=== PATIENT | male | born 1955 | race Caucasian/White ===

== ENCOUNTER 2023-11-14 16:08 | Emergency (ER) | payer MEDICARE, OTHER, SELFPAY ==
--- NOTE | ~2023-11-14 | XR_ITS ---
EXAMINATION: XR chest 2V 11/14/2023 17:14 INDICATION: Cough and shortness of breath PROCEDURE: 2 view chest COMPARISON: No prior studies for comparison. FINDINGS: The lungs are clear. There is a right total shoulder arthroplasty. The cardiomediastinal si lhouette is within normal limits. There are no pleural effusions. There is no pneumothorax suspecte d. IMPRESSION: 1: NO ACUTE CARDIOPULMONARY DISEASE. Reviewed, dictated and finalized at location A.
[2023-11-14 16:09] VITALS: BP 135/61; PULSE 65; RESP 20; TEMP 36.1; O2SAT 98
--- NOTE | 2023-11-14 16:58 | ED.SOB ---
HPI - SOB/Dyspnea General Chief Complaint: Shortness of Breath/Dyspnea <Nish Viera APRN - Last Filed: 11/14/23 17:04> Stated Complaint: congestion in lungs/cough/SOB <Nish Viera APRN - Last Filed: 11/14/23 17:04> Time Seen by Provider: 11/14/23 17:00 <Nish Viera APRN - Last Filed: 11/14/23 17:04> Focused HPI: Mr. Milton is a 60-year-old male patient presenting to the ER today with complaints of 3 week course of shortness of breath and chest congestion and cough. He reports that the cough is productive-bringing up green phlegm. Has a history of asthma and long COVID. Take Symbicort and albuterol for this. Denies any chest pain. Just finished a Z-Musa yesterday that his gave him. History of congestive heart failure General: Well-developed, morbidly obese, in no apparent distress Head: Normocephalic, atraumatic. Cardio: Regular rate and rhythm, s1 and s2 normal, no murmur appreciated. Resp: Mild expiratory rhonchi throughout lung carver, no rales, wheezing or rubs. Extremities: No deformity, trace pitting edema in bilateral lower extremities, no cyanosis, capillary refill less than 2 seconds, peripheral pulses palpable and strong. Integumentary: [place], warm, and dry, intact without lesion, no rashes. Patient screened in triage and initial orders placed. Additional care and disposition to be based upon diagnostic testing and treatment. <Nish Viera APRN - Last Filed: 11/14/23 17:04> Focused HPI: Mr. Milton is a 60-year-old male patient presenting to the ER today with complaints of 3 week course of shortness of breath and chest congestion and cough. He reports that the cough is productive-bringing up green phlegm. Has a history of asthma and long COVID. Take Symbicort and albuterol for this. Denies any chest pain. Just finished a Z-Musa yesterday that his gave him. History of congestive heart failure General: Well-developed, morbidly obese, in no apparent distress Head: Normocephalic, atraumatic. Cardio: Regular rate and rhythm, s1 and s2 normal, no murmur appreciated. Resp: Mild expiratory rhonchi throughout lung carver, no rales, wheezing or rubs. Extremities: No deformity, trace pitting edema in bilateral lower extremities, no cyanosis, capillary refill less than 2 seconds, peripheral pulses palpable and strong. Integumentary: [place], warm, and dry, intact without lesion, no rashes. Patient screened in triage and initial orders placed. Additional care and disposition to be based upon diagnostic testing and treatment. <Aster Mosley PA-C - Last Filed: 11/15/23 03:33> Source: patient <Nish ANGEL LUIS Viera - Last Filed: 11/14/23 17:04> Mode of arrival: ambulatory <Nish Viera APRN - Last Filed: 11/14/23 17:04> Limitations: no limitations <Nish Viera APRN - Last Filed: 11/14/23 17:04> History of Present Illness HPI Narrative: Agree with above MSE documentation. Denies fevers or known sick contacts. Denies lower extremity pain or swelling. States he has history of COVID long hauler syndrome. <Aster Mosley PA-C - Last Filed: 11/15/23 03:33> Related Data Allergies/Adverse Reactions: Allergies Allergy/AdvReac Type Severity Reaction Status Date / Time oxycodone Allergy Mild Unknown Verified 11/14/23 17:34 nafcillin Allergy Unknown Unknown Verified 11/14/23 17:34 <Nish Viera APRN - Last Filed: 11/14/23 17:04> Review of Systems Review of Systems: CONSTITUTIONAL: Denies fever, chills, or sweats. ENT: See HPI. CARDIOVASCULAR: Denies chest pain, palpitations, or edema. RESPIRATORY: See HPI. MUSCULOSKELETAL: Denies back pain, extremity pain, myalgia. <HMA Castellon Last Filed: 11/15/23 03:33> All systems reviewed & are unremarkable except as noted in HPI and below <HAM Castellon Last Filed: 11/15/23 03:33> [facility] Social History Socia
[2023-11-14 17:41] LABS: Basophils Absolute Auto 0.1 K/mm3 (0.0-0.1); Basophils Percent Auto 0.5 % (0.2-1.2); Eosinophils Absolute Auto 0.3 K/mm3 (0-0.3); Eosinophils Percent Auto 3.4 % (0-4.4); Hematocrit 37.4 % (42.0-52.0); Hemoglobin 11.4 g/dL (14.0-18.0); Immature Granulocyte Absolute 0.07 K/mm3 (0.00-0.031); Immature Granulocyte Percent A 0.8 % (0-0.5); Lymphocytes Percent Auto 26.9 % (18.3-44.2); Mean Corpuscular HGB Conc 30.5 g/dl (32-36); Mean Corpuscular Hemoglobin 25.4 pg (26-34); Mean Corpuscular Volume 83.3 fl (80-100); Mean Platelet Volume 10.1 fl (7.4-10.4); Monocytes Absolute Auto 0.9 K/mm3 (0.1-0.6); Monocytes Percent Auto 9.4 % (2.6-8.5); Neutrophils Absolute Auto 5.5 K/mm3 (1.3-6.7); Platelet Count Result 255 k/mm3 (150-375); Red Blood Count 4.49 M/mm3 (4.6-6.20); Red Cell Distribution Width 15.2 % (11.5-14.5); White Blood Count 9.3 K/mm3 (4.5-10.0)
[2023-11-14 18:00] VITALS: BP 117/63; PULSE 58; RESP 18; O2SAT 99
[2023-11-14 18:06] LABS: NT Pro B Type Natriuretic Pept 672 pg/mL (19.9-100)
--- NOTE | 2023-11-14 18:07 | ECG_ITS ---
SEE SCANNED COPY FOR CONFIRMED REPORT MTDD
[2023-11-14] MEDS: methylPREDNISolone SOD SUCC 125 MG VIAL IV PUSH (18:14)
[2023-11-14] MEDS: LEVALBUTEROL NEB 1.25 MG/3 ML 2.5 MG INHALATION (18:18)
[2023-11-14] MEDS: IPRATROPIUM BR 0.02% INH SOLN 0.5 MG/2.5 ML VIAL 1.5 MG INHALATION (18:18)
[2023-11-14 18:20] VITALS: PULSE 56; RESP 12
[2023-11-14 18:31] LABS: D Dimer 0.44 ug/mL (<0.48)
[2023-11-14 18:35] LABS: Influenza A QL RT-PCR Negative (Negative); Influenza B QL RT-PCR Negative (Negative); RSV RNA, RT-PCR Negative (Negative); SARS-CoV-2 RNA PCR Negative (Negative)
[2023-11-14 18:45] VITALS: BP 128/81; PULSE 56; RESP 12; O2SAT 100
[2023-11-14 18:48] LABS: Alanine Aminotransferase 21 U/L (6-50); Albumin Level 4.8 g/dL (3.5-5.1); Alkaline Phosphatase 115 U/L (38-126); Anion Gap 14 mmol/L (4-12); Aspartate Amino Transferase 21 U/L (17-59); Bilirubin,Total 0.6 mg/dL (0.2-1.3); Blood Urea Nitrogen 59 mg/dL (9-20); Calcium 9.8 mg/dL (8.4-10.2); Carbon Dioxide 19 mmol/L (22-30); Chloride 108 mmol/L (98-107); Estimated CRCL calculation 41 ml/min; Estimated Glomerular Filt Rate 27; Glucose 66 mg/dL (65-110); Potassium 4.4 mmol/L (3.4-5.0); Sodium 141 mmol/L (137-145)
[2023-11-14 19:58] VITALS: BP 103/42; PULSE 62; PULSE 65; RESP 20; O2SAT 98
[2023-11-14 20:12] LABS: Troponin I < 0.012 ng/mL (0.000-0.034)
[2023-11-14 21:10] VITALS: BP 107/50; PULSE 80; RESP 19; O2SAT 97
== END 2023-11-14 21:10 | disposition home or self-care (01) ==
PROVIDERS: Nurse Practitioner Family; Emergency Provider Physician Assistant
DX: J44.1 Chronic obstructive pulmonary disease with (acute) exacerbation (principal); Z20.822 Contact with and (suspected) exposure to COVID-19; I50.9 Heart failure, unspecified; U09.9 Post COVID-19 condition, unspecified; E66.01 Morbid (severe) obesity due to excess calories; Z68.42 Body mass index [BMI] 45.0-49.9, adult; I48.91 Unspecified atrial fibrillation
CPT/HCPCS: 36415; 71046; 80053; 83880; 84484; 85025; 85380; 87637; 93005; 94640; 96374; 99284; J2919

== ENCOUNTER 2024-07-24 14:51 | Inpatient (IN) | payer MEDICARE, OTHER, SELFPAY ==
--- NOTE | ~2024-07-24 | CT_ITS ---
EXAMINATION: CT abdomen pelvis wo con DATE: 07/27/2024 23:14 INDICATION: Low abdominal pain. TECHNIQUE: Computed tomography (CT) of the abdomen and pelvis was performed without intravenous contr ast. Automated exposure control and iterative reconstruction technique were employed. The dose-length product was 1825.30 mGy-cm. COMPARISON: None. FINDINGS: The visualized portions of lung bases demonstrate mild atelectasis. No pleural effusion. Th ere is left atrial enlargement of the heart. No pericardial effusion. The liver, gallbladder, spleen, pancreas, and left adrenal gland are normal. There is an 8 mm mass of fat in right adrenal gland, co nsistent with a myelolipoma. There are cysts in the kidneys measuring up to 2.7 cm on the right. The prostate is mildly enlarged. There are no dilated loops of bowel. There are changes of gastric sleeve procedure. 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 There is prominent fat in the inguinal canals. There are no pathologically enlarged lymph nodes. There is no free intraperitoneal fluid. The bladder is distended. There is a supraumbilical ventral hernia containing fat. There is severe lumbar spondy losis. There are changes of anterior and posterior fusion procedures at L3-L4. IMPRESSION: 1. Supraumbilical ventral hernia containing fat. 2. Prominent fat in the inguinal canals, which may be secondary to obesity or may be hernias. Reviewed, dictated and finalized at location A. RVISOR SUNGLASSES IMPRESSION: 1. Supraumbilical ventral hernia containing fat. 2. Prominent fat in the inguinal canals, which may be secondary to obesity or m ay be hernias.
--- NOTE | ~2024-07-24 | XR_ITS ---
EXAMINATION: XR knee LT 3V DATE: 07/24/2024 15:34 INDICATION: Left knee swelling. TECHNIQUE: 3 views of left knee were obtained. COMPARISON: None. FINDINGS: There is a medial compartment arthroplasty in near-anatomic alignment. No fracture. No nazia prosthetic lucency to suggest loosening or infection. There is mild osteoarthritis of lateral and pat ellofemoral compartments. There is a large knee joint effusion with loose body. IMPRESSION: 1. Medial compartment arthroplasty in near-anatomic alignment. 2. Mild left knee osteoarthritis. 3. Large knee joint effusion with loose body. Reviewed, dictated and finalized at location A. RVENTION MANAGER
--- NOTE | ~2024-07-24 | XR_ITS ---
EXAMINATION: XR chest 2V 07/24/2024 15:34 INDICATION: Cough PROCEDURE: 2 view chest COMPARISON: 11/14/2023 FINDINGS: The lungs are clear. The cardiomediastinal silhouette is within normal limits. There are no pleural effusions. There is no pneumothorax suspected. Partially visualized right shoulder arthr oplasty. IMPRESSION: 1: NO ACUTE CARDIOPULMONARY DISEASE. Reviewed, dictated and finalized at location B. LE TESTER
[2024-07-24 14:53] VITALS: BP 143/82; PULSE 80; RESP 16; TEMP 36.4; O2SAT 96
[2024-07-24] MEDS: MORPHINE SULFATE (*CRX) 4 MG/ML INJ IV PUSH (15:57)
[2024-07-24 16:14] LABS: Basophils Percent Auto 0.3 % (0.2-1.2); Eosinophils Absolute Auto 0.2 K/mm3 (0-0.3); Eosinophils Percent Auto 1.3 % (0-4.4); Hematocrit 38.6 % (42.0-52.0); Hemoglobin 12.2 g/dL (14.0-18.0); Immature Granulocyte Absolute 0.09 K/mm3 (0.00-0.031); Immature Granulocyte Percent A 0.8 % (0-0.5); Lymphocytes Absolute Auto 0.81 K/mm3 (0.9-3.2); Lymphocytes Percent Auto 7.1 % (18.3-44.2); Mean Corpuscular HGB Conc 31.6 g/dl (32-36); Mean Corpuscular Hemoglobin 25.3 pg (26-34); Mean Corpuscular Volume 79.9 fl (80-100); Mean Platelet Volume 9.6 fl (7.4-10.4); Monocytes Absolute Auto 0.9 K/mm3 (0.1-0.6); Monocytes Percent Auto 8.1 % (2.6-8.5); Neutrophils Absolute Auto 9.4 K/mm3 (1.3-6.7); Neutrophils Percent Auto 82.4 % (45.5-73.1); Platelet Count Result 414 k/mm3 (150-375); Red Blood Count 4.83 M/mm3 (4.6-6.20); Red Cell Distribution Width 15.4 % (11.5-14.5); White Blood Count 11.4 K/mm3 (4.5-10.0)
[2024-07-24 16:16] LABS: Alanine Aminotransferase 24 U/L (6-50); Albumin Level 3.8 g/dL (3.5-5.1); Alkaline Phosphatase 115 U/L (38-126); Anion Gap 9 mmol/L (4-12); Aspartate Amino Transferase 32 U/L (17-59); Bilirubin,Total 0.8 mg/dL (0.2-1.3); Blood Urea Nitrogen 26 mg/dL (9-20); Calcium 9.7 mg/dL (8.4-10.2); Carbon Dioxide 27 mmol/L (22-30); Chloride 102 mmol/L (98-107); Estimated Glomerular Filt Rate 35; Glucose 190 mg/dL (65-110); Potassium 3.6 mmol/L (3.4-5.0); Sodium 138 mmol/L (137-145); Uric Acid 9.6 mg/dL (3.5-8.5)
[2024-07-24 16:39] LABS: INR 4.8
[2024-07-24 16:40] LABS: Partial Thromboplastin Time 91.5 Seconds (22.3-36.8)
[2024-07-24 16:44] LABS: NT Pro B Type Natriuretic Pept 2070 pg/mL (19.9-100)
[2024-07-24 16:50] LABS: Erythrocyte Sedimentation Rate 64 mm/hr (0-20)
[2024-07-24] MEDS: COLCHICINE 0.6 MG TABLET 1.2 MG PO (17:13)
--- NOTE | 2024-07-24 17:32 | ED_ITS ---
HPI - Extremity Problem General Chief complaint: Extremity Problem,Nontraumatic Stated complaint: bilateral leg/feet swelling Time Seen by Provider: 07/24/24 15:02 History of Present Illness HPI Narrative: Patient is a 69-year-old male who presents ER with concerns for lower extremity swelling and gout flare. Patient has history of gout. Reports that over last month he has been having some achiness and extremity edema, this began after he stopped tolerating his Ozempic injections. Over the last 3 days he has developed increased swelling in the left knee. He is now unable to walk or transfer. Prior to a few days ago he could at least transfer. Patient is anticoagulated on Coumadin. He has chronic kidney disease. Reports he is typically treated with prednisone for his gout. Related Data Allergies Allergy/AdvReac Type Severity Reaction Status Date / Time oxycodone Allergy Mild Unknown Verified 11/14/23 17:34 nafcillin Allergy Unknown Unknown Verified 11/14/23 17:34 Review of Systems 2 Review of Systems: All systems reviewed & are unremarkable except as noted in HPI and below Constitutional: Constitutional: Reports no additional constitutional complaints ENT: Reports system reviewed and no additional complaints, except as documented Cardiovascular: Cardiovascular: Reports no additional cardiovascular complaints Gastrointestinal: Gastrointestinal: Reports no additional gastrointestinal complaints Genitourinary: Genitourinary: Reports no additional male genitourinary complaints Musculoskeletal: Musculoskeletal: Denies back pain, Reports arthralgias and Reports joint swelling PMFSH Past Medical History Medical History (Updated 07/24/24 @ 17:42 by Srikanth Lutz MD) DVT (deep venous thrombosis) Diabetes Chronic kidney disease Surgical History Surgical History (Updated 07/24/24 @ 17:40 by Srikanth Lutz MD) History of knee replacement, total bilateral Social History Social History Smoking status: Never smoker Exam 2 Narrative: GENERAL: chronically ill-appearing, obese, and in no acute distress. HEAD: Normocephalic, atraumatic. ENT: Mucous membranes moist. NECK: Supple. CHEST: Clear to auscultation. No respiratory distress. HEART: Regular rate and rhythm. Normal peripheral pulses. ABDOMEN: Soft, nontender, nondistended. EXTREMITIES: able to perform range of motion left knee the with increased pain. Large effusion to left knee. Mild erythema to the left great toe / 1st MTP but no tenderness or warmth. No warmth to left knee. Normal upper extremities. 2+ edema bilaterally. SKIN: Warm, dry, no rash. NEURO: Alert and oriented x3. PSYCH: Normal mood and affect. Course Course Emergency Course: Unable to ambulate. Significant wall fall risk given elevated INR. Inflammatory markers elevated and he has history of gout so colchicine ordered. Vital Signs Vital signs: Vital Signs Temperature 97.6 F 07/24/24 14:53 Pulse Rate 80 07/24/24 14:53 Respiratory Rate 16 07/24/24 14:53 Blood Pressure 143/82 H 07/24/24 14:53 Pulse Oximetry 96 07/24/24 14:53 Temperature 97.6 F 07/24/24 14:53 Pulse Rate 80 07/24/24 14:53 Respiratory Rate 16 07/24/24 14:53 Blood Pressure 143/82 H 07/24/24 14:53 Pulse Oximetry 96 07/24/24 14:53 MDM - Extremity (Nontraumatic) Lab Data 07/24/24 15:54 07/24/24 15:54 Labs: Lab Results 07/24/24 07/24/24 Range/Units 15:54 15:54 WBC 11.4 H (4.5-10.0) K/mm3 RBC 4.83 (4.6-6.20) M/mm3 Hgb 12.2 L (14.0-18.0) g/dL Hct 38.6 L (42.0-52.0) % MCV 79.9 L (80-100) fl MCH 25.3 L (26-34) pg MCHC 31.6 L (32-36) g/dl RDW 15.4 H (11.5-14.5) % Plt Count 414 H D (150-375) k/mm3 MPV 9.6 (7.4-10.4) fl Immature Gran % (Auto) 0.8 H (0-0.5) % Neut % (Auto) 82.4 H (45.5-73.1) % Lymph % (Auto) 7.1 L (18.3-44.2) % [place] % (Auto) 8.1 (2.6-8.5) % Eos % (Auto) 1.3 (0-4.4) % Baso % (Auto) 0.3 (0.2-1.2) % Lymph # (Auto) 0.81 L (0.9-3.2) K/mm3 [place] # (Auto) 0.9 H (0.1-0.6) K/mm3 Eos # (Auto) 0.2 (0-0.3) K/mm3 Baso # (Auto) 0.0 (0.0-0.1) K/mm3 Abs Immat Gran (auto) 0.09 H (0.00-0.031) K/mm3 Absolute Neuts (auto) 9.4 H (1.3-6.7) K/mm3 Absolute Nucleated RBC 0.000 (0.0-0.012) K/mm3 Nucleated RBC % 0.0 (0.0-0.2) % ESR 64 H (0-20) mm/hr PT 46.0 H (11.1-14.7) Seconds INR 4.8 APTT 91.5 H (22.3-36.8) Seconds Sodium 138 (137-145) mmol/L Potassium 3.6 (3.4-5.0) mmol/L Chloride 102 (98-107) mmol/L Carbon Dioxide 27 (22-30) mmol/L Anion Gap 9 (4-12) mmol/L BUN 26 H D (9-20) mg/dL Creatinine 1.90 H (0.7-1.3) mg/dL Estim Creat Clear Calc Not Reportable Estimated GFR 35 L (59 - ) Glucose 190 H (65-110) mg/dL Uric Acid 9.6 H (3.5-8.5) mg/dL Calcium 9.7 (8.4-10.2) mg/dL Total Bilirubin 0.8 (0.2-1.3) mg/dL AST 32 (17-59) U/L ALT 24 (6-50) U/L Alkaline Phosphatase 115 (38-126) U/L C-Reactive Protein 30.0 H (<1.0) mg/dL NT-Pro-B Natriuret Pep 2070 H Cancelled (19.9-100) pg/mL Total Protein 8.0 (6.3-8.2) g/dL Albumin 3.8 (3.5-5.1) g/dL Imaging Data Radiologist's impression: ITS Impressions Chest X-Ray 07/24/24 15:35 IMPRESSION: 1: NO ACUTE CARDIOPULMONARY DISEASE. Knee X-Ray 07/24/24 15:36 IMPRESSION: 1. Medial compartment arthroplasty in near-anatomic alignment. 2. Mild left knee osteoarthritis. 3. Large knee joint effusion with loose body. Discharge Plan Discharge Clinical Impression: Gout Patient Disposition: Still a Patient Condition: Stable Patient Language: Slovenian Prescriptions: No Action benzonatate 200 mg capsule 200 mg PO TID PRN (Reason: cough) Qty: 15 0RF prednisone 50 mg tablet 50 mg PO DAILY Qty: 5 0RF levofloxacin 750 mg tablet 750 mg PO DAILY 7 Days Qty: 7 0RF Follow-up/Referrals: UNKNOWN,DOCTOR [Primary Care Provider] -
[2024-07-24] MEDS: COLCHICINE 0.6 MG TABLET PO (18:33)
[2024-07-24 19:00] VITALS: BP 111/62; PULSE 78; RESP 16; O2SAT 96
[2024-07-24] MEDS: SODIUM CHLORIDE 0.9% IV 1,000 ML 125 ML IV CONT (20:07)
[2024-07-24 20:13] VITALS: BP 119/73; PULSE 82; RESP 17; O2SAT 97
[2024-07-24 20:40] LABS: Glucose Point of Care 145 mg/dl (65-105)
[2024-07-24 20:45] VITALS: BP 147/87; PULSE 86; RESP 17; TEMP 37.1; O2SAT 95; BMI 41.9
[2024-07-24] MEDS: HYDROcodone/acetaminophen (*CRX) 5-325 MG TABLET 1 TAB PO (21:05)
--- NOTE | 2024-07-24 21:08 | ADMGEN ---
This patient, Franco Milton, was admitted to 3 [facility] Surg Room 302-01. Patient/family oriented to hospital policies and general routines including ID bracelet, bed and alarms, visiting hours, pain management, procedures, bathroom and other care routines, personal items, smoking policy, room service/diet, and visiting hours. Information on how to activate the Rapid Response Team has been discussed. Patient/Family are encouraged to report perceived risks to care and to ask questions if they do not understand what they are told or what they should do.
[2024-07-24 21:15] VITALS: BP 147/87; PULSE 86; RESP 17; TEMP 37.1; O2SAT 95
--- NOTE | 2024-07-25 00:12 | PM.IMHP ---
H&P: HPI History of Present Illness Date/Time: 07/25/24 00:12 Chief Complaint: Foot and leg swelling of both sides 1 month Narrative: 69-[facility]-old male [facility] patient with past medical history CVA, atrial fibrillation, CHF, DVT right lower extremity, essential hypertension, COPD, obstructive sleep apnea, stage 4 chronic kidney disease, glaucoma, type 2 diabetes mellitus and depression, gout and bilateral knee replacements who presented to the ER with increased left knee swelling and increasing pain. The patient reports that he has a history of gout but he usually only attacks 1 joint. But over recent weeks he has been having waxing and waning pain in his left knee, left ankle, left hip and left shoulder. He reports that the pain eaten in his left knee is accompanied by significant swelling. He reported that the pain had become so bad that yesterday he was unable to stand up from his wheelchair. The pain was worse with movement or weight-bearing. He has not noticed any fevers or chills. He denies any recent infections or trauma to the knee. He had his right knee placed somewhere around when he was 40 any had his left knee replaced at [facility] many years ago. His uric acid, ESR, CRP and white count were evaluated in the ER. He received 1 dose of colchicine and had significant improvement in his pain by the time of my evaluation which was about 6 hours after arrival to the floor. He denied noticing any increased warmth to his knee but I mention did at the time my evaluation. He actually reports that the majority of pain in his knee. He does admit that his ankle and hip discomfort as well as shoulder pain may be due to how he is walking with increased pain in his knee. He denies any chest pain, shortness of breath, palpitations, nausea, vomiting or changes in bowel habits. He did have a distant history of an MRSA infection in his spine but is not on antibiotics any longer. He does have type 2 diabetes mellitus. He reported that when he started on Ozempic his blood sugars were well controlled. But they increased his Ozempic dose last month and he subsequently has not been tolerating it. He has not been eating as much and feels as if food is just not passing. He does not feel overtly constipated. He had a bowel movement yesterday. He last took his Ozempic about 3 weeks ago. He is feeling better after holding the Ozempic. He reports that his urine output has been stable. He he does have known chronic kidney disease stage 4 but denies any hematuria or dysuria. He follows with Nephrology at the [place]. he wears a CPAP. His CPAP is quite loose at the time of my evaluation. He will not let me adjust his mask at all. He is supposed to have a repeat sleep study next month. Patient is on Coumadin. He was supposed to have his INR earlier this week but did not do so due to his pain and decreased mobility. His INR in the ER was elevated above 4. He denied any increased bruising or bleeding. He denied recent antibiotics or recent changes in medications. It had been a month since his last INR. Review of Systems Review of Systems: 12 systems were reviewed with pertinent positives and negatives per HPI. Except as documented in the HPI, all other systems were reviewed and are negative. [facility] Past Medical History Medical History (Updated 07/25/24 @ 08:30 by Jennifer Danielson DO) Diabetic peripheral neuropathy Bipolar disorder PTSD (post-traumatic stress disorder) Depression Thyroid nodule Glaucoma GERD (gastroesophageal reflux disease) Obstructive sleep apnea COPD (chronic obstructive pulmonary disease) Essential hypertension CHF (congestive heart failure) Chronic anticoagulation Atrial fibrillation CVA (cerebral vascular accident) DVT (deep venous thrombosis) Right lower extremity Diabetes Prior to Ozempic his A1c was 14 after Ozempic his A1c is down to 6.2 Chronic kidney disease Stage IV Surgical History Surgical History (Updated 07/25/24 @ 00:23 by Jennifer Danielson DO) History of arthroplasty of right shoulder History of spinal fusion Complicated by MRSA infection History of gastric bypass (~2014) History of knee replacement, total bilateral Family History Family History (Updated 07/25/24 @ 00:28 by Jennifer Danielson DO) Father Parkinson's disease Hypertension Mother Hypertension Social History Social History (Updated 07/25/24 @ 08:21 by Jennifer Danielson DO) Social History: He lives with his of approximately 40 years. He served in the [employer] for 11 years. 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 He is a lifelong nonsmoker and has not drink to any significant amount since he was in his early 20s or 30s. He denies ever having been a problem drinker. He denies illicit substance use. He ambulates with a walker or utilizes a wheelchair for mobility. Code status: Full code Surrogate decision maker: Smoking status: Never smoker Alcohol intake: never Substance use: never Do You Feel Safe in your Home?: Yes Lack of Transportation: No Lack of Food: Never True Current Housing: I Have Housing Concerned About Future Housing: No Difficulty Paying Gas/Electric Bills: No Difficulty Paying for Meds: No Currently Unemployed: No Education: High School Diploma/GED Difficulty w/ Childcare or Family Care: No Spiritual care concerns: No Meds Home Medications and Allergies Home Medications ?Medication ?Instructions ?Recorded ?Confirmed ?Type Lactobacillus acidophilus 0.5 mg 100 mmu cells PO DAILY 07/24/24 07/24/24 History (100 million cell) tablet atorvastatin 80 mg tablet 80 mg PO HS 07/24/24 07/24/24 History cetirizine 10 mg tablet (24Hour 10 mg PO DAILY 07/24/24 07/24/24 History Allergy) cholecalciferol (vitamin D3) 50 4,000 unit PO DAILY 07/24/24 07/24/24 History mcg (2,000 unit) capsule (Vitamin D3) empagliflozin 25 mg tablet 12.5 mg PO DAILY diabetes 07/24/24 07/24/24 History furosemide 40 mg tablet (Lasix) 40 mg PO DAILY 07/24/24 07/24/24 History insulin aspart U-100 100 unit/mL 20 unit subcut BID 07/24/24 07/24/24 History subcutaneous solution insulin glargine 100 unit/mL 20 unit subcut BID 07/24/24 07/24/24 History subcutaneous solution (Lantus U-100 Insulin) losartan 50 mg tablet (Cozaar) 50 mg PO DAILY HTN 07/24/24 07/24/24 History mirtazapine 45 mg tablet 45 mg PO HS restless legs 07/24/24 07/24/24 History omeprazole 40 mg capsule,delayed 40 mg PO BID 07/24/24 07/24/24 History release paroxetine HCl 20 mg tablet 20 mg PO DAILY 07/24/24 07/24/24 History warfarin 2 mg tablet 2 mg PO QMWF 07/24/24 07/24/24 History warfarin 3 mg tablet 3 mg PO [id number] 12/19/24 12/19/24 History zolpidem 10 mg tablet 10 mg PO HS PRN insomnia 07/24/24 07/24/24 History Allergies Allergy/AdvReac Type Severity Reaction Status Date / Time nafcillin Allergy Unknown Unknown Verified 11/14/23 17:34 oxycodone AdvReac Mild Unknown Verified 07/24/24 20:42 Vital Signs Vital Signs - 24 hr 07/24/24 14:53 07/24/24 19:00 07/24/24 20:13 Temperature 97.6 F Pulse Rate 80 78 82 Respiratory Rate 16 16 17 Blood Pressure 143/82 H 111/62 119/73 Pulse Oximetry 96 96 97 Oxygen Delivery 07/24/24 20:45 07/24/24 21:15 07/24/24 21:28 Temperature 98.7 F 98.7 F Pulse Rate 86 86 Respiratory Rate 17 17 Blood Pressure 147/87 H 147/87 H Pulse Oximetry 95 95 Oxygen Delivery Room Air 07/24/24 22:02 Temperature Pulse Rate Respiratory Rate Blood Pressure Pulse Oximetry Oxygen Delivery Room Air Exam Narrative: Weight 140.2 kg BMI 41.9 Const: Other: Morbidly obese, chronically ill-appearing, no acute distress, lying in bed with head of bed at 30?, nasal CPAP in place HENMT: Other: Head is normocephalic atraumatic, mucous membranes are tacky, a few petechiae to the soft palate, markedly crowded posterior oropharynx Eyes: Other: Pupils are equal and reactive, no scleral icterus, extraocular movements intact Neck: Other: Large neck circumference, difficult to assess for JVD or lymphadenopathy to body habitus, nontender Resp: Other: Equal breath sounds bilaterally, no increased work of breathing Cardio: Other: Regular rate, regular rhythm, 2+ bilateral radial pedal pulses GI: Other: Obese, nontender, normoactive bowel sounds, soft Skin: Other: No large areas of bruising or bleeding noted to exposed areas of skin, no foot wounds Neuro: Other: Patient is alert orient x4, speech is clear, no facial asymmetry, no acute localizing neurologic deficits noted during the course of conversation Extrem: Other: The patient has bilateral knee effusions but left significantly greater than right, no associated overlying erythema but slight increased warmth of left compared to right Psych: Other: Flat affect, cooperative H&P: Results Labs Labs: Laboratory Tests 07/24/24 15:54 07/24/24 15:54 07/24/24 07/24/24 07/24/24 15:54 15:54 20:37 WBC 11.4 H RBC 4.83 Hgb 12.2 L Hct 38.6 L MCV 79.9 L MCH 25.3 L MCHC 31.6 L RDW 15.4 H Plt Count 414 H D MPV 9.6 Immature Gran % (Auto) 0.8 H Neut % (Auto) 82.4 H Lymph % (Auto) 7.1 L [place] % (Auto) 8.1 Eos % (Auto) 1.3 Baso % (Auto) 0.3 Lymph # (Auto) 0.81 L [place] # (Auto) 0.9 H Eos # (Auto) 0.2 Baso # (Auto) 0.0 Abs Immat Gran (auto) 0.09 H Absolute Neuts (auto) 9.4 H Absolute Nucleated RBC 0.000 Nucleated RBC % 0.0 ESR 64 H PT 46.0 H INR 4.8 APTT 91.5 H Sodium 138 Potassium 3.6 Chloride 102 Carbon Dioxide 27 Anion Gap 9 BUN 26 H D Creatinine 1.90 H Estim Creat Clear Calc Not Reportable Estimated GFR 35 L Glucose 190 H POC Capillary Glucose 145 H Uric Acid 9.6 H Calcium 9.7 Total Bilirubin 0.8 AST 32 ALT 24 Alkaline Phosphatase 115 C-Reactive Protein 30.0 H NT-Pro-B Natriuret Pep 2070 H Cancelled Total Protein 8.0 Albumin 3.8 Impressions Chest X-Ray 07/24/24 15:35 IMPRESSION: 1: NO ACUTE CARDIOPULMONARY DISEASE. Knee X-Ray 07/24/24 15:36 IMPRESSION: 1. Medial compartment arthroplasty in near-anatomic alignment. 2. Mild left knee osteoarthritis. 3. Large knee joint effusion with loose body. All imaging and EKGs personally reviewed and interpreted. And unless stated otherwise agree with radiologic and cardiology interpretation. Assessment and Plan Assessment and plan (1) Effusion of left knee: Code(s): M25.462 - Effusion, left knee Status: Acute (2) Left knee pain: Qualifiers: Chronicity: acute Qualified Code(s): M25.562 - Pain in left knee Code(s): M25.562 - Pain in left knee Status: Acute (3) Gout: Qualifiers: Chronicity: acute Gout etiology: due to renal impairment Gout site: knee Laterality: left Qualified Code(s): M10.362 - Gout due to renal impairment, left knee Code(s): M10.9 - Gout, unspecified Status: Acute (4) Supratherapeutic INR: Code(s): R79.1 - Abnormal coagulation profile Status: Acute (5) Chronic anticoagulation: Code(s): Z79.01 - 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 He also has pain of the ankle, left hip and left shoulder. However it sounds like the pain of the knee preceded the pain of the other joints and the other joints may be hurting in compensation to changes in gait pattern with left knee pain. Patient does report long history of gout. However given that the patient's INR is significantly elevated and that there is a radiopaque body likely bone fragment on imaging I am more suspicious of possible hemarthrosis. But given the significant improvement in the patient's joint pain since admission and very well could be that his pain is improving due to initiation of colchicine for gouty arthritis. Will repeat INR in a.m. and continue to hold the patient's Coumadin. If the patient's knee pain is worsening or not improving then we may need to consider possible orthopedic consult for arthrocentesis to send fluid for analysis. Currently patient is afebrile. Will repeat CBC in a.m. white count is going down this could be somewhat reassuring that infection is less likely since patient has not received any antibiotic therapy. Will continue p.r.n. [place]. Will resume the patient's home diabetic medications. Will add moderate dose sliding scale insulin with Accu-Cheks a.c. HS. The patient took his home continuous glucose monitor off because it had just prior to admission. Hypoglycemia protocol has been ordered as needed. Patient does have chronic kidney disease stage 4. Will avoid NSAIDs patient's creatinine appears to be at or near baseline. Will repeat electrolyte panel in a.m.. Will continue home CPAP. Quality If No VTE Prophylaxis Answer both mechanical and pharmacologic: Reason no mechanical VTE proph: medical contraindication Reason no pharmacologic proph: medical contraindication supratherapeutic INR >3 Hospitalist MIPS Advance Care Plan I have confirmed that the patient's Advanced Care Plan is present, code status is documented, or surrogate decision maker is listed in patient medical record.: Yes Medication Reconciliation I have utilized all available resources to obtain, update and review the patients current medications (includes all prescriptions, OTC, herbals, cannabis, and nutritional supplements).: Yes
[2024-07-25] MEDS: SODIUM CHLORIDE 0.9% IV 1,000 ML 125 ML IV CONT ×3 (01:07→20:33)
[2024-07-25 05:20] VITALS: BP 130/69; PULSE 66; RESP 16; TEMP 36.1; O2SAT 97
[2024-07-25 06:44] LABS: Basophils Percent Auto 0.4 % (0.2-1.2); Eosinophils Absolute Auto 0.2 K/mm3 (0-0.3); Eosinophils Percent Auto 1.5 % (0-4.4); Hematocrit 29.4 % (42.0-52.0); Hemoglobin 9.2 g/dL (14.0-18.0); Immature Granulocyte Absolute 0.06 K/mm3 (0.00-0.031); Immature Granulocyte Percent A 0.6 % (0-0.5); Lymphocytes Absolute Auto 1.12 K/mm3 (0.9-3.2); Lymphocytes Percent Auto 11.1 % (18.3-44.2); Mean Corpuscular HGB Conc 31.3 g/dl (32-36); Mean Corpuscular Hemoglobin 24.9 pg (26-34); Mean Corpuscular Volume 79.7 fl (80-100); Mean Platelet Volume 9.5 fl (7.4-10.4); Monocytes Percent Auto 9.8 % (2.6-8.5); Neutrophils Absolute Auto 7.7 K/mm3 (1.3-6.7); Neutrophils Percent Auto 76.6 % (45.5-73.1); Platelet Count Result 377 k/mm3 (150-375); Red Blood Count 3.69 M/mm3 (4.6-6.20); Red Cell Distribution Width 15.4 % (11.5-14.5); White Blood Count 10.1 K/mm3 (4.5-10.0)
[2024-07-25 06:48] LABS: Prothrombin Time 49.4 Seconds (11.1-14.7)
[2024-07-25 06:50] LABS: Anion Gap 6 mmol/L (4-12); Blood Urea Nitrogen 23 mg/dL (9-20); Calcium 9.3 mg/dL (8.4-10.2); Carbon Dioxide 26 mmol/L (22-30); Chloride 107 mmol/L (98-107); Estimated CRCL calculation 51 ml/min; Estimated Glomerular Filt Rate 38; Glucose 126 mg/dL (65-110); Phosphorus 3.5 mg/dL (2.5-4.5); Potassium 3.5 mmol/L (3.4-5.0); Sodium 139 mmol/L (137-145)
[2024-07-25 07:20] LABS: Procalcitonin 0.2 ng/mL
[2024-07-25 07:39] LABS: INR 5.3
[2024-07-25 07:56] LABS: Glucose Point of Care 115 mg/dl (65-105)
[2024-07-25 10:08] VITALS: O2SAT 94
[2024-07-25] MEDS: ONDANSETRON INJ 4 MG/2 ML VIAL IV PUSH ×2 (10:53→15:42)
[2024-07-25] MEDS: ACIDOPHILUS/BULGARICUS CHEWABLE TABLET 1 TABLET BY MOUTH (10:57)
[2024-07-25] MEDS: PARoxetine 20 MG TABLET PO (10:57)
[2024-07-25] MEDS: FUROSEMIDE 40 MG TABLET PO (10:58)
[2024-07-25] MEDS: PANTOPRAZOLE 40 MG TABLET PO ×2 (10:58→20:41)
[2024-07-25] MEDS: LOSARTAN POTASSIUM 50 MG TABLET PO (10:58)
[2024-07-25] MEDS: CHOLECALCIFEROL 1,000 UNITS TABLET 4000 UNITS PO (10:58)
[2024-07-25] MEDS: LORATADINE 10 MG TABLET PO (10:58)
[2024-07-25 11:29] LABS: Glucose Point of Care 122 mg/dl (65-105)
[2024-07-25] MEDS: EMPAGLIFLOZIN 12.5 MG TABLET PO (12:40)
[2024-07-25] MEDS: INSULIN ASPART (*BKC) 100 UNITS/ML SUB-Q ×2 (12:41→17:47)
--- NOTE | 2024-07-25 12:54 | P.PNIM_ITS ---
Progress Note: A&P Assessment and Plan (1) Effusion of left knee: Code(s): M25.462 - Effusion, left knee Status: Acute (2) Left knee pain: Qualifiers: Chronicity: acute Qualified Code(s): M25.562 - Pain in left knee Code(s): M25.562 - Pain in left knee Status: Acute (3) Gout: Qualifiers: Chronicity: acute Gout etiology: due to renal impairment Gout site: knee Laterality: left Qualified Code(s): M10.362 - Gout due to renal impairment, left knee Code(s): M10.9 - Gout, unspecified Status: Acute (4) Supratherapeutic INR: Code(s): R79.1 - Abnormal coagulation profile Status: Acute (5) Chronic anticoagulation: Code(s): Z79.01 - FPC (current) use of anticoagulants Status: Acute (6) Type 2 diabetes mellitus with hyperglycemia, with long-term current use of insulin: Code(s): E11.65 - Type 2 diabetes mellitus with hyperglycemia; 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 pain of the knee preceded the pain of the other joints and the other joints may be hurting in compensation to changes in gait pattern with left knee pain Differential includes hemarthrosis Uric acid elevated to 9.6. Some improvement with colchicine but not resolved --Continue colchicine 0.6 BID and monitor --Holding warfarin --Consult orthopedic surgery vs radiology for arthrocentesis if pain not improving --Monitoring off antibioitics Diabetes Home doses of insulin: Lantus 20 BID and Aspart 20 BID --Held am doses of insulin, reduced doses to Lantus 10 BID and Aspart 3 TID since blood sugar. 126 this morning --Blood sugars controlled, continue to monitor and increase as able Nausea Reports poor PO intake in the last month since ozempic dose doubled. He reports holding dose yesterday Zofran prn CKD IV Creatinine 1.8, creat clearance 51, eGFR 38 Avoid NSAIDs patient's creatinine appears to be at or near baseline. BMP in AM CARMEN Continue home CPAP. Time Spent With Patient Time: 59 minutes Subjective Date/time seen: 07/25/24 12:54 Interval history: Still having a lot of pain to left knee, some improvement since admission. Xray showed a large knee joint effusion with a loose body INR elevated, 5.3, holding warfarin Reports poor PO intake for about a month since increasing ozempic. Didn't take dose this week Review of Systems Review of Systems: 12 systems were reviewed with pertinent positives and negatives per HPI. Except as documented in the HPI, all other systems were reviewed and are negative. Exam Narrative: General - Awake and alert. Appears pale Eyes - PERRLA, EOM intact ENT - No thrush, No erythema Neck - No noticeable or palpable swelling Lymph Nodes - No lymphadenopathy Cardiovascular - RRR no m/r/g, no JVD Lungs: Clear to auscultation, No wheezing, use of accessory muscles, no crackles Skin - Skin warm and dry, no wounds or rashes Abdomen - Normal bowel sounds, abdomen soft and nontender Extremities - No edema, cyanosis or clubbing Musculoskeletal - 5/5 strength, left knee and ankle swollen and painful Neurological ? Alert and oriented x 3, CN 2-12 grossly intact. Psych: Normal mood and affect Objective Data Vital Signs Vital Signs: Vital Signs - 24 hr 07/24/24 14:53 07/24/24 19:00 07/24/24 20:13 Temperature 97.6 F Pulse Rate 80 78 82 Respiratory Rate 16 16 17 Blood Pressure 143/82 H 111/62 119/73 Pulse Oximetry 96 96 97 Oxygen Delivery 07/24/24 20:45 07/24/24 21:15 07/24/24 21:28 Temperature 98.7 F 98.7 F Pulse Rate 86 86 Respiratory Rate 17 17 Blood Pressure 147/87 H 147/87 H Pulse Oximetry 95 95 Oxygen Delivery Room Air 07/24/24 22:02 07/25/24 05:20 07/25/24 10:08 Temperature 96.9 F L Pulse Rate 66 Respiratory Rate 16 Blood Pressure 130/69 Pulse Oximetry 97 94 Oxygen Delivery Room Air CPAP 07/25/24 10:08 Temperature Pulse Rate Respiratory Rate Blood Pressure Pulse Oximetry 94 Oxygen Delivery Intake/Output Intake/Output: Intake & Output 07/22/24 07/23/24 07/24/24 07/25/24 23:59 23:59 23:59 23:59 Intake Total 0 Output Total 1999 1350 Balance -1999 1200 Meds/Results Medications: Active Medications Generic Name Dose Route Start Last Admin Trade Name Freq PRN Reason Stop Dose Admin Acetaminophen 650 mg 07/24/24 18:01 Acetaminophen 325 Mg Tablet PO Q4H PRN Mild Pain (1-3) or Fever Hydrocodone Bitart/Acetaminophen 1 tab 07/24/24 18:01 07/24/24 21:05 Hydrocodone/Acetaminophen (*Crx) 5-325 Mg Tablet PO 1 tab Q4H PRN Administration Pain Rated 4-6 Atorvastatin Calcium 80 mg 07/25/24 21:00 Atorvastatin 40 Mg Tablet PO HS MARY Dextrose 12.5 gm 07/25/24 00:22 Dextrose 50% 25 Gm/50 Ml Syringe IV PUSH PRN PRN Hypoglycemia Protocol Empagliflozin 12.5 mg 07/25/24 09:00 07/25/24 12:40 Empagliflozin 12.5 Mg Tablet PO 12.5 mg DAILY MARY Administration Furosemide 40 mg 07/25/24 09:00 07/25/24 10:58 Furosemide 40 Mg Tablet PO 40 mg DAILY MARY Administration Glucagon 1 mg 07/25/24 00:22 Glucagon For Inj 1 Mg Vial IM PRN PRN Hypoglycemia Protocol Glucose 15 gm 07/25/24 00:22 Glucose Oral Gel 15 Gm Of Glucse In 37.5 Gm Tube PO PRN PRN Hypoglycemia Protocol Sodium Chloride 1,000 mls @ 125 mls/hr 07/24/24 18:05 07/25/24 12:47 Normal Saline Iv IV CONT 125 mls/hr .Q8H MARY Administration Dextrose 1,000 mls @ 100 mls/hr 07/25/24 00:22 Dextrose 5% 1,000 Ml IVPB PRN PRN Hypoglycemia Protocol Insulin Aspart 3 - 6 units 07/25/24 08:00 07/25/24 12:04 Insulin Aspart (*Bkc) 100 Units/Ml SUB-Q Not Given TIDWM [facility] Protocol Insulin Aspart 1 - 3 units 07/25/24 21:00 Insulin Aspart (*Bkc) 100 Units/Ml SUB-Q HS [facility] Protocol Insulin Aspart 3 units 07/25/24 08:00 07/25/24 12:41 Insulin Aspart (*Bkc) 100 Units/Ml SUB-Q 3 units TIDWM MARY Administration Insulin Glargine 10 units 07/25/24 09:00 07/25/24 11:08 Insulin Glargine (*Bkc) 100 Units/Ml SUB-Q Not Given BID MARY Lactobacillus Acidophilus 1 tablet 07/25/24 09:00 07/25/24 10:57 Acidophilus/Bulgaricus Chewable Tablet BY MOUTH 1 tablet DAILY MARY Administration Loratadine 10 mg 07/25/24 09:00 07/25/24 10:58 Loratadine 10 Mg Tablet PO 10 mg QAM MARY Administration Losartan Potassium 50 mg 07/25/24 09:00 07/25/24 10:58 Losartan Potassium 50 Mg Tablet PO 50 mg DAILY MARY Administration Mirtazapine 45 mg 07/25/24 21:00 Mirtazapine 15 Mg Tablet PO HS MARY Morphine Sulfate 4 mg 07/24/24 18:01 Morphine Sulfate (*Crx) 4 Mg/Ml Inj IV PUSH Q2H PRN Pain Rated 7-10 Ondansetron HCl 4 mg 07/24/24 18:01 07/25/24 10:53 Ondansetron Inj 4 Mg/2 Ml Vial IV PUSH 4 mg Q4H PRN Administration Nausea Pantoprazole Sodium 40 mg 07/25/24 09:00 07/25/24 10:58 Pantoprazole 40 Mg Tablet PO 40 mg Q12HR MARY Administration Paroxetine HCl 20 mg 07/25/24 09:00 07/25/24 10:57 Paroxetine 20 Mg Tablet PO 20 mg DAILY MARY Administration Vitamin D 4,000 units 07/25/24 09:00 07/25/24 10:58 Cholecalciferol 1,000 Units Tablet PO 4,000 units DAILY MARY Administration Zolpidem Tartrate 10 mg 07/25/24 00:21 Zolpidem Tartrate (*Crx) 5 Mg Tablet PO HS PRN insomnia Radiology Results: ITS Impressions Chest X-Ray 07/24/24 15:35 IMPRESSION: 1: NO ACUTE CARDIOPULMONARY DISEASE. Knee X-Ray 07/24/24 15:36 IMPRESSION: 1. Medial compartment arthroplasty in near-anatomic alignment. 2. Mild left knee osteoarthritis. 3. Large knee joint effusion with loose body. Labs Labs: Laboratory Results - last 24 hr 07/24/24 07/24/24 07/24/24 15:54 15:54 20:37 WBC 11.4 H RBC 4.83 Hgb 12.2 L Hct 38.6 L MCV 79.9 L MCH 25.3 L MCHC 31.6 L RDW 15.4 H Plt Count 414 H D MPV 9.6 Immature Gran % (Auto) 0.8 H Neut % (Auto) 82.4 H Lymph % (Auto) 7.1 L [place] % (Auto) 8.1 Eos % (Auto) 1.3 Baso % (Auto) 0.3 Lymph # (Auto) 0.81 L [place] # (Auto) 0.9 H Eos # (Auto) 0.2 Baso # (Auto) 0.0 Abs Immat Gran (auto) 0.09 H Absolute Neuts (auto) 9.4 H Absolute Nucleated RBC 0.000 Nucleated RBC % 0.0 ESR 64 H PT 46.0 H INR 4.8 APTT 91.5 H Sodium 138 Potassium 3.6 Chloride 102 Carbon Dioxide 27 Anion Gap 9 BUN 26 H D Creatinine 1.90 H Estim Creat Clear Calc Not Reportable Estimated GFR 35 L Glucose 190 H POC Capillary Glucose 145 H Uric Acid 9.6 H Calcium 9.7 Phosphorus Total Bilirubin 0.8 AST 32 ALT 24 Alkaline Phosphatase 115 C-Reactive Protein 30.0 H NT-Pro-B Natriuret Pep 2070 H Cancelled Total Protein 8.0 Albumin 3.8 Procalcitonin 07/25/24 07/25/24 07/25/24 06:19 07:53 11:24 WBC 10.1 H RBC 3.69 L Hgb 9.2 L D Hct 29.4 L MCV 79.7 L MCH 24.9 L MCHC 31.3 L RDW 15.4 H Plt Count 377 H MPV 9.5 Immature Gran % (Auto) 0.6 H Neut % (Auto) 76.6 H Lymph % (Auto) 11.1 L [place] % (Auto) 9.8 H Eos % (Auto) 1.5 Baso % (Auto) 0.4 Lymph # (Auto) 1.12 [place] # (Auto) 1.0 H Eos # (Auto) 0.2 Baso # (Auto) 0.0 Abs Immat Gran (auto) 0.06 H Absolute Neuts (auto) 7.7 H Absolute Nucleated RBC 0.000 Nucleated RBC % 0.0 ESR PT 49.4 H INR 5.3 H* APTT Sodium 139 Potassium 3.5 Chloride 107 Carbon Dioxide 26 Anion Gap 6 BUN 23 H Creatinine 1.80 H Estim Creat Clear Calc 51 Estimated GFR 38 L Glucose 126 H POC Capillary Glucose 115 H 122 H Uric Acid Calcium 9.3 Phosphorus 3.5 Total Bilirubin AST ALT Alkaline Phosphatase C-Reactive Protein NT-Pro-B Natriuret Pep Total Protein Albumin Procalcitonin 0.2 Quality VTE Prophylaxis VTE prophylaxis: pharmacologic ordered (INR supratheraputic, holding anticoagulation) Hospitalist MIPS Advance Care Plan I have confirmed that the patient's Advanced Care Plan is present, code status is documented, or surrogate decision maker is listed in patient medical record.: Yes Medication Reconciliation I have utilized all available resources to obtain, update and review the patients current medications (includes all prescriptions, OTC, herbals, cannabis, and nutritional supplements).: Yes
[2024-07-25 14:00] VITALS: BP 144/72; PULSE 67; RESP 16; TEMP 36.2; O2SAT 100
[2024-07-25 16:27] LABS: Glucose Point of Care 118 mg/dl (65-105)
[2024-07-25] MEDS: INSULIN GLARGINE (*BKC) 100 UNITS/ML 10 UNITS SUB-Q (17:47)
[2024-07-25 20:39] LABS: Glucose Point of Care 122 mg/dl (65-105)
[2024-07-25] MEDS: MIRTAZAPINE 15 MG TABLET 45 MG PO (20:41)
[2024-07-25] MEDS: COLCHICINE 0.6 MG TABLET PO (20:41)
[2024-07-25] MEDS: ATORVASTATIN 40 MG TABLET 80 MG PO (20:42)
[2024-07-25] MEDS: ZOLPIDEM TARTRATE (*CRX) 5 MG TABLET 10 MG PO (20:44)
[2024-07-25 20:58] VITALS: PULSE 69; O2SAT 96
[2024-07-25 21:00] VITALS: BP 114/65; PULSE 73; RESP 20; TEMP 36.4; O2SAT 97
[2024-07-25] MEDS: HYDROcodone/acetaminophen (*CRX) 5-325 MG TABLET 1 TAB PO (22:18)
[2024-07-26 05:42] VITALS: BP 122/68; PULSE 69; RESP 20; TEMP 36.3; O2SAT 96
[2024-07-26 08:02] LABS: Glucose Point of Care 104 mg/dl (65-105)
[2024-07-26 08:56] LABS: Hematocrit 28.4 % (42.0-52.0); Hemoglobin 8.9 g/dL (14.0-18.0); Mean Corpuscular HGB Conc 31.3 g/dl (32-36); Mean Corpuscular Hemoglobin 25.1 pg (26-34); Mean Corpuscular Volume 80.2 fl (80-100); Mean Platelet Volume 9.1 fl (7.4-10.4); Platelet Count Result 324 k/mm3 (150-375); Red Blood Count 3.54 M/mm3 (4.6-6.20); Red Cell Distribution Width 15.5 % (11.5-14.5); White Blood Count 7.6 K/mm3 (4.5-10.0)
[2024-07-26 09:06] LABS: INR 5.7
[2024-07-26 09:14] LABS: Lipase 134 U/L (23-300)
[2024-07-26 09:17] LABS: Alanine Aminotransferase 22 U/L (6-50); Albumin Level 2.9 g/dL (3.5-5.1); Alkaline Phosphatase 91 U/L (38-126); Anion Gap 5 mmol/L (4-12); Aspartate Amino Transferase 33 U/L (17-59); Bilirubin,Total 0.5 mg/dL (0.2-1.3); Blood Urea Nitrogen 20 mg/dL (9-20); Carbon Dioxide 25 mmol/L (22-30); Chloride 110 mmol/L (98-107); Estimated CRCL calculation 57 ml/min; Estimated Glomerular Filt Rate 43; Glucose 103 mg/dL (65-110); Potassium 3.7 mmol/L (3.4-5.0); Sodium 140 mmol/L (137-145)
[2024-07-26 09:26] LABS: CRP 20.9 mg/dL (<1.0)
[2024-07-26] MEDS: HYDROcodone/acetaminophen (*CRX) 5-325 MG TABLET 1 TAB PO ×2 (09:27→17:13)
[2024-07-26] MEDS: ACIDOPHILUS/BULGARICUS CHEWABLE TABLET 1 TABLET BY MOUTH (09:29)
[2024-07-26] MEDS: LOSARTAN POTASSIUM 50 MG TABLET PO (09:29)
[2024-07-26] MEDS: PARoxetine 20 MG TABLET PO (09:29)
[2024-07-26] MEDS: COLCHICINE 0.6 MG TABLET PO ×2 (09:29→20:46)
[2024-07-26] MEDS: LORATADINE 10 MG TABLET PO (09:29)
[2024-07-26] MEDS: CHOLECALCIFEROL 1,000 UNITS TABLET 4000 UNITS PO (09:29)
[2024-07-26] MEDS: PANTOPRAZOLE 40 MG TABLET PO ×2 (09:29→20:46)
[2024-07-26] MEDS: EMPAGLIFLOZIN 12.5 MG TABLET PO (09:29)
[2024-07-26] MEDS: FUROSEMIDE 40 MG TABLET PO (09:29)
[2024-07-26 09:31] LABS: Erythrocyte Sedimentation Rate > 140 mm/hr (0-20)
--- NOTE | 2024-07-26 11:24 | PC.NURSE ---
Pt came to nurses station and stated the he needs to have listed somewhere in chart so that medication will be covered when filled at pharmacy. Will let provider know.
[2024-07-26 11:31] LABS: Glucose Point of Care 105 mg/dl (65-105)
[2024-07-26 14:00] VITALS: BP 131/97; PULSE 112; RESP 14; TEMP 36.6; O2SAT 94
[2024-07-26 14:22] LABS: Influenza A QL RT-PCR Negative (Negative); Influenza B QL RT-PCR Negative (Negative); RSV RNA, RT-PCR Negative (Negative); SARS-CoV-2 RNA PCR Negative (Negative)
--- NOTE | 2024-07-26 14:47 | PM.IMPN ---
Progress Note: A&P Assessment and Plan (1) Effusion of left knee: Code(s): M25.462 - Effusion, left knee Status: Acute (2) Left knee pain: Qualifiers: Chronicity: acute Qualified Code(s): M25.562 - Pain in left knee Code(s): M25.562 - Pain in left knee Status: Acute (3) Gout: Qualifiers: Chronicity: acute Gout etiology: due to renal impairment Gout site: knee Laterality: left Qualified Code(s): M10.362 - Gout due to renal impairment, left knee Code(s): M10.9 - Gout, unspecified Status: Acute (4) Supratherapeutic INR: Code(s): R79.1 - Abnormal coagulation profile Status: Acute (5) Chronic anticoagulation: Code(s): Z79.01 - retirement (current) use of anticoagulants Status: Acute (6) Type 2 diabetes mellitus with hyperglycemia, with long-term current use of insulin: Code(s): E11.65 - Type 2 diabetes mellitus with hyperglycemia; Z79.4 - terminal carman (current) use of insulin Status: Acute Plan Left knee pain Left knee effusion Acute on chronic with swelling and ankle pain. pain of the knee preceded the pain of the other joints and the other joints may be hurting in compensation to changes in gait pattern with left knee pain Differential includes hemarthrosis Uric acid elevated to 9.6. Some improvement with colchicine but not resolved --Continue colchicine 0.6 BID and monitor --Holding warfarin --Consult orthopedic surgery vs radiology for arthrocentesis if pain not improving --Monitoring off antibioitics Diabetes Home doses of insulin: Lantus 20 BID and Aspart 20 BID --Reduced doses to Lantus 10 BID>daily and Aspart 3 TID on hold since blood sugars low 100's. --Blood sugars controlled, continue to monitor and increase as able Nausea Reports poor PO intake in the last month since Ozempic dose doubled. He held the dose this week Zofran prn CKD IV Creatinine 1.8, creat clearance 51, eGFR 38 Avoid NSAIDs patient's creatinine appears to be at or near baseline. BMP in AM CARMEN Continue home CPAP Supratherapeutic INR INR 4.8<5.3<5.7. Elevation in the setting of poor PO intake in the last month. Holding warfarin Time Spent With Patient Time: 54 minutes Subjective Date/time seen: 07/26/24 14:47 Interval history: Pain to knee improving slowly, continuing Xray showed a large knee joint effusion with a loose body. Pain improving INR elevated to 5.7. Holding warfarin Blood sugars controlled but on very reduced doses of insulin. Lantus 10 last night and no mealtime insulin with breakfast. Review of Systems Review of Systems: 12 systems were reviewed with pertinent positives and negatives per HPI. Except as documented in the HPI, all other systems were reviewed and are negative. Exam Narrative: General - Awake and alert. Appears pale Eyes - PERRLA, EOM intact ENT - No thrush, No erythema Neck - No noticeable or palpable swelling Lymph Nodes - No lymphadenopathy Cardiovascular - RRR no m/r/g, no JVD Lungs: Clear to auscultation, No wheezing, use of accessory muscles, no crackles Skin - Skin warm and dry, no wounds or rashes Abdomen - Normal bowel sounds, abdomen soft and nontender Extremities - No edema, cyanosis or clubbing Musculoskeletal - 5/5 strength, left knee and ankle swollen and painful Neurological ? Alert and oriented x 3, CN 2-12 grossly intact. Psych: Normal mood and affect Objective Data Vital Signs Vital Signs: Vital Signs - 24 hr 07/25/24 20:00 07/25/24 20:58 07/25/24 21:00 Temperature 97.6 F Pulse Rate 69 73 Respiratory Rate 20 Blood Pressure 114/65 Pulse Oximetry 96 97 Oxygen Delivery Room Air 07/26/24 05:42 07/26/24 09:30 07/26/24 13:20 Temperature 97.4 F L Pulse Rate 69 Respiratory Rate 20 Blood Pressure 122/68 Pulse Oximetry 96 Oxygen Delivery Room Air Room Air Intake/Output Intake/Output: Intake & Output 07/23/24 07/24/24 07/25/24 07/26/24 23:59 23:59 23:59 23:59 Intake Total 4420.8 1305 Output Total 1999 4201 1825 Balance -1999 8960.8 -520 Meds/Results Medications: Active Medications Generic Name Dose Route Start Last Admin Trade Name Freq PRN Reason Stop Dose Admin Acetaminophen 650 mg 07/24/24 18:01 Acetaminophen 325 Mg Tablet PO Q4H PRN Mild Pain (1-3) or Fever Hydrocodone Bitart/Acetaminophen 1 tab 07/24/24 18:01 07/26/24 09:27 Hydrocodone/Acetaminophen (*Crx) 5-325 Mg Tablet PO 1 tab Q4H PRN Administration Pain Rated 4-6 Atorvastatin Calcium 80 mg 07/25/24 21:00 07/25/24 20:42 Atorvastatin 40 Mg Tablet PO 80 mg HS MARY Administration Benzonatate 200 mg 07/26/24 10:19 Benzonatate 100 Mg Capsule PO TID PRN Cough Colchicine 0.6 mg 07/25/24 21:00 07/26/24 09:29 Colchicine 0.6 Mg Tablet PO 0.6 mg Q12HR MARY Administration Dextrose 12.5 gm 07/25/24 00:22 Dextrose 50% 25 Gm/50 Ml Syringe IV PUSH PRN PRN Hypoglycemia Protocol Empagliflozin 12.5 mg 07/25/24 09:00 07/26/24 09:29 Empagliflozin 12.5 Mg Tablet PO 12.5 mg DAILY MARY Administration Fluticasone Propionate 2 spray 07/27/24 09:00 Fluticasone Propionate 0.05% Na Spr 16 Gm Btl (*Bkc) NASAL QAM MARY Furosemide 40 mg 07/25/24 09:00 07/26/24 09:29 Furosemide 40 Mg Tablet PO 40 mg DAILY MARY Administration Glucagon 1 mg 07/25/24 00:22 Glucagon For Inj 1 Mg Vial IM PRN PRN Hypoglycemia Protocol Glucose 15 gm 07/25/24 00:22 Glucose Oral Gel 15 Gm Of Glucse In 37.5 Gm Tube PO PRN PRN Hypoglycemia Protocol Sodium Chloride 1,000 mls @ 125 mls/hr 07/24/24 18:05 07/26/24 00:10 Normal Saline Iv IV CONT Not Given .Q8H MARY Dextrose 1,000 mls @ 100 mls/hr 07/25/24 00:22 Dextrose 5% 1,000 Ml IVPB PRN PRN Hypoglycemia Protocol Insulin Aspart 3 - 6 units 07/25/24 08:00 07/26/24 11:34 Insulin Aspart (*Bkc) 100 Units/Ml SUB-Q Not Given TIDWM MARY Protocol Insulin Aspart 1 - 3 units 07/25/24 21:00 07/25/24 20:31 Insulin Aspart (*Bkc) 100 Units/Ml SUB-Q Not Given HS MARY Protocol Insulin Aspart 3 units 07/25/24 08:00 07/26/24 09:14 Insulin Aspart (*Bkc) 100 Units/Ml SUB-Q Not Given TIDWM [facility] Insulin Glargine 10 units 07/25/24 09:00 07/26/24 09:14 Insulin Glargine (*Bkc) 100 Units/Ml SUB-Q Not Given BID [facility] Ipratropium [place] 2 spray 07/26/24 21:00 Ipratropium Nasal [place] 0.03% 15 Ml Bottle NASAL HS [facility] Lactobacillus Acidophilus 1 tablet 07/25/24 09:00 07/26/24 09:29 Acidophilus/Bulgaricus Chewable Tablet BY MOUTH 1 tablet DAILY MARY Administration Loratadine 10 mg 07/25/24 09:00 07/26/24 09:29 Loratadine 10 Mg Tablet PO 10 mg QAM MARY Administration Losartan Potassium 50 mg 07/25/24 09:00 07/26/24 09:29 Losartan Potassium 50 Mg Tablet PO 50 mg DAILY MARY Administration Mirtazapine 45 mg 07/25/24 21:00 07/25/24 20:41 Mirtazapine 15 Mg Tablet PO 45 mg HS MARY Administration Morphine Sulfate 4 mg 07/24/24 18:01 Morphine Sulfate (*Crx) 4 Mg/Ml Inj IV PUSH Q2H PRN Pain Rated 7-10 Ondansetron HCl 4 mg 07/24/24 18:01 07/25/24 15:42 Ondansetron Inj 4 Mg/2 Ml Vial IV PUSH 4 mg Q4H PRN Administration Nausea Pantoprazole Sodium 40 mg 07/25/24 09:00 07/26/24 09:29 Pantoprazole 40 Mg Tablet PO 40 mg Q12HR MARY Administration Paroxetine HCl 20 mg 07/25/24 09:00 07/26/24 09:29 Paroxetine 20 Mg Tablet PO 20 mg DAILY MARY Administration Vitamin D 4,000 units 07/25/24 09:00 07/26/24 09:29 Cholecalciferol 1,000 Units Tablet PO 4,000 units DAILY MARY Administration Zolpidem Tartrate 10 mg 07/25/24 00:21 07/25/24 20:44 Zolpidem Tartrate (*Crx) 5 Mg Tablet PO 10 mg HS PRN Administration insomnia Radiology Results: ITS Impressions Chest X-Ray 07/24/24 15:35 IMPRESSION: 1: NO ACUTE CARDIOPULMONARY DISEASE. Knee X-Ray 07/24/24 15:36 IMPRESSION: 1. Medial compartment arthroplasty in near-anatomic alignment. 2. Mild left knee osteoarthritis. 3. Large knee joint effusion with loose body. Labs Labs: Laboratory Results - last 24 hr 07/25/24 07/25/24 07/26/24 16:21 20:02 07:56 WBC RBC Hgb Hct MCV MCH MCHC RDW Plt Count MPV ESR PT INR Sodium Potassium Chloride Carbon Dioxide Anion Gap BUN Creatinine Estim Creat Clear Calc Estimated GFR Glucose POC Capillary Glucose 118 H 122 H 104 Calcium Total Bilirubin AST ALT Alkaline Phosphatase C-Reactive Protein Total Protein Albumin Lipase Influenza A (RT-PCR) Influenza B (RT-PCR) RSV (RT-PCR) SARS-CoV-2 RNA (RT-PCR) 07/26/24 07/26/24 07/26/24 08:36 11:26 13:25 WBC 7.6 RBC 3.54 L Hgb 8.9 L Hct 28.4 L MCV 80.2 MCH 25.1 L MCHC 31.3 L RDW 15.5 H Plt Count 324 MPV 9.1 ESR > 140 H PT 52.0 H INR 5.7 H* Sodium 140 Potassium 3.7 Chloride 110 H Carbon Dioxide 25 Anion Gap 5 BUN 20 Creatinine 1.60 H Estim Creat Clear Calc 57 Estimated GFR 43 L Glucose 103 POC Capillary Glucose 105 Calcium 9.0 Total Bilirubin 0.5 AST 33 ALT 22 Alkaline Phosphatase 91 C-Reactive Protein 20.9 H Total Protein 6.0 L Albumin 2.9 L Lipase 134 Influenza A (RT-PCR) Negative Influenza B (RT-PCR) Negative RSV (RT-PCR) Negative SARS-CoV-2 RNA (RT-PCR) Negative Quality VTE Prophylaxis VTE prophylaxis: pharmacologic ordered (INR supratheraputic, holding anticoagulation) Hospitalist MIPS Advance Care Plan I have confirmed that the patient's Advanced Care Plan is present, code status is documented, or surrogate decision maker is listed in patient medical record.: Yes Medication Reconciliation I have utilized all available resources to obtain, update and review the patients current medications (includes all prescriptions, OTC, herbals, cannabis, and nutritional supplements).: Yes
[2024-07-26 16:53] LABS: Glucose Point of Care 109 mg/dl (65-105)
[2024-07-26] MEDS: SODIUM CHLORIDE 0.9% IV 1,000 ML 125 ML IV CONT (18:21)
[2024-07-26 20:42] LABS: Glucose Point of Care 106 mg/dl (65-105)
[2024-07-26] MEDS: IPRATROPIUM NASAL SPRAY 0.03% 15 ML BOTTLE 2 SPRAY NASAL (20:46)
[2024-07-26] MEDS: ZOLPIDEM TARTRATE (*CRX) 5 MG TABLET 10 MG PO (20:46)
[2024-07-26] MEDS: MIRTAZAPINE 15 MG TABLET 45 MG PO (20:46)
[2024-07-26] MEDS: ATORVASTATIN 40 MG TABLET 80 MG PO (20:46)
[2024-07-26 21:14] VITALS: BP 141/93; PULSE 66; RESP 18; TEMP 36.6; O2SAT 100
[2024-07-27 06:00] VITALS: BP 109/50; PULSE 72; RESP 18; TEMP 36.6; O2SAT 99
[2024-07-27 06:34] LABS: Basophils Percent Auto 0.6 % (0.2-1.2); Eosinophils Absolute Auto 0.3 K/mm3 (0-0.3); Eosinophils Percent Auto 3.9 % (0-4.4); Hematocrit 29.5 % (42.0-52.0); Hemoglobin 8.9 g/dL (14.0-18.0); Immature Granulocyte Absolute 0.02 K/mm3 (0.00-0.031); Immature Granulocyte Percent A 0.3 % (0-0.5); Lymphocytes Absolute Auto 1.08 K/mm3 (0.9-3.2); Lymphocytes Percent Auto 16.2 % (18.3-44.2); Mean Corpuscular HGB Conc 30.2 g/dl (32-36); Mean Corpuscular Hemoglobin 24.7 pg (26-34); Mean Corpuscular Volume 81.7 fl (80-100); Mean Platelet Volume 9.2 fl (7.4-10.4); Monocytes Absolute Auto 0.6 K/mm3 (0.1-0.6); Monocytes Percent Auto 8.7 % (2.6-8.5); Neutrophils Absolute Auto 4.7 K/mm3 (1.3-6.7); Neutrophils Percent Auto 70.3 % (45.5-73.1); Platelet Count Result 336 k/mm3 (150-375); Red Blood Count 3.61 M/mm3 (4.6-6.20); Red Cell Distribution Width 15.6 % (11.5-14.5); White Blood Count 6.7 K/mm3 (4.5-10.0)
[2024-07-27 06:53] LABS: Alanine Aminotransferase 22 U/L (6-50); Alkaline Phosphatase 95 U/L (38-126); Anion Gap 3 mmol/L (4-12); Aspartate Amino Transferase 31 U/L (17-59); Bilirubin,Total 0.5 mg/dL (0.2-1.3); Blood Urea Nitrogen 17 mg/dL (9-20); Calcium 8.7 mg/dL (8.4-10.2); Carbon Dioxide 25 mmol/L (22-30); Chloride 110 mmol/L (98-107); Estimated CRCL calculation 61 ml/min; Estimated Glomerular Filt Rate 46; Glucose 98 mg/dL (65-110); INR 4.7; Potassium 3.5 mmol/L (3.4-5.0); Prothrombin Time 44.6 Seconds (11.1-14.7); Sodium 138 mmol/L (137-145)
[2024-07-27 08:14] LABS: Glucose Point of Care 99 mg/dl (65-105)
[2024-07-27] MEDS: ONDANSETRON INJ 4 MG/2 ML VIAL IV PUSH (09:17)
[2024-07-27] MEDS: FUROSEMIDE 40 MG TABLET PO (11:05)
[2024-07-27] MEDS: PARoxetine 20 MG TABLET PO (11:05)
[2024-07-27] MEDS: POTASSIUM CHLORIDE 20 MEQ ER TABLET PO ×2 (11:05)
[2024-07-27] MEDS: CHOLECALCIFEROL 1,000 UNITS TABLET 4000 UNITS PO (11:06)
[2024-07-27] MEDS: ACIDOPHILUS/BULGARICUS CHEWABLE TABLET 1 TABLET BY MOUTH (11:06)
[2024-07-27] MEDS: COLCHICINE 0.6 MG TABLET PO ×2 (11:06→20:16)
[2024-07-27] MEDS: LORATADINE 10 MG TABLET PO (11:06)
[2024-07-27] MEDS: EMPAGLIFLOZIN 12.5 MG TABLET PO (11:06)
[2024-07-27] MEDS: PANTOPRAZOLE 40 MG TABLET PO ×2 (11:06→20:16)
[2024-07-27] MEDS: FLUTICASONE PROPIONATE 0.05% NA SPR 16 GM BTL (*BKC) 2 SPRAY NASAL (11:06)
[2024-07-27] MEDS: LOSARTAN POTASSIUM 50 MG TABLET PO (11:07)
[2024-07-27] MEDS: HYDROcodone/acetaminophen (*CRX) 5-325 MG TABLET 1 TAB PO ×2 (11:08→19:41)
[2024-07-27 11:37] LABS: Glucose Point of Care 102 mg/dl (65-105)
--- NOTE | 2024-07-27 12:37 | P.PNIM_ITS ---
Progress Note: A&P Assessment and Plan (1) Effusion of left knee: Code(s): M25.462 - Effusion, left knee Status: Acute (2) Left knee pain: Qualifiers: Chronicity: acute Qualified Code(s): M25.562 - Pain in left knee Code(s): M25.562 - Pain in left knee Status: Acute Assessment and Plan: Left knee pain Left knee effusion Acute on chronic with swelling and ankle pain. pain of the knee preceded the pain of the other joints and the other joints may be hurting in compensation to changes in gait pattern with left knee pain. Suspect gout given improvement with colchicine. Differential includes hemarthrosis. Arthrocentesis was contraindicated due to supratherapeutic INR Uric acid elevated to 9.6. Some improvement with colchicine but not resolved --Continue colchicine 0.6 BID and monitor --Holding warfarin --Monitoring off antibioitics (3) Gout: Qualifiers: Chronicity: acute Gout etiology: due to renal impairment Gout site: knee Laterality: left Qualified Code(s): M10.362 - Gout due to renal impairment, left knee Code(s): M10.9 - Gout, unspecified Status: Acute (4) Supratherapeutic INR: Code(s): R79.1 - Abnormal coagulation profile Status: Acute Assessment and Plan: Supratherapeutic INR hx afib, CVA, and DVT INR 4.8<5.3<5.7. Elevation in the setting of poor PO intake in the last month. Holding warfarin, resume as able Could consider PO vitamin K since poor PO intake but no active bleeding so deferred since multiple risk factors (5) Chronic anticoagulation: Code(s): Z79.01 - intermediate (current) use of anticoagulants Status: Acute (6) Type 2 diabetes mellitus with hyperglycemia, with long-term current use of insulin: Code(s): E11.65 - Type 2 diabetes mellitus with hyperglycemia; Z79.4 - intermediate (current) use of insulin Status: Acute Assessment and Plan: Diabetes Home doses of insulin: Lantus 20 BID and Aspart 20 BID --Reduced doses to Lantus 10 BID>daily>7units and SSI since blood sugars low 100's. --Blood sugars controlled, continue to monitor and increase as able --Wouldn't continue aspart 20 BID at discharge and likely needs a reduced dose of Lantus as well (7) Abdominal pain: Code(s): R10.9 - Unspecified abdominal pain Status: Acute Assessment and Plan: Abdominal pain Nausea Reports poor PO intake in the last month since Ozempic dose doubled. He held the dose this week. Lower abdominal pain, crampy/aching. Viral swab was negative and no diarrhea or constipation --CT abd/pelvis (without contrast since CKD IV) given persistent symptoms and significant change in appetite --GI consult if persistent, outpatient follow up if improving and normal CT --Zofran prn (8) CKD (chronic kidney disease) stage 4, GFR 15-29 ml/min: Code(s): N18.4 - Chronic kidney disease, stage 4 (severe) Status: Acute Assessment and Plan: CKD IV Creatinine 1.8, creat clearance 51, eGFR 38 Avoid NSAIDs patient's creatinine appears to be at or near baseline. Follow creatinine (9) Obstructive sleep apnea: Code(s): G47.33 - Obstructive sleep apnea (adult) (pediatric) Status: Acute Assessment and Plan: CARMEN Continue home CPAP Time Spent With Patient Time: 68 minutes Subjective Date/time seen: 07/27/24 12:37 Interval history: Pain to knee resolving with colchicine, was able to ambulate with therapy today INR improving off warfarin but still suprtherapeutic. Poor PO intake likely improving Has had lower abdominal pain for about a week, achy/cramping. Blood sugars controlled but on very reduced doses of insulin. Lantus 10 units today Review of Systems Review of Systems: 12 systems were reviewed with pertinent positives and negatives per HPI. Except as documented in the HPI, all other systems were reviewed and are negative. Exam Narrative: General - Awake and alert. Appears pale Eyes - PERRLA, EOM intact ENT - No thrush, No erythema Neck - No noticeable or palpable swelling Lymph Nodes - No lymphadenopathy Cardiovascular - RRR no m/r/g, no JVD Lungs: Clear to auscultation, No wheezing, use of accessory muscles, no crackles Skin - Skin warm and dry, no wounds or rashes Abdomen - Normal bowel sounds, abdomen soft, lower abdominal tenderness Extremities - Mild LE edema, cyanosis or clubbing Musculoskeletal - 5/5 strength, left knee and ankle swollen and painful Neurological ? Alert and oriented x 3, CN 2-12 grossly intact. Psych: Normal mood and affect Objective Data Vital Signs Vital Signs: Vital Signs - 24 hr 07/26/24 13:20 07/26/24 14:00 07/26/24 20:00 Temperature 97.8 F Pulse Rate 112 H Respiratory Rate 14 Blood Pressure 131/97 H Pulse Oximetry 94 Oxygen Delivery Room Air Room Air 07/26/24 21:14 07/27/24 06:00 Temperature 97.9 F 97.9 F Pulse Rate 66 72 Respiratory Rate 18 18 Blood Pressure 141/93 H 109/50 L Pulse Oximetry 100 99 Oxygen Delivery Intake/Output Intake/Output: Intake & Output 07/24/24 07/25/24 07/26/24 07/27/24 23:59 23:59 23:59 23:59 Intake Total 4420.8 3491.3 1258.7 Output Total 1999 1950 1825 450 Balance -1999 2470.8 1666.3 808.7 Meds/Results Medications: Active Medications Generic Name Dose Route Start Last Admin Trade Name Freq PRN Reason Stop Dose Admin Acetaminophen 650 mg 07/24/24 18:01 Acetaminophen 325 Mg Tablet PO Q4H PRN Mild Pain (1-3) or Fever Hydrocodone Bitart/Acetaminophen 1 tab 07/24/24 18:01 07/27/24 11:08 Hydrocodone/Acetaminophen (*Crx) 5-325 Mg Tablet PO 1 tab Q4H PRN Administration Pain Rated 4-6 Atorvastatin Calcium 80 mg 07/25/24 21:00 07/26/24 20:46 Atorvastatin 40 Mg Tablet PO 80 mg HS MARY Administration Benzonatate 200 mg 07/26/24 10:19 Benzonatate 100 Mg Capsule PO TID PRN Cough Colchicine 0.6 mg 07/25/24 21:00 07/27/24 11:06 Colchicine 0.6 Mg Tablet PO 0.6 mg Q12HR MARY Administration Dextrose 12.5 gm 07/25/24 00:22 Dextrose 50% 25 Gm/50 Ml Syringe IV PUSH PRN PRN Hypoglycemia Protocol Empagliflozin 12.5 mg 07/25/24 09:00 07/27/24 11:06 Empagliflozin 12.5 Mg Tablet PO 12.5 mg DAILY MARY Administration Fluticasone Propionate 2 spray 07/27/24 09:00 07/27/24 11:06 Fluticasone Propionate 0.05% Na Spr 16 Gm Btl (*Bkc) NASAL 2 spray QAM MARY Administration Furosemide 40 mg 07/25/24 09:00 07/27/24 11:05 Furosemide 40 Mg Tablet PO 40 mg DAILY MARY Administration Glucagon 1 mg 07/25/24 00:22 Glucagon For Inj 1 Mg Vial IM PRN PRN Hypoglycemia Protocol Glucose 15 gm 07/25/24 00:22 Glucose Oral Gel 15 Gm Of Glucse In 37.5 Gm Tube PO PRN PRN Hypoglycemia Protocol Sodium Chloride 1,000 mls @ 125 mls/hr 07/24/24 18:05 07/27/24 09:17 Normal Saline Iv IV CONT Infused .Q8H MARY Infusion Dextrose 1,000 mls @ 100 mls/hr 07/25/24 00:22 Dextrose 5% 1,000 Ml IVPB PRN PRN Hypoglycemia Protocol Insulin Aspart 3 - 6 units 07/25/24 08:00 07/27/24 11:49 Insulin Aspart (*Bkc) 100 Units/Ml SUB-Q Not Given TIDWM MARY Protocol Insulin Aspart 1 - 3 units 07/25/24 21:00 07/26/24 20:45 Insulin Aspart (*Bkc) 100 Units/Ml SUB-Q Not Given HS MARY Protocol Insulin Aspart 3 units 07/25/24 08:00 07/26/24 09:14 Insulin Aspart (*Bkc) 100 Units/Ml SUB-Q Not Given TIDWM MARY Insulin Glargine 10 units 07/28/24 09:00 Insulin Glargine (*Bkc) 100 Units/Ml SUB-Q DAILY MARY Ipratropium [place] 2 spray 07/26/24 21:00 07/26/24 20:46 Ipratropium Nasal [place] 0.03% 15 Ml Bottle NASAL 2 spray HS MARY Administration Lactobacillus Acidophilus 1 tablet 07/25/24 09:00 07/27/24 11:06 Acidophilus/Bulgaricus Chewable Tablet BY MOUTH 1 tablet DAILY MARY Administration Loratadine 10 mg 07/25/24 09:00 07/27/24 11:06 Loratadine 10 Mg Tablet PO 10 mg QAM MARY Administration Losartan Potassium 50 mg 07/25/24 09:00 07/27/24 11:07 Losartan Potassium 50 Mg Tablet PO 50 mg DAILY MARY Administration Mirtazapine 45 mg 07/25/24 21:00 07/26/24 20:46 Mirtazapine 15 Mg Tablet PO 45 mg HS MARY Administration Morphine Sulfate 4 mg 07/24/24 18:01 Morphine Sulfate (*Crx) 4 Mg/Ml Inj IV PUSH Q2H PRN Pain Rated 7-10 Ondansetron HCl 4 mg 07/24/24 18:01 07/27/24 09:17 Ondansetron Inj 4 Mg/2 Ml Vial IV PUSH 4 mg Q4H PRN Administration Nausea Pantoprazole Sodium 40 mg 07/25/24 09:00 07/27/24 11:06 Pantoprazole 40 Mg Tablet PO 40 mg Q12HR MARY Administration Paroxetine HCl 20 mg 07/25/24 09:00 07/27/24 11:05 Paroxetine 20 Mg Tablet PO 20 mg DAILY MARY Administration Vitamin D 4,000 units 07/25/24 09:00 07/27/24 11:06 Cholecalciferol 1,000 Units Tablet PO 4,000 units DAILY MARY Administration Zolpidem Tartrate 10 mg 07/25/24 00:21 07/26/24 20:46 Zolpidem Tartrate (*Crx) 5 Mg Tablet PO 10 mg HS PRN Administration insomnia Radiology Results: ITS Impressions Chest X-Ray 07/24/24 15:35 IMPRESSION: 1: NO ACUTE CARDIOPULMONARY DISEASE. Knee X-Ray 07/24/24 15:36 IMPRESSION: 1. Medial compartment arthroplasty in near-anatomic alignment. 2. Mild left knee osteoarthritis. 3. Large knee joint effusion with loose body. Labs Labs: Laboratory Results - last 24 hr 07/26/24 07/26/24 07/26/24 13:25 16:48 20:29 WBC RBC Hgb Hct MCV MCH MCHC RDW Plt Count MPV Immature Gran % (Auto) Neut % (Auto) Lymph % (Auto) [place]cd[place] % (Auto) Eos % (Auto) Baso % (Auto) Lymph # (Auto) [place]cd[place] # (Auto) Eos # (Auto) Baso # (Auto) Abs Immat Gran (auto) Absolute Neuts (auto) Absolute Nucleated RBC Nucleated RBC % PT INR Sodium Potassium Chloride Carbon Dioxide Anion Gap BUN Creatinine Estim Creat Clear Calc Estimated GFR Glucose POC Capillary Glucose 109 H 106 H Calcium Total Bilirubin AST ALT Alkaline Phosphatase Total Protein Albumin Influenza A (RT-PCR) Negative Influenza B (RT-PCR) Negative RSV (RT-PCR) Negative SARS-CoV-2 RNA (RT-PCR) Negative 07/27/24 07/27/24 07/27/24 05:54 07:48 11:25 WBC 6.7 RBC 3.61 L Hgb 8.9 L Hct 29.5 L MCV 81.7 MCH 24.7 L MCHC 30.2 L RDW 15.6 H Plt Count 336 MPV 9.2 Immature Gran % (Auto) 0.3 Neut % (Auto) 70.3 Lymph % (Auto) 16.2 L [place]cd[place]ough % (Auto) 8.7 H Eos % (Auto) 3.9 Baso % (Auto) 0.6 Lymph # (Auto) 1.08 [place] # (Auto) 0.6 Eos # (Auto) 0.3 Baso # (Auto) 0.0 Abs Immat Gran (auto) 0.02 Absolute Neuts (auto) 4.7 Absolute Nucleated RBC 0.000 Nucleated RBC % 0.0 PT 44.6 H INR 4.7 Sodium 138 Potassium 3.5 Chloride 110 H Carbon Dioxide 25 Anion Gap 3 L BUN 17 Creatinine 1.50 H Estim Creat Clear Calc 61 Estimated GFR 46 L Glucose 98 POC Capillary Glucose 99 102 Calcium 8.7 Total Bilirubin 0.5 AST 31 ALT 22 Alkaline Phosphatase 95 Total Protein 6.0 L Albumin 3.0 L Influenza A (RT-PCR) Influenza B (RT-PCR) RSV (RT-PCR) SARS-CoV-2 RNA (RT-PCR) Quality VTE Prophylaxis VTE prophylaxis: pharmacologic ordered (INR supratheraputic, holding anticoagulation) Hospitalist MIPS Advance Care Plan I have confirmed that the patient's Advanced Care Plan is present, code status is documented, or surrogate decision maker is listed in patient medical record.: Yes Medication Reconciliation I have utilized all available resources to obtain, update and review the patients current medications (includes all prescriptions, OTC, herbals, cannabis, and nutritional supplements).: Yes
[2024-07-27 14:00] VITALS: BP 116/97; PULSE 70; RESP 18; TEMP 36.1; O2SAT 100
[2024-07-27 16:52] LABS: Glucose Point of Care 107 mg/dl (65-105)
[2024-07-27] MEDS: ATORVASTATIN 40 MG TABLET 80 MG PO (20:15)
[2024-07-27] MEDS: MIRTAZAPINE 15 MG TABLET 45 MG PO (20:15)
[2024-07-27] MEDS: ZOLPIDEM TARTRATE (*CRX) 5 MG TABLET 10 MG PO (20:16)
[2024-07-27] MEDS: BENZONATATE 100 MG CAPSULE 200 MG PO (20:16)
[2024-07-27] MEDS: IPRATROPIUM NASAL SPRAY 0.03% 15 ML BOTTLE 2 SPRAY NASAL (20:18)
[2024-07-27 22:00] VITALS: BP 151/80; PULSE 72; RESP 21; TEMP 37.1; O2SAT 100
[2024-07-28 01:57] LABS: Glucose Point of Care 101 mg/dl (65-105)
[2024-07-28 06:00] VITALS: BP 112/56; PULSE 60; RESP 20; TEMP 36.6; O2SAT 98
[2024-07-28 06:52] LABS: Basophils Percent Auto 0.7 % (0.2-1.2); Eosinophils Absolute Auto 0.3 K/mm3 (0-0.3); Eosinophils Percent Auto 4.4 % (0-4.4); Hematocrit 29.7 % (42.0-52.0); Immature Granulocyte Absolute 0.03 K/mm3 (0.00-0.031); Immature Granulocyte Percent A 0.5 % (0-0.5); Lymphocytes Absolute Auto 1.37 K/mm3 (0.9-3.2); Lymphocytes Percent Auto 23.3 % (18.3-44.2); Mean Corpuscular HGB Conc 30.3 g/dl (32-36); Mean Corpuscular Hemoglobin 24.7 pg (26-34); Mean Corpuscular Volume 81.6 fl (80-100); Mean Platelet Volume 9.2 fl (7.4-10.4); Monocytes Absolute Auto 0.5 K/mm3 (0.1-0.6); Monocytes Percent Auto 8.3 % (2.6-8.5); Neutrophils Absolute Auto 3.7 K/mm3 (1.3-6.7); Neutrophils Percent Auto 62.8 % (45.5-73.1); Platelet Count Result 351 k/mm3 (150-375); Red Blood Count 3.64 M/mm3 (4.6-6.20); Red Cell Distribution Width 15.7 % (11.5-14.5); White Blood Count 5.9 K/mm3 (4.5-10.0)
[2024-07-28 07:04] LABS: Anion Gap 4 mmol/L (4-12); Blood Urea Nitrogen 17 mg/dL (9-20); Calcium 8.8 mg/dL (8.4-10.2); Carbon Dioxide 25 mmol/L (22-30); Chloride 110 mmol/L (98-107); Estimated CRCL calculation 61 ml/min; Estimated Glomerular Filt Rate 46; Glucose 88 mg/dL (65-110); Sodium 139 mmol/L (137-145)
[2024-07-28 07:27] LABS: INR 4.3; Prothrombin Time 41.7 Seconds (11.1-14.7)
[2024-07-28] MEDS: FLUTICASONE PROPIONATE 0.05% NA SPR 16 GM BTL (*BKC) 2 SPRAY NASAL (08:09)
[2024-07-28] MEDS: BENZONATATE 100 MG CAPSULE 200 MG PO (08:10)
[2024-07-28] MEDS: LORATADINE 10 MG TABLET PO (08:10)
[2024-07-28] MEDS: FUROSEMIDE 40 MG TABLET PO (08:10)
[2024-07-28] MEDS: ACIDOPHILUS/BULGARICUS CHEWABLE TABLET 1 TABLET BY MOUTH (08:10)
[2024-07-28] MEDS: LOSARTAN POTASSIUM 50 MG TABLET PO (08:10)
[2024-07-28] MEDS: PARoxetine 20 MG TABLET PO (08:10)
[2024-07-28] MEDS: CHOLECALCIFEROL 1,000 UNITS TABLET 4000 UNITS PO (08:10)
[2024-07-28] MEDS: COLCHICINE 0.6 MG TABLET PO (08:10)
[2024-07-28] MEDS: EMPAGLIFLOZIN 12.5 MG TABLET PO (08:10)
[2024-07-28] MEDS: PANTOPRAZOLE 40 MG TABLET PO (08:10)
[2024-07-28] MEDS: HYDROcodone/acetaminophen (*CRX) 5-325 MG TABLET 1 TAB PO (08:11)
[2024-07-28 08:19] LABS: Glucose Point of Care 99 mg/dl (65-105)
--- NOTE | 2024-07-28 11:09 | P.PNIM_ITS ---
Subjective Date/time seen: 07/28/24 11:09 Review of Systems Review of Systems: All systems reviewed & are unremarkable except as noted in HPI and below Objective Data Vital Signs Vital Signs: Vital Signs - 24 hr 07/27/24 14:00 07/27/24 22:00 07/28/24 06:00 Temperature 97.0 F L 98.7 F 97.9 F Pulse Rate 70 72 60 Respiratory Rate 18 21 H 20 Blood Pressure 116/97 H 151/80 H 112/56 L Pulse Oximetry 100 100 98 Oxygen Delivery 07/28/24 08:00 Temperature Pulse Rate Respiratory Rate Blood Pressure Pulse Oximetry Oxygen Delivery Room Air Intake/Output Intake/Output: Intake & Output 07/25/24 07/26/24 07/27/24 07/28/24 23:59 23:59 23:59 23:59 Intake Total 4420.8 3491.3 1738.7 240 Output Total 1950 1825 950 850 Balance 2470.8 1666.3 788.7 -610 Meds/Results Medications: Active Medications Generic Name Dose Route Start Last Admin Trade Name Freq PRN Reason Stop Dose Admin Acetaminophen 650 mg 07/24/24 18:01 Acetaminophen 325 Mg Tablet PO Q4H PRN Mild Pain (1-3) or Fever Hydrocodone Bitart/Acetaminophen 1 tab 07/24/24 18:01 07/28/24 08:11 Hydrocodone/Acetaminophen (*Crx) 5-325 Mg Tablet PO 1 tab Q4H PRN Administration Pain Rated 4-6 Atorvastatin Calcium 80 mg 07/25/24 21:00 07/27/24 20:15 Atorvastatin 40 Mg Tablet PO 80 mg HS MARY Administration Benzonatate 200 mg 07/26/24 10:19 07/28/24 08:10 Benzonatate 100 Mg Capsule PO 200 mg TID PRN Administration Cough Colchicine 0.6 mg 07/25/24 21:00 07/28/24 08:10 Colchicine 0.6 Mg Tablet PO 0.6 mg Q12HR MARY Administration Dextrose 12.5 gm 07/25/24 00:22 Dextrose 50% 25 Gm/50 Ml Syringe IV PUSH PRN PRN Hypoglycemia Protocol Empagliflozin 12.5 mg 07/25/24 09:00 07/28/24 08:10 Empagliflozin 12.5 Mg Tablet PO 12.5 mg DAILY MARY Administration Fluticasone Propionate 2 spray 07/27/24 09:00 07/28/24 08:09 Fluticasone Propionate 0.05% Na Spr 16 Gm Btl (*Bkc) NASAL 2 spray QAM MARY Administration Furosemide 40 mg 07/25/24 09:00 07/28/24 08:10 Furosemide 40 Mg Tablet PO 40 mg DAILY MARY Administration Glucagon 1 mg 07/25/24 00:22 Glucagon For Inj 1 Mg Vial IM PRN PRN Hypoglycemia Protocol Glucose 15 gm 07/25/24 00:22 Glucose Oral Gel 15 Gm Of Glucse In 37.5 Gm Tube PO PRN PRN Hypoglycemia Protocol Dextrose 1,000 mls @ 100 mls/hr 07/25/24 00:22 Dextrose 5% 1,000 Ml IVPB PRN PRN Hypoglycemia Protocol Insulin Aspart 3 - 6 units 07/25/24 08:00 07/28/24 08:22 Insulin Aspart (*Bkc) 100 Units/Ml SUB-Q Not Given TIDWM [facility] Protocol Insulin Aspart 1 - 3 units 07/25/24 21:00 07/27/24 21:47 Insulin Aspart (*Bkc) 100 Units/Ml SUB-Q Not Given HS MARY Protocol Insulin Aspart 3 units 07/25/24 08:00 07/26/24 09:14 Insulin Aspart (*Bkc) 100 Units/Ml SUB-Q Not Given TIDWM MARY Insulin Glargine 7 units 07/28/24 09:00 07/28/24 08:47 Insulin Glargine (*Bkc) 100 Units/Ml SUB-Q Not Given DAILY MARY Ipratropium [place] 2 spray 07/26/24 21:00 07/27/24 20:18 Ipratropium Nasal [place] 0.03% 15 Ml Bottle NASAL 2 spray HS MARY Administration Lactobacillus Acidophilus 1 tablet 07/25/24 09:00 07/28/24 08:10 Acidophilus/[place] Chewable Tablet BY MOUTH 1 tablet DAILY MARY Administration Loratadine 10 mg 07/25/24 09:00 07/28/24 08:10 Loratadine 10 Mg Tablet PO 10 mg QAM MARY Administration Losartan Potassium 50 mg 07/25/24 09:00 07/28/24 08:10 Losartan Potassium 50 Mg Tablet PO 50 mg DAILY MARY Administration Mirtazapine 45 mg 07/25/24 21:00 07/27/24 20:15 Mirtazapine 15 Mg Tablet PO 45 mg HS MARY Administration Morphine Sulfate 4 mg 07/24/24 18:01 Morphine Sulfate (*Crx) 4 Mg/Ml Inj IV PUSH Q2H PRN Pain Rated 7-10 Ondansetron HCl 4 mg 07/24/24 18:01 07/27/24 09:17 Ondansetron Inj 4 Mg/2 Ml Vial IV PUSH 4 mg Q4H PRN Administration Nausea Pantoprazole Sodium 40 mg 07/25/24 09:00 07/28/24 08:10 Pantoprazole 40 Mg Tablet PO 40 mg Q12HR MARY Administration Paroxetine HCl 20 mg 07/25/24 09:00 07/28/24 08:10 Paroxetine 20 Mg Tablet PO 20 mg DAILY MARY Administration Vitamin D 4,000 units 07/25/24 09:00 07/28/24 08:10 Cholecalciferol 1,000 Units Tablet PO 4,000 units DAILY MARY Administration Zolpidem Tartrate 10 mg 07/25/24 00:21 07/27/24 20:16 Zolpidem Tartrate (*Crx) 5 Mg Tablet PO 10 mg HS PRN Administration insomnia Radiology Results: ITS Impressions Chest X-Ray 07/24/24 15:35 IMPRESSION: 1: NO ACUTE CARDIOPULMONARY DISEASE. Knee X-Ray 07/24/24 15:36 IMPRESSION: 1. Medial compartment arthroplasty in near-anatomic alignment. 2. Mild left knee osteoarthritis. 3. Large knee joint effusion with loose body. Abdomen/Pelvis CT 07/28/24 05:50 IMPRESSION: 1. Supraumbilical ventral hernia containing fat. 2. Prominent fat in the inguinal canals, which may be secondary to obesity or may be hernias. Labs Labs: Laboratory Results - last 24 hr 07/27/24 07/27/24 07/27/24 11:25 16:34 21:31 WBC RBC Hgb Hct MCV MCH MCHC RDW Plt Count MPV Immature Gran % (Auto) Neut % (Auto) Lymph % (Auto) [place] % (Auto) Eos % (Auto) Baso % (Auto) Lymph # (Auto) [place] # (Auto) Eos # (Auto) Baso # (Auto) Abs Immat Gran (auto) Absolute Neuts (auto) Absolute Nucleated RBC Nucleated RBC % PT INR Sodium Potassium Chloride Carbon Dioxide Anion Gap BUN Creatinine Estim Creat Clear Calc Estimated GFR Glucose POC Capillary Glucose 102 107 H 101 Calcium 12/23/24 12/23/24 06:17 08:14 WBC 5.9 RBC 3.64 L Hgb 9.0 L Hct 29.7 L MCV 81.6 MCH 24.7 L MCHC 30.3 L RDW 15.7 H Plt Count 351 MPV 9.2 Immature Gran % (Auto) 0.5 Neut % (Auto) 62.8 Lymph % (Auto) 23.3 [place] % (Auto) 8.3 Eos % (Auto) 4.4 Baso % (Auto) 0.7 Lymph # (Auto) 1.37 [place] # (Auto) 0.5 Eos # (Auto) 0.3 Baso # (Auto) 0.0 Abs Immat Gran (auto) 0.03 Absolute Neuts (auto) 3.7 Absolute Nucleated RBC 0.000 Nucleated RBC % 0.0 PT 41.7 H INR 4.3 Sodium 139 Potassium 4.0 Chloride 110 H Carbon Dioxide 25 Anion Gap 4 BUN 17 Creatinine 1.50 H Estim Creat Clear Calc 61 Estimated GFR 46 L Glucose 88 POC Capillary Glucose 99 Calcium 8.8
[2024-07-28 11:52] LABS: Glucose Point of Care 103 mg/dl (65-105)
[2024-07-28 13:50] VITALS: BP 146/84; PULSE 66; RESP 16; TEMP 36.6; O2SAT 99
--- NOTE | 2024-07-28 15:22 | P.DS_ITS ---
DS: Admitting Diagnosis Discharge Date 07/28/2024 Admitting Diagnosis Bilateral leg and feet swelling DS: Discharge Diagnosis Discharge Diagnosis (1) Effusion of left knee: Code(s): M25.462 - Effusion, left knee Status: Acute (2) Supratherapeutic INR: Code(s): R79.1 - Abnormal coagulation profile Status: Acute (3) Gout: Qualifiers: Chronicity: acute Gout etiology: due to renal impairment Gout site: knee Laterality: left Qualified Code(s): M10.362 - Gout due to renal impairment, left knee Code(s): M10.9 - Gout, unspecified Status: Acute (4) Chronic anticoagulation: Code(s): Z79.01 - senior care (current) use of anticoagulants Status: Acute (5) Type 2 diabetes mellitus with hyperglycemia, with long-term current use of insulin: Code(s): E11.65 - Type 2 diabetes mellitus with hyperglycemia; 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 He also has pain of the ankle, left hip and left shoulder. However it sounds like the pain of the knee preceded the pain of th e other joints and the other joints may be hurting in compensation to changes in gait pattern with left knee pain. Patient does report long history of gout. However given that the patient's INR is significantly elevated and that there is a radiopaque body likely bone fragment on imaging I am more suspicious of possible hemarthrosis. * Blood cultures no growth to date. * Chest X-ray no acute cardiopulmonary disease. * Left knee X-ray showed: IMPRESSION: 1. Medial compartment arthroplasty in near-anatomic alignment. 2. Mild left knee osteoarthritis. 3. Large knee joint effusion with loose body. * Uric acid elevated to 9.6. Some improvement with colchicine but not resolved * Continue colchicine 0.6 BID with improvement. * Holding warfarin, last INR 4.3. Patient to FUP in anticoagulation clinic at the [place] on 07/31/24. * Patient appetite poor since Ozempic doubled. Patient currently decreased to Lantus 7 units subq daily. * CT abdomen IMPRESSION: 1. Supraumbilical ventral hernia containing fat. 2. Prominent fat in the inguinal canals, which may be secondary to obesity or may be hernias. * Creatinine improved to 1.50 Status at Discharge Functional status at discharge: uses cane/walker Overall status at discharge: patient is progressing back to baseline Time Spent with Patient Time attestation: Total time spent providing and/or coordinating discharge services: Time spent: Greater than 30 minutes Exam Const: General: comfortable and no acute distress Neck: Neck: supple Resp: Effort & Inspection: normal respiratory effort Auscultation: clear to auscultation bilaterally Cardio: Rate: regular rate Rhythm: regular rhythm GI: GI Palp: Yes Soft to palpation Auscultation: normal bowel sounds Skin: General skin exam: no rashes or lesions noted Extrem: Other: Left ankle and knee slightly swollen Psych: Mental Status: mental status grossly normal Affect: normal affect DS: Data Data Completed and Pending Labs on day of discharge: Labs from last 24 hours 07/28/24 07/28/24 07/28/24 11:43 08:14 06:17 WBC 5.9 RBC 3.64 L Hgb 9.0 L Hct 29.7 L MCV 81.6 MCH 24.7 L MCHC 30.3 L RDW 15.7 H Plt Count 351 MPV 9.2 Immature Gran % (Auto) 0.5 Neut % (Auto) 62.8 Lymph % (Auto) 23.3 [place] % (Auto) 8.3 Eos % (Auto) 4.4 Baso % (Auto) 0.7 Lymph # (Auto) 1.37 [place] # (Auto) 0.5 Eos # (Auto) 0.3 Baso # (Auto) 0.0 Abs Immat Gran (auto) 0.03 Absolute Neuts (auto) 3.7 Absolute Nucleated RBC 0.000 Nucleated RBC % 0.0 PT 41.7 H INR 4.3 Sodium 139 Potassium 4.0 Chloride 110 H Carbon Dioxide 25 Anion Gap 4 BUN 17 Creatinine 1.50 H Estim Creat Clear Calc 61 Estimated GFR 46 L Glucose 88 POC Capillary Glucose 103 99 Calcium 8.8 07/27/24 07/27/24 21:31 16:34 WBC RBC Hgb Hct MCV MCH MCHC RDW Plt Count MPV Immature Gran % (Auto) Neut % (Auto) Lymph % (Auto) [place] % (Auto) Eos % (Auto) Baso % (Auto) Lymph # (Auto) [place] # (Auto) Eos # (Auto) Baso # (Auto) Abs Immat Gran (auto) Absolute Neuts (auto) Absolute Nucleated RBC Nucleated RBC % PT INR Sodium Potassium Chloride Carbon Dioxide Anion Gap BUN Creatinine Estim Creat Clear Calc Estimated GFR Glucose POC Capillary Glucose 101 107 H Calcium Preliminary micro results at discharge 07/25/24 06:25 Blood Culture - Preliminary Blood 07/25/24 06:19 Blood Culture - Preliminary Blood Discharge Plan Discharge Attending physician on discharge: Isaak Rodriguez Discharging Clinician: Amaya Franco Anticipated Discharge Date/Time: 07/28/24 15:00 Patient Disposition: Home, Self-Care Activity: may shower and as tolerated Diet: heart healthy and diabetic Discharge Instructions: * Follow up with anticoagulation clinic on 07/31/24 * Follow up with primary in one week. Patient Instructions: Antibiotic Form, Warfarin (By mouth), Gout (GEN) Patient Language: Israeli Stand Alone Forms: General Discharge Information Follow-up/Referrals: UNKNOWN,DOCTOR [Primary Care Provider] - 1 Week Discharge Medications: New colchicine [Colcrys] 0.6 mg Tablet 0.6 mg PO Q12HR Qty: 14 0RF acetaminophen 325 mg Tablet 650 mg PO Q4H PRN (Reason: Mild Pain (1-3) Or Fever) Qty: 30 0RF insulin glargine [Lantus U-100 Insulin] 100 unit/mL Solution 7 unit subcut DAILY Qty: 10 0RF Continued mirtazapine 45 mg tablet 45 mg PO HS losartan [Cozaar] 50 mg tablet 50 mg PO DAILY furosemide [Lasix] 40 mg tablet 40 mg PO DAILY empagliflozin 25 mg tablet 12.5 mg PO DAILY cetirizine [24Hour Allergy] 10 mg tablet 10 mg PO DAILY paroxetine HCl 20 mg tablet 20 mg PO DAILY zolpidem 10 mg tablet 10 mg PO HS PRN (Reason: insomnia) Lactobacillus acidophilus 0.5 mg (100 million cell) tablet 100 mmu cells PO DAILY atorvastatin 80 mg tablet 80 mg PO HS omeprazole 40 mg capsule,delayed release(DR/EC) 40 mg PO BID cholecalciferol (vitamin D3) [Vitamin D3] 50 mcg (2,000 unit) capsule 4,000 unit PO DAILY melatonin 3 mg capsule 3 mg PO HS PRN (Reason: sleep) quetiapine [Seroquel] 25 mg tablet 25 mg PO HS Patient Comments: Pt takes 1/2 tablet at bedtime. latanoprost 0.005 % drops 1 drp EACH EYE DAILY Patient Comments: in evening Held warfarin 2 mg tablet 2 mg PO QMWF Hold Instructions: Resume on 08/15/24. HOLD until INR comes back to goal of 2-2.5. warfarin 3 mg tablet 3 mg PO [id number] Hold Instructions: Resume on 08/15/24. HOLD until INR comes back to goal of 2-2.5. Discontinued insulin aspart U-100 100 unit/mL solution 20 unit subcut BID insulin glargine [Lantus U-100 Insulin] 100 unit/mL solution 20 unit subcut BID Other Ambulatory Orders: Prothrombin Time INR (Routine) Timeframe: 3 Days Location: Determined by Patient Ordered By: Amaya Franco Partial Thromboplastin Time (Routine) Timeframe: 3 Days Location: Determined by Patient Ordered By: Amaya Franco Date of admission: 07/26/24 16:07 Primary Care Provider: UNKNOWN,DOCTOR Admitting Provider: Master Avendaño Attending physician on admission: Savannah Goldberg Condition: Stable Hospitalist MIPS Heart Failure (Exclusion) Patient has history of Heart Transplant or Left Ventricular Assistive Device?: No IF YES, STOP HERE Heart Failure (Qualifier) Patient has current or prior documentation of LVEF less than or equal to 40%, or mod/servere depressed LVSF?: No IF NO, STOP HERE
== END 2024-07-28 15:40 | disposition home or self-care (01) | DRG 565 ==
LOC: ANHED 17:42 → ANH3MEDSUR 18:46 → ANH2MED 20:27 → ANH3MEDSUR 20:39
PROVIDERS: Internal Medicine; Nurse Practitioner Acute Care; Admitting Provider General Practice; Emergency Provider Emergency Medicine; Visit Provider Internal Medicine
DX: M25.462 Effusion, left knee (principal); I13.0 Hypertensive heart and chronic kidney disease with heart failure and stage 1 through stage 4 chronic kidney disease, or unspecified chronic kidney disease; I48.20 Chronic atrial fibrillation, unspecified; N18.4 Chronic kidney disease, stage 4 (severe); M10.362 Gout due to renal impairment, left knee; I50.9 Heart failure, unspecified; R79.1 Abnormal coagulation profile; J44.9 Chronic obstructive pulmonary disease, unspecified; E11.42 Type 2 diabetes mellitus with diabetic polyneuropathy; E11.22 Type 2 diabetes mellitus with diabetic chronic kidney disease; E04.1 Nontoxic single thyroid nodule; K21.9 Gastro-esophageal reflux disease without esophagitis; H40.9 Unspecified glaucoma; G47.33 Obstructive sleep apnea (adult) (pediatric); F31.9 Bipolar disorder, unspecified; F43.10 Post-traumatic stress disorder, unspecified; Z96.653 Presence of artificial knee joint, bilateral; Z20.822 Contact with and (suspected) exposure to COVID-19; Z86.718 Personal history of other venous thrombosis and embolism; Z79.01 Long term (current) use of anticoagulants; Z98.1 Arthrodesis status; Z86.73 Personal history of transient ischemic attack (TIA), and cerebral infarction without residual deficits; Z98.84 Bariatric surgery status
CPT/HCPCS: 36415; 71046; 73562; 74176; 80048; 80053; 82948; 83690; 83880; 84100; 84145; 84550; 85025; 85027; 85610; 85652; 85730; 86140; 87040; 87637; 96361; 96374; 96375; 96376; 97161; 97165; 97530; 99285; A9270; G0378; J1815; J2270; J2405; J7030

== ENCOUNTER 2025-02-25 12:19 | Emergency (ER) | payer OTHER, MEDICARE, SELFPAY ==
--- NOTE | ~2025-02-25 | US_ITS ---
EXAMINATION: US venous doppler LE RT DATE: 02/25/2025 16:47 INDICATION: Swelling and pain within the right lower extremity (secondary to a fall) TECHNIQUE: Grayscale ultrasound images without and with compression and Doppler ultrasound images of the right lower extremity veins were obtained. COMPARISON: None. FINDINGS: The visualized portions of right common femoral vein, profunda (deep) femoral vein, femoral vein, pop liteal vein, peroneal veins, posterior tibial veins, and greater saphenous vein outflow are patent. IMPRESSION: 1. No deep venous thrombosis within the right lower extremity, as detailed above. Reviewed, dictated and finalized at location A. IMPRESSION: 1. No deep venous thrombosis within the right lower extremity, as detailed abo ve.
--- NOTE | ~2025-02-25 | XR_ITS ---
XR knee RT min 4V 02/25/2025 13:32 Indication: Right knee injury Procedure: 4 views right knee Comparison: No prior studies for comparison. Findings: There is a right knee arthroplasty with longstem femoral component. There is no periprosthe tic lucency surrounding the tibial component, suspicious for loosening. There is deformity of the pat roosevelt, possibly posttraumatic. Large amount of abnormal fluid in the suprapatellar bursa. Impression: 1: Abnormal periprosthetic lucency surrounding the tibial component of the knee prosthesis, suspiciou s for loosening or less likely infection. 2: Large amount of abnormal fluid in the suprapatellar bursa which may represent effusion or hemorrha ge. Infection less favored although not excluded. Clinically correlate. Reviewed, dictated and finalized at location A. Impression: 1: Abnormal periprosthetic lucency surrounding the tibial component of the knee prosthesis, suspicious for loosening or less likely infection. 2: Large amount of abnormal fluid in the suprapatellar bursa which may represen t effusion or hemorrhage. Infection less favored although not excluded. Clinica lly correlate.
[2025-02-25 12:19] VITALS: BP 129/72; PULSE 68; RESP 16; TEMP 36.4; O2SAT 99
--- OUTSIDE RECORDS SUMMARY | 2025-02-25 12:22 | XMS_ITS | Encounter Summary ---
Author Organization [facility] Madeline melendez Address [address] [place] [address] Phone Care Team Providers Care Mediation Commissioner Name Role Phone Unavailable Primary Care Provider Unavailabl e Encounter Details Date Type Department Care Team (Late st Contact Info) Description 05/18/2021 Hospital/ED/SNF/HH [facility] [place] [address] Provider, MD Star [address] [place] [id number] Social History Tobacco Use Types Packs/Day Years Used Date Smoking Tobacco: Never Assessed Sex and Gender Information Value Date Recorded Sex Assigned at Not on file Legal Sex Male 7:35 PM MDT Gender Identity Not on file Sexual Orientation Not on file documented as of this encounter Plan of Treatment Not on file documented as of this encounter Visit Diagnoses Not on filedocumented in this encounter
--- OUTSIDE RECORDS SUMMARY | 2025-02-25 12:22 | XMS_ITS | Clinical Summary ---
Author Organization [facility] Madeline [facility] Address [address] [address] Phone Care Team Providers Care Supervisor [employer]tic Tinning Name Role Phone Unavailable Primary Care Provider Unavailabl e Social History Tobacco Use Types Packs/Day Years Used Date Smoking Tobacco: Never Assessed Sex and Gender Information Value Date Recorded Sex Assigned at Not on file Legal Sex Male 7:35 PM MDT Gender Identity Not on file Sexual Orientation Not on file Plan of Treatment Not on file
--- OUTSIDE RECORDS SUMMARY | 2025-02-25 12:22 | XMS_ITS | Patient Health Record ---
Author Organization [facility] [employer] Address [address] [facility] [address] [place] [address] Care Team Providers Care Auto Fleet Manager Name Role Phone Carlos aBrrientos Unavailable [phone] Reason For Referral No Information Plan Of Treatment No Information
--- OUTSIDE RECORDS SUMMARY | 2025-02-25 12:22 | XMS_ITS | Encounter Summary ---
Author Organization [facility] Madeline mel[facility] Address [address] [place] [address] Phone Care Team Providers Care Concrete Hopper Operator Name Role Phone Unavailable Primary Care Provider Unavailabl e Encounter Details Date Type Department Care Team (Late st Contact Info) Description 08/25/2021 Hospital/ED/SNF/HH Visit [facility] [place] [address] Provider, MD Star [address] [place] [id number] Social History Tobacco Use Types Packs/Day [...]
[2025-02-25 15:32] VITALS: BP 133/82; PULSE 70; RESP 16; TEMP 36.1; O2SAT 100
--- NOTE | 2025-02-25 15:40 | ED_ITS ---
HPI - Extremity Injury (Lower) General Chief Complaint: Extremity Injury, Lower <Kassidy Slater APRN - Last Filed: 02/25/25 15:41> Stated Complaint: R knee injury after fall <Kassidy Slater APRN - Last Filed: 02/25/25 15:41> Time Seen by Provider: 02/25/25 15:00 <Kassidy Slater APRN - Last Filed: 02/25/25 15:41> Focused HPI: Patient is a 69-year-old male who presents to the ER after sustaining a fall. He reports he slipped 2 days ago and his right knee bent back. Patient reports he heard a ?crunch.He reports he has a history of high blood pressure, chronic kidney disease, diabetes, right knee replacement, and COPD. He reports the swelling and pain have worsened over the past 2 days. He patient denies any new numbness/tingling, recent fevers, or decreased range of motion in his right ankle or hip. GENERAL: Well-appearing, obese, and in no acute distress. HEAD: Normocephalic, atraumatic. CHEST: Clear to auscultation. ?No respiratory distress. HEART: Regular rate and rhythm.? NEURO: ?Alert and oriented x3. Patient screened in triage and initial orders placed.? ?Additional care and disposition to be based upon?diagnostic testing and treatment. <Kassidy Slater APRN - Last Filed: 02/25/25 15:41> History of Present Illness HPI Narrative: as per mse <Rosi Goodson III, DO - Last Filed: 02/25/25 22:25> Related Data Home Medications: Home Medications ?Medication ?Instructions ?Recorded ?Confirmed ?Last Taken ?Type Lactobacillus acidophilus 0.5 mg 100 mmu cells PO DAILY 07/24/24 07/24/24 Unknown History (100 million cell) tablet atorvastatin 80 mg tablet 80 mg PO HS 07/24/24 07/24/24 Unknown History cetirizine 10 mg tablet (24Hour 10 mg PO DAILY 07/24/24 07/24/24 Unknown History Allergy) cholecalciferol (vitamin D3) 50 4,000 unit PO DAILY 07/24/24 07/24/24 Unknown History mcg (2,000 unit) capsule (Vitamin D3) empagliflozin 25 mg tablet 12.5 mg PO DAILY diabetes 07/24/24 07/24/24 07/24/24 History furosemide 40 mg tablet (Lasix) 40 mg PO DAILY 07/24/24 07/24/24 07/24/24 History losartan 50 mg tablet (Cozaar) 50 mg PO DAILY HTN 07/24/24 07/24/24 07/24/24 History mirtazapine 45 mg tablet 45 mg PO HS restless legs 07/24/24 07/24/24 07/23/24 History omeprazole 40 mg capsule,delayed 40 mg PO BID 07/24/24 07/24/24 Unknown History release paroxetine HCl 20 mg tablet 20 mg PO DAILY 07/24/24 07/24/24 Unknown History warfarin 2 mg tablet 2 mg PO QMWF 07/24/24 07/24/24 Unknown History warfarin 3 mg tablet 3 mg PO QTUTHSASU 07/24/24 07/24/24 Unknown History zolpidem 10 mg tablet 10 mg PO HS PRN insomnia 07/24/24 07/24/24 Unknown History latanoprost 0.005 % eye drops 1 drp EACH EYE DAILY 07/26/24 07/26/24 Unknown History melatonin 3 mg capsule 3 mg PO HS PRN sleep 07/26/24 07/26/24 Unknown History quetiapine 25 mg tablet (Seroquel) 25 mg PO HS 07/26/24 07/26/24 Unknown History <Kassidy Slater, TRANSPORT ANALYST - Last Filed: 02/25/25 15:41> Allergies/Adverse Reactions: Allergies Allergy/AdvReac Type Severity Reaction Status Date / Time nafcillin Allergy Unknown Unknown Verified 02/25/25 18:07 oxycodone AdvReac Mild Unknown Verified 02/25/25 18:07 <Kassidy Slater, TRANSPORT ANALYST - Last Filed: 02/25/25 15:41> Review of Systems 2 Review of Systems: All systems reviewed & are unremarkable except as noted in HPI and below <Rosi Goodson III, DO - Last Filed: 02/25/25 22:25> PMFSH Past Medical History Medical History: Medical History (Updated 02/25/25 @ 19:42 by Rosi Goodson III, DO) Diabetic peripheral neuropathy Bipolar disorder PTSD (post-traumatic stress disorder) Depression Thyroid nodule Glaucoma GERD (gastroesophageal reflux disease) Obstructive sleep apnea COPD (chronic obstructive pulmonary disease) Essential hypertension CHF (congestive heart failure) Chronic anticoagulation Atrial fibrillation CVA (cerebral vascular accident) DVT (deep venous thrombosis) Right lower extremity Diabetes Prior to Ozempic his A1c was 14 after Ozempic his A1c is down to 6.2 Chronic kidney disease Stage IV <Kassidy Slater, TRANSPORT ANALYST - Last Filed: 02/25/25 15:41> Surgical History Surgical History: Surgical History (Updated 07/25/24 @ 00:23 by Jennifer Danielson DO) History of arthroplasty of right shoulder History of spinal fusion Complicated by MRSA infection History of gastric bypass (~2014) History of knee replacement, total bilateral <Kassidy Slater APRN - Last Filed: 02/25/25 15:41> Family History Family History: Family History (Updated 07/25/24 @ 00:28 by Jennifer Danielson DO) Father Parkinson's disease Hypertension Mother Hypertension <Kassidy Slater, TRANSPORT ANALYST - Last Filed: 02/25/25 15:41> Social History Social History: Social History (Updated 07/25/24 @ 08:21 by Jennifer Danielson DO) Social History: He lives with his of approximately 40 years. He served in the [employer] for 11 years. 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 He is a lifelong nonsmoker and has not drink to any significant amount since he was in his early 20s or 30s. He denies ever having been a problem drinker. He denies illicit substance use. He ambulates with a walker or utilizes a wheelchair for mobility. Code status: Full code Surrogate decision maker: Smoking status: Never smoker Alcohol intake: never Substance use: never Do You Feel Safe in your Home?: Yes Lack of Transportation: No Lack of Food: Never True Current Housing: I Have Housing Concerned About Future Housing: No Difficulty Paying Gas/Electric Bills: No Difficulty Paying for Meds: No Currently Unemployed: No Education: High School Diploma/GED Difficulty w/ Childcare or Family Care: No Spiritual care concerns: No <Kassidy Slater, ANGEL LUIS - Last Filed: 02/25/25 15:41> Exam 2 Const: General: healthy appearing and no acute distress <Rosi Deonte Goodson III, DO - Last Filed: 02/25/25 22:25> Nutritional Appearance: well nourished <Rosi Deonte Goodson III, DO - Last Filed: 02/25/25 22:25> Orientation/consciousness: patient oriented x3 <Rosi Deonte Goodson III, DO - Last Filed: 02/25/25 22:25> Limitations: no limitations <Rosi Deonte Goodson III, DO - Last Filed: 02/25/25 22:25> Eyes: EOM: EOMs intact bilaterally <Rosi Deonte Goodson III, DO - Last Filed: 02/25/25 22:25> Neck: Neck: normal visual inspection <Rosi Deonte Goodson III, DO - Last Filed: 02/25/25 22:25> Resp: Effort & Inspection: normal respiratory effort <Rosi Deonte Goodson III, DO - Last Filed: 02/25/25 22:25> Auscultation: clear to auscultation bilaterally <Rosi Deonte Goodson III, DO - Last Filed: 02/25/25 22:25> Cardio: Rate: regular rate <Rosi Deonte Goodson III, DO - Last Filed: 02/25/25 22:25> Rhythm: regular rhythm <Rosi Deonte Goodson III, DO - Last Filed: 02/25/25 22:25> GI: GI Palp: Yes Soft to palpation and No Tenderness to palpation present (GI) <Rosi Deonte Goodson III, DO - Last Filed: 02/25/25 22:25> Auscultation: normal bowel sounds <Rosi Deonte Goodson III, DO - Last Filed: 02/25/25 22:25> Skin: General skin exam: normal color <Rosi Deonte Goodson III, DO - Last Filed: 02/25/25 22:25> Rashes: no rashes <Rosi Deonte Goodson III, DO - Last Filed: 02/25/25 22:25> Wounds: no wounds <Rosi Deonte Goodson III, DO - Last Filed: 02/25/25 22:25> Neuro: General: patient oriented x3, moves all extremities, no meningeal signs and no focal motor deficits <Rosi Deonte Goodson III, DO - Last Filed: 02/25/25 22:25> Cranial nerves: Yes Nystagmus not present <Rosi Deonte Goodson III, DO - Last Filed: 02/25/25 22:25> Speech: normal speech <Rosi Deonte Goodson III, DO - Last Filed: 02/25/25 22:25> Extrem: Other: right knee swollen and tender but not erythematous. <Rosi Deonte Goodson III, DO - Last Filed: 02/25/25 22:25> Psych: Mental Status: mental status grossly normal <Rosi Deonte Goodson III, DO - Last Filed: 02/25/25 22:25> Affect: normal affect <Rosi Deonte Goodson III, DO - Last Filed: 02/25/25 22:25> Attitude: cooperative <Rosi Deonte Goodson III, DO - Last Filed: 02/25/25 22:25> Course Vital Signs Vital signs: Vital Signs Temperature 97.6 F 02/25/25 12:19 Pulse Rate 68 02/25/25 12:19 Respiratory Rate 16 02/25/25 12:19 Blood Pressure 129/72 02/25/25 12:19 Pulse Oximetry 99 02/25/25 12:19 Oxygen Delivery Room Air 02/25/25 12:19 Temperature 96.9 F L 02/25/25 15:32 Pulse Rate 88 02/25/25 18:05 Respiratory Rate 16 02/25/25 18:05 Blood Pressure 140/88 02/25/25 18:05 Pulse Oximetry 98 02/25/25 18:05 Oxygen Delivery Room Air 02/25/25 12:19 <Kassidy Slater, TRANSPORT ANALYST - Last Filed: 02/25/25 15:41> Vital Signs Temperature 97.6 F 02/25/25 12:19 Pulse Rate 68 02/25/25 12:19 Respiratory Rate 16 02/25/25 12:19 Blood Pressure 129/72 02/25/25 12:19 Pulse Oximetry 99 02/25/25 12:19 Oxygen Delivery Room Air 02/25/25 12:19 Temperature 96.9 F L 02/25/25 15:32 Pulse Rate 88 02/25/25 18:05 Respiratory Rate 16 02/25/25 18:05 Blood Pressure 140/88 02/25/25 18:05 Pulse Oximetry 98 02/25/25 18:05 Oxygen Delivery Room Air 02/25/25 12:19 <Rosi Clemons Goodson III, DO - Last Filed: 02/25/25 22:25> MDM - Extremity Injury (Lower) MDM Narrative Medical decision making narrative: x rays shows some periprosthetic lucency, wbc nl, esr slight elevation, cmp unremarkable. seems more traumatic than infection. did state she thought he had fever last night will discuss with ortho at [facility] will push films for them to review. discussed with Dr Turner at [facility], said would not tap so as to not seed the joint with normal wbc. kne immobilizer and they will see in clinic [phone] <Rosi Goodson III, DO - Last Filed: 02/25/25 22:25> Lab Data Result diagrams: 02/25/25 18:05 02/25/25 18:05 <Kassidy Slater, TRANSPORT ANALYST - Last Filed: 02/25/25 15:41> Labs: Lab Results 02/25/25 Range/Units 18:05 WBC 9.3 (4.5-10.0) K/mm3 RBC 4.77 (4.6-6.20) M/mm3 Hgb 12.1 L D (14.0-18.0) g/dL Hct 39.8 L (42.0-52.0) % MCV 83.4 (80-100) fl MCH 25.4 L (26-34) pg MCHC 30.4 L (32-36) g/dl RDW 17.8 H (11.5-14.5) % Plt Count 189 (150-375) k/mm3 MPV 10.8 H (7.4-10.4) fl Immature Gran % (Auto) 0.6 H (0-0.5) % Neut % (Auto) 69.7 (45.5-73.1) % Lymph % (Auto) 17.3 L (18.3-44.2) % Terrell % (Auto) 10.4 H (2.6-8.5) % Eos % (Auto) 1.7 (0-4.4) % Baso % (Auto) 0.3 (0.2-1.2) % Lymph # (Auto) 1.60 (0.9-3.2) K/mm3 Terrell # (Auto) 1.0 H (0.1-0.6) K/mm3 Eos # (Auto) 0.2 (0-0.3) K/mm3 Baso # (Auto) 0.0 (0.0-0.1) K/mm3 Abs Immat Gran (auto) 0.06 H (0.00-0.031) K/mm3 Absolute Neuts (auto) 6.5 (1.3-6.7) K/mm3 Absolute Nucleated RBC 0.000 (0.0-0.012) K/mm3 Nucleated RBC % 0.0 (0.0-0.2) % ESR 36 H (0-20) mm/hr Sodium 138 (137-145) mmol/L Potassium 3.9 (3.4-5.0) mmol/L Chloride 102 (98-107) mmol/L Carbon Dioxide 25 (22-30) mmol/L Anion Gap 11 (4-12) mmol/L BUN 25 H (9-20) mg/dL Creatinine 1.97 H (0.7-1.3) mg/dL Estim Creat Clear Calc 46 ml/min Estimated GFR 34 L (59 - ) Glucose 149 H (65-110) mg/dL Calcium 9.8 (8.4-10.2) mg/dL Total Bilirubin 0.9 (0.2-1.3) mg/dL AST 23 (17-59) U/L ALT 18 (6-50) U/L Alkaline Phosphatase 106 (38-126) U/L Total Protein 8.6 H (6.3-8.2) g/dL Albumin 4.4 (3.5-5.1) g/dL <Kassidy Slater, TRANSPORT ANALYST - Last Filed: 02/25/25 15:41> Lab Results 02/25/25 Range/Units 18:05 WBC 9.3 (4.5-10.0) K/mm3 RBC 4.77 (4.6-6.20) M/mm3 Hgb 12.1 L D (14.0-18.0) g/dL Hct 39.8 L (42.0-52.0) % MCV 83.4 (80-100) fl MCH 25.4 L (26-34) pg MCHC 30.4 L (32-36) g/dl RDW 17.8 H (11.5-14.5) % Plt Count 189 (150-375) k/mm3 MPV 10.8 H (7.4-10.4) fl Immature Gran % (Auto) 0.6 H (0-0.5) % Neut % (Auto) 69.7 (45.5-73.1) % Lymph % (Auto) 17.3 L (18.3-44.2) % Terrell % (Auto) 10.4 H (2.6-8.5) % Eos % (Auto) 1.7 (0-4.4) % Baso % (Auto) 0.3 (0.2-1.2) % Lymph # (Auto) 1.60 (0.9-3.2) K/mm3 Terrell # (Auto) 1.0 H (0.1-0.6) K/mm3 Eos # (Auto) 0.2 (0-0.3) K/mm3 Baso # (Auto) 0.0 (0.0-0.1) K/mm3 Abs Immat Gran (auto) 0.06 H (0.00-0.031) K/mm3 Absolute Neuts (auto) 6.5 (1.3-6.7) K/mm3 Absolute Nucleated RBC 0.000 (0.0-0.012) K/mm3 Nucleated RBC % 0.0 (0.0-0.2) % ESR 36 H (0-20) mm/hr Sodium 138 (137-145) mmol/L Potassium 3.9 (3.4-5.0) mmol/L Chloride 102 (98-107) mmol/L Carbon Dioxide 25 (22-30) mmol/L Anion Gap 11 (4-12) mmol/L BUN 25 H (9-20) mg/dL Creatinine 1.97 H (0.7-1.3) mg/dL Estim Creat Clear Calc 46 ml/min Estimated GFR 34 L (59 - ) Glucose 149 H (65-110) mg/dL Calcium 9.8 (8.4-10.2) mg/dL Total Bilirubin 0.9 (0.2-1.3) mg/dL AST 23 (17-59) U/L ALT 18 (6-50) U/L Alkaline Phosphatase 106 (38-126) U/L Total Protein 8.6 H (6.3-8.2) g/dL Albumin 4.4 (3.5-5.1) g/dL <Rosi Goodson III, DO - Last Filed: 02/25/25 22:25> Discharge Plan Discharge Clinical Impression: Effusion of knee joint right <Kassidy Sltaer APRN - Last Filed: 02/25/25 15:41> Patient Disposition: Home <Kassidy Slater APRN - Last Filed: 02/25/25 15:41> Condition: Stable <Kassidy Slater APRN - Last Filed: 02/25/25 15:41> Instructions: Antibiotic Form, Swollen Knee Joint (ED) <Kassidy Slater APRN - Last Filed: 02/25/25 15:41> Additional Instructions: call [facility] ortho clinic at [place] [phone] for appointment. return if signs of infection <Kassidy Slater APRN - Last Filed: 02/25/25 15:41> Patient Language: Citizen Of [place] <Kassidy Slater APRN - Last Filed: 02/25/25 15:41> Prescriptions: No Action mirtazapine 45 mg tablet 45 mg PO HS losartan [Cozaar] 50 mg tablet 50 mg PO DAILY furosemide [Lasix] 40 mg tablet 40 mg PO DAILY empagliflozin 25 mg tablet 12.5 mg PO DAILY cetirizine [24Hour Allergy] 10 mg tablet 10 mg PO DAILY paroxetine HCl 20 mg tablet 20 mg PO DAILY zolpidem 10 mg tablet 10 mg PO HS PRN (Reason: insomnia) Lactobacillus acidophilus 0.5 mg (100 million cell) tablet 100 mmu cells PO DAILY atorvastatin 80 mg tablet 80 mg PO HS omeprazole 40 mg capsule,delayed release(DR/EC) 40 mg PO BID cholecalciferol (vitamin D3) [Vitamin D3] 50 mcg (2,000 unit) capsule 4,000 unit PO DAILY warfarin 2 mg tablet 2 mg PO QMWF warfarin 3 mg tablet 3 mg PO QTUTHSASU melatonin 3 mg capsule 3 mg PO HS PRN (Reason: sleep) quetiapine [Seroquel] 25 mg tablet 25 mg PO HS Patient Comments: Pt takes 1/2 tablet at bedtime. latanoprost 0.005 % drops 1 drp EACH EYE DAILY Patient Comments: in evening colchicine [Colcrys] 0.6 mg Tablet 0.6 mg PO Q12HR Qty: 14 0RF acetaminophen 325 mg Tablet 650 mg PO Q4H PRN (Reason: Mild Pain (1-3) Or Fever) Qty: 30 0RF insulin glargine [Lantus U-100 Insulin] 100 unit/mL Solution 7 unit subcut DAILY Qty: 10 0RF <Kassidy Slater, ANGEL LUIS - Last Filed: 02/25/25 15:41> Follow-up/Referrals: UNKNOWN,DOCTOR [Primary Care Provider] - <Kassidy Slater APRN - Last Filed: 02/25/25 15:41>
--- OUTSIDE RECORDS SUMMARY | 2025-02-25 17:57 | XMS_ITS | Encounter Summary ---
Author Organization [facility] Mad[facility] melendez Address [address] [place] [address] Phone Care Team Providers Care Manager Data Name Role Phone Unavailable Primary Care Provider Unavailabl e Encounter Details Date Type Department Care Team (Late st Contact Info) Description 05/18/2021 Hospital/ED/SNF/HH [facility] [place] [address] Provider, MD Star [address] [place] [id number] Social History Tobacco Use Types Packs/Day [...]
--- OUTSIDE RECORDS SUMMARY | 2025-02-25 17:57 | XMS_ITS | Encounter Summary ---
Author Organization [facility] Madeline melendez Address [address] [place] [address] Phone Care Team Providers Care Oracle Engineer Name Role Phone Unavailable Primary Care Provider Unavailabl e Encounter Details Date Type Department Care Team (Late st Contact Info) Description 08/25/2021 Hospital/ED/SNF[facility] [place] [address] Provider, MD Star [address] [place] [id number] Social History Tobacco Use Types Packs/Day [...]
--- OUTSIDE RECORDS SUMMARY | 2025-02-25 17:57 | XMS_ITS | Clinical Summary ---
Author Organization [facility] Madeline mel[facility] Address [address], [place] [address] Phone Care Team Providers Care Commercial Coordinator Name Role Phone Unavailable Primary Care Provider [...]
[2025-02-25 18:05] VITALS: BP 140/88; PULSE 88; RESP 16; O2SAT 98
[2025-02-25 18:18] LABS: Hematocrit 39.8 % (42.0-52.0); Hemoglobin 12.1 g/dL (14.0-18.0); Immature Granulocyte Percent A 0.6 % (0-0.5); Lymphocytes Absolute Auto 1.60 K/mm3 (0.9-3.2); Mean Corpuscular HGB Conc 30.4 g/dl (32-36); Mean Corpuscular Hemoglobin 25.4 pg (26-34); Mean Corpuscular Volume 83.4 fl (80-100); Nucleated Red Blood Cells Absolute Auto 0.000 K/mm3 (0.0-0.012); Nucleated Red Blood Cells Perc 0.0 % (0.0-0.2); Platelet Count Result 189 k/mm3 (150-375); Red Blood Count 4.77 M/mm3 (4.6-6.20); White Blood Count 9.3 K/mm3 (4.5-10.0)
[2025-02-25 18:35] LABS: Alanine Aminotransferase 18 U/L (6-50); Albumin Level 4.4 g/dL (3.5-5.1); Alkaline Phosphatase 106 U/L (38-126); Anion Gap 11 mmol/L (4-12); Aspartate Amino Transferase 23 U/L (17-59); Bilirubin,Total 0.9 mg/dL (0.2-1.3); Blood Urea Nitrogen 25 mg/dL (9-20); Calcium 9.8 mg/dL (8.4-10.2); Carbon Dioxide 25 mmol/L (22-30); Chloride 102 mmol/L (98-107); Estimated CRCL calculation 46 ml/min; Estimated Glomerular Filt Rate 34; Glucose 149 mg/dL (65-110); Potassium 3.9 mmol/L (3.4-5.0); Sodium 138 mmol/L (137-145); Total Protein 8.6 g/dL (6.3-8.2)
== END 2025-02-25 19:59 | disposition home or self-care (01) ==
PROVIDERS: Emergency Provider Emergency Medicine
DX: M25.461 Effusion, right knee (principal); I13.0 Hypertensive heart and chronic kidney disease with heart failure and stage 1 through stage 4 chronic kidney disease, or unspecified chronic kidney disease; E11.22 Type 2 diabetes mellitus with diabetic chronic kidney disease; N18.4 Chronic kidney disease, stage 4 (severe); I50.9 Heart failure, unspecified; E11.39 Type 2 diabetes mellitus with other diabetic ophthalmic complication; H42 Glaucoma in diseases classified elsewhere; I48.91 Unspecified atrial fibrillation; J44.9 Chronic obstructive pulmonary disease, unspecified; K21.9 Gastro-esophageal reflux disease without esophagitis; G47.33 Obstructive sleep apnea (adult) (pediatric); Z98.1 Arthrodesis status; Z96.611 Presence of right artificial shoulder joint; Z96.653 Presence of artificial knee joint, bilateral; Z86.14 Personal history of Methicillin resistant Staphylococcus aureus infection; Z86.718 Personal history of other venous thrombosis and embolism; Z79.899 Other long term (current) drug therapy; Z79.01 Long term (current) use of anticoagulants; Z79.4 Long term (current) use of insulin; W01.0XXA Fall on same level from slipping, tripping and stumbling without subsequent striking against object, initial encounter
CPT/HCPCS: 36415; 73564; 80053; 85025; 85652; 87040; 93971; 99284

== ENCOUNTER 2025-03-01 15:32 | Emergency (ER) | payer MEDICARE, OTHER, SELFPAY ==
--- NOTE | ~2025-03-01 | US_ITS ---
EXAMINATION: US venous doppler LE RT DATE: 03/01/2025 18:33 INDICATION: Pain and swelling. History of DVT. TECHNIQUE: Grayscale images without and with compression and Doppler images of the right lower extrem ity veins were obtained. COMPARISON: 02/25/2025 FINDINGS: The right common femoral vein, profunda (deep) femoral vein, femoral vein, popliteal vein, peroneal v ein, posterior tibial veins and greater saphenous vein are patent. IMPRESSION: Patent right lower extremity veins. No evidence of deep venous thrombosis. Reviewed, dictated and finalized at location K.
--- NOTE | ~2025-03-01 | CT_ITS ---
CT OF right knee EXAMINATION: CT knee RT wo con DATE: 03/01/2025 18:45 INDICATION: Trauma TECHNIQUE: Computed tomography (CT) of the right knee was performed without intravenous contrast. Aut omated exposure control and iterative reconstruction technique were employed. The dose-length product was 594.81 mGy-cm. COMPARISON: Right knee x-ray, 02/25/2025 FINDINGS: Status post right knee arthroplasty with longstem femoral component. No hardware fracture. No osseous fracture. Perihardware lucency around the proximal and lateral aspect of the tibial compon ent, extending posteriorly, measuring up to 7 mm. A more focal perihardware lucency is present anteri michaelle measuring 10 x 18 mm, and extending to the cortical surface. Small cylindrical metallic devices in the anterior tibia, possibly related to patellar tendon fixation. Severe degenerative change at th e patella. A patellar component is not identified. Moderate volume joint fluid, with synovial thicken ing and peripheral calcification. IMPRESSION: No hardware or osseous fracture detected. Perihardware lucency is at the tibial component, may represent hardware infection/loosening. Comparis on to outside studies would be helpful if available. Moderate right knee joint effusion with findings suggestive of synovitis. Reviewed, dictated and finalized at location K. IMPRESSION: No hardware or osseous fracture detected. Perihardware lucency is at the tibial component, may represent hardware infecti on/loosening. Comparison to outside studies would be helpful if available. Moderate right knee joint effusion with findings suggestive of synovitis.
[2025-03-01 15:35] VITALS: BP 127/75; PULSE 97; RESP 16; TEMP 36.9; O2SAT 100
--- OUTSIDE RECORDS SUMMARY | 2025-03-01 15:35 | XMS_ITS | Encounter Summary ---
Author Organization [facility] Address [address] [place] [address] Phone Care Team Providers Care Hand Candy Cutter Name Role Phone Unavailable Primary Care Provider Unavailabl e Encounter Details Date Type Department Care Team (Late st Contact Info) Description 05/18/2021 Hospital/ED/SNF/HH Visit [facility] [place] [address] Provider, MD Star [address] [place] [id number] Social History Tobacco Use Types Packs/Day [...]
--- OUTSIDE RECORDS SUMMARY | 2025-03-01 15:35 | XMS_ITS | Clinical Summary ---
Author Organization [facility] Madeline mel[facility] Address [address] [address] Phone Care Team Providers Care Ski Maker Wood Name Role Phone Unavailable Primary Care Provider [...]
--- OUTSIDE RECORDS SUMMARY | 2025-03-01 15:35 | XMS_ITS | Patient Health Record ---
Author Organization [facility] Address [address] [facility] [address] [place] [address] Care Team Providers Care Traveling Missionary Name Role Phone Carlos Barrientos Unavailable [phone] Reason For Referral No Information Plan Of Treatment No Information
--- OUTSIDE RECORDS SUMMARY | 2025-03-01 15:35 | XMS_ITS | Encounter Summary ---
Author Organization [facility] Mad[facility] mel[facility] Address [address] [place] [address] Phone Care Team Providers Care System Software Programmer Name Role Phone Unavailable Primary Care Provider Unavailabl e Encounter Details Date Type Department Care Team (Late st Contact Info) Description 08/25/2021 Hospital/ED/SNF/HH [facility] [place] [address] Provider, MD Star [address] [place] [id number] Social History Tobacco Use Types Packs/Day [...]
--- NOTE | 2025-03-01 17:45 | ED_ITS ---
HPI - Extremity Injury (Lower) General Chief Complaint: Extremity Injury, Lower Stated Complaint: RIGHT KNEE PROBLEMS Time Seen by Provider: 03/01/25 17:36 Source: patient and family Limitations: no limitations History of Present Illness HPI Narrative: Patient presents with R knee pain. He presented last week here after a fall due to it hurting. He tried to follow up at [facility] but wasn't able to proceed due to [facility] rules that required his PCP to review the documentation to determine if a referral was advised. Denies any fevers but has felt chilled. He is on warfarin as anticoagulation. Has not been taking anything for pain, including not acetaminophen. R knee initially replaced at [facility] 20+ years ago. There was a complication and another procedure done at [facility]. Patient's primary care physician is Dr Huertas, financial business analyst at the [facility] (not [facility] but a location that is not open today due to being Sunday). Related Data Home Medications ?Medication ?Instructions ?Recorded ?Confirmed ?Last Taken ?Type Lactobacillus acidophilus 0.5 mg 100 mmu cells PO DAILY 07/24/24 07/24/24 Unknown History (100 million cell) tablet atorvastatin 80 mg tablet 80 mg PO HS 07/24/24 07/24/24 Unknown History cetirizine 10 mg tablet (24Hour 10 mg PO DAILY 07/24/24 07/24/24 Unknown History Allergy) cholecalciferol (vitamin D3) 50 4,000 unit PO DAILY 07/24/24 07/24/24 Unknown History mcg (2,000 unit) capsule (Vitamin D3) empagliflozin 25 mg tablet 12.5 mg PO DAILY diabetes 07/24/24 07/24/24 07/24/24 History furosemide 40 mg tablet (Lasix) 40 mg PO DAILY 07/24/24 07/24/24 07/24/24 History losartan 50 mg tablet (Cozaar) 50 mg PO DAILY HTN 07/24/24 07/24/24 07/24/24 History mirtazapine 45 mg tablet 45 mg PO HS restless legs 07/24/24 07/24/24 07/23/24 History omeprazole 40 mg capsule,delayed 40 mg PO BID 07/24/24 07/24/24 Unknown History release paroxetine HCl 20 mg tablet 20 mg PO DAILY 07/24/24 07/24/24 Unknown History warfarin 2 mg tablet 2 mg PO QMWF 07/24/24 07/24/24 Unknown History warfarin 3 mg tablet 3 mg PO QTUTHSASU 07/24/24 07/24/24 Unknown History zolpidem 10 mg tablet 10 mg PO HS PRN insomnia 07/24/24 07/24/24 Unknown History latanoprost 0.005 % eye drops 1 drp EACH EYE DAILY 07/26/24 07/26/24 Unknown History melatonin 3 mg capsule 3 mg PO HS PRN sleep 07/26/24 07/26/24 Unknown History quetiapine 25 mg tablet (Seroquel) 25 mg PO HS 07/26/24 07/26/24 Unknown History Allergies Allergy/AdvReac Type Severity Reaction Status Date / Time nafcillin Allergy Unknown Unknown Verified 02/25/25 18:07 oxycodone AdvReac Mild Unknown Verified 02/25/25 18:07 [facility] Past Medical History Medical History Diabetic peripheral neuropathy Bipolar disorder PTSD (post-traumatic stress disorder) Depression Thyroid nodule Glaucoma GERD (gastroesophageal reflux disease) Obstructive sleep apnea COPD (chronic obstructive pulmonary disease) Essential hypertension CHF (congestive heart failure) Chronic anticoagulation Atrial fibrillation CVA (cerebral vascular accident) DVT (deep venous thrombosis) Right lower extremity Diabetes Prior to Ozempic his A1c was 14 after Ozempic his A1c is down to 6.2 Chronic kidney disease Stage IV Surgical History Surgical History History of arthroplasty of right shoulder History of spinal fusion Complicated by MRSA infection History of gastric bypass (~2014) History of knee replacement, total bilateral Family History Family History (Updated 07/25/24 @ 00:28 by Jennifer Danielson DO) Father Parkinson's disease Hypertension Mother Hypertension Social History Social History Social History: He lives with his of approximately 40 years. He served in the [employer] for 11 years. 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 He is a lifelong nonsmoker and has not drink to any significant amount since he was in his early 20s or 30s. He denies ever having been a problem drinker. He denies illicit substance use. He ambulates with a walker or utilizes a wheelchair for mobility. [facility] Code status: Full code Surrogate decision maker: Smoking status: Never smoker Alcohol intake: never Substance use: never Do You Feel Safe in your Home?: Yes Lack of Transportation: No Lack of Food: Never True Current Housing: I Have Housing Concerned About Future Housing: No Difficulty Paying Gas/Electric Bills: No Difficulty Paying for Meds: No Currently Unemployed: No Education: High School Diploma/GED Difficulty w/ Childcare or Family Care: No Spiritual care concerns: No Exam 2 Narrative: GENERAL: Well-appearing, well-nourished, and in no acute distress. HEAD: Normocephalic, atraumatic. EYES: Non injected, non icteric ENT: Nares clear, no rhinorrhea or epistaxis. Gross auditory acuity intact. NECK: Supple. No meningismus. CHEST: Speaking in full sentences. No respiratory distress. HEART: Regular rate w/o bradycardia or tachycardia. . ABDOMEN: Obese but Soft, nondistended. EXTREMITIES: R knee effusion. Well healed surgical scar. No overlying erythema or signs of infection. Knee is slightly warm to the touch but not markedly so. Patient able to flex and extend at right knee but with limited ROM. SKIN: Warm, dry. No ecchymosis, abrasions, lesions, NEURO: No focal deficits. Alert and oriented. Answering questions. Following commands. Normal speech without aphasia or dysarthria. Sensation intact to touch throughout R LE. PSYCH: Normal mood and affect. Course Vital Signs Vital signs: Vital Signs Temperature 98.4 F 03/01/25 15:35 Pulse Rate 97 03/01/25 15:35 Respiratory Rate 16 03/01/25 15:35 Blood Pressure 127/75 03/01/25 15:35 Pulse Oximetry 100 03/01/25 15:35 Oxygen Delivery Room Air 03/01/25 15:35 Temperature 98.4 F 03/01/25 15:35 Pulse Rate 97 03/01/25 15:35 Respiratory Rate 16 03/01/25 15:35 Blood Pressure 127/75 03/01/25 15:35 Pulse Oximetry 100 03/01/25 15:35 Oxygen Delivery Room Air 03/01/25 15:35 MDM - Extremity Injury (Lower) MDM Narrative Medical decision making narrative: Patient presents with R knee pain. Fell a week or so ago. See earlier in the week for this issue and had plain film performed. Plan was for knee immobilizer and follow up with [facility] but [facility] interven[facility] and requires review before can proceed with referral. In the emergency department they are afebrile with vital signs within normal limits. Patient still without leukocytosis. He has a normocytic anemia. CKD stable from previous. Elevated ESR and CRP. Talked with community outreach coordinator/director of [facility]. Confirm they Received things from [facility] on 02/27. Consult placed with [facility]o at [facility] by PCP. They note that it is in their records that tomorrow 03/02, someone from ortho will be calling to schedule appointment for this week. Advised a disc be made so patient can take this to appointment as this is new imaging and will be helpful. Patient and his informed of this. Given acetaminophen initially and then a [place] (confirms had issues with oxy but did not have that issue with [place]). Discussed that there is 325 acetaminophen in each tablet and to limit to max 4000mg APAP/day. Verifies understanding. Stable for discharge. Differential Diagnosis Differential diagnosis: Likely acute internal derangement of knee and other (hardware malfunction/issue, osteomyelitis, septic joint, hematoma/seroma) Medical Records Attestation: I reviewed the patient's medical records. Medical records narrative: Note from ED visit 02/25: x rays shows some periprosthetic lucency, wbc nl, esr slight elevation, cmp unremarkable. seems more traumatic than infection. did state she thought he had fever last night will discuss with ortho at [facility] will push films for them to review. discussed with Dr Turner at [facility], said would not tap so as to not seed the joint with normal wbc. knee immobilizer and they will see in clinic [phone] Lab Data Attestation: I reviewed the patient's lab results. 03/01/25 18:13 03/01/25 18:13 Labs: Lab Results 03/01/25 Range/Units 18:13 WBC 9.2 (4.5-10.0) K/mm3 RBC 4.46 L (4.6-6.20) M/mm3 Hgb 11.2 L (14.0-18.0) g/dL Hct 36.8 L (42.0-52.0) % MCV 82.5 (80-100) fl MCH 25.1 L (26-34) pg MCHC 30.4 L (32-36) g/dl RDW 17.2 H (11.5-14.5) % Plt Count 246 (150-375) k/mm3 MPV 9.5 (7.4-10.4) fl Immature Gran % (Auto) 0.2 (0-0.5) % Neut % (Auto) 69.4 (45.5-73.1) % Lymph % (Auto) 19.3 (18.3-44.2) % Starke % (Auto) 8.3 (2.6-8.5) % Eos % (Auto) 2.4 (0-4.4) % Baso % (Auto) 0.4 (0.2-1.2) % Lymph # (Auto) 1.78 (0.9-3.2) K/mm3 Starke # (Auto) 0.8 H (0.1-0.6) K/mm3 Eos # (Auto) 0.2 (0-0.3) K/mm3 Baso # (Auto) 0.0 (0.0-0.1) K/mm3 Abs Immat Gran (auto) 0.02 (0.00-0.031) K/mm3 Absolute Neuts (auto) 6.4 (1.3-6.7) K/mm3 Absolute Nucleated RBC 0.000 (0.0-0.012) K/mm3 Nucleated RBC % 0.0 (0.0-0.2) % ESR 126 H (0-20) mm/hr Sodium 138 (137-145) mmol/L Potassium 3.8 (3.4-5.0) mmol/L Chloride 104 (98-107) mmol/L Carbon Dioxide 24 (22-30) mmol/L Anion Gap 10 (4-12) mmol/L BUN 29 H (9-20) mg/dL Creatinine 2.13 H (0.7-1.3) mg/dL Estim Creat Clear Calc 42 ml/min Estimated GFR 31 L (59 - ) Glucose 150 H (65-110) mg/dL Calcium 9.5 (8.4-10.2) mg/dL Total Bilirubin 0.8 (0.2-1.3) mg/dL AST 23 (17-59) U/L ALT 21 (6-50) U/L Alkaline Phosphatase 91 (38-126) U/L C-Reactive Protein 7.5 H (<1.0) mg/dL Total Protein 7.7 (6.3-8.2) g/dL Albumin 3.9 (3.5-5.1) g/dL Imaging Data Radiologist's impression: Impressions Venous Doppler Study 03/01/25 18:55 IMPRESSION: Patent right lower extremity veins. No evidence of deep venous thrombosis. Knee CT 03/01/25 19:11 IMPRESSION: No hardware or osseous fracture detected. Perihardware lucency is at the tibial component, may represent hardware infection/loosening. Comparison to outside studies would be helpful if available. Moderate right knee joint effusion with findings suggestive of synovitis. Discharge Plan Discharge Clinical Impression: Knee pain, right, Normocytic anemia, Elevated erythrocyte sedimentation rate, CRP elevated, Effusion of knee joint right Patient Disposition: Home Condition: Stable Instructions: Antibiotic Form, Narcotic Safety (ED), Swollen Knee Joint (ED), Knee Pain (ED), Anemia (ED) Additional Instructions: As we discussed, you should be receiving a phone call tomorrow from Orthopedic surgery at [facility] (if you haven't by the afternoon, try calling) to schedule an upcoming appointment. When this appointment occurs, take the disc from the Xray obtained earlier in rito week as well as the disc from the CT obtained today that you are being given. Return to the ED with new/worsening symptoms. Acetaminophen/Tylenol (maximum 4000 mg per day) is safe to take. Narcotics can be used for breakthrough pain but remember that each of these contains 325 mg of acetaminophen so take that into account so that you do not accidentally overdose. Patient Language: Burmese Prescriptions: New acetaminophen 500 mg capsule 1,000 mg PO Q6H PRN (Reason: pain) Qty: 30 0RF hydrocodone-acetaminophen 7.5-325 mg tablet 1 tablet PO Q8H PRN (Reason: pain) 5 Days Qty: 14 0RF No Action mirtazapine 45 mg tablet 45 mg PO HS losartan [Cozaar] 50 mg tablet 50 mg PO DAILY furosemide [Lasix] 40 mg tablet 40 mg PO DAILY empagliflozin 25 mg tablet 12.5 mg PO DAILY cetirizine [24Hour Allergy] 10 mg tablet 10 mg PO DAILY paroxetine HCl 20 mg tablet 20 mg PO DAILY zolpidem 10 mg tablet 10 mg PO HS PRN (Reason: insomnia) Lactobacillus acidophilus 0.5 mg (100 million cell) tablet 100 mmu cells PO DAILY atorvastatin 80 mg tablet 80 mg PO HS omeprazole 40 mg capsule,delayed release(DR/EC) 40 mg PO BID cholecalciferol (vitamin D3) [Vitamin D3] 50 mcg (2,000 unit) capsule 4,000 unit PO DAILY warfarin 2 mg tablet 2 mg PO QMWF warfarin 3 mg tablet 3 mg PO QTUTHSASU melatonin 3 mg capsule 3 mg PO HS PRN (Reason: sleep) quetiapine [Seroquel] 25 mg tablet 25 mg PO HS Patient Comments: Pt takes 1/2 tablet at bedtime. latanoprost 0.005 % drops 1 drp EACH EYE DAILY Patient Comments: in evening colchicine [Colcrys] 0.6 mg Tablet 0.6 mg PO Q12HR Qty: 14 0RF acetaminophen 325 mg Tablet 650 mg PO Q4H PRN (Reason: Mild Pain (1-3) Or Fever) Qty: 30 0RF insulin glargine [Lantus U-100 Insulin] 100 unit/mL Solution 7 unit subcut DAILY Qty: 10 0RF Follow-up/Referrals: UNKNOWN,DOCTOR [Primary Care Provider] - Stand Alone Forms: Work/School Release IP Time of Disposition: 20:22
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
--- OUTSIDE RECORDS SUMMARY | 2025-03-01 17:57 | XMS_ITS | Encounter Summary ---
Author Name [facility] [place] [facility] [place] Address [address] [place] [address] Care Team Providers Care Mortgage Funder Name Role Phone ANDREA ALDRICH Primary Care Provider Unavailabl DARON Zacarias Primary Care Provider UnavailLUCIO Vieira Unavailable Unavailable LEO MATOS Primary Care Provider [...] Relationship to Policy Flores MEDICARE (WNR) MEDICARE () PART B Aug 06, 2007 PART B [id number] [id number] [id number] MIGUEL,DA VID PATIENT MEDICARE (WNR) MEDICARE (M) PART B Aug 06, 2007 PART B [id number] MIGUEL,DA VID PATIENT MEDICARE (WNR) MEDICARE () PART B Aug 06, 2007 PART B [id number] MIGUEL,DA VID PATIENT MEDICARE (WNR) MEDICARE (M) PART B Aug 06, 2007 PART B [id number] MIGUEL,DA VID PATIENT MEDICARE (WNR) MEDICARE (M) PART B Aug 06, 2007 PART B [id number] MIGUEL,DA VID PATIENT MEDICARE (WNR) MEDICARE (M) PART B Aug 06, 2007 PART B [id number] [phone] MIGUEL,DA VID PATIENT MEDICARE (WNR) MEDICARE (M) PART A Jul 06, 2001 PART A [id number] MIGUEL,DA VID PATIENT MEDICARE (WNR) MEDICARE (M) PART A Jul 06, 2001 PART A [id number] [phone] MIGUEL,DA VID PATIENT MEDICARE (WNR) MEDICARE (M) PART A Jul 06, 2001 PART A [id number] MIGUEL,DA VID PATIENT MEDICARE (WNR) MEDICARE (M) PART A Jul 06, 2001 PART A [id number] MIGUEL,DA VID PATIENT MEDICARE (WNR) MEDICARE (M) PART A Jul 06, 2001 PART A [id number] MIGUEL,DA VID PATIENT MEDICARE (WNR) MEDICARE (M) PART A Jul 06, 2001 PART A [id number] MIGUEL,JAI VID PATIENT Selected Encounter This section includes the information on record at [place] for the Encounter. Date/Time Encounter Type Encounter Description Reason Provider Source Mar 28, 2024 01:45 PM INTRM OPH EXAM EST PATIENT OPHTHALMOLOGY ICD-10-CM H35.371 Puckering of macula, right eye PATRICIA YEH Ngozi Encounter Template Text not used by [place] Assessments - Encounter Diagnoses This section includes the primary and secondary diagnoses documented for the Encounter. Date/Time Primary/Secondary Diagnosis Diagnosis Name Provider Source Mar 28, 2024 03:02 PM PRIMARY Puckering of macula, right eye PATRICIA YEH [facility] Plan of Treatment: Future Appointments (+ 6 months) and Future Tests (+/- 45 days) The Plan of Treatment section includes future care activities for the patient from all [facility] treatmentfacilities. This section includes future appointments and future orders which are active, pending or scheduled. Future Appointments This section includes appointments that were scheduled to occur 6 months from the date of the Encounter, up to a maximum of 20 appointments. The data comes from all [facility]. Appointment Date/Time Appointment Type Appointme nt Facility Name Mar 31, 2024 10:00 AM AMBULATORY - MEDICINE [facility] Apr 03, 2024 09:30 AM AMBULATORY - MEDICINE [facility] Apr 11, 2024 03:30 PM AMBULATORY - REHAB MEDICIN E [facility] Apr 17, 2024 09:45 AM AMBULATORY - MEDICINE [facility] Apr 24, 2024 11:00 AM AMBULATORY - MEDICINE [facility] Apr 28, 2024 01:45 PM AMBULATORY - SURGERY [facility] Apr 30, 2024 03:30 PM AMBULATORY - MEDICINE [facility] May 22, 2024 10:45 AM AMBULATORY - MEDICINE [facility] May 22, 2024 11:00 AM AMBULATORY - MEDICINE [facility] Jun 03, 2024 02:30 PM AMBULATORY - PSYCHIATRY [facility] Jun 04, 2024 02:30 PM AMBULATORY - NONE [facility] Jun 12, 2024 10:30 AM AMBULATORY - NONE [facility] Jun 27, 2024 10:30 AM AMBULATORY - SURGERY [facility] Jul 01, 2024 12:00 PM AMBULATORY - MEDICINE [facility] Jul 02, 2024 10:45 AM AMBULATORY - NONE [facility] Jul 14, 2024 11:30 AM AMBULATORY - MEDICINE [facility] Jul 14, 2024 02:00 PM AMBULATORY - NONE [facility] Jul 23, 2024 09:30 AM AMBULATORY - MEDICINE [facility] Aug 08, 2024 09:30 AM AMBULATORY - MEDICINE [facility] Aug 14, 2024 01:30 PM AMBULATORY - NONE [facility] Lab Results: +/- 30 days of the encounter This section includes the Chemistry and Hematology Lab Results on record with [place] for the patient. Radiology Reports and Pathology Reports are provided separately, in subsequent sections. Lab Results This section contains the Chemistry/Hematology Results that were resulted 30 days before or 30 daysafter the date of the Encounter. Date/Time Source Result Type Result - Unit Interpretation Reference Range Specimen Type Comment Apr 17, 2024 01:02 PM [facility] PLASMA Specimen Type: PLASMA No comment entered. Ordering Provider: MARCO VANG Report Released Date/Time: Apr 09, 2024 11:48 AM Reporting Lab: [facility] [address] [facility] [id number] Performing Lab: [facility] [address] [facility] [id number] PROTIME 33.0 s H 9.4-12.5 INR VALUE 3.0 {INR} Social History: Smoking Status (Most current) and Tobacco Use (All prior to encounter date) This section includes the most current, and the historical, smoking and tobacco- related health factors from the [place] facility where the Encounter took place. Current Smoking Status This section includes the most current smoking, or tobacco-related health factor, from the [place] facility where the Encounter took place. Date/Time Current Smoking Status Comment Nelly dominguez Oct 26, 2015 01:43 PM LIFETIME NON-USER OF TOBACCO [facility] Tobacco Use History This section includes a history of the smoking, or tobacco-related health factors, that were collected on or before the date of the Encounter. The data comes from the [place] facility where the Encounter took place. Date/Time Smoking Status/Tobacco Use Comment F acility Jul 03, 2014 01:55 PM LIFETIME NON-USER OF TOBACCO [facility] Oct 01, 2013 12:00 PM LIFETIME NON-USER OF TOBACCO [facility] Nov 17, 2004 03:14 PM LIFETIME NON-TOBACCO USER [facility] Aug 01, 2004 12:58 PM LIFETIME NON-TOBACCO USER [facility] Oct 14, 2003 08:20 AM LIFETIME NON-TOBACCO USER [facility] Advance Directives: All historical and current Section Date Range: From patient's date of to the date document was created. This section includes ALL of a patient's completed or amended [facility] Advance and Rescinded Directives. The entries below indicate that a directive exists for the patient, but an actual copy is not included with this document. The data comes from all [place] facilities. Date Advance Directives Provider Source May 16, 2023 ADVANCE DIRECTIVE DISCUSSION INGA LUNA [facility] December 14, 2021 ADVANCE DIRECTIVE DISCUSSION INGA LUNA [facility] May 05, 2021 GOALS & PREFERENCES TO INFORM LIFE-SUSTAINING TREATMENT PLAN RAIN TOBIAS [facility] Encounter Notes: All associated encounter notes This section contains the clinical notes associated to the Encounter. Date/Time Encounter Note(s) Provider Source Mar 28, 2024 02:50 PM OPHTHALMOLOGY NOTE : LOCAL TITLE: OPHTHALMOLOGY NOTE [facility] STANDARD TITLE: OPHTHALMOLOGY NOTE DATE OF NOTE: MAR 28, 2024@14:50 ENTRY DATE: MAR 28, 2024@14:50:08 AUTHOR: PATRICIA YEH COSIGNER: URGENCY: STATUS: COMPLETED [facility]INA CL[facility]IC Referred from optometry for mactel OD>OS Ocular ROS: - h/o Abducens nerve palsy OS - Glaucoma - mild - Nonproliferative diabetic retinopathy OU - Pseudophakia OU s/p YAG OD 09/2022 - Hypertensive retinopathy OU - Macular telangiectasia OU Visual Acuity Distance OD ph20/30-2 OS ph20/25+2 SLIT LAMP EXAMINATION Lids/Lashes/Lacrimal mgd OU Conjunctiva/Sclera white/quiet OU Cornea clear OU Ant Chamber Deep and quiet OU Angles 4/4 VH OU Iris flat and intact OU (-)NVI Lens PCIOL OU Tt 03/16 FUNDUS EXAMINATION Optic Nerve OD CDR 0.7 inf thinning, pink and distinct OS CDR 0.8 polar thinning, pink and distinct Macula OD few hemes, dry (-)CSME OS few hemes, dry (-)CSME Posterior Pole OD no retinopathy OS dot heme superior Periphery OD flat and attached, no h/t/b 360 OS flat and attached, no h/t/b 360 ~3/4DD flat choroidal nevus sup/temp Vitreous syneresis OU, 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
--- OUTSIDE RECORDS SUMMARY | 2025-03-01 17:58 | XMS_ITS | Encounter Summary ---
Author Name [facility] [place] Address [address] [place] [address] Care Team Providers Care Furnace Stock Inspector Name Role Phone ANDREA ALDRICH Primary Care Provider UnavailDARON Esteves Primary Care Provider UnavailLUCIO Vieira Unavailable Unavailable [...] PART B Aug 06, 2007 PART B [id number] [phone] MIGUEL,DA VID PATIENT MEDICARE (WNR) MEDICARE (M) PART B Aug 06, 2007 PART B [id number] [phone] MIGUEL,DA VID PATIENT MEDICARE (WNR) MEDICARE (M) PART B Aug 06, 2007 PART B [id number] MIGUEL,DA VID PATIENT MEDICARE (WNR) MEDICARE (M) PART B Aug 06, 2007 PART B [id number] MIGUEL,DA VID PATIENT MEDICARE (WNR) MEDICARE (M) PART B Aug 06, 2007 PART B [id number] MIGUEL,DA VID PATIENT MEDICARE (WNR) MEDICARE (M) PART B Aug 06, 2007 PART B [id number] MIGUEL,DA VID PATIENT MEDICARE (WNR) MEDICARE (M) PART A Jul 06, 2001 PART A [id number] [id number] MIGUEL,DA VID PATIENT MEDICARE (WNR) MEDICARE (M) PART A Jul 06, 2001 PART A [id number] MIGUEL,DA VID PATIENT MEDICARE (WNR) MEDICARE (M) PART A Jul 06, 2001 PART A [id number] [id number] [id number] MIGUEL,DA VID PATIENT MEDICARE (WNR) MEDICARE (M) PART A Jul 06, 2001 PART A [id number] MIGUEL,DA VID PATIENT MEDICARE (WNR) MEDICARE (M) PART A Jul 06, 2001 PART A [id number] MIGUEL,DA VID PATIENT MEDICARE (WNR) MEDICARE (M) PART A Jul 06, 2001 PART A [id number] MIGUEL,JAI VID PATIENT Selected Encounter This section includes the information on record at [place] for the Encounter. Date/Time Encounter Type Encounter Description Reason Provider Source Jul 28, 2024 06:03 AM Outpatient Encounter GENERAL INTERNAL MEDICINE LEO MATOS Encounter Template Text not used by [place] Plan of Treatment: Future Appointments (+ 6 months) and Future Tests (+/- 45 days) The Plan of Treatment section includes future care activities for the patient from all [place] treatmentfacilities. This section includes future appointments and future orders which are active, pending or scheduled. Future Appointments This section includes appointments that were scheduled to occur 6 months from the date of the Encounter, up to a maximum of 20 appointments. The data comes from all [place] treatment facilities. Appointment Date/Time Appointment Type Appointme nt Facility Name Aug 08, 2024 09:30 AM AMBULATORY - MEDICINE [facility] Aug 14, 2024 01:30 PM AMBULATORY - NONE [facility] Aug 26, 2024 04:00 PM AMBULATORY - PSYCHIATRY [facility] Aug 27, 2024 01:00 PM AMBULATORY - REHAB MEDICIN E [facility] Sep 01, 2024 01:00 PM AMBULATORY - NONE [facility] Sep 04, 2024 01:00 PM AMBULATORY - MEDICINE [facility] Sep 05, 2024 09:45 AM AMBULATORY - MEDICINE [facility] Sep 10, 2024 09:45 AM AMBULATORY - MEDICINE [facility] Sep 11, 2024 02:00 PM AMBULATORY - NONE [facility] Sep 18, 2024 10:00 AM AMBULATORY - MEDICINE [facility] Sep 23, 2024 10:15 AM AMBULATORY - MEDICINE [facility] Oct 02, 2024 10:45 AM AMBULATORY - MEDICINE [facility] Oct 02, 2024 01:30 PM AMBULATORY - PSYCHIATRY [facility] Oct 08, 2024 08:00 AM AMBULATORY - MEDICINE [facility] Oct 09, 2024 10:45 AM AMBULATORY - MEDICINE [facility] Oct 09, 2024 01:00 PM AMBULATORY - NONE [facility] Oct 13, 2024 01:00 PM AMBULATORY - NONE [facility] Oct 14, 2024 10:00 AM AMBULATORY - MEDICINE [facility] Oct 17, 2024 10:15 AM AMBULATORY - MEDICINE [facility] Nov 14, 2024 08:45 AM AMBULATORY - MEDICINE [facility] Lab Results: +/- 30 days of the encounter This section includes the Chemistry and Hematology Lab Results on record with [place] for the patient. Radiology Reports and Pathology Reports are provided separately, in subsequent sections. Lab Results This section contains the Chemistry/Hematology Results that were resulted 30 days before or 30 daysafter the date of the Encounter. Date/Time Source Result Type Result - Unit Interpretation Reference Range Specimen Type Comment Aug 08, 2024 11:27 AM [facility]-INR PLASMA Specimen Type: PLASMA No comment entered. Ordering Provider: MARCO VANG Report Released Date/Time: Aug 04, 2024 11:00 AM Reporting Lab: [facility] [address] [facility] [id number] Performing Lab: [facility] [address] [facility] [id number] PROTIME 23.2 s H 9.4-12.5 INR VALUE 2.1 {INR} Aug 04, 2024 08:54 AM [facility] PLASMA Specimen Type: PLASM A No comment entered. Ordering Provider: MARCO VANG Report Released Date/Time: Jul 31, 2024 02:59 PM Reporting Lab: [facility] [address] [facility] [id number] Performing Lab: [facility] [address] [facility] [id number] PROTIME 17.0 s H 9.4-12.5 INR VALUE 1.5 {INR} Jul 31, 2024 01:03 PM [facility] PLASMA Specimen Type: PLASM A No comment entered. Ordering Provider: MARCO VANG Report Released Date/Time: Jul 15, 2024 03:20 PM Reporting Lab: [facility] [address] [facility] [phone] Performing Lab: [facility] [address] [facility] [id number] PROTIME 21.8 s H 9.4-12.5 INR VALUE 2.0 {INR} Social History: Smoking Status (Most current) and Tobacco Use (All prior to encounter date) This section includes the most current, and the historical, smoking and tobacco- related health factors from the [place] facility where the Encounter took place. Current Smoking Status This section includes the most current smoking, or tobacco-related health factor, from the [place] facility where the Encounter took place. Date/Time Current Smoking Status Comment Nelly dominguez Oct 26, 2015 01:43 PM LIFETIME NON-USER OF TOBACCO [facility] Tobacco Use History This section includes a history of the smoking, or tobacco-related health factors, that were collected on or before the date of the Encounter. The data comes from the [place] facility where the Encounter took place. Date/Time Smoking Status/Tobacco Use Comment F aclakeisha Jul 03, 2014 01:55 PM LIFETIME NON-USER OF TOBACCO [facility] Oct 01, 2013 12:00 PM LIFETIME NON-USER OF TOBACCO [facility] Nov 17, 2004 03:14 PM LIFETIME NON-TOBACCO USER [facility] Aug 01, 2004 12:58 PM LIFETIME NON-TOBACCO USER [facility] Oct 14, 2003 08:20 AM LIFETIME NON-TOBACCO USER [facility] Advance Directives: All historical and current Section Date Range: From patient's date of to the date document was created. This section includes ALL of a patient's completed or amended [place] Advance and Rescinded Directives. The entries below indicate that a directive exists for the patient, but an actual copy is not included with this document. The data comes from all [place] facilities. Date Advance Directives Provider Source May 16, 2023 ADVANCE DIRECTIVE DISCUSSION INGA LUNA [facility] December 14, 2021 ADVANCE DIRECTIVE DISCUSSION INGA LUNA [facility] May 05, 2021 GOALS & PREFERENCES TO INFORM LIFE-SUSTAINING TREATMENT PLAN RAIN TOBIAS [facility] Encounter Notes: All associated encounter notes This section contains the clinical notes associated to the Encounter. Date/Time Encounter Note(s) Provider Source Jul 28, 2024 03:23 PM ADDENDUM: LOCAL TITLE: Addendum STANDARD TITLE: ADDENDUM DATE OF NOTE: JUL 28, 2024@15:23:06 ENTRY DATE: JUL 28, 2024@15:23:07 AUTHOR: LEO MATOS EXP COSIGNER: URGENCY: STATUS: COMPLETED received request from Kareem Rodriguez for pt/inr, ptt dx code z79.01 pt is established / [place] and already has an active order for INR /es/ LEO MATOS MASTER BARBER-BC NURSE PRACTITIONER, RAYNA-PACT Signed: 07/28/2024 15:26 Receipt Acknowledged By: 07/28/2024 15:33 /es/ MARCO VANG, PHARMD,BCACP,BCMTMS,CACP Clinical Security Representative --- Original Document --- 07/24/24 COMMUNITY CARE-ANA SELF PRESENTING CARE COORD PLAN 657 STL: Emergency Notification Intake Date Presenting to the Facility: Jul Method of Contact: Notified from Tessella worklist Notification ID: [id number] [facility] Referral #: [id number] Clinical Review [facility] Name: Hospital: [facility] Address: [address] City: [place] State: [place] Zip Code: [address] Community Facility Point of Contact: Name: Sara Bell Chief complaint: gout pain Primary Diagnosis: Disposition Admitted Route of Admission: ER Date of Admission: Jul Admitting Diagnosis: gout pain Community Care Provider: Confirm Level of Care: NO records available for this episode of care in [facility] or [facility]. Faxed request for records to [facility] /lynn/ SULLY CASTILLO [facility] INSPECTOR FILTERS Signed: 07/28/2024 06:10 Receipt Acknowledged By: 07/28/2024 07:51 /es/ LEO MATOS [facility] [place]- NURSE PRACTITIONER, RAYNA-PACT * AWAITING SIGNATURE * SESAR ROMERO 07/28/2024 08:19 /es/ IFEOMA SEGUNDO RN, REGISTERED NURSE * AWAITING SIGNATURE * [facility] Jul 24, 2024 06:03 AM NONVA NOTE: LOCAL TITLE: COMMUNITY CARE-ANA SELF PRESENTING CARE COORD PLAN STANDARD TITLE: NONVA NOTE DATE OF NOTE: JUL 24, 2024@06:03 ENTRY DATE: JUL 28, 2024@06:03:45 AUTHOR: SULLY CASTILLO EXP COSIGNER: URGENCY: STATUS: COMPLETED COMMUNITY CARE-ANA SELF PRESENTING CARE COORD PLAN [address] Has ADDENDA Emergency Notification Intake Date Presenting to the Facility: Jul Method of Contact: Notified from ECR worklist Notification ID: [id number] [facility] Referral #: [id number] Clinical Review [facility] Name: Hospital: [facility] Address: [address] City: [place] State: [place] Zip Code: [address] Community Facility Point of Contact: Name: Sara Bell Chief complaint: gout pain Primary Diagnosis: Disposition Admitted Route of Admission: ER Date of Admission: Jul Admitting Diagnosis: gout pain Community Care Provider: Confirm Level of Care: NO records available for this episode of care in [facility] or [facility]. Faxed request for records to [facility] // SULLY CASTILLO [facility] INSPECTOR FILTERS Signed: 07/28/2024 06:10 Receipt Acknowledged By: 07/28/2024 07:51 /lynn/ LEO MCKINNEY- NURSE PRACTITIONER, RAYNA-PACT * AWAITING SIGNATURE * SESAR ROMERO 07/28/2024 08:19 /es/ IFEOMA KWONN RN, REGISTERED NURSE * AWAITING SIGNATURE * BRI MOTTA 07/28/2024 ADDENDUM STATUS: COMPLETED received request from [facility] for pt/inr, ptt dx code z79.01 pt is established / [place] and already has an active order for INR /lynn/ LEO MCKINNEY-APOLINAR NURSE PRACTITIONER, RAYNA-PACT Signed: 07/28/2024 15:26 Receipt Acknowledged By: * AWAITING SIGNATURE * MARCO VANG PAULA C [facility]
--- OUTSIDE RECORDS SUMMARY | 2025-03-01 17:58 | XMS_ITS ---
Author Name [facility] [place] [facility] [place] Address [address] [place] [address] Care Team Providers Care Desktop Support Engineer Name Role Phone ANDREA ALDRICH Primary Care [...] PART B Aug 06, 2007 PART B [id number] MIGUEL,DA VID PATIENT MEDICARE (WNR) MEDICARE (M) PART B Aug 06, 2007 PART B [id number] MIGUEL,DA VID PATIENT MEDICARE (WNR) MEDICARE (M) PART B Aug 06, 2007 PART B [id number] MIGUEL,DA VID PATIENT MEDICARE (WNR) MEDICARE (M) PART B Aug 06, 2007 PART B [id number] MIGUEL,DA VID PATIENT MEDICARE (WNR) MEDICARE (M) PART B Aug 06, 2007 PART B [id number] MIGUEL,DA VID PATIENT MEDICARE (WNR) MEDICARE (M) PART B Aug 06, 2007 PART B [id number] MIGUEL,DA VID PATIENT MEDICARE (WNR) MEDICARE (M) PART A Jul 06, 2001 PART A [id number] MIGUEL,DA VID PATIENT MEDICARE (WNR) MEDICARE (M) PART A Jul 06, 2001 PART A [id number] MIGUEL,DA VID PATIENT MEDICARE (WNR) MEDICARE (M) PART A Jul 06, 2001 PART A [id number] MIGUEL,DA VID PATIENT MEDICARE (WNR) MEDICARE (M) PART A Jul 06, 2001 PART A [id number] MIGUEL,DA VID PATIENT MEDICARE (WNR) MEDICARE (M) PART A Jul 06, 2001 PART A [id number] MIGUEL,DA VID PATIENT MEDICARE (WNR) MEDICARE (M) PART A Jul 06, 2001 PART A [id number] MIGUEL,DA VID PATIENT Selected Encounter This section includes the information on record at [place] for the Encounter. Date/Time Encounter Type Encounter Description Reason Provider Source May 24, 2024 10:52 AM Outpatient Encounter ADMIN PAT ACTIVTIES (MASNONCT) LEO MATOS Encounter Template Text not used by [place] Plan of Treatment: Future Appointments (+ 6 months) and Future Tests (+/- 45 days) The Plan of Treatment section includes future care activities for the patient from all [place] treatmentfacilities. This section includes future appointments and future orders which are active, pending or scheduled. Future Appointments This section includes appointments that were scheduled to occur 6 months from the date of the Encounter, up to a maximum of 20 appointments. The data comes from all [place] treatment facilities. Appointment Date/Time Appointment Type Appointme nt Facility Name Jun 03, 2024 02:30 PM AMBULATORY - PSYCHIATRY [facility] Jun 04, 2024 02:30 PM AMBULATORY - NONE [facility] Jun 12, 2024 10:30 AM AMBULATORY - NONE [facility] Jun 27, 2024 10:30 AM AMBULATORY - SURGERY [facility] Jul 01, 2024 12:00 PM AMBULATORY - MEDICINE [facility] Jul 02, 2024 10:45 AM AMBULATORY - NONE [facility] Jul 14, 2024 11:30 AM AMBULATORY - MEDICINE [facility] Jul 14, 2024 02:00 PM AMBULATORY - NONE [facility] Jul 23, 2024 09:30 AM AMBULATORY - MEDICINE [facility] Aug 08, 2024 09:30 AM AMBULATORY - MEDICINE [facility] Aug 14, 2024 01:30 PM AMBULATORY - NONE [facility] Aug 26, 2024 04:00 PM AMBULATORY - PSYCHIATRY [facility] Aug 27, 2024 01:00 PM AMBULATORY - REHAB MEDICIN E [facility] Sep 01, 2024 01:00 PM AMBULATORY - NONE [facility] Sep 04, 2024 01:00 PM AMBULATORY - MEDICINE [facility] Sep 05, 2024 09:45 AM AMBULATORY - MEDICINE [facility] Sep 10, 2024 09:45 AM AMBULATORY - MEDICINE [facility] Sep 11, 2024 02:00 PM AMBULATORY - NONE [facility] Sep 18, 2024 10:00 AM AMBULATORY - MEDICINE [facility] Sep 23, 2024 10:15 AM AMBULATORY - MEDICINE [facility] Active, Pending, and Scheduled Orders This section includes a listing of several types of active, pending, and scheduled orders, including clinic medications orders, diagnostic test orders, procedure orders and consult orders; where the start date of the order is 45 days before the date of the Encounter or 45 days after the date of theEncounter. The data comes from all [place] treatment facilities. Test Date/Time Test Type Test Details Facility Name May 22, 2024 12:00 AM Laboratory - Chemistry Order 24H UR CHEM PANEL (STL) 24-HOUR URINE SP [facility] May 22, 2024 12:00 AM Laboratory - Chemistry Order PROTEIN ELECTROPHORESIS URINE 24-HOUR URINE SP [facility] Lab Results: +/- 30 days of the [...] Unit Interpretation Reference Range Specimen Type Comment May 22, 2024 01:24 PM [facility] MICRAL/CREAT PROFILE (STL) URINE Specimen Typ e: URINE No comment entered. Ordering Provider: LEO MATOS Report Released Date/Time: May 22, 2024 12:37 PM Reporting Lab: [facility] [address] Performing Lab: [facility] [address] URINE ALBUMIN (PB-STL) 75 mg/L No range refer to micral/creat ratio uACR (STL) 377 mg/g H 0-29 CREATININE URINE/OTHERS 19.9 mg/dL L 63.0- 166.0 May 22, 2024 01:24 PM [facility] OSMOLALITY URINE(STL-PB) URINE Specimen Type: URINE No comment entered. Ordering Provider: LEO MATOS Report Released Date/Time: May 22, 2024 12:47 PM Reporting Lab: [facility] [address] [facility] [address] Performing Lab: [address] [address] OSMOLALITY URINE(STL-PB) 331 50-1200 May 22, 2024 01:24 PM [facility] URINALYSIS (STL-PB) URINE Specimen Type: URIN E No comment entered. Ordering Provider: LEO MATOS Report Released Date/Time: May 22, 2024 12:47 PM Reporting Lab: [facility] [address] Performing Lab: [facility] [address] URINE COLOR Colorless Yellow U.BILIRUBIN Negative mg/dL Negative U.PH 7.0 5.0-8.0 APPEARANCE Clear Clear U.NITRITE Negative mg/dL Negative URN.GLUCOSE >1000 mg/dL H Negative URN.PROTEIN 10 mg/dL H URN.UROBILINOGEN Normal mg/dL Normal URN.BLOOD Negative mg/dL Negative-Trace URN.KETONES Negative mg/dL Negative-Trac e URN.LEUK.EST. Negative mg/dL Negative-Tr darwin URN.SPECIFIC GRAVITY 1.008 May 22, 2024 01:24 PM [facility] PROTEIN URINE URINE Specimen Type: URINE No comment entered. Ordering Provider: LEO MATOS Report Released Date/Time: May 22, 2024 12:47 PM Reporting Lab: [facility] [place] [address] Performing Lab: [facility] [place] [address] PROTEIN URINE 13.8 mg/dL See Interp May 22, 2024 01:24 PM [facility] URINE ELECTROLYTES (STL) URINE Specimen Type: URINE No comment entered. Ordering Provider: LEO MATOS Report Released Date/Time: May 22, 2024 12:47 PM Reporting Lab: [facility] [address] Performing Lab: [facility] [address] CREATININE URINE/OTHERS 20.3 mg/dL L 63.0- 166.0 CHLORIDE URINE/OTHERS 109 mmol/L See Int erp POTASSIUM URINE/OTHERS 15.9 mmol/L See I nterp SODIUM URINE/OTHERS 107 mmol/L See Inter p May 22, 2024 01:23 PM [facility] MAGNESIUM PLASMA Specimen Type: PLASM A No comment entered. Ordering Provider: LEO MATOS Report Released Date/Time: May 22, 2024 01:10 PM Reporting Lab: [facility] [address] Performing Lab: [facility] [address] MAGNESIUM 2.0 mg/dL 1.6-2.6 May 22, 2024 01:11 PM [facility] WARFARIN-INR PLASMA Specimen Type: PLASM A No comment entered. Ordering Provider: MARCO VANG Report Released Date/Time: Apr 17, 2024 02:00 PM Reporting Lab: [facility] [address] Performing Lab: [facility] [address] PROTIME 28.1 s H 9.4-12.5 INR VALUE 2.5 {INR} May 22, 2024 01:11 PM [facility] URIC ACID PLASMA Specimen Type: PLASM A No comment entered. Ordering Provider: LEO MATOS Report Released Date/Time: May 22, 2024 12:47 PM Reporting Lab: [facility] [address] Performing Lab: [facility] [address] URIC ACID 10.2 mg/dL H 3.5-7.2 May 22, 2024 01:10 PM [facility] PROTEIN ELECTROPHORESIS BLOOD SERUM Specimen Type: SERUM Comment: No M Ermias detected. Reference Range: None Detected normalcy status - Abnormal normalcy status - Abnormal NOTE: THIS RESULT IS FLAGGED ABNORMAL Suggestive of acute inflammation pattern with elevation of acute phase proteins. Test Performed by [employer] [place], [facility], [address] [place] [address] Dante Roy M.D., Ph.D., Director of Laboratories , [facility] [id number] Ordering Provider: LEO MATOS Report Released Date/Time: May 22, 2024 12:47 PM Reporting Lab: [facility] [address] [facility] [address] Performing Lab: [facility] [address] [facility] ALPHA-1 GLOBULIN(SO-PB-STL) 0.4 g/dL H 0.2 -0.3 ALPHA-2 GLOBULIN(SO-PB-STL) 1.0 g/dL H 0.5 -0.9 BETA 1 GLOBULIN(SO-PB-STL) 0.6 g/dL 0.4- 0.6 GAMMA GLOBULIN (SO-PB-STL) 1.3 g/dL 0.8- 1.7 TOTAL PROTEIN (SO-PB-STL) 8.1 g/dL 6.1-8 .1 ALBUMIN(ELECTROPHORESIS 4.3 g/dL 3.8-4.8 BETA 2 GLOBULIN (SO-PB) 0.6 g/dL H 0.2-0.5 INTERPRETATION (STL-PB) SEE NOTE ABNORMAL PROTEIN BAND 1 (SO-PB-STL) SEE NOTE May 22, 2024 01:10 PM [facility] PROST. SPECIFIC AG.(PB-STL) SERUM Specimen Ty pe: SERUM Comment: The listed sex of this patient may not be a typical indication for this test. Therefore, reference ranges or interpretive criteria listed may not be valid. Clinical correlation suggested. Ordering Provider: LEO MATOS Report Released Date/Time: May 22, 2024 12:37 PM Reporting Lab: [facility] [address] Performing Lab: [facility] [address] PROST. SPECIFIC AG.(PB-STL) 0.705 ng/mL 0.000-4.000 May 22, 2024 01:10 PM [facility] TSH (MA-PB) SERUM Specimen Type: SERUM Comment: The listed sex of this patient may not be a typical indication for this test. Therefore, reference ranges or interpretive criteria listed may not be valid. Clinical correlation suggested. Ordering Provider: LEO MATOS Report Released Date/Time: May 22, 2024 12:37 PM Reporting Lab: [facility] [address] Performing Lab: [facility] [place] [phone] TSH 0.604 u[IU]/mL 0.470-5.000 May 22, 2024 01:10 PM [facility] LIPID PANEL (STL) PLASMA Specimen Type: PLASM A Comment: No hemolysis noted. LDL calculation invalid when Triglyceride exceeds 250 mg/dl Ordering Provider: LEO MATOS Report Released Date/Time: May 22, 2024 12:37 PM Reporting Lab: [facility] [address] Performing Lab: [facility] [place] [address] CHOLESTEROL 221 mg/dL H 0-200 TRIGLYCERIDE 341 mg/dL H 0-150 DIRECT LDL 142 mg/dL H <100 CALCULATED LDL comment mg/dL See Interp HDL(New) 33 mg/dL L > 40 May 22, 2024 01:10 PM [facility] FOLATE (STL-MA) SERUM Specimen Type: SERUM Comment: The listed sex of this patient may not be a typical indication for this test. Therefore, reference ranges or interpretive criteria listed may not be valid. Clinical correlation suggested. Ordering Provider: LEO MATOS Report Released Date/Time: May 22, 2024 12:37 PM Reporting Lab: [facility] [address] Performing Lab: [facility] [address] FOLATE (STL-MA) 10.7 ng/mL 7-20 May 22, 2024 01:10 PM [facility] B12 SERUM Specimen Type: SERUM Comment: The listed sex of this patient may not be a typical indication for this test. Therefore, reference ranges or interpretive criteria listed may not be valid. Clinical correlation suggested. Ordering Provider: LEO MATOS Report Released Date/Time: May 22, 2024 12:37 PM Reporting Lab: [facility] [address] Performing Lab: [facility] [address] B12 314 pg/mL 213-816 May 22, 2024 01:10 PM [facility] VITAMIN D, 25-HYDROXY SERUM Specimen Type: SE RUM Comment: The listed sex of this patient may not be a typical indication for this test. Therefore, reference ranges or interpretive criteria listed may not be valid. Clinical correlation suggested. Ordering Provider: LEO MATOS Report Released Date/Time: May 22, 2024 12:37 PM Reporting Lab: [facility] [address] Performing Lab: [facility] [address] VITAMIN D, 25-HYDROXY 28.6 ng/mL L 30-96 May 22, 2024 01:10 PM [facility] IRON/TIBC PROFILE SERUM Specimen Type: SERUM No comment entered. Ordering Provider: LEO MATOS Report Released Date/Time: May 22, 2024 12:37 PM Reporting Lab: [facility] [address] [place] [address] Performing Lab: [facility] [address] [place] [address] TIBC 509 ug/dL H 250-450 TRANSFERRIN 407 mg/dL H 163-344 IRON SATURATION 11 L 20-50 IRON 57 ug/dL L 65-175 May 22, 2024 01:10 PM [facility] FERRITIN SERUM Specimen Type: SERUM No comment entered. Ordering Provider: LEO MATOS Report Released Date/Time: May 22, 2024 12:37 PM Reporting Lab: [facility] [address] [place] [address] Performing Lab: [facility] [address] [address] FERRITIN 17.55 ng/mL L 22-275 May 22, 2024 01:10 PM [facility] CYSTATIN C EGFR PANELS (STL-PB-MA) PLASMA Spec imen Type: PLASMA Comment: Choice of which of the reported eGFR values to use depends on the clinical situation. For example, for patients with severe muscle wasting or reduced muscle mass, eGFR calculated using the 2012 cystatin equation may be preferred. Ordering Provider: LEO MATOS Report Released Date/Time: May 22, 2024 12:37 PM Reporting Lab: [address] [address] Performing Lab: [address] [address] CYSTATIN C 2.45 mg/L H 0.57-1.80 CKD-EPI CYSTATIN C (2011) 22.9 >60 CKD-EPI CREAT-CYSC (2020) 26.5 >60 CREATININE (STL) 2.22 mg/dL H 0.7-1.3 May 22, 2024 01:10 PM [facility] PTH, INTACT (STL) SERUM Specimen Type: SERUM No comment entered. Ordering Provider: LEO MATOS Report Released Date/Time: May 22, 2024 12:39 PM Reporting Lab: [address] [address] Performing Lab: [address] [address] PTH, INTACT (STL) 314.60 pg/mL H 8.7-77.7 May 22, 2024 01:10 PM [facility] COMPREHENSIVE METABOLIC PANEL PLASMA Specimen Type: PLASMA Comment: No hemolysis noted. LDL calculation invalid when Triglyceride exceeds 250 mg/dl Ordering Provider: LEO MATOS Report Released Date/Time: May 22, 2024 12:37 PM Reporting Lab: [facility] [address] Performing Lab: [facility] [address] CREATININE 2.30 mg/dL H 0.70-1.30 UREA NITROGEN 28.0 mg/dL H 9.0-25.0 GLUCOSE 219 mg/dL H 72-99 SODIUM 140 meq/L 136-145 POTASSIUM 4.4 meq/L 3.5-5.0 CHLORIDE 101 meq/L 98-107 CARBON DIOXIDE 24 meq/L 22-31 CALCIUM 10.5 mg/dL H 8.4-10.4 PROTEIN 8.5 g/dL 6.0-8.6 ALBUMIN 4.4 g/dL 3.4-5.0 TOTAL BILIRUBIN 0.7 mg/dL 0.2-1.2 ALKALINE PHOSPHATASE 122 U/L 40-150 AST/SGOT 13 U/L 5-34 ALT/SGPT 12 U/L 8-40 EGFR (CKD-EPI 2020) 30.17 >60 May 22, 2024 01:10 PM [facility] CBC BLOOD Specimen Type: BLOOD No comment entered. Ordering Provider: LEO MATOS Report Released Date/Time: May 22, 2024 12:37 PM Reporting Lab: [facility] [place] [phone] Performing Lab: [facility] [place] [phone] WBC 8.4 10*3/uL 3.6-11.2 RBC 5.03 10*6/uL 4.10-5.70 HGB 12.6 g/dL L 13.1-16.8 HCT 40.9 38.2-48.4 MCV 81.3 fL 80.0-100.0 MCH 25.0 pg L 27.0-34.0 MCHC 30.8 g/dL L 33.0-36.0 PLT 241 10*3/uL 150-400 MPV 10.5 fL 7.5-11.2 RDW 15.4 H 11.8-15.1 LYMPHOCYTES, AUTO % 19 MONOCYTES, AUTO % 6 NEUTROPHILS, AUTO % 70 EOSINOPHILS, AUTO % 5 BASOPHILS, AUTO % 1 LYMPHOCYTES, ABSOLUTE 1.55 10*3/uL 0.77- 4.50 MONOCYTES, ABSOLUTE 0.52 10*3/uL 0.19-0. 80 NEUTROPHILS, ABSOLUTE 5.85 10*3/uL 2.10- 8.00 EOSINOPHILS, ABSOLUTE 0.38 10*3/uL 0.00- 0.60 BASOPHILS, ABSOLUTE 0.07 10*3/uL 0.00-0. 20 May 22, 2024 01:10 PM [facility] OSMOLALITY SERUM(STL-PB) PLASMA Specimen Type: PLASMA No comment entered. Ordering Provider: LEO MATOS Report Released Date/Time: May 22, 2024 12:47 PM Reporting Lab: [facility] [address] [facility] [address] Performing Lab: [address] [address] OSMOLALITY SERUM(L-PB) 310 H 285-295 May 22, 2024 01:10 PM [facility] RENAL PANEL PLASMA Specimen Type: PLASM A Comment: No hemolysis noted. LDL calculation invalid when Triglyceride exceeds 250 mg/dl Ordering Provider: LEO MATOS Report Released Date/Time: May 22, 2024 12:47 PM Reporting Lab: [facility] [address] Performing Lab: [facility] [address] CREATININE 2.30 mg/dL H 0.70-1.30 UREA NITROGEN 28.0 mg/dL H 9.0-25.0 GLUCOSE 219 mg/dL H 72-99 SODIUM 140 meq/L 136-145 POTASSIUM 4.4 meq/L 3.5-5.0 CHLORIDE 101 meq/L 98-107 CARBON DIOXIDE 24 meq/L 22-31 CALCIUM 10.5 mg/dL H 8.4-10.4 PHOSPHOROUS 3.0 mg/dL 2.3-4.7 ALBUMIN 4.4 g/dL 3.4-5.0 EGFR (CKD-EPI 2020) 30.17 >60 May 22, 2024 01:10 PM [facility] HGA1C BLOOD Specimen Type: BLOOD No comment entered. Ordering Provider: JULIA MASTERS Report Released Date/Time: Apr 30, 2024 04:23 PM Reporting Lab: [facility] [address] Performing Lab: [facility] [address] HGA1C 8.7 H 4.0-6.0 Social History: Smoking Status (Most current) and Tobacco Use (All prior to encounter date) This section includes the most current, and the historical, smoking and tobacco- related health factors from the [place] facility where the Encounter took place. Current Smoking Status This section includes the most current smoking, or tobacco-related health factor, from the [place] facility where the Encounter took place. Date/Time Current Smoking Status Comment Nelly ity Oct 26, 2015 01:43 PM LIFETIME NON-USER OF TOBACCO [facility] Tobacco Use History This section includes a history of the smoking, or tobacco-related health factors, that were collected on or before the date of the Encounter. The data comes from the [place] facility where the Encounter took place. Date/Time Smoking Status/Tobacco Use Comment F acility Jul 03, 2014 01:55 PM LIFETIME NON-USER OF TOBACCO [facility] Oct 01, 2013 12:00 PM LIFETIME NON-USER OF TOBACCO [facility] Nov 17, 2004 03:14 PM LIFETIME NON-TOBACCO USER [facility] Aug 01, 2004 12:58 PM LIFETIME NON-TOBACCO USER [facility] Oct 14, 2003 08:20 AM LIFETIME NON-TOBACCO USER [facility] Advance Directives: All historical and current Section Date Range: From patient's date of to the date document was created. This section includes ALL of a patient's completed or amended [place] Advance and Rescinded Directives. The entries below indicate that a directive exists for the patient, but an actual copy is not included with this document. The data comes from all [place] facilities. Date Advance Directives Provider Source May 16, 2023 ADVANCE DIRECTIVE DISCUSSION [facility] December 14, 2021 ADVANCE DIRECTIVE DISCUSSION [facility] May 05, 2021 GOALS & PREFERENCES TO INFORM LIFE-SUSTAINING TREATMENT PLAN RAIN TOBIAS [facility] Radiology Reports: +/- 30 days of the encounter Radiology Reports For cases when an order for radiology services may have been completed prior to the date of the Encounter, the report list includes the Radiology Reports that were completed up to 30 days before dateof the Encounter. For cases when an order for radiology services may have been completed after the date of the Encounter, the report list also includes the Radiology Reports that were completed up to30 days after date of the Encounter. The data comes from all [place] treatment facilities. Date/Time Radiology Report Provider Source Jun 04, 2024 02:21 PM US RENAL COMPLETE: DARON MILTON [id number] -[id number] M Exm Date: JUN 04, 2024@14:21 Req Phys: LEO MATOS Loc: [facility]PACT [facility] CONSULT TEAM4 (Re Img Loc: [facility]-ULTRASOUND Service: [address] [address] (Case [id number] COMPLETE) US RENAL COMPLETE (US Detailed) CPT:14697 Reason for Study: ckd Clinical History: ckd Report Status: Verified Date Reported: JUN 04, 2024 Date Verified: JUN 04, 2024 Logging Rafter Laborer E-Sig:/ES/[email or web address] DOWNING Report: DATE: 06/04/2024 2:36 PM EXAM: US RENAL COMPLETE ACCESSION NUMBERS: [id number] HISTORY: ckd COMPARISON: Ultrasound renal 03/03/2009 TECHNIQUE: Transabdominal sonography was performed. FINDINGS: The right kidney measures 12.8 x 6.1 x 5.9 cm. The right renal volume is 241 mL. The left kidney measures 14 x 6.6 x 6.5 cm. The left renal volume is 316 mL. The right kidney cortical thickness measures 11 mm. The left kidney cortical thickness measures 18 mm. The renal cortical thicknesses and echogenicities are normal. No hydronephrosis, renal calculi or contour deforming solid renal masses are present. Multiple bilateral kidney cysts, the largest one measuring up to 2.9 cm within the superior pole of the right kidney. Bladder: Decompressed and incompletely evaluated.. Impression: No evidence of renal calculi or hydronephrosis. Bilateral renal cysts. Dictated by Maurizio Dacosta MD (Seo Specialist) I, Everett Downing, have reviewed the images and report and concur with these findings. Primary Interpreting Staff: EVERETT DOWNING MD (Logging Rafter Laborer) Primary Interpreting Resident: MAURIZIO DACOSTA, Resident Physician /EVERETT PALACIOS [facility] Encounter Notes: All associated encounter notes This section contains the clinical notes associated to the Encounter. Date/Time Encounter Note(s) Provider Source May 24, 2024 10:52 AM PHYSICIAN LETTERS: LOCAL TITLE: NO CONTACT LETTER STL STANDARD TITLE: PHYSICIAN LETTERS DATE OF NOTE: MAY 24, 2024@10:52 ENTRY DATE: MAY 24, 2024@10:52:17 AUTHOR: NAEEM JUAN EXP COSIGNER: URGENCY: STATUS: COMPLETED [facility] [address] [place] [address] MAY 24, 2024 DARON MILTON [address] [facility] [address] [place], [place] [address] Dear Daron Milton, Thank you for choosing the [facility] as your primary choice for health care. As a partner in your health care, we are attempting to contact you because we have been unsuccessful in reaching you by phone to schedule your clinic appointment. Please call us at [phone], extension [phone] to speak to us regarding making an appointment in the ENDO clinic. Your good health is important to us. Please contact us within 2 weeks from the date of this letter. If we do not hear from you, we will notify your referring provider and a new referral will be required to schedule an appointment. IMPORTANT: Due to COVID-19 we have greatly expanded our telehealth options, please contact the clinic to inquire about scheduling. Sincerely, NAEEM JUAN [employer] MANAGER [employer] [facility]
--- OUTSIDE RECORDS SUMMARY | 2025-03-01 17:58 | XMS_ITS | Encounter Summary ---
Author Name [facility] [place] [facility] [place] Address [address] [place] [address] Care Team Providers Care Clin Application Specialist Name Role Phone ANDREA ALDRICH Primary Care Provider Unavailabl e DARON MURGUIA Primary Care Provider Unavailab LUCIO Roberts Unavailable [...] PART B Aug 06, 2007 PART B [id number] MIGUEL,DA VID PATIENT MEDICARE (WNR) MEDICARE (M) PART B Aug 06, 2007 PART B [id number] MIGUEL,DA VID PATIENT MEDICARE (WNR) MEDICARE (M) PART B Aug 06, 2007 PART B [id number] MIGUEL,DA VID PATIENT MEDICARE (WNR) MEDICARE (M) PART B Aug 06, 2007 PART B [id number] MIGUEL,DA VID PATIENT MEDICARE (WNR) MEDICARE (M) PART B Aug 06, 2007 PART B [id number] MIGUEL,DA VID PATIENT MEDICARE (WNR) MEDICARE (M) PART B Aug 06, 2007 PART B [id number] MIGUEL,DA VID PATIENT MEDICARE (WNR) MEDICARE (M) PART A Jul 06, 2001 PART A [id number] MIGUEL,DA VID PATIENT MEDICARE (WNR) MEDICARE (M) PART A Jul 06, 2001 PART A [id number] MIGUEL,DA VID PATIENT MEDICARE (WNR) MEDICARE (M) PART A Jul 06, 2001 PART A [id number] MIGUEL,DA VID PATIENT MEDICARE (WNR) MEDICARE (M) PART A Jul 06, 2001 PART A [id number] MIGUEL,DA VID PATIENT MEDICARE (WNR) MEDICARE (M) PART A Jul 06, 2001 PART A [id number] MIGUEL,DA VID PATIENT MEDICARE (WNR) MEDICARE (M) PART A Jul 06, 2001 PART A [id number] MIGUEL,DA VID PATIENT Selected Encounter This section includes the information on record at [place] for the Encounter. Date/Time Encounter Type Encounter Description Reason Provider Source May 22, 2024 11:00 AM OFF/OP CONSLTJ NEW/EST HI 55 GERIATRIC EVALUATIONS ICD-10-CM E11.40 Type 2 diabetes mellitus with diabetic neuropathy, LEO Walsh Encounter Template Text not used by [place] Assessments - Encounter Diagnoses This section includes the primary and secondary diagnoses documented for the Encounter. Date/Time Primary/Secondary Diagnosis Diagnosis Name Provider Source May 22, 2024 01:27 PM PRIMARY Type 2 diabetes mellitus with diabetic neuropathy, ariellep LEO MATOS Pam [facility] May 22, 2024 01:27 PM SECONDARY Anemia, unspecified LEO MATOS Pam [facility] May 22, 2024 01:27 PM SECONDARY Bipolar disorder, unspecified LEO MATOS [facility] May 22, 2024 01:27 PM SECONDARY Chronic obstructive pulmonary disease, unspecified JAIRO MATOSGonzales Melvin [facility] May 22, 2024 01:27 PM SECONDARY Contact with and exposure to other hazardous substances LEO MATOS [facility] May 22, 2024 01:27 PM SECONDARY Edema, unspecified LEO MATOS [facility] May 22, 2024 01:27 PM SECONDARY Encounter for immunization MARGARETTE ANGUIANO [facility] May 22, 2024 01:27 PM SECONDARY Essential (primary) hypertension LEO MATOS [facility] May 22, 2024 01:27 PM SECONDARY Gastro-esophageal reflux disease without esophagitis SHAWNALEO [facility] May 22, 2024 01:27 PM SECONDARY 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, w stg 1-4/unsp chr ayannatraci JAIRO MATOSY [facility] May 22, 2024 01:27 PM SECONDARY Hyperlipidemia, unspecified LEO MATOS [facility] May 22, 2024 01:27 PM SECONDARY buttermaker (current) use of insulin [facility] May 22, 2024 01:27 PM SECONDARY senior living (current) use of oral hypoglycemic drugs LEO MATOS [facility] May 22, 2024 01:27 PM SECONDARY Obesity, unspecified LEO MATOS [facility] May 22, 2024 01:27 PM SECONDARY Obstructive sleep apnea (adult) (pediatric) LEO MATOS [facility] May 22, 2024 01:27 PM SECONDARY Other allergic rhinitis LEO MATOS [facility] May 22, 2024 01:27 PM SECONDARY 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 May 22, 2024 01:27 PM SECONDARY Unspecified atrial fibrillation LEO MATOS [facility] May 22, 2024 01:27 PM SECONDARY Unspecified hearing loss, bilateral LEO MATOS [facility] May 22, 2024 01:27 PM SECONDARY Vitamin D deficiency, unspecified LEO MATOS [facility] Plan of Treatment: Future Appointments (+ 6 months) and Future Tests (+/- 45 days) The Plan of Treatment section includes future care activities for the patient from all [facility]. This section includes future appointments and future orders which are active, pending or scheduled. Future Appointments This section includes appointments that were scheduled to occur 6 months from the date of the Encounter, up to a maximum of 20 appointments. The data comes from all [facility]. Appointment Date/Time Appointment Type Appointme nt Facility Name Jun 03, 2024 02:30 PM AMBULATORY - PSYCHIATRY [facility] Jun 04, 2024 02:30 PM AMBULATORY - NONE [facility] Jun 12, 2024 10:30 AM AMBULATORY - NONE [facility] Jun 27, 2024 10:30 AM AMBULATORY - SURGERY [facility] Jul 01, 2024 12:00 PM AMBULATORY - MEDICINE [facility] Jul 02, 2024 10:45 AM AMBULATORY - NONE [facility] Jul 14, 2024 11:30 AM AMBULATORY - MEDICINE [facility] Jul 14, 2024 02:00 PM AMBULATORY - NONE [facility] Jul 23, 2024 09:30 AM AMBULATORY - MEDICINE [facility] Aug 08, 2024 09:30 AM AMBULATORY - MEDICINE [facility] Aug 14, 2024 01:30 PM AMBULATORY - NONE [facility] Aug 26, 2024 04:00 PM AMBULATORY - PSYCHIATRY [facility] Aug 27, 2024 01:00 PM AMBULATORY - REHAB MEDICIN E [facility] Sep 01, 2024 01:00 PM AMBULATORY - NONE [facility] Sep 04, 2024 01:00 PM AMBULATORY - MEDICINE [facility] Sep 05, 2024 09:45 AM AMBULATORY - MEDICINE [facility] Sep 10, 2024 09:45 AM AMBULATORY - MEDICINE [facility] Sep 11, 2024 02:00 PM AMBULATORY - NONE [facility] Sep 18, 2024 10:00 AM AMBULATORY - MEDICINE [facility] Sep 23, 2024 10:15 AM AMBULATORY - MEDICINE [facility] Active, Pending, and Scheduled Orders This section includes a listing of several types of active, pending, and scheduled orders, including clinic medications orders, diagnostic test orders, procedure orders and consult orders; where the start date of the order is 45 days before the date of the Encounter or 45 days after the date of theEncounter. The data comes from all [place] treatment facilities. Test Date/Time Test Type Test Details Facility Name May 22, 2024 12:00 AM Laboratory - Chemistry Order PROTEIN ELECTROPHORESIS URINE 24-HOUR URINE SP [facility] May 22, 2024 12:00 AM Laboratory - Chemistry Order 24H UR CHEM PANEL (STL) 24-HOUR URINE SP [facility] Lab Results: +/- 30 days of the [...] Type Comment May 22, 2024 01:24 PM [facility] MICRAL/CREAT PROFILE (STL) URINE Specimen Typ e: URINE No comment entered. Ordering Provider: LEO MATOS Report Released Date/Time: May 22, 2024 12:37 PM Reporting Lab: [facility] [address] [facility] [phone] Performing Lab: [facility] [address] [facility] [phone] URINE ALBUMIN (PB-STL) 75 mg/L No range refer to micral/creat ratio uACR (STL) 377 mg/g H 0-29 CREATININE URINE/OTHERS 19.9 mg/dL L 63.0- 166.0 May 22, 2024 01:24 PM [facility] OSMOLALITY URINE(STL-PB) URINE Specimen Type: URINE No comment entered. Ordering Provider: LEO MATOS Report Released Date/Time: May 22, 2024 12:47 PM Reporting Lab: [address] [address] Performing Lab: [place] [phone] OSMOLALITY URINE(L-PB) 331 50-1200 May 22, 2024 01:24 PM [facility] URINALYSIS (L-PB) URINE Specimen Type: URIN E No comment entered. Ordering Provider: LEO MATOS Report Released Date/Time: May 22, 2024 12:47 PM Reporting Lab: [facility] [address] [place] [address] Performing Lab: [facility] [address] [place] [address] URINE COLOR Colorless Yellow U.BILIRUBIN Negative mg/dL Negative U.PH 7.0 5.0-8.0 APPEARANCE Clear Clear U.NITRITE Negative mg/dL Negative URN.GLUCOSE >1000 mg/dL H Negative URN.PROTEIN 10 mg/dL H URN.UROBILINOGEN Normal mg/dL Normal URN.BLOOD Negative mg/dL Negative-Trace URN.KETONES Negative mg/dL Negative-Trac e URN.LEUK.EST. Negative mg/dL Negative-Tr darwin URN.SPECIFIC GRAVITY 1.008 May 22, 2024 01:24 PM [facility] PROTEIN URINE URINE Specimen Type: URINE No comment entered. Ordering Provider: LEO MATOS Report Released Date/Time: May 22, 2024 12:47 PM Reporting Lab: [facility] [address] [facility] [address] Performing Lab: [facility] [address] [facility] [address] PROTEIN URINE 13.8 mg/dL See Interp May 22, 2024 01:24 PM [facility] URINE ELECTROLYTES (STL) URINE Specimen Type: URINE No comment entered. Ordering Provider: LEO MATOS Report Released Date/Time: May 22, 2024 12:47 PM Reporting Lab: [facility] [address] [facility] [phone] Performing Lab: [facility] [address] [facility] [address] CREATININE URINE/OTHERS 20.3 mg/dL L 63.0- 166.0 CHLORIDE URINE/OTHERS 109 mmol/L See Int erp POTASSIUM URINE/OTHERS 15.9 mmol/L See I nterp SODIUM URINE/OTHERS 107 mmol/L See Inter p May 22, 2024 01:23 PM [facility] MAGNESIUM PLASMA Specimen Type: PLASM A No comment entered. Ordering Provider: LEO MATOS Report Released Date/Time: May 22, 2024 01:10 PM Reporting Lab: [facility] [address] [facility] [address] Performing Lab: [facility] [address] [facility] [address] MAGNESIUM 2.0 mg/dL 1.6-2.6 May 22, 2024 01:11 PM [facility] WARFARIN-INR PLASMA Specimen Type: PLASM A No comment entered. Ordering Provider: MARCO VANG Report Released Date/Time: Apr 17, 2024 02:00 PM Reporting Lab: [facility] [address] [facility] [address] Performing Lab: [facility] [address] [facility] [phone] PROTIME 28.1 s H 9.4-12.5 INR VALUE 2.5 {INR} May 22, 2024 01:11 PM [facility] URIC ACID PLASMA Specimen Type: PLASM A No comment entered. Ordering Provider: LEO MATOS Report Released Date/Time: May 22, 2024 12:47 PM Reporting Lab: [facility] [address] [facility] [address] Performing Lab: [facility] [address] [facility] [phone] URIC ACID 10.2 mg/dL H 3.5-7.2 May 22, 2024 01:10 PM [facility] PROTEIN ELECTROPHORESIS BLOOD SERUM Specimen Type: SERUM Comment: No M Ermias detected. Reference Range: None Detected normalcy status - Abnormal normalcy status - Abnormal NOTE: THIS RESULT IS FLAGGED ABNORMAL Suggestive of acute inflammation pattern with elevation of acute phase proteins. Test Performed by [facility], [facility], [address] [place] [address] Dante Roy M.D., Ph.D., Director of Laboratories , [facility] [id number] Ordering Provider: LEO MATOS Report Released Date/Time: May 22, 2024 12:47 PM Reporting Lab: [facility] [address] [place] [phone] Performing Lab: [facility] [address] [facility] ALPHA-1 GLOBULIN(SO-PB-STL) 0.4 g/dL H 0.2 [...] SEE NOTE May 22, 2024 01:10 PM [facility] PROST. SPECIFIC AG.(PB-STL) SERUM Specimen Ty pe: SERUM Comment: The listed sex of this patient may not be a typical indication for this test. Therefore, reference ranges or interpretive criteria listed may not be valid. Clinical correlation suggested. Ordering Provider: LEO MATOS Report Released Date/Time: May 22, 2024 12:37 PM Reporting Lab: [facility] [address] [place] [address] Performing Lab: [facility] [address] [place] [address] PROST. SPECIFIC AG.(PB-STL) 0.705 ng/mL 0.000-4.000 May 22, 2024 01:10 PM [facility] TSH (MA-PB) SERUM Specimen Type: SERUM Comment: The listed sex of this patient may not be a typical indication for this test. Therefore, reference ranges or interpretive criteria listed may not be valid. Clinical correlation suggested. Ordering Provider: LEO MATOS Report Released Date/Time: May 22, 2024 12:37 PM Reporting Lab: [facility] [address] [place] [address] Performing Lab: [facility] [address] [place] [address] TSH 0.604 u[IU]/mL 0.470-5.000 May 22, 2024 01:10 PM [facility] LIPID PANEL (STL) PLASMA Specimen Type: PLASM A Comment: No hemolysis noted. LDL calculation invalid when Triglyceride exceeds 250 mg/dl Ordering Provider: LEO MATOS Report Released Date/Time: May 22, 2024 12:37 PM Reporting Lab: [facility] [address] [place] [address] Performing Lab: [facility] [address] [place] [address] CHOLESTEROL 221 mg/dL H 0-200 TRIGLYCERIDE 341 mg/dL H 0-150 DIRECT LDL 142 mg/dL H <100 CALCULATED LDL comment mg/dL See Interp HDL(New) 33 mg/dL L > 40 May 22, 2024 01:10 PM [facility] VITAMIN D, 25-HYDROXY SERUM Specimen Type: SE RUM Comment: The listed sex of this patient may not be a typical indication for this test. Therefore, reference ranges or interpretive criteria listed may not be valid. Clinical correlation suggested. Ordering Provider: LEO MATOS Report Released Date/Time: May 22, 2024 12:37 PM Reporting Lab: [facility] [address] [place] [address] Performing Lab: [facility] [address] [place] [address] VITAMIN D, 25-HYDROXY 28.6 ng/mL L 30-96 May 22, 2024 01:10 PM [facility] FOLATE (STL-MA) SERUM Specimen Type: SERUM Comment: The listed sex of this patient may not be a typical indication for this test. Therefore, reference ranges or interpretive criteria listed may not be valid. Clinical correlation suggested. Ordering Provider: LEO MATOS Report Released Date/Time: May 22, 2024 12:37 PM Reporting Lab: [facility] [address] [place] [address] Performing Lab: [facility] [address] [facility] [phone] FOLATE (L-TX) 10.7 ng/mL 7-20 May 22, 2024 01:10 PM [facility] B12 SERUM Specimen Type: SERUM Comment: The listed sex of this patient may not be a typical indication for this test. Therefore, reference ranges or interpretive criteria listed may not be valid. Clinical correlation suggested. Ordering Provider: LEO MATOS Report Released Date/Time: May 22, 2024 12:37 PM Reporting Lab: [facility] [address] [facility] [address] Performing Lab: [facility] [address] [place] [address] B12 314 pg/mL 213-816 May 22, 2024 01:10 PM [facility] FERRITIN SERUM Specimen Type: SERUM No comment entered. Ordering Provider: LEO MATOS Report Released Date/Time: May 22, 2024 12:37 PM Reporting Lab: [address] [address] Performing Lab: [address] [address] FERRITIN 17.55 ng/mL L 22-275 May 22, 2024 01:10 PM [facility] IRON/TIBC PROFILE SERUM Specimen Type: SERUM No comment entered. Ordering Provider: LEO MATOS Report Released Date/Time: May 22, 2024 12:37 PM Reporting Lab: [address] [address] Performing Lab: [address] [address] TIBC 509 ug/dL H 250-450 TRANSFERRIN 407 mg/dL H 163-344 IRON SATURATION 11 L 20-50 IRON 57 ug/dL L 65-175 May 22, 2024 01:10 PM [facility] CYSTATIN C EGFR PANELS (ST-PB-TX) PLASMA Spec imen Type: PLASMA Comment: Choice of which of the reported eGFR values to use depends on the clinical situation. For example, for patients with severe muscle wasting or reduced muscle mass, eGFR calculated using the 2011 cystatin equation may be preferred. Ordering Provider: LEO MATOS Report Released Date/Time: May 22, 2024 12:37 PM Reporting Lab: [address] [address] Performing Lab: [address] [address] CYSTATIN C 2.45 mg/L H 0.57-1.80 CKD-EPI CYSTATIN C (2011) 22.9 >60 CKD-EPI CREAT-CYSC (2020) 26.5 >60 CREATININE ([facility]) 2.22 mg/dL H 0.7-1.3 May 22, 2024 01:10 PM [facility] PTH, INTACT (STL) SERUM Specimen Type: SERUM No comment entered. Ordering Provider: LEO MATOS Report Released Date/Time: May 22, 2024 12:39 PM Reporting Lab: [facility] [address] [facility] [address] Performing Lab: [facility] [address] [facility] [address] PTH, INTACT (STL) 314.60 pg/mL H 8.7-77.7 May 22, 2024 01:10 PM [facility] COMPREHENSIVE METABOLIC PANEL PLASMA Specimen Type: PLASMA Comment: No hemolysis noted. LDL calculation invalid when Triglyceride exceeds 250 mg/dl Ordering Provider: LEO MATOS Report Released Date/Time: May 22, 2024 12:37 PM Reporting Lab: [facility] [address] [facility] [address] Performing Lab: [facility] [address] [facility] [address] CREATININE 2.30 mg/dL H 0.70-1.30 UREA NITROGEN [...] 30.17 >60 May 22, 2024 01:10 PM [facility] CBC BLOOD Specimen Type: BLOOD No comment entered. Ordering Provider: LEO MATOS Report Released Date/Time: May 22, 2024 12:37 PM Reporting Lab: [facility] [address] [facility] [address] Performing Lab: [facility] [address] [facility] [address] WBC 8.4 10*3/uL 3.6-11.2 RBC 5.03 10*6/uL [...] 0.00-0. 20 May 22, 2024 01:10 PM [facility] OSMOLALITY SERUM(STL-PB) PLASMA Specimen Type: PLASMA No comment entered. Ordering Provider: LEO MATOS Report Released Date/Time: May 22, 2024 12:47 PM Reporting Lab: [facility] [address] [facility] [address] Performing Lab: [facility] [address] [facility] [address] OSMOLALITY SERUM(STL-PB) 310 H 285-295 May 22, 2024 01:10 PM [facility] RENAL PANEL PLASMA Specimen Type: PLASM A Comment: No hemolysis noted. LDL calculation invalid when Triglyceride exceeds 250 mg/dl Ordering Provider: LEO MATOS Report Released Date/Time: May 22, 2024 12:47 PM Reporting Lab: [facility] [address] [facility] [address] Performing Lab: [facility] [address] [facility] [address] CREATININE 2.30 mg/dL H 0.70-1.30 UREA NITROGEN 28.0 mg/dL H 9.0-25.0 GLUCOSE 219 mg/dL H 72-99 SODIUM 140 meq/L 136-145 POTASSIUM 4.4 meq/L 3.5-5.0 CHLORIDE 101 meq/L 98-107 CARBON DIOXIDE 24 meq/L 22-31 CALCIUM 10.5 mg/dL H 8.4-10.4 PHOSPHOROUS 3.0 mg/dL 2.3-4.7 ALBUMIN 4.4 g/dL 3.4-5.0 EGFR (CKD-EPI 2020) 30.17 >60 May 22, 2024 01:10 PM [facility] HGA1C BLOOD Specimen Type: BLOOD No comment entered. Ordering Provider: JULIA MASTERS Report Released Date/Time: Apr 30, 2024 04:23 PM Reporting Lab: [facility] [address] [facility] [address] Performing Lab: [facility] [address] [facility] [address] HGA1C 8.7 H 4.0-6.0 Vital Signs: All taken on the encounter date This section contains inpatient and outpatient Vital Signs collected on the date of the Encounter. Date/Time Temperature Pulse Blood Pressure Respiratory Rate SP02 Pain Height Weight Body Mass Index Source May 22, 2024 11:27 AM 98 73 118/82 20 96 0 73 328.4 43 [facility] Immunizations: All administered on the encounter date This section contains immunizations associated to the Encounter. Immunization Series Date Issued Administered By Site Reaction Lot Number CVX Code Drug Enterprise Application Architect Comment(s) Source INFLUENZA, HIGH-DOSE, TRIVALENT, PF May 22, 2024 MARGARETTE ANGUIANO LEFT DELTO ID [id number] [address] Sanchez AT [facility] Social History: Smoking Status (Most current) and Tobacco Use (All prior to encounter date) This section includes the most current, and the historical, smoking and tobacco- related health factors from the [place] facility where the Encounter took place. Current Smoking Status This section includes the most current smoking, or tobacco-related health factor, from the [place] facility where the Encounter took place. Date/Time Current Smoking Status Comment Nelly ity Nov 19, 2023 01:00 PM [place]-TOBACCO QUIT < 1 YEAR [facility] Tobacco Use History This section includes a history of the smoking, or tobacco-related health factors, that were collected on or before the date of the Encounter. The data comes from the [place] facility where the Encounter took place. Date/Time Smoking Status/Tobacco Use Comment F acility Nov 19, 2023 01:00 PM [place]-TOBACCO QUIT < 1 YEAR [facility] Aug 03, 2016 02:42 PM LIFETIME NON-USER OF TOBACCO [facility] December 18, 2012 12:47 PM LIFETIME NON-USER OF TOBACCO [facility] Jul 29, 2009 03:09 AM LIFETIME NON-USER OF TOBACCO [facility] December 14, 2006 08:02 AM LIFETIME NON-USER OF TOBACCO [facility] Nov 01, 2005 09:20 AM LIFETIME NON-TOBACCO USER [facility] Advance Directives: All historical and current Section Date Range: From patient's date of to the date document was created. This section includes ALL of a patient's completed or amended [place] Advance and Rescinded Directives. The entries below indicate that a directive exists for the patient, but an actual copy is not included with this document. The data comes from all [place] facilities. Date Advance Directives Provider Source May 16, 2023 ADVANCE DIRECTIVE DISCUSSION INGA LUNA TIANNA [facility] December 14, 2021 ADVANCE DIRECTIVE DISCUSSION INGA LUNA TIANNA [facility] May 05, 2021 GOALS & PREFERENCES TO INFORM LIFE-SUSTAINING TREATMENT PLAN RAIN [facility]BIAS [facility] Radiology Reports: +/- 30 days of [...] the Encounter. The data comes from all [place] treatment facilities. Date/Time Radiology Report Provider Source Jun 04, 2024 02:21 PM US RENAL COMPLETE: DARON MILTON [id number] [id number] M Exm Date: JUN 04, 2024@14:21 Req Phys: SHAWNALEO Melvin Melissa Loc: [facility]-PACT ITALIA CONSULT TEAM4 (Re Img Loc: [facility]-ULTRASOUND Service: Unknown [facility] [facility], [address] [place] [address] (Case [id number] COMPLETE) US RENAL COMPLETE (US Detailed) CPT:37992 Reason for Study: ckd Clinical History: ckd Report Status: Verified Date Reported: JUN 04, 2024 Date Verified: JUN 04, 2024 Vegetable Cutter E-Sig:/ES/EVERETT DOWNING Report: DATE: 06/04/2024 2:36 PM EXAM: US RENAL COMPLETE ACCESSION NUMBERS: [id number] HISTORY: ckd COMPARISON: Ultrasound renal 03/03/2009 TECHNIQUE: [...] renal cysts. Dictated by Maurizio Dacosta MD (Tube Closing Machine Operator) Everett Lora, have reviewed the images and report and concur with these findings. Primary Interpreting Staff: EVERETT DOWNING MD (Vegetable Cutter) Primary Interpreting Resident: MAURIZIO DACOSTA, Resident Physician /EVERETT PALACIOS [facility] Encounter Notes: All associated encounter notes This section contains the clinical notes associated to the Encounter. Date/Time Encounter Note(s) Provider Source Jun 05, 2024 08:18 AM LETTERS: LOCAL TITLE: TEST RESULT GERIATRIC LETTER STL STANDARD TITLE: LETTERS DATE OF NOTE: JUN 05, 2024@08:18 ENTRY DATE: JUN 05, 2024@08:18:27 AUTHOR: LEO MATOS COSIGNER: URGENCY: STATUS: COMPLETED [facility] [address] [place] [address] JUN 05, 2024 DARON MILTON [address] [facility] [address] [place], [place] [address] Dear Mr. Daron Milton, I would like to update you on your recent test results from your last geriatric clinic visit. Kidney ultrasound: Impression: No evidence of renal calculi or hydronephrosis. Bilateral renal cysts. You kidney ultrasound is normal. Please follow up w/ renal clinic on 07/01/24. PLAN Please continue your treatment as we discussed during your visit. If you have any questions please call your housing case manager. I look forward to seeing you at your next clinic appointment. Thank you for choosing the [facility] for your healthcare. FUTURE APPOINTMENTS: 06/12/2024 10:30 MARY-PHONE [place] PACT PHARM 06/27/2024 10:30 MARY-PODIATRY [place] 07/01/2024 12:00 ZA-RENAL KING SUKHWINDER 08/21/2024 14:00 MARY-PACT [place] TM 4 PCP 08/26/2024 16:00 MARY-BH [place] IND ZOE PSI 09/24/2024 11:00 MARY-OPTOMETRY 3 Sincerely, LEO MATOS [facility]- NURSE PRACTITIONER, [place]-[facility]CT DARON MILTON BARRY E [facility] May 23, 2024 01:32 PM LETTERS: LOCAL TITLE: TEST RESULT GERIATRIC LETTER STL STANDARD TITLE: LETTERS DATE OF NOTE: MAY 23, 2024@13:32 ENTRY DATE: MAY 23, 2024@13:32:44 AUTHOR: LEO MATOS EXP COSIGNER: URGENCY: STATUS: COMPLETED TEST RESULT GERIATRIC LETTER STL Has ADDENDA [facility] [address] [place] [address] MAY 23, 2024 DARON MILTON [address] [facility] [address] [place], [place] [address] Dear Daron Milton, I would like to update you on your recent test results from your last geriatric clinic visit. LIPID PROFILE - High cholesterol and triglycerides (lipids) are risk factors for heart disease. Your cholesterol should fall between 140 and 200, and your triglycerides levels should be less than or equal to 150. HDL is the good cholesterol and should ideally be greater than 40. LDL is the bad cholesterol and optimal levels should be less than 100 (near optimal is between 100 and 129). TRIGLYCERIDE 341 H mg/dL 05/22/2024 13:10 CHOLESTEROL 221 H mg/dL 05/22/2024 13:10 HDL(New) 33 L mg/dL 05/22/2024 13:10 DIRECT LDL 142 H mg/dL 05/22/2024 13:10 These results are abnormal. I understand you had been out of your cholesterol medication for while. Try to follow a low cholestero, low sweet/sugar diet. We'll recheck these levels in 3 months. Cystatin C is a protein made by cells in your body. It is constantly created, filtered from the blood by the kidneys, and broken down. The Cystatin C test is a type of blood test to see how well your kidneys are working1. When kidneys are working well, they keep the level of Cystatin C in your blood just right. If the level of cystatin C in your blood is too high, it may mean that your kidneys are not working well. CYSTATIN C 05/22/2024@1310 2.45 H These results are abnormal. I'm sending you to our kidney specialist. Uric Acid - A uric acid blood test measures how much uric acid is in your blood. It can help diagnose gout, kidney stones, and other conditions related to high or low uric acid levels. URIC ACID 05/22/2024@1311 10.2 H These results are abnormal. I'm sending you to our kidney specialist. uACR/Creatinine - The urine albumin-creatinine ratio (uACR) shows whether you have albumin in your urine. Albumin is a type of protein that's normally found in the blood. uACR (STL) 377 H mg/g 05/22/2024 13:24 URINE ALBUMIN (PB-STL) 75 mg/L 05/22/2024 13:24 CREATININE URINE/OTHERS 20.3 L mg/dL 05/22/2024 13:24 These results are abnormal. CBC - A complete blood count (CBC) gives important information about the kinds and numbers of cells in the blood, especially red blood cells, white blood cells, and platelets. HGB 12.6 L g/dL 05/22/2024 13:10 HEMATOCRIT 40.9 % (05/22/24 13:10) PLT 241 10*3/uL 05/22/2024 13:10 WHITE BLOOD COUNT 8.4 10*3/uL (05/22/24 13:10) These results are abnormal. Please start iron 325mg daily. We'll recheck these levels in 2 months. IRON STUDIES - Test to show iron deficiency. IRON 57 L ug/dL 05/22/2024 13:10 TIBC 509 H ug/dL 05/22/2024 13:10 IRON SATURATION 11 L %SAT 05/22/2024 13:10 FERRITIN 17.55 L ng/mL 05/22/2024 13:10 These results are abnormal. Please start iron 325mg daily. We'll recheck these levels in 2 months. FOLATE - Folate (vitamin B-9) is important in red blood cell formation and for healthy cell growth and function. 05/22/2024 13:10 SERUM FOLATE ([facility]) 10.7 ng/mL These readings are within normal limits. B12 - Helps maintain healthy nerve cells, red blood cells, and is also needed to make DNA. B12 314 pg/mL 05/22/2024 13:10 These readings are within normal limits. Magnesium - Magnesium is a mineral found in the earth's crust, and in your body. It's needed for healthy bones, heart, muscles, and nerves. It helps your body control energy, blood sugar, blood pressure, and many other processes. 05/22/2024 13:23 PLASMA MAGNESIUM 2.0 mg/dL 1.6 - 2.6 These readings are within normal limits. CHEM 7 - This is important information about the current status of your kidneys, liver, and electrolyte and acid/base balance as well as of your blood sugar and blood proteins. SODIUM 140 mEq/L 05/22/2024 13:10 POTASSIUM 4.4 mEq/L 05/22/2024 13:10 CHLORIDE 101 mEq/L 05/22/2024 13:10 UREA NITROGEN 28.0 H mg/dL 05/22/2024 13:10 CREATININE 2.30 H mg/dL 05/22/2024 13:10 CALCIUM 10.5 H mg/dL 05/22/2024 13:10 CARBON DIOXIDE 24 mEq/L 05/22/2024 13:10 GLUCOSE 219 H mg/dL 05/22/2024 13:10 EGFR (CKD-EPI 2020) 30.17 05/22/2024 13:10 These results are abnormal. Maintain good control of you blood pressure and blood sugar. Avoid nsaids (ibuprofen, aleve, motrin). Avoid herbal supplements. I'm sending you to our kidney specialist. LIVER FUNCTION PANEL - These are tests for liver function: PROTEIN 8.5 g/dL 05/22/2024 13:10 ALBUMIN 4.4 g/dL 05/22/2024 13:10 TOTAL BILIRUBIN 0.7 mg/dL 05/22/2024 13:10 ALKALINE PHOSPHATASE 122 U/L 05/22/2024 13:10 AST/SGOT 13 U/L 05/22/2024 13:10 ALT/SGPT 12 U/L 05/22/2024 13:10 These readings are within normal limits. PSA - Prostate-specific antigen is a protein produced by cells of the prostate gland. The PSA test measures the level of PSA in the blood. PROST. SPECIFIC AG.(PB-STL) 0.705 ng/mL 05/22/2024 13:10 TSH - Thyroid-stimulating hormone (also known as TSH or thyrotropin) is a peptide hormone synthesized and secreted by thyrotrope cells in the anterior pituitary gland, which regulates the endocrine function of the thyroid gland. TSH 0.604 uIU/mL 05/22/2024 13:10 These readings are within normal limits. These readings are within normal limits, however your PTH (parathryoid hormone) is significantly elevated. In addition to obtaining a thryoid ultrasound, I'm referring you to our regulatory auditor. VITAMIN D - Helps promote the proper utilization of calcium and phosphorus, thereby producing proper bone maintenance. VITAMIN D, 25-HYDROXY 28.6 L ng/mL 05/22/2024 13:10 These results are abnormal. I'm increasing your vitamin d supplement to 2000 units daily. URINALYSIS - A urinalysis (or UA) is an array of tests performed on urine and one of the most common methods of medical diagnosis. Collection DT Specimen Test Name Result Units Range 05/22/2024 13:24 URINE URN.GLUCOSE >1000 H mg/dL Negative 05/22/2024 13:24 URINE URN.PROTEIN 10 H mg/dL Negative - 20 05/22/2024 13:24 URINE URN.UROBILINOGEN Normal mg/dL Normal 05/22/2024 13:24 URINE URN.BLOOD Negative mg/dL Negative-Trace 05/22/2024 13:24 URINE URN.KETONES Negative mg/dL Negative-Trace 05/22/2024 13:24 URINE URN.LEUK.EST. Negative mg/dL Negative-Trace 05/22/2024 13:24 URINE URN.SPECIFIC GRAV 1.008 1.005-1.029 05/22/2024 13:24 URINE URINE COLOR Colorless Yellow 05/22/2024 13:24 URINE APPEARANCE Clear Clear 05/22/2024 13:24 URINE U.PH 7.0 5.0 - 8.0 05/22/2024 13:24 URINE U.BILIRUBIN Negative mg/dL Negative 05/22/2024 13:24 URINE U.NITRITE Negative mg/dL Negative These results are normal. The glucose in your urine is due to empagliflozin. PLAN Please continue your treatment as we discussed during your visit & on the phone. If you have any questions please call your housing case manager. I look forward to seeing you at your next clinic appointment. Thank you for choosing the [facility] for your healthcare. FUTURE APPOINTMENTS: 06/03/2024 14:30 MARY-BH [place] IND [place]OE PSI 06/12/2024 10:30 MARY-PHONE [place] PACT PHARM 06/27/2024 10:30 MARY-PODIATRY [place]ARR[place] 08/22/2024 13:00 MARY-PACT [place] TM 2 PCP 09/24/2024 11:00 MARY-OPTOMETRY 3 05/23/2024 ADDENDUM STATUS: COMPLETED Cholesterol Diet: WHAT ELSE CAN I DO? --Remember to check all labels. Many foods contain hidden fats! --Bake, broil, or roast meat rather than frying them. Skip gravies and rich sauces. (Don't buy self-basting turkeys!) --Limit intake of rich pastries and desserts that are high in butter, eggs, cream, or shortening. --Choose a frozen fruit sorbet or low- or non-fat frozen yogurt rather than ice cream or ice milk. (Some sherbets may contain whole milk, so check labels carefully!) --Use a nonstick cooking spray or nonstick pans. --Chill and skim fat off of meat stock or drippings when making soup or sauces. --Check labels for the words hydrogenated or hardened fats or oils, and avoid these products. ARE THERE OTHER TERMS YOU MAY HAVE QUESTIONS ABOUT? --HDL's (high-density lipoproteins) and LDL's (low-density lipoproteins) transport cholesterol in your blood. --LDLs carry cholesterol into your cells and HDLs carry it away and dispose of it in the liver, having a protective effect on your circulatory system. --High saturated fat, high cholesterol diets may increase the harmful LDL's. --Not smoking, participating in aerobic activity, and losing weight if you are overweight may increase the beneficial HDL's. --Triglycerides (TG) are fatty compounds that are a combination of three (tri) fatty acids and glycerin. --Body fat is made up of mostly stored triglycerides. --Triglycerides also circulate in the blood stream like cholesterol, and may have a link with heart disease. --To lower triglycerides, maintain ideal body weight, limit intake of sugars and alcohol, and eat a low-fat diet. /es/ LEO MATOS [facility] NURSE PRACTITIONER, [place] Signed: 05/23/2024 14:05 Sincerely, LEO MATOS [facility] NURSE PRACTITIONER, [place]CT DARON MILTON [facility] May 22, 2024 11:32 AM GERIATRIC MEDICINE CONSULT: LOCAL TITLE: GERIATRIC CONSULT ST STANDARD TITLE: GERIATRIC MEDICINE CONSULT DATE OF NOTE: MAY 22, 2024@11:32 ENTRY DATE: MAY 22, 2024@11:32:24 AUTHOR: LEO MATOS EXP COSIGNER: URGENCY: STATUS: COMPLETED Type of Evaluation: Geriatric Consultation : Jun CC: consultation, establishing w/ geriatrics HPI:MIGUELNICOLE is a 68 yo well-groomed, congnitively intact male w/ functional dependencies presenting to the [facility] for consultation & ongoing assistance with [place] benefits/[place]acy. He is accompanied today by his (primary associate professor computer science), Reagan. Also following w/ [place] psychiatry, pharmD and eye clinic. 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, mood disorder, followed by -[facility] 14.Obesity s/p gastric sleeve '16 GERIATRIC REVIEW OF SYSTEMS: Change in weight: lossing w/ diet Appetite: good Dysphagia: yes, chronic Dentition: sees dental Sleep: sleeps with cpap which is 15 years old Vision: rx glasses Hearing: needs tested Wounds/Ulcers: denies Peripheral neuropathy: bilat feet Constipation: rare Incontinence: rare bowels Nocturia: denies Falls: denies Assistive devices: cane, walker, WC, scooter Recent Hospitalizations: denies ROS: Gluc running avg 150s, rare hypoglycemia, last 2 weeks ago to 56 treated w/ glucose tablets, BP running near 120/80, he reports chronic intermittent dizziness, present for years, no aggrevating or alleviating factors, c/o intermittent palpitations due to afib, denies cp but has chornic exertional dyspnea, denies sig pain Cognitive Impairment Warning Signs: denies PAST SURGICAL HISTORY gastric sleeve '16 bilat knee replacement lumber fusion '07 FAMILY HISTORY: 3 children - 1 w/ breast cancer SOCIO-ECONOMIC HISTORY: 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 Toileting: (2 Points) Receives assistance in going to toilet room or in cleansing self or in arranging clothes after elimination or in use of night bedpan or commode. Transferring: (3 Points) Moves in and out of bed and in and out of chair without assistance (may be using object for support, such as cane or walker) Continence: (2 Points) Has occasional accidents or urination or bowels Feeding: (3 Points) Feeds self without assistance Total Score: 14 Points 18 = High (patient independent) 6 = Low (patient very dependent) IADL Screen - [place] Instrumental Activities of Daily Living Scale Ability to use telephone: (1 point) Operates Telephone on own initiative; looks up and dials numbers. Shopping: (0 points) Needs to be accompanied on any shopping trip. Food preparation: (0 points) Heats and serves prepared meals, or prepares meals but does not maintain adequate diet. Housekeeping: (0 points) Does not participate in any housekeeping tasks. Laundry: (0 points) All laundry must be done by others. Mode of transportation: (0 points) Travel limited to taxi or automobile with assistance of another. Responsibility for own medications: (0 points) Takes responsibility if medication is prepared in advance in separate dosages. Ability to handle finances: (1 point) Manages day-to-day purchases, but needs help with banking, major purchases, etc. Total score: 2 points 8 = High function, independent 0 = Low function, dependent ALLERGIES: NIACIN Vital Signs: Pulse: 73 (05/22/2024 11:27) Blood Pressure: 118/82 (05/22/2024 11:27) Respiratory Rate:20 (05/22/2024 11:27) Temperature: 98 F [36.7 C] (05/22/2024 11:27) Pain: 0 (05/22/2024 11:27) PHYSICAL EXAMINATION: General: wd/wn male, nad, present HEENT: nc/at, anicteric sclera, perrla, eomi, conjunctiva clear without exudates, bilat ear canals clear, TMs pearly beavers, no erythema, bulging or discharge, landmarks wnl, +light reflex, nares-turbinate's pink without erythema, swelling, pharynx without erythema, swelling or exudates NECK: Supple, no bruits or lymphadenopathy CHEST: CTAB without wheezes, rales, chest symmetrical, breath sounds in all lobes, normal respirations HEART: irreg irreg, distant ABDOMEN: obese, non-tender, BS+ 4 quads EXTREMITIES: no oswaldo, pedal pulses weakly palpable, hair absent, sensation absent toes to knees NEURO: non-focal Assessment and Plan for each problem: 1.Type 2 DM w/ neuropathy -check hga1c, urine micral -cont insulins, emapgliflozin, ozempic, arb, gabapentin -cont routine eye exams -consult podiatry -[facility] PharmD clinic 2.HTN/CKD/edema -BP well controlled -cont losartan, coreg, furosemide -check labs -order renal US -consult renal clinic 3.Afib -cont coreg, warfarin -fu warfarin clinic 4.Hyperlipidemia -cont atorvasatin -low chol diet -check flp/cmp 5.GERD -cont omerazole -check cbc, magnesium, vit b12 6.Sleep apnea -order sleep study for new cpap, last tested > 15 years ago 7.gait d/o -fall precautions -using cane, walker -number provided for clinic for scooter eval 8.Vitamin D deficiency -cont supplement -check levels 9.Allergic rhinitis -cont zyrtec, flonase 10.Thyroid nodules -check tsh, pth -US thyroid 11.Anemia -check cbc, iron, ferritin, vit b12, folate 12.COPD -cont inhalers, nebulizers 13.Biploar disorder/mood disorder -following w/ [facility] 14.Obesity s/p gastric sleeve '16 -cont ozempic -enc diet/exercise/weight loss 15.Hearing loss -number provided for audiology 16.HM -Covid-19 vaccination: declined booster -colonoscopy: 12/26, benign polyps, fu due 2029 -PSA today -Flu shot: 2023 -Prevnar-20: 2021 -Tdap: 2018 -Shingrix series: 2022 -discussed routine exercise and healthy diet Medications have been reconciled and plan of care has been reviewed with pt/family/caregiver including expected therapeutic benefits and potential side effects of treatments; current, written medication profile has been sent home with patient. Pt/caregiver/family verbalizes understanding, concurs with the current plan of care, and agrees to contact this provider or [facility] housing case manager with any problems prior to next visit. RTC:6mo or sooner prn Time spent: 1 hour 50min Active Outpatient Medications (including Supplies): Active Outpatient Medications Status 1) ACCU-CHEK GUIDE (GLUCOSE) TEST STRIP USE 1 STRIP FOR ACTIVE BLOOD TEST ONCE A DAY *INTENSIVE INSULIN THERAPY- UP TO 4 TIMES DAILY Feb 2) ACCU-CHEK GUIDE ME (GLUCOSE) METER USE GLUCOSE METER ACTIVE FOR DIRECTED -CONTACT COMPANY FOR REPLACEMENT OR PROBLEM 3) ALBUTEROL 90MCG (CFC-F) 200D ORAL INHL INHALE 2 PUFFS ACTIVE ORAL INHALATION FOUR TIMES A DAY NEEDED FOR COPD SHAKE WELL. RINSE MOUTHPIECE FREQUENTLY TO PREVENT CLOGGING. 4) ALBUTEROL SO4 0.083% INHL 3ML INHALE 1 VIAL ACTIVE (2.5MG/3ML) BY NEBULIZATION EVERY 6 HOURS DIRECTED NEEDED FOR COPD 5) ALCOHOL PREP PAD USE/APPLY PAD TO AFFECTED AREA(S) ACTIVE FOUR TIMES A DAY DIRECTED 6) BUSPIRONE HCL 15MG TAB TAKE ONE TABLET BY MOUTH THREE ACTIVE TIMES A DAY DO NOT TAKE WITH GRAPEFRUIT JUICE. 7) EMPAGLIFLOZIN 25MG TAB TAKE ONE-HALF TABLET BY MOUTH ACTIVE ONCE A DAY 8) FLUTICASONE PROP 50MCG 120D NASAL INHL INSTILL 1 ACTIVE SPRAY IN NOSTRIL(S) ONCE A DAY NEEDED FOR RHINITIS (MUST BE USED DIRECTED FOR MINIMUM OF 21 DAYS TO PROVIDE ADEQUATE BENEFITS) 9) GLUCOSE 4GM CHEW TAB CHEW AND SWALLOW FOUR TABLETS BY ACTIVE MOUTH NEEDED REPEAT DOSE IF HYPOGLYCEMIA CONTINUES 15 MINUTES AFTER THE FIRST DOSE. 10) GLUCOSE SENSOR TengradeSTYLE ETHAN 3 PLUS USE SENSOR ACTIVE EVERY 15 DAYS FOR BLOOD SUGAR MONITORING CHANGE SENSOR/SITE EVERY 15 DAYS. TO REPLACE SENSOR FOR ANY REASON OR FOR TECHNICAL HELP PLEASE CALL [employer] HELP DESK: -SPECIFIC PHONE NUMBER: ([phone]). 11) INSULIN,ASPART,HUMAN 100 UNIT/ML INJ INJECT 40 UNITS ACTIVE UNDER THE SKIN TWO TIMES A DAY BEFORE MEALS ADMINISTER 10 MINUTES BEFORE FOOD DIRECTED. DISCARD ANY VIAL 28 DAYS AFTER OPENING. 12) LANCET,SOFTCLIX USE LANCET FOR BLOOD TEST FOUR TIMES ACTIVE A DAY DIRECTED FOR BLOOD SUGAR MONITORING 13) LATANOPROST 0.005% OPH SOLN INSTILL 1 DROP IN BOTH ACTIVE EYES EVERY EVENING FOR ELEVATED INTRAOCULAR PRESSURE KEEP REFRIGERATED UNTIL READY TO USE, THEN STORE AT ROOM TEMPERATURE FOR MAXIMUM OF 42 DAYS. 14) LOSARTAN 100MG TAB TAKE ONE-HALF TABLET BY MOUTH ONCE ACTIVE A DAY FOR HIGH BLOOD PRESSURE 15) MELATONIN 3MG CAP/TAB TAKE ONE CAP/TAB BY MOUTH AT ACTIVE BEDTIME FOR SLEEP 16) MIRTAZAPINE 45MG TAB TAKE ONE TABLET BY MOUTH AT ACTIVE BEDTIME 17) PAROXETINE HCL 20MG TAB TAKE ONE TABLET BY MOUTH ONCE ACTIVE A DAY DO NOT ABRUPTLY DISCONTINUE MEDICATION. 18) QUETIAPINE FUMARATE 25MG TAB TAKE ONE-HALF TABLET BY ACTIVE MOUTH AT BEDTIME 19) SEMAGLUTIDE 1MG/0.75ML INJ PEN 3ML INJECT 1MG UNDER ACTIVE THE SKIN EVERY WEEK 20) WARFARIN NA ([place]) 2MG TAB TAKE ONE TABLET BY ACTIVE MOUTH SUNDAY, SUNDAY AND SUNDAY AND TAKE ONE AND ONE-HALF TABLETS ALL OTHER DAYS FOR ANTICOAGULATION 21) ZOLPIDEM TARTRATE 10MG TAB TAKE ONE TABLET BY MOUTH ACTIVE AT BEDTIME NEEDED FOR INSOMNIA (TAKE IMMEDIATELY BEFORE BEDTIME DUE TO RAPID ONSET OF ACTION) furosemide coreg vit d zyrtec atorvastatin Cystatin C with eGFR Screen - N,P,PH: The patient has a condition that may benefit from obtaining a Cystatin C test for accurate assessment of renal function. Cystatin C w/eGFR ordered for renal assessment. Diabetes: Kidney Health Evaluation - N,P,PH: Last eGFR: Most recent eGFR within past 12 months No data available for: uACR (PB-MA) URINE ALBUMIN (MA) URINE ALBUMIN (PB-STL) MICROALBUMIN-RU (PB-sendout) Collection DT Specimen Test Name Result Units Ref Range 11/19/2023 14:37 PLASMA EGFR (CKD-EPI 202 24.67 Ref: >=60 Comment: No hemolysis noted. Last uACR: Most recent uACR/MicroAlbumin within past 12 months No data available for: uACR (PB-MA) URINE ALBUMIN (MA) URINE ALBUMIN (PB-STL) MICROALBUMIN-RU (PB-sendout) Collection DT Specimen Test Name Result Units Ref Range 11/19/2023 14:37 PLASMA EGFR (CKD-EPI 202 24.67 Ref: >=60 Comment: No hemolysis noted. uACR (Urine Albumin-Creatinine Ratio) Quantitative urine creatinine and quantitative urine albumin lab tests were ordered. Toxic Exposure Screening Follow-Up - NS,P: Exposure Concern(s): 05/22/2024 Other Environmental Concerns - Toxic Exposure Concern paint Follow-up Question(s): 05/22/2024 No Questions - Toxic Exposure Concern /caregiver has no health or medical concerns related to their concern of environmental exposure. The following connections were provided to the /caregiver: No connections needed at this time Colonoscopy GAP Reminder - L,N,P,PH: Recommendations are needed in the clinical reminder system following the patient's most recent colorectal cancer screening/surveillance test (Colonoscopy, Sigmoidoscopy or CT Colonography) Prior/outside colonoscopy results: Date: Dec, 2022 ? Exact date is unknown Colonoscopy reminder set 6 years from MAY 22, 2024. Comments (optional): due December 2029 Assess Statin Use - Lipids (CVD/DM) - N,P,PH: See orders. FDI Education - Warfarin: The patient was counseled in food groups containing Vitamin K. Level of Understanding: Good The patient was ready to learn when education was offered. One to one counseling/education with patient was provided. Patient verbally acknowledged understanding of the education topic. HIV Screening (Routine): Patient has been offered HIV testing and has declined. I have explained that HIV testing is recommended for all adults, even if all risk factors are absent. [facility] DIGITAL DIVIDE CAPABILITY REMINDER: Patient is interested in [facility] appointments. [facility] requirements have been communicated to the [place]. The confirms understanding of those requirements and indicates the following [facility] needs: [place] has completed previous [facility] appointments and confirms they are STILL [facility] CAPABLE. Future [facility] appointments can be scheduled. 'S RIGHT TO DECLINE STATEMENT understands they have the right to decline the use of Telehealth Technology at any time without adverse affects on their continued access to healthcare. Td / Tdap Immunization - L,N,P,PH,U: Prior Td vaccination The patient has previously received the Tetanus, Diphtheria, Pertussis vaccine (Tdap). Documented: TDAP Historical Date Administered: Jun 28, 2018 Outside Location: [facility] Information Source: SOURCE UNSPECIFIED PAVE Foot Check - L,N,P,PH,PO,PT,U: A complete foot check was completed at this encounter. VISUAL INSPECTION: Includes inspection for skin breaks, deformity, erythema, trauma, pallor on elevation, dependent rubor, nail deformities, extensive callus and pitting edema. Visual exam results: Abnormal Observations: Thickened toenails, tinea PEDAL PULSES: Includes palpation of dorsalis and posterior tibial pulses and signs/symptoms of vascular compromise like pain, pallor, parasthesia or paralysis. Present (even if diminished) SENSORY CHECK: Includes 10 gram Monofilament (Lupton-Roger) test of sensation. Intact (Greater than or equal to 80% of sites checked) Abnormal (Less than 80% of sites checked): Abnormal (decreased or absent sensation to monofilament): Comment: toes to knees HIGH-RISK: HIGH RISK INFORMATION PROVIDED: 1. Advised patient that extra depth footwear with soft molded inserts and braces may be required. 2. Advised patient not to walk barefoot. 3. Explained the importance of daily foot checks. 4. Stressed the importance of daily foot hygiene, including bathing, complete drying and thorough inspection for changes. The patient verbalized understanding and was offered a detailed handout on diabetic foot care. Patient referred to Podiatry. WHAT MATTERS What Matters was addressed at this visit. Comment: family, good health MEDICATION Medications were addressed at this visit. Comment: reviewed, reconciled MENTATION Depression was not addressed at this visit. Indicate reason Depression was not addressed: Addressed at a recent visit Date: January 02, 2024 MENTATION Dementia was not addressed at this visit. Indicate reason Dementia was not addressed: No dementia warning signs observed or reported. MOBILITY -------- Mobility was addressed at this visit. Comment: TUG 18 seconds w/ avinash /lynn/ LEO MATOS [facility]- NURSE PRACTITIONER, [place]-PACT Signed: 05/22/2024 13:32 LEO MATOS [facility] May 22, 2024 11:28 AM NURSING NOTE: LOCAL TITLE: V15 PACT FACE TO FACE NOTE STL STANDARD TITLE: NURSING NOTE DATE OF NOTE: MAY 22, 2024@11:28 ENTRY DATE: MAY 22, 2024@11:28:41 AUTHOR: MARGARETTE ANGUIANO EXP COSIGNER: URGENCY: STATUS: COMPLETED Provider Visit: Patient Identifiers : Full Name Date of Reason for visit: Other: Consult Mode of Arrival: Wheelchair Allergy Review: NIACIN Allergy list reviewed and remains current. Recent Vital Signs: Temperature: 98 F [36.7 C] (05/22/2024 11:27) Pulse: 73 (05/22/2024 11:27) Respiration: 20 (05/22/2024 11:27) B/P: 118/82 (05/22/2024 11:27) Pain: 0 (05/22/2024 11:27) Wt: 328.4 lb [148.96 kg] (05/22/2024 11:27) Ht: 73 in [185.4 cm] (05/22/2024 11:27) BMI: 43.4 POX: 96% (05/22/2024 11:27) Would you like to discuss any personal problem, family problem, alcohol use, drug use, or a mental or emotional illness? No Contact provided Primary Care phone number and encouraged to call if any questions or concerns. Review that after hours nurse line [phone] and emergency room are available 26/02 for patient use. Contact verbalized good understanding. 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 No questions at this time /caregiver was informed of local points of contact. Contact information for local resources: [facility] Registry Exam Program: [phone] Eligibility: [phone] [id number] Toxic Exposure Screening Follow-Up reminder is needed. Name of person notified: Leo Matos NP COVID-19 Immunization - L,N,P,PH,U: Refused Pfizer Monovalent COVID-19 vaccine Immunization: COVID-19 (PFIZER), MRNA, LNP-S, PF, MARIELOS-SUCROSE, 30 MCG/0.3 ML (AGES 12+ YEARS) Refusal Reason: PATIENT DECISION Patient refuses all immunization(s) in the COVID-19 group Date Documented: 05/22/24 11:31 Influenza Immunization - L,N,P,PH,U: Influenza, High-Dose, Trivalent, Preservative Free (Fluzone-Syringe) Administered: INFLUENZA, HIGH-DOSE, TRIVALENT, PF Date Administered: May 22, 2024 11:00 Enterprise Application Architect: KINGA PASTEUR Lot: [id number] Exp Date: Feb 02, 2025 [facility]: [id number] Admin Route/Site: INTRAMUSCULAR/LEFT DELTOID Dosage: 0.5mL Vaccine Information Statement(s): INFLUENZA(FLU) VACC(INACTIVATED OR RECOMBINANT)VIS Mar 11, 2021 (GREEK) Order By: Policy Administered By: Margarette Anguiano The Influenza Vaccine Information Statement (VIS) was reviewed with the patient/caregiver which lists the benefits and risks of the vaccine and the risks of not receiving the Influenza vaccine. The patient/caregiver denied any prior severe reaction to this vaccine or its components or a severe allergic reaction, such as anaphylaxis, to any vaccine or any injectable therapy. The patient/caregiver gave verbal consent to receive the vaccine. /lynn/ MARGARETTE ANGUIANO LPN LICENSED PRACTICAL NURSE Signed: 05/22/2024 11:36 MARGARETTE ANGUIANO [facility]
--- OUTSIDE RECORDS SUMMARY | 2025-03-01 17:58 | XMS_ITS | Encounter Summary ---
Author Name [facility] [facility] [place] [facility] [place] Address [address] [place] [address] Care Team Providers Care Fastener Technologist Name Role Phone ANDREA ALDRICH Primary Care Provider Unavailabl e DARON MURGUIA Primary Care Provider UnavailLUCIO Vieira Unavailable Unavailable [...] PART B Aug 06, 2007 PART B [id number] [id number] MIGUEL,DA VID PATIENT MEDICARE (WNR) MEDICARE () PART B Aug 06, 2007 PART B [id number] MIGUEL,DA VID PATIENT MEDICARE (WNR) MEDICARE () PART B Aug 06, 2007 PART B [id number] MIGUEL,DA VID PATIENT MEDICARE (WNR) MEDICARE () PART B Aug 06, 2007 PART B [id number] MIGUEL,DA VID PATIENT MEDICARE (WNR) MEDICARE () PART B Aug 06, 2007 PART B [id number] MIGUEL,DA VID PATIENT MEDICARE (WNR) MEDICARE (M) PART B Aug 06, 2007 PART B [id number] MIGUEL,DA VID PATIENT MEDICARE (WNR) MEDICARE (M) PART A Jul 06, 2001 PART A [id number] MIGUEL,DA VID PATIENT MEDICARE (WNR) MEDICARE (M) PART A Jul 06, 2001 PART A [id number] MIGUEL,DA VID PATIENT MEDICARE (WNR) MEDICARE (M) PART A Jul 06, 2001 PART A [id number] MIGUEL,DA VID PATIENT MEDICARE (WNR) MEDICARE (M) PART A Jul 06, 2001 PART A [id number] [phone] MIGUEL,DA VID PATIENT MEDICARE (WNR) MEDICARE (M) PART A Jul 06, 2001 PART A [id number] MIGUEL,DA VID PATIENT MEDICARE (WNR) MEDICARE (M) PART A Jul 06, 2001 PART A [id number] MIGUEL,DA VID PATIENT Selected Encounter This section includes the information on record at [place] for the Encounter. Date/Time Encounter Type Encounter Description Reason Pro vider Source IHE Encounter Template Text not used by [place] Advance Directives: All historical and current Section Date Range: From patient's date of to the date document was created. This section includes ALL of a patient's completed or amended [place] Advance and Rescinded Directives. The entries below indicate that a directive exists for the patient, but an actual copy is not included with this document. The data comes from all [place] facilities. Date Advance Directives Provider Source May 16, 2023 ADVANCE DIRECTIVE DISCUSSION [facility] December 14, 2021 ADVANCE DIRECTIVE DISCUSSION [facility] May 05, 2021 GOALS & PREFERENCES TO INFORM LIFE-SUSTAINING TREATMENT PLAN [facility]
--- OUTSIDE RECORDS SUMMARY | 2025-03-01 17:59 | XMS_ITS ---
Author Name [facility] [place] [facility] [place] [facility] [place] Address [address] [place] [address] Care Team Providers Care Traffic Control Technician Name Role Phone ANDREA ALDRICH Primary Care Provider Unavailabl DARON Zacarias Primary Care Provider Unavailab LUCIO Roberts Unavailable Unavailable LEO MATSO Primary Care Provider Unavailabl e Insurance Providers: [...] PART B Aug 06, 2007 PART B [id number] MIGUEL,DA VID PATIENT MEDICARE (WNR) MEDICARE (M) PART B Aug 06, 2007 PART B [id number] [phone] MIGUEL,DA VID PATIENT MEDICARE (WNR) MEDICARE (M) PART B Aug 06, 2007 PART B [id number] [phone] MIGUEL,DA VID PATIENT MEDICARE (WNR) MEDICARE (M) PART B Aug 06, 2007 PART B [id number] MIGUEL,DA VID PATIENT MEDICARE (WNR) MEDICARE (M) PART B Aug 06, 2007 PART B [id number] MIGUEL,DA VID PATIENT MEDICARE (WNR) MEDICARE (M) PART B Aug 06, 2007 PART B [id number] MIGUEL,DA VID PATIENT MEDICARE (WNR) MEDICARE (M) PART A Jul 06, 2001 PART A [id number] MIGUEL,DA VID PATIENT MEDICARE (WNR) MEDICARE (M) PART A Jul 06, 2001 PART A [id number] MIGUEL,DA VID PATIENT MEDICARE (WNR) MEDICARE (M) PART A Jul 06, 2001 PART A [id number] [id number] [id number] MIGUEL,DA VID PATIENT MEDICARE (WNR) MEDICARE (M) PART A Jul 06, 2001 PART A [id number] MIGUEL,DA VID PATIENT MEDICARE (WNR) MEDICARE (M) PART A Jul 06, 2001 PART A [id number] MIGUEL,DA VID PATIENT MEDICARE (WNR) MEDICARE (M) PART A Jul 06, 2001 PART A [id number] MIGUEL,DA VID PATIENT Selected Encounter This section includes the information on record at [place] for the Encounter. Date/Time Encounter Type Encounter Description Reason Provider Source Oct 02, 2024 01:30 PM OFFICE O/P EST MOD 30 MIN PSYCHOGERIATRIC - INDIVIDUAL ICD-10-CM F31.9 Bipolar disorder, unspecified SAMI ENRIQUEZ JR [facility] Encounter Template Text not used by [place] Assessments - Encounter Diagnoses This section includes the primary and secondary diagnoses documented for the Encounter. Date/Time Primary/Secondary Diagnosis Diagnosis Name Provider Source Oct 02, 2024 02:02 PM PRIMARY Bipolar disorder, unspecified SAMI ENRIQUEZ JR [facility] Plan of Treatment: Future Appointments (+ 6 months) and Future Tests (+/- 45 days) The Plan of Treatment section includes future care activities for the patient from all [place] treatmentfacilities. This section includes future appointments and future orders which are active, pending or scheduled. Future Appointments This section includes appointments that were scheduled to occur 6 months from the date of the Encounter, up to a maximum of 20 appointments. The data comes from all [facility]. Appointment Date/Time Appointment Type Appointme nt Facility Name Oct 08, 2024 08:00 AM AMBULATORY - MEDICINE [facility] Oct 09, 2024 10:45 AM AMBULATORY - MEDICINE [facility] Oct 09, 2024 01:00 PM AMBULATORY - NONE [facility] Oct 13, 2024 01:00 PM AMBULATORY - NONE [facility] Oct 14, 2024 10:00 AM AMBULATORY - MEDICINE [facility] Oct 17, 2024 10:15 AM AMBULATORY - MEDICINE [facility] Nov 14, 2024 08:45 AM AMBULATORY - MEDICINE [facility] Nov 18, 2024 10:30 AM AMBULATORY - MEDICINE [facility] Nov 24, 2024 11:00 AM AMBULATORY - MEDICINE [facility] December 09, 2024 09:30 AM AMBULATORY - MEDICINE [facility] December 24, 2024 08:20 AM AMBULATORY - MEDICINE [facility] January 02, 2025 11:00 AM AMBULATORY - REHAB MEDICIN [facility] Jan 05, 2025 03:30 PM AMBULATORY - MEDICINE [facility] Jan 15, 2025 02:30 PM AMBULATORY - REHAB MEDICIN E [facility] Jan 20, 2025 10:20 AM AMBULATORY - MEDICINE [facility] Feb 05, 2025 02:20 PM AMBULATORY - MEDICINE [facility] Feb 26, 2025 10:20 AM AMBULATORY - MEDICINE [facility] Mar 02, 2025 10:30 AM AMBULATORY - SURGERY [facility] Mar 09, 2025 11:20 AM AMBULATORY - NONE [facility] Active, Pending, and Scheduled [...] Chemi stry Order WARFARIN-INR BLOOD PLASMA SP [facility] Lab Results: +/- 30 days of the encounter This section includes the Chemistry and Hematology Lab Results on record with [place] for the patient. Radiology Reports and Pathology Reports are provided separately, in subsequent sections. Lab Results This section contains the Chemistry/Hematology Results that were resulted 30 days before or 30 daysafter the date of the Encounter. Date/Time Source Result Type Result - Unit Interpretation Reference Range Specimen Type Comment Oct 17, 2024 12:56 PM [facility] POC INR (STL-RX MONITORING ONLY) BLOOD Specim en Type: BLOOD Comment: Test Performed by: [id number] Meter #: [id number] Ordering Provider: ANABEL HOPE Report Released Date/Time: Oct 17, 2024 12:59 PM Reporting Lab: [facility] [address] [facility] [id number] Performing Lab: [facility] [address] [facility] [id number] POC INR (STL-RX MONITORING ONLY) 2.6 {INR} H 0.9-1.1 Social History: Smoking Status (Most current) and [...] took place. Date/Time Current Smoking Status Comment Facil ity Nov 19, 2023 01:00 PM VA-TOBACCO FORMER USER [facility] Tobacco Use History This section includes a history of the smoking, or tobacco-related health factors, that were collected on or before the date of the Encounter. The data comes from the [place] facility where the Encounter took place. Date/Time Smoking Status/Tobacco Use Comment F acility Nov 19, 2023 01:00 PM VA-TOBACCO QUIT < 1 YEAR [facility] Aug 03, 2016 02:42 PM LIFETIME NON-USER OF TOBACCO [facility] December 18, 2012 12:47 PM LIFETIME NON-USER OF TOBACCO [facility] Jul 29, 2009 03:09 AM LIFETIME NON-USER OF TOBACCO [facility] December 14, 2006 08:02 AM LIFETIME NON-USER OF TOBACCO [facility] Nov 01, 2005 09:20 AM LIFETIME NON-TOBACCO USER [facility] Advance Directives: All historical and [...] 16, 2023 ADVANCE DIRECTIVE DISCUSSION [facility] December 14, 2021 ADVANCE DIRECTIVE DISCUSSION [facility] May 05, 2021 GOALS & PREFERENCES TO INFORM LIFE-SUSTAINING TREATMENT PLAN [facility] Encounter Notes: All associated encounter notes This section contains the clinical notes associated to the Encounter. Date/Time Encounter Note(s) Provider Source Oct 02, 2024 01:32 PM PSYCHIATRY NOTE: LOCAL TITLE: PSYCHIATRY [facility] STANDARD TITLE: PSYCHIATRY NOTE DATE OF NOTE: OCT 02, 2024@13:32 ENTRY DATE: OCT 02, 2024@13:32:19 AUTHOR: SAMI ENRIQUEZ JR EXP COSIGNER: URGENCY: STATUS: COMPLETED AIMS (Mental Health only): AIMS (Mental Health Instrument) The patient was evaluated for symptoms of tardive dyskinesia using the AIMS. Total score for items 1-7: 1 1. Facial and Oral Movements Muscles of facial expression, e.g., movements of forehead, eyebrows, periorbital area, cheeks. Include frowning, blinking, grimacing of upper face. None 2. Facial and Oral Movements Lips and perioral area, e.g., puckering, pouting, smacking. Minimal, may be extreme normal 3. Facial and Oral Movements Jaw, e.g., biting, clenching, chewing, mouth opening, lateral movement. None 4. Facial and Oral Movements Tongue. Rate only increase in movement both in and out of mouth, not inability to sustain movement. None 5. Extremity Movements Upper (arms, wrists, hands, fingers). Include movements that are choreic (rapid, objectively purposeless, Irregular, spontaneous) or athetoid (slow, irregular, complex, serpentine). Do not include tremor (repetitive, regular, rhythmic movements). None 6. Extremity Movements Lower (legs, knees, ankles, toes), e.g., lateral knee movement, foot tapping, heel dropping, foot squirming, Inversion and eversion of foot. None 7. Trunk Movements Neck, shoulders, hips, e.g., rocking, twisting, squirming, pelvic gyrations. Include diaphragmatic movements. None 8. Global Judgments Severity of abnormal movements. minimal 9. Global Judgments Incapacitation due to abnormal movements. none, normal 10. Global Judgments Patient's awareness of abnormal movements. Rate only patient's report no awareness 11. Dental Status Current problems with teeth and/or dentures. no 12. Dental Status Does patient usually wear dentures? no [facility] - MEDICATION MANAGEMENT Name..................DARON LORD Age...................69 Sex...................MALE SSN...................[id number] Today's Date..........OCT 02, 2024 Service Connection....Service Connected: Yes (70%) ALLERGIES: NIACIN, SEMAGLUTIDE OUTPATIENT MEDICATIONS: Active Outpatient Medications (excluding Supplies): Issue Date Status Last Fill Active Outpatient Medications Refills Expiration 1) ACCU-CHEK GUIDE (GLUCOSE) TEST STRIP Qty: ACTIVE Issue: 09/26/24 200 for 50 days Sig: USE 1 STRIP FOR BLOOD Refills: 5 Last : 09/26/24 TEST FOUR TIMES A DAY Expr : 09/27/25 Indication: FOR BLOOD SUGAR MONITORING 2) ALBUTEROL 90MCG (CFC-F) 200D ORAL INHL Qty: ACTIVE Issue: 05/22/24 4 for 90 days Sig: INHALE 2 PUFFS ORAL Refills: 2 Last : 08/10/24 INHALATION FOUR TIMES A DAY NEEDED SHAKE Expr : 05/23/25 WELL. RINSE MOUTHPIECE FREQUENTLY TO PREVENT CLOGGING. Indication: FOR COPD 3) ALBUTEROL SO4 0.083% INHL 3ML Qty: 60 for 15 ACTIVE Issue: 05/22/24 days Sig: INHALE 1 VIAL (2.5MG/3ML) BY Refills: 11 Last : 05/22/24 NEBULIZATION EVERY 6 HOURS DIRECTED Expr : 05/23/25 NEEDED Indication: FOR COPD 4) ATORVASTATIN CALCIUM 80MG TAB Qty: 90 for 90 ACTIVE Issue: 05/22/24 days Sig: TAKE ONE TABLET BY MOUTH EVERY Refills: 3 Last : 05/22/24 EVENING Expr : 05/23/25 Indication: FOR HIGH CHOLESTEROL 5) BUSPIRONE HCL 15MG TAB Qty: 270 for 90 days ACTIVE Issue: 08/10/24 Sig: TAKE ONE TABLET BY MOUTH THREE TIMES A Refills: 1 Last : 08/10/24 DAY . DO NOT TAKE WITH GRAPEFRUIT JUICE. Expr : 08/11/25 Indication: FOR ANXIETY 6) CARVEDILOL 25MG TAB Qty: 180 for 90 days ACTIVE Issue: 05/22/24 Sig: TAKE ONE TABLET BY MOUTH TWICE A DAY Refills: 2 Last : 09/02/24 TAKE WITH FOOD. Expr : 05/23/25 Indication: FOR HIGH BLOOD PRESSURE 7) CETIRIZINE HCL 10MG TAB Qty: 90 for 90 days ACTIVE Issue: 05/22/24 Sig: TAKE ONE TABLET BY MOUTH ONCE A DAY Refills: 3 Last : 05/22/24 Indication: FOR ALLERGIC RHINITIS Expr : 05/23/25 8) CHOLECALCIF 50MCG (D3-2,000UNIT) TAB Qty: ACTIVE Issue: 05/23/24 100 for 90 days Sig: TAKE ONE TABLET BY Refills: 2 Last : 09/02/24 MOUTH ONCE A DAY Expr : 05/24/25 Indication: FOR VITAMIN D SUPPLEMENTATION 9) EMPAGLIFLOZIN 25MG TAB Qty: 45 for 90 days ACTIVE Issue: 05/22/24 Sig: TAKE ONE-HALF TABLET BY MOUTH ONCE A Refills: 2 Last : 09/02/24 DAY Expr : 05/23/25 Indication: FOR DIABETES 10) FLUTICASONE PROP 50MCG 120D NASAL INHL Qty: ACTIVE Issue: 05/22/24 3 for 90 days Sig: INSTILL 1 SPRAY IN Refills: 3 Last : 05/22/24 NOSTRIL(S) ONCE A DAY NEEDED (MUST BE Expr : 05/23/25 USED DIRECTED FOR MINIMUM OF 21 DAYS TO PROVIDE ADEQUATE BENEFITS) Indication: FOR RHINITIS 11) FUROSEMIDE 40MG TAB Qty: 90 for 90 days Sig: ACTIVE (S) Issue: 05/22/24 TAKE ONE TABLET BY MOUTH EVERY MORNING Refills: 1 Last : 11/18/24 Indication: FOR FLUID RETENTION (EDEMA) Expr : 05/23/25 12) GABAPENTIN 300MG CAP Qty: 180 for 90 days ACTIVE Issue: 05/22/24 Sig: TAKE ONE CAPSULE BY MOUTH TWICE A DAY Refills: 2 Last : 09/02/24 Indication: FOR NERVE PAIN Expr : 05/23/25 13) GLUCOSE 4GM CHEW TAB Qty: 30 for 90 days ACTIVE Issue: 05/22/24 Sig: CHEW AND SWALLOW FOUR TABLETS BY MOUTH Refills: 3 Last : 06/23/24 NEEDED REPEAT DOSE IF HYPOGLYCEMIA Expr : 05/23/25 CONTINUES 15 MINUTES AFTER THE FIRST DOSE. Indication: FOR LOW BLOOD SUGAR 14) HYDROPHILIC (EQV EUCERIN) TOP CREAM Qty: 454 ACTIVE Issue: 07/16/24 for 30 days Sig: APPLY SPARINGLY TO AFFECTED Refills: 5 Last : 07/16/24 AREA(S) ONCE A DAY (EXTERNAL USE ONLY) Expr : 07/17/25 Indication: FOR SKIN CARE 15) INSULIN,ASPART,HUMAN 100 UNIT/ML INJ Qty: 6 ACTIVE Issue: 06/13/24 for 90 days Sig: INJECT 30 UNITS UNDER THE Refills: 0 Last : 09/02/24 SKIN TWO TIMES A DAY BEFORE MEALS Expr : 06/14/25 ADMINISTER 10 MINUTES BEFORE FOOD DIRECTED. DISCARD ANY VIAL 28 DAYS AFTER OPENING. Indication: FOR DIABETES 16) INSULIN,GLARGINE,HUMAN 100 UNIT/ML INJ Qty: ACTIVE Issue: 08/08/24 1 for 25 days Sig: INJECT 40 UNITS UNDER THE Refills: 2 Last : 09/02/24 SKIN ONCE A DAY ADMINISTER AT SAME TIME EACH Expr : 08/09/25 DAY DIRECTED. DISCARD ANY VIAL 28 DAYS AFTER OPENING. Indication: FOR DIABETES 17) LACTOBACILLUS ACIDOPHILUS TAB Qty: 200 for ACTIVE Issue: 09/03/24 90 days Sig: TAKE 2 TABLETS BY MOUTH ONCE A Refills: 3 Last : 09/03/24 DAY Expr : 09/04/25 Indication: FOR NUTRITION/DIETARY SUPPLEMENTATION 18) LATANOPROST 0.005% OPH SOLN Qty: 7.5 for 90 ACTIVE Issue: 12/25/23 days Sig: INSTILL 1 DROP IN BOTH EYES EVERY Refills: 0 Last : 10/03/24 EVENING KEEP REFRIGERATED UNTIL READY TO Expr : 12/25/24 USE, THEN STORE AT ROOM TEMPERATURE FOR MAXIMUM OF 42 DAYS. Indication: FOR ELEVATED INTRAOCULAR PRESSURE 19) LOSARTAN 100MG TAB Qty: 45 for 90 days Sig: ACTIVE Issue: 05/22/24 TAKE ONE-HALF TABLET BY MOUTH ONCE A DAY Refills: 2 Last : 10/11/24 Indication: FOR HIGH BLOOD PRESSURE Expr : 05/23/25 20) MELATONIN 3MG CAP/TAB Qty: 60 for 60 days ACTIVE Issue: 09/03/24 Sig: TAKE ONE CAP/TAB BY MOUTH AT BEDTIME Refills: 0 Last : 09/25/24 Indication: FOR SLEEP Expr : 11/02/24 21) MIRTAZAPINE 45MG TAB Qty: 90 for 90 days ACTIVE Issue: 08/10/24 Sig: TAKE ONE TABLET BY MOUTH AT BEDTIME Refills: 1 Last : 08/10/24 Indication: FOR DEPRESSION Expr : 08/11/25 22) OLODATEROL/TIOTROP 2.5MCG/ACTUAT 60D INH ACTIVE Issue: 05/22/24 Qty: 3 for 90 days Sig: INHALE 1 PUFF ORAL Refills: 2 Last : 08/10/24 INHALATION ONCE A DAY ADMINISTER AT SAME Expr : 05/23/25 TIME EACH DAY Indication: FOR COPD 23) OMEPRAZOLE 40MG EC CAP Qty: 180 for 90 days ACTIVE Issue: 05/22/24 Sig: TAKE ONE CAPSULE BY MOUTH TWO TIMES A Refills: 3 Last : 05/22/24 DAY BEFORE MEALS TAKE 30 MINUTES PRIOR TO Expr : 05/23/25 FOOD. Indication: FOR GASTROESOPHAGEAL REFLUX DISEASE 24) PAROXETINE HCL 20MG TAB Qty: 90 for 90 days ACTIVE Issue: 08/10/24 Sig: TAKE ONE TABLET BY MOUTH ONCE A DAY . Refills: 1 Last : 08/10/24 DO NOT ABRUPTLY DISCONTINUE MEDICATION. Expr : 08/11/25 Indication: FOR DEPRESSION 25) QUETIAPINE FUMARATE 100MG TAB Qty: 15 for 30 ACTIVE Issue: 08/26/24 days Sig: TAKE ONE-HALF TABLET BY MOUTH AT Refills: 2 Last : 09/16/24 BEDTIME Expr : 08/27/25 Indication: FOR BIPOLAR DISORDER 26) TIRZEPATIDE 5MG/0.5ML INJ,SOLN PACK,4 Qty: 1 ACTIVE Issue: 09/11/24 for 28 days Sig: INJECT 5MG(0.5ML) UNDER THE Refills: 4 Last : 09/11/24 SKIN EVERY WEEK (ADMINISTER DOSE AT ANY TIME Expr : 09/12/25 OF DAY, WITH OR WITHOUT MEALS) Indication: FOR DIABETES 27) WARFARIN NA ([place]) 2MG TAB Qty: 40 ACTIVE Issue: 08/04/24 for 30 days Sig: TAKE ONE TABLET BY MOUTH Refills: 2 Last : 09/11/24Sunday, SUNDAY AND SUNDAY AND TAKE ONE Expr : 08/05/25 AND ONE-HALF TABLETS ALL OTHER DAYS Indication: FOR ANTICOAGULATION 28) ZOLPIDEM TARTRATE 10MG TAB Qty: 30 for 30 ACTIVE Issue: 06/04/24 days Sig: TAKE ONE TABLET BY MOUTH AT Refills: 1 Last : 09/02/24 BEDTIME NEEDED (TAKE IMMEDIATELY BEFORE Expr : 12/05/24 BEDTIME DUE TO RAPID ONSET OF ACTION) Indication: FOR INSOMNIA PROBLEM LIST: 1) Type 2 diabetes mellitus 2) Sleep apnea (SNOMED CT 63368268) 3) Gastroesophageal reflux disease (SNOMED CT 952613890) 4) Allergic rhinitis (SNOMED CT 15368606) 5) Obesity (SNOMED CT 810809732) 6) Benign essential hypertension (SNOMED CT 2967917) 7) Bipolar disorder (SNOMED CT 61393394) 8) Hyperlipidemia (SNOMED CT 44738664) 9) Chronic low back pain 10) Primary Open Angle Glaucoma (ICD-9-CM 365.11) 11) Anemia (SNOMED CT 195332601) 12) Vitamin D deficiency (SNOMED CT 72960267) 13) Encounter for Therapeutic Drug Monitoring (ICD-9-CM V58.83) 14) Walking disability 15) Chronic low back pain (SNOMED CT 555645195) 16) Multinodular goiter (SNOMED CT 912100456) 17) Cardiomegaly (SNOMED CT 2355193) 18) Morbid obesity (SNOMED CT 836226971) 19) Mood Disorder Due To...[Indicate The General Medical Condition] 20) Exposure to potentially hazardous substance 21) Peripheral neuropathy due to type 2 diabetes mellitus 22) Hypertensive heart AND chronic kidney disease stage 3 23) Atrial fibrillation 24) Abnormal gait 25) Chronic obstructive pulmonary disease 26) Hearing loss 27) Long-term current use of insulin 28) Long-term current use of oral hypoglycemic agent VITAL SIGNS: Pulse.................73 (05/22/2024 11:27) Temperature...........98 F [36.7 C] (05/22/2024 11:27) Blood Pressure........118/82 (05/22/2024 11:27) Pain..................0 (05/22/2024 11:27) Weight................328.4 lb [148.96 kg] (05/22/2024 11:27) Patient Weight History - Last Four 1. 328.4 lbs. / 149.0 kg. on MAY 22, 2024@11:27:42 2. 302.0 lbs. / 137.0 kg. on AUG 03, 2016@14:40:16 3. 301.0 lbs. / 136.5 kg. on JUL 27, 2016@12:13:09 4. 293.5 lbs. / 133.1 kg. on MAR 08, 2016@15:22:38 LAB VALUES: CBC WBC 8.4 10*3/uL 05/22/2024 13:10 RBC 5.03 10*6/uL 05/22/2024 13:10 HGB 12.6 L g/dL 05/22/2024 13:10 HCT 40.9 % 05/22/2024 13:10 MCV 81.3 fL 05/22/2024 13:10 MCH 25.0 L pg 05/22/2024 13:10 MCHC 30.8 L g/dL 05/22/2024 13:10 RDW 15.4 H % 05/22/2024 13:10 PLT 241 10*3/uL 05/22/2024 13:10 MPV 10.5 fL 05/22/2024 13:10 NEUTROPHILS, AUTO % 70 % 05/22/2024 13:10 LYMPHOCYTES, AUTO % 19 % 05/22/2024 13:10 MONOCYTES, AUTO % 6 % 05/22/2024 13:10 EOSINOPHILS, AUTO % 5 % 05/22/2024 13:10 BASOPHILS, AUTO % 1 % 05/22/2024 13:10 NEUTROPHILS, ABSOLUTE 5.85 10*3/uL 05/22/2024 13:10 LYMPHOCYTES, ABSOLUTE 1.55 10*3/uL 05/22/2024 13:10 MONOCYTES, ABSOLUTE 0.52 10*3/uL 05/22/2024 13:10 EOSINOPHILS, ABSOLUTE 0.38 10*3/uL 05/22/2024 13:10 BASOPHILS, ABSOLUTE 0.07 10*3/uL 05/22/2024 13:10 CHEM 7 SODIUM 140 mEq/L 05/22/2024 13:10 POTASSIUM 4.4 mEq/L 05/22/2024 13:10 CHLORIDE 101 mEq/L 05/22/2024 13:10 UREA NITROGEN 28.0 H mg/dL 05/22/2024 13:10 CREATININE 2.30 H mg/dL 05/22/2024 13:10 CALCIUM 10.5 H mg/dL 05/22/2024 13:10 CARBON DIOXIDE 24 mEq/L 05/22/2024 13:10 GLUCOSE 219 H mg/dL 05/22/2024 13:10 EGFR (CKD-EPI 2020) 30.17 05/22/2024 13:10 HEPATIC PANEL No data available TRIGLYCERIDES...341 mg/dL H (05/22/24 13:10) CHOLESTEROL.....CHOLESTEROL 221 H mg/dL 05/22/2024 13:10 TSH.............TSH 0.604 uIU/mL 05/22/2024 13:10 LITHIUM.........____ VALPROIC ACID...____ DIAGNOSIS BEING TREATED THIS VISIT: Bipolar Disorder HPI: VVC visit. The patient says he is doing well. He endorses good mood, sleep and appetite. He CLEARLY denies SI. Also denies HI, AH, VH, suspicions. ?a few lip twitches again noted today; this has been discussed with the patient previously (see CPRS note of 06/03/24, not apparent, though, at the 08/26/24 visit). MSE: Cooperative, good eye contact, AIMS today is one. Mood good, affect calm and stable. Speech is elicitable and directable. No pressure. Thoughts organized without flight of ideas, loose associations, circumstantiality, blocking. He CLEARLY denies SI. NO HI, AH, VH, suspicions. A & O X 3. Insight and judgment are good. ASSESSMENT AND TREATMENT PLAN (INCLUDING RISK ASSESSMENT): Bipolar Disorder PLAN: Continue meds. Follow up in office next month; will in person readminister AIMS test. He agrees to call me before if problems. Support given. A full risk assessment was done; patient does not appear to be at acute risk of harm to self/others at this time. /lynn/ SAMI HERNANDEZ [facility] PHYSICIAN (STAFF) Signed: 10/02/2024 14:02 SAMI ENRIQUEZ JR [facility]
--- OUTSIDE RECORDS SUMMARY | 2025-03-01 17:59 | XMS_ITS | Continuity of Care Document ---
Author Name [facility] Organization [facility] Care Team Providers Care Pai Gow Dealer Name Role Phone [facility] Unavailable Unavailable Problems Combined list of problems from Department of Defense and [facility] Affairs facilities. It does not include entries that were removed or entered in error. Problem Status Onset Date Problem Type Date of Resolution Comments Source Abducens nerve palsy Active Condition [facility] Abnormal gait Active Condition [facility] AF- Atrial Fibrillation (SCT 89816101) Active Condition [facility] Allergic rhinitis (SNOMED CT 99958802) Active Condition [facility] Anemia (SNOMED CT 198206108) Active Condition [facility] Atrial fibrillation Active Condition [facility] Benign essential hypertension (SNOMED CT 1918675) Active Condition [facility] Bipolar disorder Active Condition [facility] Bipolar disorder (SNOMED CT 11726192) Active Condition [facility] Chronic kidney disease stage 4 Active Condition [facility] Chronic low back pain Active Condition [facility] Chronic obstructive lung disease Active Condition [facility] Chronic obstructive pulmonary disease Active Condition [facility] CKD stage 3 Active Condition [facility] COPD - Chronic Obstructive Pulmonary Disease (SCT 24957386) Active Condition [facility] Diabetes Mellitus Type 2 (SCT 49398369) Active Condition [facility] DM - Diabetes mellitus Active Condition [facility] Essential tremor Active Condition [facility] Exposure to potentially hazardous substance Active Condition [facility] Gastroesophageal reflux disease Active Condition [facility] Gastroesophageal reflux disease (SNOMED CT 625646944) Active Condition [facility] Gout Active Condition [facility] Hearing loss Active Condition [facility] History of bypass of stomach Active Condition Jun 27, 2017 Entered By: ANDREA ALDRICH Comment: gastric bypass 2016 private surgery for weight loss in [facility] History of colonic polyp Active Condition [facility] HTN - Hypertension (SCT 45817832) Active Condition May 27, 2020 Entered By: LISA LUQUE Comment: retinopathy [facility] Hyperlipidemia Active Condition [facility] Hyperlipidemia (SNOMED CT 44686582) Active Condition [facility] Hypertension Active Condition [facility] Hypertensive heart AND chronic kidney disease stage 3 Active Condition [facility] [place] - Iron deficiency anaemia Active Condition [facility] Insomnia Active Condition [facility] Long-term current use of insulin Active Condition [facility] Long-term current use of oral hypoglycemic agent Active Condition [facility] Low Back Pain (SCT 166853684) Active Condition May 27, 2020 Entered By: LISA LUQUE Comment: hx fusion [facility] Miscellaneous certificate completed Active Condition Sep 26, 2019 Entered By: ANDREA ALDRICH Comment: 09/26/2019 pt [place] handic[place] permit [place] former [place] certificate: pulm/COPD condition [facility] Mixed Hyperlipidemia (SCT 705421919) Active Condition [facility] Morbid obesity Active Condition Jul 072015 Entered By: TANNER RIOS Comment: Gastric sleve sx done for wt loss - on 09/27/15 [facility] Morbid obesity (SCT 848817125) Active Condition May 27, 2020 Entered By: LISA LUQUE Comment: hx gastric bypass [facility] Multinodular goiter (SNOMED CT 009160914) Active Condition [facility] Obesity Active Condition [facility] Obesity (SNOMED CT 482878978) Active Condition [facility] Obstructive sleep apnea Active Condition Jun 27, 2017 Entered By: ANDREA ALDRICH Comment: BIPAP [facility] Pain of left hip joint Active Condition [facility] Peripheral neuropathy due to type 2 diabetes mellitus Active Condition [facility] Polyp Colon (SCT 40437820) Active Condition May 27, 2020 Entered By: LISA LUQUE Comment: 2018 [facility] Polyp of colon Active Condition Nov 042017 Entered By: ANDREA ALDRICH Comment: tubular adenoma and hyperplastic polyp per BX/path [facility] 11/2017; repeat 3 y 2020 [facility] Primary Open Angle Glaucoma (ICD-9-CM 365.11) Active Condition [facility] Proteinuria Active Condition [facility] Sleep Apnea (SCT 29710458) Active Condition [facility] Sleep apnea (SNOMED CT 48959350) Active Condition [facility] Thyroid nodule Active Condition Jun 072016 Entered By: ANDREA ALDRICH Comment: bx benign follicular nodule, see [facility]; repeat u/s 1 yr; ENDO consult not needed at this time [facility] Type 2 diabetes mellitus Active Condition [facility] Vitamin D deficiency (SNOMED CT 65382280) Active Condition [facility] APNEA Inactive Condition 05/06/2012 [facility] Arthritis * (ICD-9-CM 716.90) Inactive Condition 05/22/2024 [facility] Cardiomegaly (SNOMED CT 8476241) Inactive Condition 01/02/2025 [facility] Chronic low back pain (SNOMED CT 021653568) Inactive Condition 01/02/2025 [facility] Colonic polyp Inactive Condition 05/22/2024 [facility] Knee Joint replacement Status (Prosthetic or Artificial Device) (ICD-9-CM V43.6 Inactive Condition 05/22/2024 [facility] Mood Disorder Due To...[Indicate The General Medical Condition] Inactive Condition 01/02/2025 [facility] Diagnosis: ICD-10-CM D64.9 Anemia, unspecified Active Diagnosis [facility] Diagnosis: ICD-10-CM N18.4 Chronic kidney disease, stage 4 (severe) Active Diagnosis [facility] Diagnosis: ICD-10-CM Z51.81 Encounter for therapeutic drug level monitoring Active Diagnosis [facility] Diagnosis: ICD-10-CM F31.9 Bipolar disorder, unspecified Active Diagnosis [facility] Diagnosis: ICD-10-CM M25.562 Pain in left knee Active Diagnosis [facility] Diagnosis: ICD-10-CM E11.9 Type 2 diabetes mellitus without complications Active Diagnosis [facility] Diagnosis: ICD-10-CM J44.9 Chronic obstructive pulmonary disease, unspecified Active Diagnosis [facility] Diagnosis: ICD-10-CM E11.40 Type 2 diabetes mellitus with diabetic neuropathy, unsp Active Diagnosis [facility] Diagnosis: ICD-10-CM H35.371 Puckering of macula, right eye Active Diagnosis [facility] Diagnosis: ICD-10-CM I48.20 Chronic atrial fibrillation, unspecified Active Diagnosis [facility] Diagnosis: ICD-10-CM H40.1131 Primary open-angle glaucoma, bilateral, mild stage Active Diagnosis [facility] Diagnosis: ICD-10-CM R26.9 Unspecified abnormalities of gait and mobility Active Diagnosis [facility] Diagnosis: ICD-10-CM M25.511 Pain in right shoulder Active Diagnosis [facility] Diagnosis: ICD-10-CM Z13.5 Encounter for screening for eye and ear disorders Active Diagnosis [facility] Diagnosis: ICD-10-CM Z71.9 Counseling, unspecified Active Diagnosis [facility] Medications Combined list of outpatient medications from Department of Defense and [facility] Affairs facilities.Medications provided include 1) outpatient medications from the last 15 months, and 2) patient-reported medications. Medication Details Route Status Patient Instructions Prescription Expires Prescription Number Last Dispense Date Ordering Provider Order Date Order Qty Source ACETAMINOPH EN 325MG TAB TAKE TWO TABLETS BY MOUTH FOUR TIMES A DAY NEEDED FOR PAIN CAUTION: DO NOT EXCEED 4000MG PER DAY ACETAMIN OPHEN (APAP) FROM ALL MEDS. ORAL 02/01/2025 [id number] Marlene MATOS 2024 100 [facility] N ALBUTEROL SO4 0.083% INHL,3ML INHALE 1 VIAL (2.5MG/3 ML) BY NEBULIZA TION EVERY 6 HOURS DIRECTED NEEDED FOR COPD NEBULI ZATION ACTIVE 05/23/2025 [id number] 4 Marlene MATOS E 2023 60 [facility] N ALBUTEROL SO4 0.083% INHL,3ML INHALE 1 VIAL (2.5MG/3 ML) BY NEBULIZA TION EVERY 6 HOURS DIRECTED NEEDED FOR COPD NEBULI ZATION DISCONT INUED (EDIT) 11/19/2024 [id number] 4 WASHINGTON WANG 2023 60 [facility] DIVIS[facility] N ALBUTEROL SO4 90MCG/ACTUA T (CFC-F) INHL,ORAL,8 .5GM INHALE 2 PUFFS ORAL INHALATI ON FOUR TIMES A DAY NEEDED FOR COPD SHAKE WELL. RINSE MOUTHPIE CE FREQUENT LY TO PREVENT CLOGGING . RESPIR ATORY (INHAL ATION) ACTIVE 05/23/2025 [id number] 5 Marlene MATOS E 2023 4 [facility] DIVIS[facility] N ALBUTEROL SO4 90MCG/ACTUA T (CFC-F) INHL,ORAL,8 .5GM INHALE 2 PUFFS ORAL INHALATI ON FOUR TIMES A DAY NEEDED FOR COPD SHAKE WELL. RINSE MOUTHPIE CE FREQUENT LY TO PREVENT CLOGGING . RESPIR ATORY (INHAL ATION) DISCONT INUED (EDIT) 01/30/2025 [id number] 4 WASHINGTON WANG 2023 3 [facility] DIV[facility] N ATORVASTATI N CA 80MG TAB TAKE ONE TABLET BY MOUTH EVERY EVENING ORAL ACTIVE 05/23/2025 [id number] 5 Marlene MATOS E 2023 90 [facility] DIVISIO N ATORVASTATI N CA 80MG TAB TAKE ONE TABLET BY MOUTH AT BEDTIME FOR CHOLESTE ROL ORAL 07/25/2024 [id number] 4 TIKA BYRD P 2023 90 [facility] BUSPIRONE HCL 15MG TAB TAKE ONE TABLET BY MOUTH THREE TIMES A DAY FOR ANXIETY. DO NOT TAKE WITH GRAPEFRU IT JUICE. ORAL ACTIVE 08/11/2025 [id number] 5 TRISHA ENRIQUEZ JR 2024 270 [facility] DIV[facility] N BUSPIRONE HCL 15MG TAB TAKE ONE TABLET BY MOUTH THREE TIMES A DAY DO NOT TAKE WITH GRAPEFRU IT JUICE. ORAL DISCONT INUED BY PROVIDE R 05/23/2024 [id number] PIPPA BECKWITH 2023 180 [facility] DIVISIO N BUSPIRONE HCL 15MG TAB TAKE ONE TABLET BY MOUTH THREE TIMES A DAY FOR ANXIETY DO NOT TAKE WITH GRAPEFRU IT JUICE. ORAL DISCONT INUED (EDIT) 04/01/2024 [id number] 4 TRISHA ENRIQUEZ 2023 270 [facility] DIVISIO N BUSPIRONE HCL 15MG TAB TAKE ONE TABLET BY MOUTH THREE TIMES A DAY FOR ANXIETY ORAL 12/13/2024 [id number] 4 Yossi MONTES R 2023 270 [facility] (673GB) CARVEDILOL 12.5MG TAB TAKE ONE-HALF TABLET BY MOUTH TWICE A DAY FOR AFIB/BLO OD PRESSURE TAKE WITH FOOD. ORAL SUSPEND ED 01/03/2026 [id number] 5 Marlene MATOS 2024 90 [facility] DIVISIO N CARVEDILOL 25MG TAB TAKE ONE TABLET BY MOUTH TWICE A DAY TAKE WITH FOOD. ORAL DISCONT INUED (EDIT) 05/23/2025 [id number] 5 Marlene MATOS 2023 180 [facility] DIVISIO N CETIRIZINE HCL 10MG TAB TAKE ONE TABLET BY MOUTH ONCE A DAY ORAL ACTIVE 05/23/2025 [id number] 5 Marlene MATOS 2023 90 [facility] DIVISIO N CETIRIZINE HCL 10MG TAB TAKE ONE TABLET BY MOUTH EVERY DAY FOR ALLERGIE S ORAL 07/13/2024 [id number] 4 BEKA-JN ANGELO N 2023 90 [facility] CHOLECALCIF RIO 25MCG (1,000UNIT) TAB TAKE ONE TABLET BY MOUTH ONCE A DAY ORAL DISCONT INUED (EDIT) 05/23/2025 [id number] 4 Marlene MATOS E 2023 100 [facility] DIVISIO N CHOLECALCIF RIO 50MCG (2,000UNIT) TAB TAKE ONE TABLET BY MOUTH ONCE A DAY FOR VITAMIN D SUPPLEME NTATION ORAL ACTIVE 05/24/2025 [id number] 5 Marlene MATOS 2023 100 [facility] DIV[facility] N DICLOFENAC NA 1% GEL,TOP APPLY 2 GM TO AFFECTED AREA(S) FOUR TIMES A DAY NEEDED FOR PAIN NO MORE THAN 16 GM/DAY TO ANY LOWER EXTREMIT Y JOINT. NO MORE THAN 8 GM/DAY TO ANY UPPER EXTREMIT Y JOINT. MAX 32GM/DAY OVER ALL JOINTS.( MEASURE DOSE WITH RULER INSIDE BOX) TOPICA L ACTIVE 01/03/2026 [id number] 5 Marlene MATOS 2024 100 [facility] DIVISIO N EMPAGLIFLOZ IN 25MG TAB TAKE ONE-HALF TABLET BY MOUTH ONCE A DAY ORAL ACTIVE 05/23/2025 [id number] 5 Marlene MATOS 2023 45 [facility] DIVISIO N EMPAGLIFLOZ IN 25MG TAB TAKE ONE-HALF TABLET BY MOUTH ONCE A DAY ORAL DISCONT INUED (EDIT) 02/28/2025 [id number] 4 Nadeen MASTERS 2023 15 [facility] DIVISIO N EMPAGLIFLOZ IN 25MG TAB TAKE ONE-HALF TABLET BY MOUTH EVERY MORNING FOR DIABETES ORAL 07/25/2024 [id number] TIKA BYRD P 2023 45 [facility] FERROUS SO4 325MG TAB TAKE ONE TABLET BY MOUTH ONCE A DAY FOR IRON DEFICIEN CY ANEMIA ORAL DISCONT INUED 08/21/2024 [id number] 4 Marlene MATOS 2023 100 [facility] DIVISIO N FERROUS SO4 325MG TAB TAKE ONE TABLET BY MOUTH ONCE A DAY FOR IRON DEFICIEN CY ANEMIA ORAL 02/05/2025 [id number] 5 Marlene MATOS 2024 100 [facility] DIVISIO N FLUTICASONE PROPIONATE 50MCG/SPRAY SOLN,NASAL, 16GM INSTILL 1 SPRAY IN NOSTRIL( S) ONCE A DAY NEEDED FOR RHINITIS (MUST BE USED DIRECTED FOR MINIMUM OF 21 DAYS TO PROVIDE ADEQUATE BENEFITS ) NASAL ACTIVE 05/23/2025 [id number] 5 Marlene MATOS 2023 3 [facility] DIVISIO N FLUTICASONE PROPIONATE 50MCG/SPRAY SOLN,NASAL, 16GM INSTILL 1 SPRAY IN NOSTRIL( S) ONCE A DAY NEEDED FOR RHINITIS (MUST BE USED DIRECTED FOR MINIMUM OF 21 DAYS TO PROVIDE ADEQUATE BENEFITS ) NASAL DISCONT INUED (EDIT) 11/19/2024 [id number] 4 WASHINGTON WANG 2023 1 [facility] DIVISIO N FUROSEMIDE 40MG TAB TAKE ONE TABLET BY MOUTH EVERY MORNING ORAL ACTIVE 05/23/2025 [id number] 5 Marlene MATOS 2023 90 [facility] DIVISIO N FUROSEMIDE 40MG TAB TAKE ONE TABLET BY MOUTH EVERY DAY (WATER PILL) ORAL 07/25/2024 [id number] TIKA BYRD P 2023 90 [facility] GABAPENTIN 300MG CAP TAKE ONE CAPSULE BY MOUTH TWICE A DAY FOR NERVE PAIN ORAL ACTIVE 05/23/2025 [id number] 5 Marlene MATOS 2023 180 [facility] DIVISIO N GABAPENTIN 300MG CAP TAKE ONE CAPSULE BY MOUTH TWICE A DAY FOR NERVE PAIN ORAL DISCONT INUED 05/02/2024 [id number] 4 WASHINGTON WANG 2023 60 [facility] DIVISIO N GABAPENTIN 300MG CAP TAKE ONE CAPSULE BY MOUTH TWICE A DAY FOR NERVE PAIN ORAL DISCONT INUED 03/13/2024 [id number] 4 WASHINGTON WANG 2023 60 [facility] DIVISIO N GABAPENTIN 300MG CAP TAKE ONE CAPSULE BY MOUTH TWICE DAILY FOR PAIN ORAL 07/25/2024 [id number] 4 TIKA BYRD P 2022 180 [facility] GLUCOSE 4GM TAB,CHEW CHEW AND SWALLOW FOUR TABLETS BY MOUTH NEEDED REPEAT DOSE IF HYPOGLYC EMIA CONTINUE S 15 MINUTES AFTER THE FIRST DOSE. ORAL ACTIVE 05/23/2025 [id number] 5 Marlene MATOS 2023 30 [facility] DIVISIO N GLUCOSE 4GM TAB,CHEW CHEW AND SWALLOW FOUR TABLETS BY MOUTH NEEDED REPEAT DOSE IF HYPOGLYC EMIA CONTINUE S 15 MINUTES AFTER THE FIRST DOSE. ORAL DISCONT INUED 07/02/2024 [id number] 4 Nadeen MASTERS 2023 30 [facility] DIVIS[facility] N HYDROPHILIC (EQV EUCERIN) CREAM,TOP APPLY SPARINGL Y TO AFFECTED AREA(S) ONCE A DAY (EXTERNA L USE ONLY) TOPICA Deirdre ACTIVE 07/17/2025 [id number] 5 Marlene MATOS 2023 454 [facility] DIVISIO N INSULIN,ASP ART,HUMAN 100 UNT/ML INJ INJECT 30 UNITS UNDER THE SKIN TWO TIMES A DAY BEFORE MEALS FOR DIABETES ADMINIST ER 10 MINUTES BEFORE FOOD DIRECTED . DISCARD ANY VIAL 28 DAYS AFTER OPENING. SUBCUT ANEOUS ACTIVE 01/28/2026 [id number] 5 Marlene MATOS 2024 6 [facility] DIVISIO N INSULIN,ASP ART,HUMAN 100 UNT/ML INJ INJECT 30 UNITS UNDER THE SKIN TWO TIMES A DAY BEFORE MEALS FOR DIABETES ADMINIST ER 10 MINUTES BEFORE FOOD DIRECTED . DISCARD ANY VIAL 28 DAYS AFTER OPENING. SUBCUT ANEOUS DISCONT INUED 06/14/2025 [id number] ANDRE LEONARD 2023 6 [facility] DIVISIO N INSULIN,ASP ART,HUMAN 100 UNT/ML INJ INJECT 40 UNITS UNDER THE SKIN TWO TIMES A DAY BEFORE MEALS ADMINIST ER 10 MINUTES BEFORE FOOD DIRECTED . DISCARD ANY VIAL 28 DAYS AFTER OPENING. SUBCUT ANEOUS DISCONT INUED 04/18/2024 [id number] 4 Nadeen MASTERS E 2023 4 [facility] DIVISIO N INSULIN,ASP ART,HUMAN 100 UNT/ML INJ INJECT 40 UNITS UNDER THE SKIN TWO TIMES A DAY BEFORE MEALS ADMINIST ER 10 MINUTES BEFORE FOOD DIRECTED . DISCARD ANY VIAL 28 DAYS AFTER OPENING. SUBCUT ANEOUS 05/23/2024 [id number] 4 Nadeen MASTERS E 2023 4 [facility] DIVISIO N INSULIN,GLA RGINE,HUMAN 100 UNT/ML INJ INJECT 40 UNITS UNDER THE SKIN ONCE A DAY ADMINIST ER AT SAME TIME EACH DAY DIRECTED . DISCARD ANY VIAL 28 DAYS AFTER OPENING. SUBCUT ANEOUS ACTIVE 04/12/2025 [id number] 5 Marlene MATOS E 2024 3 [facility] DIVISIO N INSULIN,GLA RGINE,HUMAN 100 UNT/ML INJ INJECT 40 UNITS UNDER THE SKIN ONCE A DAY ADMINIST ER AT SAME TIME EACH DAY DIRECTED . DISCARD ANY VIAL 28 DAYS AFTER OPENING. SUBCUT ANEOUS DISCONT INUED 01/21/2025 [id number] 5 Marlene MATOS E 2024 3 [facility] DIVISIO N INSULIN,GLA RGINE,HUMAN 100 UNT/ML INJ INJECT 40 UNITS UNDER THE SKIN ONCE A DAY ADMINIST ER AT SAME TIME EACH DAY DIRECTED . DISCARD ANY VIAL 28 DAYS AFTER OPENING. SUBCUT ANEOUS DISCONT INUED 08/09/2025 [id number] 5 Marlene MATOS ARRGonzales E 2024 1 [facility] DIVISIO N INSULIN,GLA RGINE-YFGN 100UNIT/ML INJ INJECT 40 UNITS UNDER THE SKIN TWICE DAILY FOR DIABETES DISCARD 28 DAYS AFTER OPENING. SUBCUT ANEOUS ACTIVE 09/16/2025 [id number] 5 TIKA BYRD P 2024 7 [facility] INSULIN,GLA RGINE-YFGN 100UNIT/ML INJ INJECT 40 UNITS UNDER THE SKIN ONCE A DAY ADMINIST ER AT SAME TIME EACH DAY DIRECTED . DISCARD ANY VIAL 28 DAYS AFTER OPENING. SUBCUT ANEOUS DISCONT INUED 05/03/2024 [id number] 4 Nadeen MASTERS ATIE E 2023 1 [facility] DIV[facility] N INSULIN,GLA RGINE-YFGN 100UNIT/ML INJ INJECT 40 UNITS UNDER THE SKIN ONCE A DAY ADMINIST ER AT SAME TIME EACH DAY DIRECTED . DISCARD ANY VIAL 28 DAYS AFTER OPENING. SUBCUT ANEOUS DISCONT INUED 03/29/2024 [id number] 4 Nadeen MASTERS E 2023 1 [facility] DIV[facility] N LACTOBACILL US ACIDOPHILUS TAB TAKE 2 TABLETS BY MOUTH ONCE A DAY ORAL ACTIVE 09/04/2025 [id number] 5 Marlene MATOS ARRGonzales E 2024 200 [facility] DIVISIO N LACTOBACILL US ACIDOPHILUS TAB TAKE 2 TABLETS BY MOUTH DAILY FOR DIGESTIV E HEALTH ORAL 07/25/2024 [id number] TIKA BYRD P 2023 200 [facility] LATANOPROST 0.005% SOLN,OPH INSTILL 1 DROP IN BOTH EYES EVERY EVENING FOR ELEVATED INTRAOCU LAR PRESSURE KEEP REFRIGER ATED UNTIL READY TO USE, THEN STORE AT ROOM TEMPERAT URE FOR MAXIMUM OF 42 DAYS. OPHTHA LMIC ACTIVE 12/17/2025 [id number] 5 ERNESTO SILVA 2024 10 [facility] DIVISIO N LATANOPROST 0.005% SOLN,OPH INSTILL 1 DROP INTO BOTH EYES AT BEDTIME FOR GLAUCOMA OPHTHA LMIC ACTIVE 05/24/2024 [id number] DEBORA SUTHERLAND R 2022 7.5 [facility] LATANOPROST 0.005% SOLN,OPH INSTILL 1 DROP IN BOTH EYES EVERY EVENING FOR ELEVATED INTRAOCU LAR PRESSURE KEEP REFRIGER ATED UNTIL READY TO USE, THEN STORE AT ROOM TEMPERAT URE FOR MAXIMUM OF 42 DAYS. OPHTHA LMIC DISCONT INUED 12/25/2024 [id number] 5 ERNESTO SILVA 2023 7.5 [facility] DIVISIO N LOSARTAN 25MG TAB TAKE ONE-HALF TABLET BY MOUTH ONCE A DAY FOR HIGH BLOOD PRESSURE ORAL ACTIVE 01/03/2026 [id number] 5 Marlene MATOS 2024 45 [facility] DIVISIO N LOSARTAN 50MG TAB TAKE ONE TABLET BY MOUTH TWICE DAILY FOR BLOOD PRESSURE ORAL ACTIVE 02/14/2025 [id number] 4 TIKA BYRD 2023 180 [facility] LOSARTAN POTASSIUM 100MG TAB TAKE ONE-HALF TABLET BY MOUTH ONCE A DAY FOR HIGH BLOOD PRESSURE ORAL DISCONT INUED (EDIT) 05/23/2025 [id number] 5 Marlene MATOS 2023 45 [facility] DIVISIO N [place] POTASSIUM 100MG TAB TAKE ONE-HALF TABLET BY MOUTH ONCE A DAY FOR HIGH BLOOD PRESSURE ORAL DISCONT INUED 07/01/2024 [id number] 4 WASHINGTON WANG 2023 45 [facility] DIVISIO N [place] POTASSIUM 100MG TAB TAKE ONE-HALF TABLET BY MOUTH ONCE A DAY FOR HIGH BLOOD PRESSURE ORAL DISCONT INUED 05/13/2024 [id number] 4 WASHINGTON WANG 2023 45 [facility] DIVISIO N MELATONIN 3MG CAP/TAB TAKE ONE CAP/TAB BY MOUTH AT BEDTIME FOR SLEEP ORAL SUSPEND ED 11/10/2025 [id number] 5 TRISHA ENRIQUEZ JR 2024 120 [facility] DIVISIO N MELATONIN 3MG CAP/TAB TAKE ONE CAP/TAB BY MOUTH AT BEDTIME FOR SLEEP ORAL DISCONT INUED 11/10/2025 [id number] 5 TRISHA ENRIQUEZ JR 2024 60 [facility] DIVISIO N MELATONIN 3MG CAP/TAB TAKE ONE CAP/TAB BY MOUTH AT BEDTIME FOR SLEEP ORAL DISCONT INUED 11/02/2024 [id number] 5 TRISHA ENRIQUEZ 2024 60 [facility] DIVISIO N MELATONIN 3MG CAP/TAB TAKE ONE CAP/TAB BY MOUTH AT BEDTIME FOR SLEEP ORAL DISCONT INUED 11/02/2024 [id number] 5 TRISHA ENRIQUEZ 2024 60 [facility] DIVISIO N MELATONIN 3MG CAP/TAB TAKE ONE CAP/TAB BY MOUTH AT BEDTIME FOR SLEEP ORAL DISCONT INUED 09/14/2024 [id number] 4 TRISHA ENRIQUEZ 2023 60 [facility] DIVISIO N MELATONIN 3MG CAP/TAB TAKE ONE CAP/TAB BY MOUTH AT BEDTIME FOR SLEEP ORAL DISCONT INUED 06/02/2024 [id number] 4 TRISHA ENRIQUEZ JR 2023 60 [facility] DIVISIO N MELATONIN 3MG CAP/TAB TAKE ONE CAP/TAB BY MOUTH AT BEDTIME FOR SLEEP ORAL DISCONT INUED 05/23/2024 [id number] PIPPA BECKWITH 2023 60 [facility] DIVISIO N MELATONIN 3MG CAP/TAB TAKE ONE CAP/TAB BY MOUTH AT BEDTIME FOR SLEEP ORAL DISCONT INUED 03/30/2024 [id number] 4 WANGABHIJEET LOYDHarlan Gilmore 2023 60 [facility] DIVISIO N MELATONIN 3MG CAP/TAB TAKE ONE CAP/TAB BY MOUTH AT BEDTIME FOR SLEEP ORAL 12/13/2024 [id number] 4 Yossi MONTES 2023 60 [facility] (673GB) MIRTAZAPINE 45MG TAB TAKE ONE TABLET BY MOUTH AT BEDTIME FOR DEPRESSI ON ORAL ACTIVE 12/04/2025 [id number] 5 TRISHA ENRIQUEZ JR 2024 90 [facility] DIVISIO N MIRTAZAPINE 45MG TAB TAKE ONE TABLET BY MOUTH AT BEDTIME FOR DEPRESSI ON ORAL DISCONT INUED 08/11/2025 [id number] 5 TRISHA ENRIQUEZ JR 2024 90 [facility] DIVISIO N MIRTAZAPINE 45MG TAB TAKE ONE TABLET BY MOUTH AT BEDTIME ORAL DISCONT INUED 05/23/2024 [id number] PIPPA BECKWITH M 2023 60 [facility] DIVISIO N MIRTAZAPINE 45MG TAB TAKE ONE TABLET BY MOUTH AT BEDTIME ORAL DISCONT INUED (EDIT) 01/02/2025 [id number] 4 TRISHA ENRIQUEZ JR 2023 90 [facility] DIVISIO N MIRTAZAPINE 45MG TAB TAKE ONE TABLET BY MOUTH AT BEDTIME FOR MOOD ORAL 12/13/2024 [id number] 4 Yossi MONTES 2023 90 [facility] ([id number]) MIRTAZAPINE 45MG TAB TAKE ONE TABLET BY MOUTH AT BEDTIME ORAL 06/02/2024 [id number] 4 TRISHA ENRIQUEZ Ann Marie JR 2023 60 [facility] DIVISIO N NO NON-VA DRUGS, HERBALS OR OTC'S MISCELLANEO US USE ACTIVE ABDULLAHINadeen 2021 [facility] OLODATEROL 2.5MCG/TIOT ROPIUM 2.5MCG/ACTU AT INHL,ORAL,6 0D,4GM INHALE 1 PUFF ORAL INHALATI ON ONCE A DAY FOR COPD ADMINIST ER AT SAME TIME EACH DAY RESPIR ATORY (INHAL ATION) ACTIVE 05/23/2025 [id number] 5 Marlene MATOS 2023 3 [facility] OLODATEROL 2.5MCG/TIOT ROPIUM 2.5MCG/ACTU AT [facility],ORAL,6 0D,4GM INHALE 1 PUFF ORAL INHALATI ON ONCE A DAY FOR COPD ADMINIST ER AT SAME TIME EACH DAY RESPIR ATORY (INHAL ATION) 05/02/2024 [id number] 4 [place] WANG 2023 1 [facility] OMEPRAZOLE 40MG CAP,EC TAKE ONE CAPSULE BY MOUTH TWO TIMES A DAY BEFORE MEALS TAKE 30 MINUTES PRIOR TO FOOD. ORAL SUSPEND ED 05/23/2025 [id number] 5 Marlene MATOS 2023 180 [facility] OMEPRAZOLE 40MG CAP,EC TAKE ONE CAPSULE BY MOUTH EVERY MORNING BEFORE A MEAL TAKE 30 MINUTES PRIOR TO FOOD. ORAL DISCONT INUED 03/13/2024 [id number] 4 [place] WANG 2023 30 [facility] OMEPRAZOLE 40MG CAP,EC TAKE ONE CAPSULE BY MOUTH TWICE DAILY FOR STOMACH. TAKE 30 MINUTES PRIOR TO THE SAME MEAL EACH DAY.DO SE INCREASE ORAL DISCONT INUED 07/25/2024 [id number] 4 TIKA BYRD P 2023 180 [facility] OMEPRAZOLE 40MG CAP,EC TAKE ONE CAPSULE BY MOUTH TWICE DAILY FOR STOMACH. TAKE 30 MINUTES PRIOR TO THE SAME MEAL EACH DAY.DO SE INCREASE ORAL 02/14/2025 [id number] 4 TIKA BYRD 2023 180 [facility] OMEPRAZOLE 40MG CAP,EC TAKE ONE CAPSULE BY MOUTH EVERY MORNING BEFORE A MEAL TAKE 30 MINUTES PRIOR TO FOOD. ORAL 05/02/2024 [id number] 4 [place] WANG 2023 30 [facility] PAROXETINE HCL 20MG TAB TAKE ONE TABLET BY MOUTH ONCE A DAY FOR DEPRESSI ON. DO NOT ABRUPTLY DISCONTI NUE MEDICATI ON. ORAL ACTIVE 08/11/2025 [id number] 5 TRISHA ENRIQUEZ JR 2024 90 [facility] PAROXETINE HCL 20MG TAB TAKE ONE TABLET BY MOUTH ONCE A DAY DO NOT ABRUPTLY DISCONTI NUE MEDICATI ON. ORAL DISCONT INUED 05/23/2024 [id number] PIPPA BECKWITH 2023 60 [facility] PAROXETINE HCL 20MG TAB TAKE ONE TABLET BY MOUTH ONCE A DAY DO NOT ABRUPTLY DISCONTI NUE MEDICATI ON. ORAL DISCONT INUED (EDIT) 04/01/2024 [id number] 4 TRISHA ENRIQUEZ JR 2023 90 [facility] PAROXETINE HCL 20MG TAB TAKE ONE TABLET BY MOUTH ONCE A DAY DO NOT ABRUPTLY DISCONTI NUE MEDICATI ON. ORAL 06/02/2024 [id number] 4 TRISHA ENRIQUEZ JR 2023 60 [facility] PAROXETINE HCL 40MG TAB TAKE ONE-HALF TABLET BY MOUTH EVERY DAY FOR DEPRESSI ON ORAL 12/13/2024 [id number] 4 Yossi MONTES 2023 45 [facility] ([id number]) PREDNISONE 20MG TAB TAKE TWO TABLETS BY MOUTH EVERY MORNING FOR GOUT FLARE TAKE WITH FOOD OR MILK. ORAL ACTIVE 03/12/2025 [id number] 5 Marlene MATOS 2024 10 [facility] QUETIAPINE FUMARATE 100MG TAB TAKE ONE-HALF TABLET BY MOUTH AT BEDTIME ORAL ACTIVE 11/10/2025 [id number] 5 TRISHA ENRIQUEZ JR 2024 15 [facility] QUETIAPINE FUMARATE 100MG TAB TAKE ONE-HALF TABLET BY MOUTH AT BEDTIME ORAL DISCONT INUED 08/27/2025 [id number] 5 TRISHA ENRIQUEZ JR 2024 15 [facility] QUETIAPINE FUMARATE 25MG TAB TAKE ONE-HALF TABLET BY MOUTH AT BEDTIME ORAL DISCONT INUED (EDIT) 01/02/2025 [id number] 4 TRISHA ENRIQUEZ JR 2023 15 [facility] QUETIAPINE FUMARATE 25MG TAB TAKE ONE-HALF TABLET BY MOUTH AT BEDTIME FOR MOOD ORAL 12/13/2024 [id number] 4 Yossi MONTES 2023 45 [facility] ([id number]) QUETIAPINE FUMARATE 50MG TAB TAKE ONE-HALF TABLET BY MOUTH AT BEDTIME FOR BIPOLAR DISORDER ORAL DISCONT INUED (EDIT) 08/11/2025 [id number] 5 TRISHA ENRIQUEZ JR 2024 15 [facility] QUETIAPINE FUMARATE 50MG TAB TAKE ONE-HALF TABLET BY MOUTH AT BEDTIME ORAL DISCONT INUED (EDIT) 07/24/2025 [id number] 5 YOVANA HELTON BHA N 2023 15 [facility] SEMAGLUTIDE 1MG/0.75ML INJ,SOLN,PE N,3ML INJECT 1MG UNDER THE SKIN EVERY WEEK SUBCUT ANEOUS DISCONT INUED BY PROVIDE R 05/01/2025 [id number] 4 Nadeen MASTERS E 2023 1 [facility] SEMAGLUTIDE 1MG/0.75ML INJ,SOLN,PE N,3ML INJECT 1MG UNDER THE SKIN EVERY WEEK SUBCUT ANEOUS DISCONT INUED 02/28/2025 [id number] 4 Nadeen MASTERS E 2023 1 [facility] SEMAGLUTIDE 1MG/0.75ML INJ,SOLN,PE N,3ML INJECT 1MG UNDER THE SKIN EVERY WEEK FOR DIABETES SUBCUT ANEOUS DISCONT INUED 03/15/2024 [id number] 4 [place] WANG 2023 1 [facility] SEMAGLUTIDE 1MG/0.75ML INJ,SOLN,PE N,3ML INJECT 1MG UNDER THE SKIN EVERY WEEK FOR DIABETES SUBCUT ANEOUS 11/06/2024 [id number] 4 ADDIE RON R 2023 1 [facility] SEMAGLUTIDE 2MG/0.75ML INJ,SOLN,PE N,3ML INJECT 2MG UNDER THE SKIN EVERY WEEK FOR DIABETES SUBCUT ANEOUS DISCONT INUED BY PROVIDE R 09/04/2024 [id number] 4 ANDRE LEONARD 2023 3 [facility] SEMAGLUTIDE 2MG/0.75ML INJ,SOLN,PE N,3ML INJECT 2MG UNDER THE SKIN EVERY WEEK FOR DIABETES SUBCUT ANEOUS DISCONT INUED 06/13/2025 [id number] 4 ANDRE LEONARD 2023 1 [facility] TIRZEPATIDE 2.5MG/0.5ML INJ,SOLN PACK,4 INJECT 2.5MG(0. 5ML) UNDER THE SKIN EVERY WEEK FOR DIABETES (ADMINIS TER DOSE AT ANY TIME OF DAY, WITH OR WITHOUT MEALS) SUBCUT ANEOUS DISCONT INUED (EDIT) 08/22/2025 [id number] 5 ANDRE LEONARD 2024 1 [facility] TIRZEPATIDE 5MG/0.5ML INJ,SOLN PACK,4 INJECT 5MG(0.5M L) UNDER THE SKIN EVERY WEEK (ADMINIS TER DOSE AT ANY TIME OF DAY, WITH OR WITHOUT MEALS) SUBCUT ANEOUS ACTIVE 01/28/2026 [id number] 5 Marlene MATOS 2024 1 [facility] TIRZEPATIDE 5MG/0.5ML INJ,SOLN PACK,4 INJECT 5MG(0.5M L) UNDER THE SKIN EVERY WEEK (ADMINIS TER DOSE AT ANY TIME OF DAY, WITH OR WITHOUT MEALS) SUBCUT ANEOUS DISCONT INUED 09/12/2025 [id number] 5 ANDRE LEONARD 2024 1 [facility] WARFARIN NA ([place]) 2MG TAB TAKE 1.5 TABLETS BY MOUTH EVERY EVENING ORAL ACTIVE Yossi MONTES [address] [facility] Daniel [facility] W[place]ARIN NA ([place]) 2MG TAB TAKE ONE AND ONE-HALF TABLETS BY MOUTH SUNDAY AND SUNDAY AND TAKE ONE TABLET ALL OTHER DAYS FOR ANTICOAG ULATION ORAL ACTIVE 01/21/2026 [id number] 5 JULES HENRIQUEZ 2024 35 [facility] [place] NA ([place]) 2MG TAB TAKE ONE AND ONE-HALF TABLETS BY MOUTH SUNDAY, SUNDAY AND SUNDAY AND TAKE ONE TABLET ALL OTHER DAYS FOR ANTICOAG ULATION ORAL DISCONT INUED (EDIT) 12/11/2025 [id number] 5 SA RK VANG 2024 40 [facility] [place] NA ([place]) 2MG TAB TAKE ONE TABLET BY MOUTH SUNDAY, AND SUNDAY AND TAKE ONE AND ONE-HALF TABLETS ALL OTHER DAYS FOR ANTICOAG ULATION ORAL DISCONT INUED (EDIT) 11/26/2025 [id number] 5 [facility] 2024 40 [facility] [place] NA ([place]) 2MG TAB TAKE ONE TABLET BY MOUTH SUNDAY, AND SUNDAY AND TAKE ONE AND ONE-HALF TABLETS ALL OTHER DAYS FOR ANTICOAG ULATION ORAL DISCONT INUED 08/05/2025 [id number] 5 [facility] 2024 40 [facility] [place] NA ([place]) 2MG TAB TAKE ONE TABLET BY MOUTH SUNDAY, AND SUNDAY AND TAKE ONE AND ONE-HALF TABLETS ALL OTHER DAYS FOR ANTICOAG ULATION ORAL DISCONT INUED 04/18/2025 [id number] 4 [facility] 2023 40 [facility] [place] NA ([place]) 2MG TAB TAKE ONE TABLET BY MOUTH SUNDAY, AND SUNDAY AND TAKE ONE AND ONE-HALF TABLETS ALL OTHER DAYS FOR ANTICOAG ULATION ORAL DISCONT INUED 05/02/2024 [id number] 4 [facility] 2023 40 [facility] [place] NA ([place]) 2MG TAB TAKE ONE TABLET BY MOUTH SUNDAY, AND SUNDAY AND TAKE ONE AND ONE-HALF TABLETS ALL OTHER DAYS FOR ANTICOAG ULATION ORAL DISCONT INUED 11/22/2024 [id number] 4 [facility] 2023 40 [facility] ZOLPIDEM TARTRATE 10MG TAB TAKE ONE TABLET BY MOUTH AT BEDTIME NEEDED FOR INSOMNIA (TAKE IMMEDIAT SHADI BEFORE BEDTIME DUE TO RAPID ONSET OF ACTION) ORAL ACTIVE 08/21/2025 [id number] 5 TRISHA ENRIQUEZ JR 2024 30 [facility] ZOLPIDEM TARTRATE 10MG TAB TAKE ONE TABLET BY MOUTH AT BEDTIME NEEDED FOR INSOMNIA (TAKE IMMEDIAT SHADI BEFORE BEDTIME DUE TO RAPID ONSET OF ACTION) ORAL DISCONT INUED 05/12/2025 [id number] 5 TRISHA ENRIQUEZ JR 2024 30 [facility] ZOLPIDEM TARTRATE 10MG TAB TAKE ONE TABLET BY MOUTH AT BEDTIME NEEDED FOR INSOMNIA (TAKE IMMEDIAT SHADI BEFORE BEDTIME DUE TO RAPID ONSET OF ACTION) ORAL DISCONT INUED 12/05/2024 [id number] 5 TRISHA ENRIQUEZ JR 2023 30 [facility] ZOLPIDEM TARTRATE 10MG TAB TAKE ONE TABLET BY MOUTH AT BEDTIME NEEDED FOR INSOMNIA (TAKE IMMEDIAT SHADI BEFORE BEDTIME DUE TO RAPID ONSET OF ACTION) ORAL DISCONT INUED 07/08/2024 [id number] 4 TRISHA ENRIQUEZ 2023 30 [facility] ZOLPIDEM TARTRATE 10MG TAB TAKE ONE TABLET BY MOUTH AT BEDTIME NEEDED FOR INSOMNIA (TAKE IMMEDIAT SHADI BEFORE BEDTIME DUE TO RAPID ONSET OF ACTION) ORAL 12/19/2023 [id number] 4 [place] WANG 2023 30 [facility] ZOLPIDEM TARTRATE 10MG TAB TAKE ONE TABLET BY MOUTH AT BEDTIME NEEDED FOR SLEEP ORAL 06/14/2024 [id number] 4 Yossi MONTES 2023 30 [facility] ([id number]) Allergies, Adverse Reactions, Alerts Combined list of allergies from Department of Defense and Veterans Affairs facilities. It does not include entries that were removed or entered in error. Substance Category Reaction Severity Reaction type Status Date Reported Comments Source DORZOLAMIDE Propensity to adverse reactions to drug (finding) Blurring of visual image MILD active 3 [facility] NIACIN Propensity to adverse reactions to drug (finding) active 6 [facility] SEMAGLUTIDE Propensity to adverse reactions to drug (finding) Nausea and vomiting, Diarrhea active 5 [facility] Immunizations Combined list of available immunizations from the Department of Defense and Veterans Affairs facilities. Immunization Series Date Given Administered By Site Reaction Lot Number CVX Code Drug Quality Director Status Comments Source INFLUENZA, HIGH-DOSE, TRIVALENT, PF 2023 MONIQUE REYEZ LEFT DELTO ID [id number] 135 complet ed [facility] ZOSTER RECOMBINANT 2 2022 CANDACE COPELAND G LEFT DELTO ID [id number] 187 complet ed [facility] INFLUENZA, UNSPECIFIED FORMULATION 2021 88 complet ed HISTORICA L INFORMATI ON - SOURCE UNSPECIFI [facility] PNEUMOCOCCAL CONJUGATE PCV20, POLYSACCHARID E [id number] CONJUGATE, ADJUVANT, PF 2021 216 complet ed [facility] ZOSTER RECOMBINANT 1 2021 187 complet ed [facility] INFLUENZA, UNSPECIFIED FORMULATION 2020 88 complet ed [facility] COVID-19 (PFIZER), MRNA, LNP-S, PF, 30 MCG/0.3 ML DOSE 2 2020 208 complet ed PFR; [id number]; 1 [facility] COVID-19 (PFIZER), MRNA, LNP-S, PF, 30 MCG/0.3 ML DOSE 1 2020 208 complet ed PFR; [id number]; 1 [facility] INFLUENZA, UNSPECIFIED FORMULATION 2019 88 complet ed [facility] INFLUENZA, UNSPECIFIED FORMULATION 2018 88 complet ed Per patient [facility] PNEUMOCOCCAL POLYSACCHARID E PPV23 2017 33 complet ed [facility] TDAP 2017 115 complet ed [facility] INFLUENZA, UNSPECIFIED FORMULATION 2017 88 complet ed Per Patient [facility] INFLUENZA, SEASONAL, INJECTABLE, PRESERVATIVE FREE 2016 140 complet ed Seqirus [facility] INFLUENZA, SEASONAL, INJECTABLE, PRESERVATIVE FREE 2015 140 complet ed Right Deltoid [facility] INFLUENZA, UNSPECIFIED FORMULATION 2015 88 complet ed [facility] ZOSTER LIVE 2015 121 complet ed [facility] INFLUENZA, UNSPECIFIED FORMULATION 2014 88 complet ed [facility] INFLUENZA, SPLIT VIRUS, QUADRIVALENT, PF 1 2014 150 complet ed HISTORICA L INFORMATI ON - FROM OTHER REGISTRY, [facility] INFLUENZA, SEASONAL, INJECTABLE, PRESERVATIVE FREE 2013 140 complet ed [facility] PNEUMOCOCCAL POLYSACCHARID E PPV23 2013 33 complet ed [facility] TDAP 2013 115 complet ed Left Deltoid [facility] INFLUENZA, UNSPECIFIED FORMULATION 2012 88 complet ed [facility] INFLUENZA, UNSPECIFIED FORMULATION 2011 88 complet ed [facility] INFLUENZA, UNSPECIFIED FORMULATION 2010 88 complet ed [facility] INFLUENZA, UNSPECIFIED FORMULATION 2009 88 complet ed [facility] INFLUENZA, UNSPECIFIED FORMULATION 2008 88 complet ed [facility] INFLUENZA, UNSPECIFIED FORMULATION 2007 88 complet ed [facility] INFLUENZA, UNSPECIFIED FORMULATION 2006 88 complet ed [facility] INFLUENZA, UNSPECIFIED FORMULATION 2005 88 complet ed [facility] INFLUENZA, UNSPECIFIED FORMULATION 2004 88 complet ed [facility] INFLUENZA (HISTORICAL) 2003 88 complet ed [facility] TD(ADULT) UNSPECIFIED FORMULATION 2003 MONIQUE BALES 139 complet ed [facility] INFLUENZA (HISTORICAL) 2002 88 complet ed recieved at outside provider [facility] OUTSIDE PNEUMOVAX (HISTORICAL) 2002 109 complet ed [facility] Results Combined list of recent chemistry, hematology and other laboratory results from Department of Defense and Veterans Affairs, ranging from 15 months to all on record, depending upon the facility. Order Name Results Value Reference Range Date Interpretation Specimen Comments Source WARFARIN- INR PROTHROMBIN TIME (PT) 26.7 s 9.4 - 12.5 01/20 H Specimen Type: PLASMA No comment entered. Ordering Provider: RYAN HENRIQUEZ Report Released Date/Time: Jan 16, 2025 03:59 PM Reporting Lab: [facility] [place] [address] Performing Lab: [facility] WARFARIN- INR INR IN PLATELET POOR PLASMA BY COAGULATION ASSAY 2.4 {INR} 01/20 Specimen Type: PLASMA No comment entered. Ordering Provider: RYAN HENRIQUEZ Report Released Date/Time: Jan 16, 2025 03:59 PM Reporting Lab: [facility] [place] [address] Performing Lab: [facility] [id number] [place] [address] DIVISION CBC LEUKOCYTES [#/VOLUME] IN BLOOD BY AUTOMATED COUNT 8.5 10*3/u L 3.6 - 11.2 01/02 Specimen Type: BLOOD No comment entered. Ordering Provider: JONAH MATOS Report Released Date/Time: January 02, 2025 11:44 AM Reporting Lab: [facility] [id number] Performing Lab: [facility] [id number] [place] [address] DIVISION CBC ERYTHROCYTE S [#/VOLUME] IN BLOOD BY AUTOMATED COUNT 4.80 10*6/u L 4.10 - 5.70 01/02 Specimen Type: BLOOD No comment entered. Ordering Provider: JONAH MATOS Report Released Date/Time: January 02, 2025 11:44 AM Reporting Lab: [facility] [place] [address] Performing Lab: [facility] CBC HEMOGLOBIN [MASS/VOLUM E] IN BLOOD 12.2 g/dL 13.1 - 16.8 01/02 L Specimen Type: BLOOD No comment entered. Ordering Provider: JONAH MATOS Report Released Date/Time: January 02, 2025 11:44 AM Reporting Lab: [facility] [place] [address] Performing Lab: [facility] CBC HEMATOCRIT [VOLUME FRACTION] OF BLOOD 38.5 38.2 - 48.4 01/02 Specimen Type: BLOOD No comment entered. Ordering Provider: JONAH MATOS Report Released Date/Time: January 02, 2025 11:44 AM Reporting Lab: [facility] [place] [address] Performing Lab: [facility] DIVISION CBC MCV [ENTITIC VOLUME] BY AUTOMATED COUNT 80.2 fL 80.0 - 100.0 01/02 Specimen Type: BLOOD No comment entered. Ordering Provider: JONAH MATOS Report Released Date/Time: January 02, 2025 11:44 AM Reporting Lab: [facility] [place] [address] Performing Lab: [facility] CBC MCH [ENTITIC MASS] BY AUTOMATED COUNT 25.4 pg 27.0 - 34.0 01/02 L Specimen Type: BLOOD No comment entered. Ordering Provider: JONAH MATOS Report Released Date/Time: January 02, 2025 11:44 AM Reporting Lab: [facility] [place] [address] Performing Lab: [facility] DIVISION CBC MCHC [MASS/VOLUM E] BY AUTOMATED COUNT 31.7 g/dL 33.0 - 36.0 01/02 L Specimen Type: BLOOD No comment entered. Ordering Provider: JONAH MATOS Report Released Date/Time: January 02, 2025 11:44 AM Reporting Lab: [facility] [place] [address] Performing Lab: [facility] CBC PLATELETS [#/VOLUME] IN BLOOD BY AUTOMATED COUNT 218 10*3/u L 150 - 400 01/02 Specimen Type: BLOOD No comment entered. Ordering Provider: JONAH MATOS Report Released Date/Time: January 02, 2025 11:44 AM Reporting Lab: [facility] [place] [address] Performing Lab: [facility] DIVISION CBC PLATELET MEAN VOLUME [ENTITIC VOLUME] IN BLOOD BY AUTOMATED COUNT 10.3 fL 7.5 - 11.2 01/02 Specimen Type: BLOOD No comment entered. Ordering Provider: JONAH MATOS Report Released Date/Time: January 02, 2025 11:44 AM Reporting Lab: [facility] [place] [address] Performing Lab: [facility] DIVISION CBC ERYTHROCYTE DISTRIBUTIO N WIDTH [RATIO] BY AUTOMATED COUNT 16.3 11.8 - 15.1 01/02 H Specimen Type: BLOOD No comment entered. Ordering Provider: JONAH MATOS Report Released Date/Time: January 02, 2025 11:44 AM Reporting Lab: [facility] [place] [address] Performing Lab: [facility] DIVISION CBC LYMPHOCYTES /100 LEUKOCYTES IN BLOOD BY AUTOMATED COUNT 20 01/02 Specimen Type: BLOOD No comment entered. Ordering Provider: JONAH MATOS Report Released Date/Time: January 02, 2025 11:44 AM Reporting Lab: [facility] [place] [address] Performing Lab: [facility] DIVISION CBC MONOCYTES/1 00 LEUKOCYTES IN BLOOD BY AUTOMATED COUNT 9 01/02 Specimen Type: BLOOD No comment entered. Ordering Provider: JONAH MATOS Report Released Date/Time: January 02, 2025 11:44 AM Reporting Lab: [facility] [place] [address] Performing Lab: [facility] DIVISION CBC NEUTROPHILS /100 LEUKOCYTES IN BLOOD BY AUTOMATED COUNT 69 01/02 Specimen Type: BLOOD No comment entered. Ordering Provider: JONAH MATOS Report Released Date/Time: January 02, 2025 11:44 AM Reporting Lab: [facility] [place] [address] Performing Lab: [facility] DIVISION CBC EOSINOPHILS /100 LEUKOCYTES IN BLOOD BY AUTOMATED COUNT 2 01/02 Specimen Type: BLOOD No comment entered. Ordering Provider: JONAH MATOS Report Released Date/Time: January 02, 2025 11:44 AM Reporting Lab: [facility] [place] [address] Performing Lab: [facility] DIVISION CBC BASOPHILS/1 00 LEUKOCYTES IN BLOOD BY AUTOMATED COUNT 1 01/02 Specimen Type: BLOOD No comment entered. Ordering Provider: JONAH MATOS Report Released Date/Time: January 02, 2025 11:44 AM Reporting Lab: [facility] [place] [address] Performing Lab: [facility] DIVISION CBC LYMPHOCYTES [#/VOLUME] IN BLOOD BY AUTOMATED COUNT 1.67 10*3/u L 0.77 - 4.50 01/02 Specimen Type: BLOOD No comment entered. Ordering Provider: JONAH MATOS Report Released Date/Time: January 02, 2025 11:44 AM Reporting Lab: [facility] [place] [address] Performing Lab: [facility] DIVISION CBC MONOCYTES [#/VOLUME] IN BLOOD BY AUTOMATED COUNT 0.75 10*3/u L 0.19 - 0.80 01/02 Specimen Type: BLOOD No comment entered. Ordering Provider: JONAH MATOS Report Released Date/Time: January 02, 2025 11:44 AM Reporting Lab: [facility] [place] [address] Performing Lab: [facility] DIVISION CBC NEUTROPHILS [#/VOLUME] IN BLOOD BY AUTOMATED COUNT 5.88 10*3/u L 2.10 - 8.00 01/02 Specimen Type: BLOOD No comment entered. Ordering Provider: JONAH MATOS Report Released Date/Time: January 02, 2025 11:44 AM Reporting Lab: [facility] [place] [address] Performing Lab: [facility] DIVISION CBC EOSINOPHILS [#/VOLUME] IN BLOOD BY AUTOMATED COUNT 0.14 10*3/u L 0.00 - 0.60 01/02 Specimen Type: BLOOD No comment entered. Ordering Provider: JONAH MATOS Report Released Date/Time: January 02, 2025 11:44 AM Reporting Lab: [facility] [place] [address] Performing Lab: [facility] DIVISION CBC BASOPHILS [#/VOLUME] IN BLOOD BY AUTOMATED COUNT 0.04 10*3/u L 0.00 - 0.20 01/02 Specimen Type: BLOOD No comment entered. Ordering Provider: JONAH MATOS Report Released Date/Time: January 02, 2025 11:44 AM Reporting Lab: [facility] [place] [address] Performing Lab: [facility] DIVISION COMPREHEN SIVE METABOLIC PANEL CREATININE [MASS/VOLUM E] IN SERUM OR PLASMA 2.34 mg/dL 0.70 - 1.30 01/02 H Specimen Type: PLASMA Comment: No hemolysis noted. Ordering Provider: JONAH MATOS Report Released Date/Time: January 02, 2025 11:44 AM Reporting Lab: [facility] [place] [address] Performing Lab: [facility] DIVISION COMPREHEN SIVE METABOLIC PANEL UREA NITROGEN [MASS/VOLUM E] IN SERUM OR PLASMA 39.6 mg/dL 9.0 - 25.0 01/02 H Specimen Type: PLASMA Comment: No hemolysis noted. Ordering Provider: JONAH MATOS Report Released Date/Time: January 02, 2025 11:44 AM Reporting Lab: [facility] [place] [address] Performing Lab: [facility] DIVISION COMPREHEN SIVE METABOLIC PANEL GLUCOSE [MASS/VOLUM E] IN SERUM OR PLASMA 178 mg/dL 72 - 99 01/02 H Specimen Type: PLASMA Comment: No hemolysis noted. Ordering Provider: JONAH MATOS Report Released Date/Time: January 02, 2025 11:44 AM Reporting Lab: [facility] [place] [address] Performing Lab: [facility] DIVISION COMPREHEN SIVE METABOLIC PANEL SODIUM [MOLES/VOLU ME] IN SERUM OR PLASMA 137 meq/L 136 - 145 01/02 Specimen Type: PLASMA Comment: No hemolysis noted. Ordering Provider: JNOAH MATOS Report Released Date/Time: January 02, 2025 11:44 AM Reporting Lab: [facility] [place] [address] Performing Lab: [facility] DIVISION COMPREHEN SIVE METABOLIC PANEL POTASSIUM [MOLES/VOLU ME] IN SERUM OR PLASMA 4.3 meq/L 3.5 - 5.0 01/02 Specimen Type: PLASMA Comment: No hemolysis noted. Ordering Provider: JONAH MATOS Report Released Date/Time: January 02, 2025 11:44 AM Reporting Lab: [facility] [place] [address] Performing Lab: [facility] DIVISION COMPREHEN SIVE METABOLIC PANEL CHLORIDE [MOLES/VOLU ME] IN SERUM OR PLASMA 104 meq/L 98 - 107 01/02 Specimen Type: PLASMA Comment: No hemolysis noted. Ordering Provider: JONAH MATOS Report Released Date/Time: January 02, 2025 11:44 AM Reporting Lab: [facility] [place] [address] Performing Lab: [facility] DIVISION COMPREHEN SIVE METABOLIC PANEL CARBON DIOXIDE, TOTAL [MOLES/VOLU ME] IN SERUM OR PLASMA 23 meq/L 22 - 31 01/02 Specimen Type: PLASMA Comment: No hemolysis noted. Ordering Provider: JONAH MATOS Report Released Date/Time: January 02, 2025 11:44 AM Reporting Lab: [facility] [place] [address] Performing Lab: [facility] DIVISION COMPREHEN SIVE METABOLIC PANEL CALCIUM [MASS/VOLUM E] IN SERUM OR PLASMA 9.0 mg/dL 8.4 - 10.4 01/02 Specimen Type: PLASMA Comment: No hemolysis noted. Ordering Provider: JONAH MATOS Report Released Date/Time: January 02, 2025 11:44 AM Reporting Lab: [facility] [place] [address] Performing Lab: [facility] DIVISION COMPREHEN SIVE METABOLIC PANEL PROTEIN [MASS/VOLUM E] IN SERUM OR PLASMA 8.1 g/dL 6.0 - 8.6 01/02 Specimen Type: PLASMA Comment: No hemolysis noted. Ordering Provider: JONAH MATOS Report Released Date/Time: January 02, 2025 11:44 AM Reporting Lab: [facility] [place] [address] Performing Lab: [facility] DIVISION COMPREHEN SIVE METABOLIC PANEL ALBUMIN [MASS/VOLUM E] IN SERUM OR PLASMA 4.1 g/dL 3.4 - 5.0 01/02 Specimen Type: PLASMA Comment: No hemolysis noted. Ordering Provider: JONAH MATOS Report Released Date/Time: January 02, 2025 11:44 AM Reporting Lab: [facility] [place] [address] Performing Lab: [facility] DIVISION COMPREHEN SIVE METABOLIC PANEL BILIRUBIN.T OTAL [MASS/VOLUM E] IN SERUM OR PLASMA 0.4 mg/dL 0.2 - 1.2 01/02 Specimen Type: PLASMA Comment: No hemolysis noted. Ordering Provider: JONAH MATOS Report Released Date/Time: January 02, 2025 11:44 AM Reporting Lab: [facility] [place] [address] Performing Lab: [facility] DIVISION COMPREHEN SIVE METABOLIC PANEL ALKALINE PHOSPHATASE [ENZYMATIC ACTIVITY/VO LUME] IN SERUM OR PLASMA 115 U/L 40 - 150 01/02 Specimen Type: PLASMA Comment: No hemolysis noted. Ordering Provider: JONAH MATOS Report Released Date/Time: January 02, 2025 11:44 AM Reporting Lab: [facility] [place] [address] Performing Lab: [facility] DIVISION COMPREHEN SIVE METABOLIC PANEL ASPARTATE AMINOTRANSF ERASE [ENZYMATIC ACTIVITY/VO LUME] IN SERUM OR PLASMA 15 U/L 5 - 34 01/02 Specimen Type: PLASMA Comment: No hemolysis noted. Ordering Provider: JONAH MATOS Report Released Date/Time: January 02, 2025 11:44 AM Reporting Lab: [facility] [place] [address] Performing Lab: [facility] DIVISION COMPREHEN SIVE METABOLIC PANEL ALANINE AMINOTRANSF ERASE [ENZYMATIC ACTIVITY/VO LUME] IN SERUM OR PLASMA 14 U/L 8 - 40 01/02 Specimen Type: PLASMA Comment: No hemolysis noted. Ordering Provider: JONAH MATOS Report Released Date/Time: January 02, 2025 11:44 AM Reporting Lab: [facility] [place] [address] Performing Lab: [facility] COMPREHEN SIVE METABOLIC PANEL GLOMERULAR FILTRATION RATE/1.73 SQ M.PREDICTED [VOLUME RATE/AREA] IN SERUM, PLASMA OR BLOOD BY CREATININE- BASED FORMULA (CKD-EPI 2020) 29.37 60 01/02 Specimen Type: PLASMA Comment: No hemolysis noted. Ordering Provider: JONAH MATOS Report Released Date/Time: January 02, 2025 11:44 AM Reporting Lab: [facility] [place] [address] Performing Lab: [facility] DIVISION CRP C REACTIVE PROTEIN [MASS/VOLUM E] IN SERUM OR PLASMA BY HIGH SENSITIVITY METHOD 0.9 mg/dL 0.0 - 0.5 01/02 H Specimen Type: PLASMA Comment: No hemolysis noted. Ordering Provider: JONAH MATOS Report Released Date/Time: January 02, 2025 11:53 AM Reporting Lab: [facility] [place] [address] Performing Lab: [facility] [address] [facility] ESR ISED(STL) ERYTHROCYTE SEDIMENTATI ON RATE 6 mm/h 0 - 19 01/02 Specimen Type: BLOOD No comment entered. Ordering Provider: JONAH MATOS Report Released Date/Time: January 02, 2025 11:53 AM Reporting Lab: [facility] [address] Performing Lab: [facility] [id number] [place] [address] FERRITIN FERRITIN [MASS/VOLUM E] IN SERUM OR PLASMA 23.82 ng/mL 22 - 275 01/02 Specimen Type: SERUM No comment entered. Ordering Provider: JONAH MATOS Report Released Date/Time: January 02, 2025 11:44 AM Reporting Lab: [facility] [address] [place] [address] Performing Lab: [address] [address] [facility] HGA1C HEMOGLOBIN A1C/HEMOGLO BIN.TOTAL IN BLOOD 7.7 4.0 - 6.0 01/02 H Specimen Type: BLOOD No comment entered. Ordering Provider: JONAH MATOS Report Released Date/Time: January 02, 2025 11:44 AM Reporting Lab: [facility] [address] Performing Lab: [facility] [id number] [place] [address] IRON/TIBC PROFILE TRANSFERRIN [MASS/VOLUM E] IN SERUM OR PLASMA 378 mg/dL 163 - 344 01/02 H Specimen Type: SERUM Comment: FE Sat Unable to be calculated Ordering Provider: JONAH MATOS Report Released Date/Time: January 02, 2025 11:44 AM Reporting Lab: [facility] [address] [place] [address] Performing Lab: [place] [address] [facility] [address] [facility] IRON/TIBC PROFILE IRON SATURATION [MASS FRACTION] IN SERUM OR PLASMA 7 20 - 50 01/02 L Specimen Type: SERUM Comment: FE Sat Unable to be calculated Ordering Provider: JONAH MATOS Report Released Date/Time: January 02, 2025 11:44 AM Reporting Lab: [address] [address] Performing Lab: [address] [address] [facility] IRON/TIBC PROFILE IRON [MASS/VOLUM E] IN SERUM OR PLASMA 35 ug/dL 65 - 175 01/02 L Specimen Type: SERUM Comment: FE Sat Unable to be calculated Ordering Provider: JONAH MATOS Report Released Date/Time: January 02, 2025 11:44 AM Reporting Lab: [address] [address] Performing Lab: [address] [address] [facility] IRON/TIBC PROFILE IRON BINDING CAPACITY [MASS/VOLUM E] IN SERUM OR PLASMA 473 ug/dL 250 - 450 01/02 H Specimen Type: SERUM Comment: FE Sat Unable to be calculated Ordering Provider: JONAH MATOS Report Released Date/Time: January 02, 2025 11:44 AM Reporting Lab: [address] [address] Performing Lab: [address] [address] [facility] LIPID PANEL (STL) CHOLESTEROL [MASS/VOLUM E] IN SERUM OR PLASMA 164 mg/dL 0 - 200 01/02 Specimen Type: PLASMA Comment: No hemolysis noted. Ordering Provider: JONAH MATOS Report Released Date/Time: January 02, 2025 11:44 AM Reporting Lab: [facility] [place] [address] Performing Lab: [facility] DIVISION LIPID PANEL (STL) TRIGLYCERID E [MASS/VOLUM E] IN SERUM OR PLASMA 210 mg/dL 0 - 150 01/02 H Specimen Type: PLASMA Comment: No hemolysis noted. Ordering Provider: JONAH MATOS Report Released Date/Time: January 02, 2025 11:44 AM Reporting Lab: [facility] [place] [address] Performing Lab: [facility] LIPID PANEL (STL) CHOLESTEROL IN LDL [MASS/VOLUM E] IN SERUM OR PLASMA BY CALCULATION 88 mg/dL 01/02 Specimen Type: PLASMA Comment: No hemolysis noted. Ordering Provider: JONAH MATOS Report Released Date/Time: January 02, 2025 11:44 AM Reporting Lab: [facility] [place] [address] Performing Lab: [facility] LIPID PANEL (STL) CHOLESTEROL IN HDL [MASS/VOLUM E] IN SERUM OR PLASMA 34 mg/dL 40 01/02 L Specimen Type: PLASMA Comment: No hemolysis noted. Ordering Provider: JONAH MATOS Report Released Date/Time: January 02, 2025 11:44 AM Reporting Lab: [facility] [place] [address] Performing Lab: [facility] DIVISION URIC ACID URATE [MASS/VOLUM E] IN SERUM OR PLASMA 10.8 mg/dL 3.5 - 7.2 01/02 H Specimen Type: PLASMA Comment: No hemolysis noted. Ordering Provider: JONAH MATOS Report Released Date/Time: January 02, 2025 11:44 AM Reporting Lab: [facility] [address] Performing Lab: [facility] [address] [facility] Vital Signs Combined list of inpatient and outpatient Vital Signs from Department of Defense and Veterans Affairs, ranging from 12 months to all on record, depending upon the facility. Vital Sign Value Date Comments Source SYSTOLIC BLOOD PRESSURE 115 02/05/2025 14:38:17 [facility] DIASTOLIC BLOOD PRESSURE 74 02/05/2025 14:38:17 [facility] PULSE OXIMETRY 100 % 02/05/2025 14:38:17 [facility] DIVISION TEMPERATURE 97.7 02/05/2025 14:38:17 [facility] PULSE 59 02/05/2025 14:38:17 [facility] DIVISION RESPIRATION 18 02/05/2025 14:38:17 [facility] SYSTOLIC BLOOD PRESSURE 111 01/02/2025 11:22:12 [facility] DIASTOLIC BLOOD PRESSURE 70 01/02/2025 11:22:12 [facility] PULSE OXIMETRY 98 01/02/2025 11:22:12 [facility] WEIGHT 300.7 01/02/2025 11:22:12 [facility] BMI 41 kg/m2 01/02/2025 11:22:12 [facility] DIVISION PAIN 6 01/02/2025 11:22:12 [facility] DIVISION HEIGHT 72 01/02/2025 11:22:12 [facility] TEMPERATURE 97.9 01/02/2025 11:22:12 [facility] PULSE 96 01/02/2025 11:22:12 [facility] DIVISION RESPIRATION 18 01/02/2025 11:22:12 [facility] SYSTOLIC BLOOD PRESSURE 118 05/22/2024 11:27:42 [facility] DIASTOLIC BLOOD PRESSURE 82 05/22/2024 11:27:42 [facility] PULSE OXIMETRY 96 05/22/2024 11:27:[address] [facility] WEIGHT 328.4 05/22/2024 11:27:42 [facility] BMI 43 kg/m2 05/22/2024 11:27:42 [facility] DIVISION PAIN 0 05/22/2024 11:27:42 [facility] DIVISION HEIGHT 73 05/22/2024 11:27:42 [facility] TEMPERATURE 98 05/22/2024 11:27:42 [facility] PULSE 73 05/22/2024 11:27:42 [facility] DIVISION RESPIRATION 20 05/22/2024 11:27:42 [facility] Encounters Combined list of: 1) Encounters from Department of [facility] Affairs facilities going backup to the last 18 months, not all VA inpatient encounters are included; 2) Encounters from the [facility] of [facility] facilities going backup to 280 months. Location Location Details Encounter Type Encounter Number Reason For Visit Attending Provider ADM Date DC Date Status Disposition Source [facility] Outpatient Encounter [id number] 09/07 [facility] Outpatient Encounter [id number] 09/11 [facility] PT EDUCATION NOC INDIVID [id number] Diagnos is: ICD-10- CM Z71.9 Soap Tender ing, unspeci SWEETIE Rider 09/14 [facility] Outpatient Encounter [id number] 09/18 [facility] ([id number]) Outpatient Encounter [id number] RENZO MONTES 09/20 [facility] ([id number]) [facility] ([id number]) Outpatient Encounter [id number] RENZO MONTES R 09/20 [facility] ([id number]) [facility] Outpatient Encounter [id number] 09/21 [facility] Outpatient Encounter [id number] 09/27 [facility] DIVISION CASE MANAGEMENT [id number] RENNY MAXWELL 10/04 [facility] TARGETED CASE MANAGEMENT [id number] DARIEL HUDSON 10/07 [facility] Outpatient Encounter [id number] 10/10 [facility] Outpatient Encounter [id number] 10/16 [facility] Outpatient Encounter [id number] 10/22 [facility] QNHP OL DIG ASSMT&MGMT 21+ [id number] Diagnos is: ICD-10- CM Z51.81 Encount er for therape utic drug level monitor Almaguer 10/22 [facility] DIV[facility] TARGETED CASE MANAGEMENT [id number] RENNY MAXWELL 10/22 [facility] TARGETED CASE MANAGEMENT [id number] DARIEL HUDSON 10/22 [facility] Outpatient Encounter [id number] 10/24 [facility] TARGETED CASE MANAGEMENT [id number] RENNY MAXWELL 10/25 [facility] END OF LIFE COUNSELING [id number] Diagnos is: ICD-10- CM Z71.9 Soap Tender ing, unspeci CLIFF Hall 10/25 [facility] TARGETED CASE MANAGEMENT [id number] DARIEL HUDSON 10/25 [facility] Outpatient Encounter [id number] 11/05 [facility] Outpatient Encounter [id number] 11/11 [facility] OFFICE O/P NEW HI 60 MIN [id number] Diagnos is: ICD-10- CM I48.20 Chronic atrial fibrill ation, unspeci [place] Quinn 11/18 [facility] IMG RTA DETCJ/MNTR DS STAFF [id number] Diagnos is: ICD-10- CM Z13.5 Encount er for screeni ng for eye and ear disorde SLIM Liriano 11/18 [facility] MTMS BY PHARM DISINTEGRATOR OPERATOR 15 MIN [id number] Diagnos is: ICD-10- CM Z51.81 Encount er for therape utic drug level monitor PABLO Haddad 11/18 [facility] Outpatient Encounter [id number] 11/18 [facility] Out[facility] Encounter [id number] 11/19 [facility] Outpatient Encounter [id number] 11/19 [facility] IMG RTA DETC/MNTR DS PHY/QHP [id number]. [id number] Diagnos is: ICD-10- CM Z13.5 Encount er for screeni ng for eye and ear disorde rs ROSETTA SILVA 11/19 [facility] TARGETED CASE MANAGEMENT [id number] DARIEL HUDSON 11/20 [facility] MTMS BY PHARM EST 15 MIN [id number] Diagnos is: ICD-10- CM Z51.81 Encount er for therape utic drug level monitor PABLO Haddad 11/21 [facility] Outpatient Encounter [id number] 11/21 [facility] Outpatient Encounter [id number] 11/25 [facility] Outpatient Encounter [id number] 11/28 [facility] MTMS BY PHARM EST 15 MIN [id number] Diagnos is: ICD-10- CM Z51.81 Encount er for therape utic drug level monitor PABLO Haddad 12/05 [facility] DIVISION THERAPEUTI C EXERCISES [id number] Diagnos is: ICD-10- CM M25.511 Pain in right shoulde r IVACANDYAYUSH L 12/05 [facility] Outpatient Encounter [id number] 12/06 [facility] Outpatient Encounter [id number] 12/06 [facility] Outpatient Encounter [id number] 12/09 [facility] Outpatient Encounter [id number] 1 12/11 [facility] Outpatient Encounter [id number] NILESH GAVIN A A 12/11 [facility] ([id number]) Outpatient Encounter [id number] 12/12 [facility] ([id number]) [facility] Outpatient Encounter [id number] 12/12 [facility] CASE MANAGEMENT [id number] Diagnos is: ICD-10- CM F31.9 Bipolar disorde r, unspeci fied SHANNA ALSTON 12/13 [facility] Outpatient Encounter [id number] 12/17 [facility] SELF-MGMT EDUC & TRAIN 1 [place] [id number] Diagnos is: ICD-10- CM R26.9 Unspeci fied abnorma lities of gait and mobilit y JOSE D STRATTON D 12/23 [facility] OFFICE O/P NEW MOD 45 MIN [id number] Diagnos is: ICD-10- CM H40.113 1 Primary open-an gle glaucom a, bilater al, mild stage ROSETTA SILVA J 12/24 [facility] CMPTR OPHTH IMG OPTIC NERVE [id number] Diagnos is: ICD-10- CM H40.113 1 Primary open-an gle glaucom a, bilater al, mild stage EDILIADANIELROBERTNgozi ANDRES T 12/24 [facility] MTMS BY PHARM EST 15 MIN [id number] Diagnos is: ICD-10- CM Z51.81 Encount er for therape utic drug level monitor PABLO Haddad 12/25 [facility] Outpatient Encounter [id number] 12/25 [facility] OFFICE O/P EST MOD 30 MIN [id number] Diagnos is: ICD-10- CM F31.9 Bipolar disorde r, unspeci fied STARLA ENRIQUEZ JR 01/01 [facility] Outpatient Encounter [id number] AYUSH GAVIN 01/13 [facility] Outpatient Encounter [id number] RUBEN MEJIA 01/20 [facility] Outpatient Encounter [id number] SHREYA PLUNKETT 01/21 [facility] MTMS BY PHARM EST 15 MIN [id number] Diagnos is: ICD-10- CM Z51.81 Encount er for therape utic drug level monitor PABLO Haddad 01/27 [facility] Outpatient Encounter [id number] [place] WANG 01/29 [facility] Outpatient Encounter [id number] RUBEN MEJIA 01/29 [facility] Outpatient Encounter [id number] 02/03 [facility] Outpatient Encounter [id number] 02/05 [facility] Outpatient Encounter [id number] 02/05 [facility] Outpatient Encounter [id number] 02/11 [facility] Outpatient Encounter [id number] 02/12 [facility] Outpatient Encounter [id number] DANIELE SEVILLA 02/12 [facility] Outpatient Encounter [id number] 02/17 [facility] Outpatient Encounter [id number] 02/22 [facility] Outpatient Encounter [id number] 02/24 [facility] MTMS BY PHARM DISINTEGRATOR OPERATOR 15 MIN [id number] Diagnos is: ICD-10- CM E11.9 Type 2 diabete s mellitu s without complic ations JESUSITA MASTERS TIE E 02/27 [facility] Outpatient Encounter [id number] 03/04 [facility] PT EDUCATION NOC INDIVID [id number] Diagnos is: ICD-10- CM F31.9 Bipolar disorde r, unspeci fied KATYERICMURRAY KAIDENY S 03/04 [facility] Outpatient Encounter [id number] JESUSITA WRIGHT R 03/12 [facility] Outpatient Encounter [id number] 03/13 [facility] MTMS BY PHARM EST 15 MIN [id number] Diagnos is: ICD-10- CM E11.9 Type 2 diabete s mellitu s without complic ations JESUSITA MASTERS TIE E 03/21 [facility] Outpatient Encounter [id number] 03/24 [facility] HC PRO PHONE CALL 21-30 MIN [id number] [id number] Diagnos is: ICD-10- CM I48.20 Chronic atrial fibrill ation, unspeci fied DANIELE VIVEROS 03/27 [facility] Outpatient Encounter [id number] 03/28 [facility] INTRM OPH EXAM EST PATIENT [id number] [id number] Diagnos is: ICD-10- CM H35.371 Puckeri ng of macula, right eye JACOBY YEH 03/28 [facility] Outpatient Encounter [id number] 04/02 [facility] Outpatient Encounter [id number] NAA GREWAL E 04/02 [facility] Outpatient Encounter [id number] 04/05 [facility] MTMS BY PHARM EST 15 MIN [id number] [id number] Diagnos is: ICD-10- CM Z51.81 Encount er for therape utic drug level monitor PABLO Haddad 04/17 [facility] Outpatient Encounter [id number] 04/24 [facility]counter [id number] 04/28 [facility] MTMS BY PHARM EST 15 MIN [id number] Diagnos is: ICD-10- CM E11.9 Type 2 diabete s mellitu s without complic ations JESUSITA MASTERS E 04/30 [facility] Outpatient Encounter [id number] KATIE DEL VALLE 05/01 [facility] HC PRO PHONE CALL 11-20 MIN [id number] Diagnos is: ICD-10- CM F31.9 Bipolar disorde r, unspeci fied SHANNA ALSTON L 05/08 [facility] Outpatient Encounter [id number] JESSICA GALEANA 05/16 [facility] Outpatient Encounter [id number] 05/22 [facility] MTMS BY PHARM EST 15 MIN [id number] Diagnos is: ICD-10- CM Z51.81 Encount er for therape utic drug level monitor PABLO Haddad 05/22 [facility] OFF/OP CONSLTJ NEW/EST HI 55 [id number] Diagnos is: ICD-10- CM E11.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, unsp ANTONIO MATOS RRY E 05/22 [facility] Outpatient Encounter [id number] ANTONIO MATOS RRY E 05/24 [facility] OFFICE O/P EST MOD 30 MIN [id number] Diagnos is: ICD-10- CM F31.9 Bipolar disorde r, unspeci fied ZOE,WILL EMILY M JR 06/03 [facility] Outpatient Encounter [id number] MARY NAZARIO 06/04 [facility] MTMS BY PHARM EST 15 MIN [id number] [id number] Diagnos is: ICD-10- CM E11.9 Type 2 diabete s mellitu s without complic ations JESSICA GALEANA 06/12 [facility] HC PRO PHONE CALL 21-30 MIN [id number] [id number] Diagnos is: ICD-10- CM F31.9 Bipolar disorde r, unspeci fied ALBERT,CAR A A 06/13 [facility] Outpatient Encounter [id number] 06/27 [facility] Outpatient Encounter [id number] [id number] 07/01 [facility] Outpatient Encounter [id number] [id number] JESSICA GALEANA 07/02 [facility] Outpatient Encounter [id number] 07/02 [facility] Outpatient Encounter [id number] [id number] 07/14 [facility] Outpatient Encounter [id number] [id number] 07/15 [facility] Outpatient Encounter [id number] [id number] 07/15 [facility] Outpatient Encounter [id number] [id number] MARLYN GARZON A 07/18 [facility] Outpatient Encounter [id number] 07/23 [facility] Outpatient Encounter [id number] [id number] ANTONIO MATOS RRGonzales E 07/28 [facility] MTMS BY PHARM EST 15 MIN [id number] [id number] Diagnos is: ICD-10- CM Z51.81 Encount er for therape utic drug level monitor PABLO Haddad 07/31 [facility] Outpatient Encounter [id number] [id number] 08/01 [facility] MT[facility] BY PHARM EST 15 MIN [id number] [id number] Diagnos is: ICD-10- CM Z51.81 Encount er for therape utic drug level monitor PABLO Haddad 08/04 [facility] MT[facility] BY PHARM EST 15 MIN [id number] [id number] 003 Diagnos is: ICD-10- CM Z51.81 Encount er for therape utic drug level monitor monique CARMICHAELHarlan NNHarlan P 08/08 [facility] Outpatient Encounter [id number] [id number] CINDISHWETA 08/12 [facility] Outpatient Encounter [id number] [id number] 08/13 [facility] PH1 ASSMT&MGMT NQHP 11-20 [id number] [id number] Diagnos is: ICD-10- CM F31.9 Bipolar disorde r, unspeci fied ALSTON,STA CY L 08/13 [facility] MT[facility] BY PHARM ADDL 15 MIN [id number] [id number] Diagnos is: ICD-10- CM E11.9 Type 2 diabete s mellitu s without complic ations JESSICA GALEANA 08/14 [facility] PT EDUCATION NOC INDIVID [id number] [id number] Diagnos is: ICD-10- CM J44.9 Chronic obstruc tive pulmona ry disease , unspeci fied RAUL DAILY 08/21 [facility] [facility] DIG ASSMT&MGMT 5-10 [id number] [id number] Diagnos is: ICD-10- CM E11.9 Type 2 diabete s mellitu s without complic ations SHOSHANA BRENNER 08/21 [facility] Outpatient Encounter [id number] SHREYA PLUNKETT S 08/22 [facility] EST MOD 30 MIN [id number] Diagnos is: ICD-10- CM F31.9 Bipolar disorde r, unspeci fied STARLA ENRIQUEZ EMILY M JR 08/26 [facility] En[facility] [id number] ANTONIO MATOS RRY E 08/27 [facility] Outpatient Encounter [id number] 6 09/02 [facility]HV ASSMT/REAS SESSMENT [id number] Diagnos is: ICD-10- CM F31.9 Bipolar disorde r, unspeci fied ALSTON,STA CY L 09/04 [facility] MTMS BY PHARM EST 15 MIN [id number] Diagnos is: ICD-10- CM E11.9 Type 2 diabete s mellitu s without complic ations JESSICA GALEANA 09/11 [facility] Outpatient Encounter [id number] [id number] 09/[facility] En[facility] [id number] 09/25 [facility] Outpatient Encounter [id number] [id number] 09/25 [facility]P EST MOD 30 MIN [id number] Diagnos is: ICD-10- CM F31.9 Bipolar disorde r, unspeci STARLA Villanueva EMILY Ann Marie FIGUEREDO 10/02 [facility] Outpatient Encounter [id number] 10/08 [facility] Outpatient Encounter [id number] [id number] JESSICA GALEANA 10/09 [facility] Outpatient Encounter [id number] [id number] 10/13 [facility] Outpatient Encounter [id number] RICARDO REYEZ 10/14 [facility] MTMS BY PHARM EST 15 MIN [id number] [id number] Diagnos is: ICD-10- CM Z51.81 Encount er for therape utic drug level monitor Harlan Perry 10/17 [facility] Outpatient Encounter [id number] 10/30 [facility] Outpatient Encounter [id number] [id number] 11/07 [facility] Outpatient Encounter [id number] JESSICA GALEANA 11/07 [facility] MTMS BY PHARM EST 15 MIN [id number] Diagnos is: ICD-10- CM Z51.81 Encount er for therape utic drug level monitor PABLO Haddad 11/24 [facility] MTMS BY PHARM EST 15 MIN [id number] [id number] Diagnos is: ICD-10- CM Z51.81 Encount er for therape utic drug level monitor PABLO Haddad 12/09 [facility] Outpatient Encounter [id number] [id number] 12/10 [facility] MTMS BY PHARM EST 15 MIN [id number] [id number] Diagnos is: ICD-10- CM Z51.81 Encount er for therape utic drug level monitor monique RYAN HENRIQUEZ 12/24 [facility] Outpatient Encounter [id number] RICARDO REYEZ 12/26 [facility] OFFICE O/P EST HI 40 MIN [id number] [id number] Diagnos is: ICD-10- CM M25.562 Pain in left knee ANTONIO MATOS RRY E 01/02 [facility] ASSMT/REAS SESSMENT [id number] [id number] Diagnos is: ICD-10- CM F31.9 Bipolar disorde r, unspeci fied SHANNA ALSTON 01/05 [facility] Outpatient Encounter [id number] [id number] 01/19 [facility] MTMS BY PHARM EST 15 MIN [id number] [id number] Diagnos is: ICD-10- CM Z51.81 Encount er for therape utic drug level monitor RYAN Duke 01/20 [facility] Outpatient Encounter [id number] [id number] 01/26 [facility] Outpatient Encounter [id number] [id number] Sharonda NAM 01/28 [facility] OFFICE O/P NEW MOD 45 MIN [id number] [id number] Diagnos is: ICD-10- CM N18.4 Chronic kidney disease , stage 4 (severe ) GARRY JARVIS 02/05 [facility] Outpatient Encounter [id number] [id number] 02/10 [facility] Outpatient Encounter [id number] [id number] 02/17 [facility] PH1 ASSMT&MGMT NQHP 21-30 [id number] [id number] Diagnos is: ICD-10- CM D64.9 Anemia, unspeci fied DANIELE VIVEROS 02/26 [facility] PH1 ASSMT&MGMT NQHP 11-20 [id number] [id number] Diagnos is: ICD-10- CM D64.9 Anemia, unspeci farrukhed DANIELE VIVEROS 02/26 [facility] Outpatient Encounter [id number] [id number] 02/27 [facility] Social History Combined list of available smoking, tobacco, and other social history from [facility] of Defense and [facility] facilities. Social History Type Response Date Comment Sour e Tobacco smoking status NHIS VA-TOBACCO NEVER USED CIGARETTES 01/02/2025 [facility] History of tobacco use VA-TOBACCO NEVER USED OTHER TYPE 01/02/2025 [facility] History of tobacco use IN-TOBACCO FORMER USER 11/19/2023 [facility] History of tobacco use VA-TOBACCO NEVER USED 10/06/2022 [facility] History of tobacco use IN-TOBACCO NEVER USED 10/26/2021 [facility] History of tobacco use VA-TOBACCO USE DECLINED TO ANSWER 10/07/2021 [facility] History of tobacco use IN-TOBACCO NEVER USED 05/27/2020 [facility] History of tobacco use INPT LIFETIME NON-TOBACCO USER 04/29/2020 [facility] History of tobacco use IN-TOBACCO NEVER USED 09/30/2019 [facility] History of tobacco use IN-TOBACCO NEVER USED 06/28/2018 [facility] History of tobacco use LIFETIME NON-USER OF TOBACCO 12/20/2016 [facility] History of tobacco use LIFETIME NON-USER OF TOBACCO 08/03/2016 [facility] History of tobacco use LIFETIME NON-USER OF TOBACCO 10/26/2015 [facility] History of tobacco use LIFETIME NON-USER OF TOBACCO 07/03/2014 [facility] History of tobacco use LIFETIME NON-USER OF TOBACCO 10/01/2013 [facility] History of tobacco use LIFETIME NON-USER OF TOBACCO 12/18/2012 [facility] History of tobacco use LIFETIME NON-USER OF TOBACCO 07/29/2009 [facility] History of tobacco use LIFETIME NON-USER OF TOBACCO 12/14/2006 [facility] History of tobacco use LIFETIME NON-TOBACCO USER 11/01/2005 [facility] History of tobacco use LIFETIME NON-TOBACCO USER 11/17/2004 [facility] History of tobacco use LIFETIME NON-TOBACCO USER 08/01/2004 [facility] History of tobacco use LIFETIME NON-TOBACCO USER 10/14/2003 [facility] Plan of Care List of future care activities from [facility] facilities. Additional future care activities may be listed in the Assessment and Plan section. Date/Time Care Activity Care Activity Detail Facili ty 03/02/2025 AMBULATORY - SURGERY AMBULATORY - SURGERY [facility] Advance Directives List of completed, amended, or rescinded Advance Directives on record at [facility] facilities. An actual copy of the Directive is not included. Date Advance Directive Provider Source 05/16/2023 ADVANCE DIRECTIVE DISCUSSION INGA LUNA TIANNA [facility] 12/14/2021 ADVANCE DIRECTIVE DISCUSSION INGA LUNA TIANNA [facility] 05/05/2021 GOALS and PREFERENCE S TO INFORM LIFE-SUSTAINING TREATMENT PLAN RAIN TOBIAS [facility]
--- OUTSIDE RECORDS SUMMARY | 2025-03-01 17:59 | XMS_ITS | Encounter Summary ---
Author Name [facility] [place] [facility] [place] Address [address] [place] [address] Care Team Providers Care Sales Engagement Executive Name Role Phone ANDREA ALDRICH Primary Care [...] PART B Aug 06, 2007 PART B [id number] [phone] MIGUEL,DA VID PATIENT MEDICARE (WNR) MEDICARE (M) PART B Aug 06, 2007 PART B [id number] MIGUEL,DA VID PATIENT MEDICARE (WNR) MEDICARE (M) PART B Aug 06, 2007 PART B [id number] [id number] MIGUEL,DA VID PATIENT MEDICARE (WNR) MEDICARE (M) PART B Aug 06, 2007 PART B [id number] MIGUEL,DA VID PATIENT MEDICARE (WNR) MEDICARE (M) PART B Aug 06, 2007 PART B [id number] MIGUEL,DA VID PATIENT MEDICARE (WNR) MEDICARE (M) PART B Aug 06, 2007 PART B [id number] MIGUEL,DA VID PATIENT MEDICARE (WNR) MEDICARE (M) PART A Jul 06, 2001 PART A [id number] MIGUEL,DA VID PATIENT MEDICARE (WNR) MEDICARE (M) PART A Jul 06, 2001 PART A [id number] MIGUEL,DA VID PATIENT MEDICARE (WNR) MEDICARE (M) PART A Jul 06, 2001 PART A [id number] [phone] [id number] MIGUEL,DA VID PATIENT MEDICARE (WNR) MEDICARE (M) PART A Jul 06, 2001 PART A [id number] MIGUEL,DA VID PATIENT MEDICARE (WNR) MEDICARE (M) PART A Jul 06, 2001 PART A [id number] MIGUEL,DA VID PATIENT MEDICARE (WNR) MEDICARE (M) PART A Jul 06, 2001 PART A [id number] MIGUEL,DA VID PATIENT Selected Encounter This section includes the information on record at [place] for the Encounter. Date/Time Encounter Type Encounter Description Reason Provider Source January 02, 2025 11:00 AM OFFICE O/P EST HI 40 MIN GERIPACT ICD-10-CM M25.562 Pain in left knee SHAWNALEO Melvin Ngozi Encounter Template Text not used by [place] Assessments - Encounter Diagnoses This section includes the primary and secondary diagnoses documented for the Encounter. Date/Time Primary/Secondary Diagnosis Diagnosis Name Provider Source January 02, 2025 12:24 PM PRIMARY Pain in left knee LEO MATOS [facility] January 02, 2025 12:24 PM SECONDARY Anemia, unspecified LEO MATOS [facility] January 02, 2025 12:24 PM SECONDARY Chronic kidney disease, stage 3 unspecified BRECKLE,LEO [facility] January 02, 2025 12:24 PM SECONDARY Chronic obstructive pulmonary disease, [facility] January 02, 2025 12:24 PM SECONDARY Essential (primary) hypertension [facility] January 02, 2025 12:24 PM SECONDARY Gastro-esophageal reflux disease without esophagitis [facility] January 02, 2025 12:24 PM SECONDARY Gout, unspecified [facility] January 02, 2025 12:24 PM SECONDARY Hyp hrt & chr kdny dis w/o hrt fail, w stg 1-4/unsp chr kdny [facility] January 02, 2025 12:24 PM SECONDARY Hyperlipidemia, unspecified [facility] January 02, 2025 12:24 PM SECONDARY MCFP (current) use of insulin [facility] January 02, 2025 12:24 PM SECONDARY life guard (current) use of oral hypoglycemic drugs [facility] January 02, 2025 12:24 PM SECONDARY Obesity, unspecified [facility] January 02, 2025 12:24 PM SECONDARY Obstructive sleep apnea (adult) (pediatric) [facility] January 02, 2025 12:24 PM SECONDARY 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 [facility] January 02, 2025 12:24 PM SECONDARY Type 2 diabetes mellitus with diabetic neuropathy, unsp [facility] January 02, 2025 12:24 PM SECONDARY Type 2 diabetes mellitus without complications LEO MATOS [facility] January 02, 2025 12:24 PM SECONDARY Unspecified abnormalities of gait and mobility [facility] January 02, 2025 12:24 PM SECONDARY Unspecified atrial fibrillation LEO MATOS [facility] January 02, 2025 12:24 PM SECONDARY Unspecified hearing loss, bilateral LEO MATOS [facility] January 02, 2025 12:24 PM SECONDARY Vitamin D deficiency, unspecified LEO MATOS [facility] Plan of Treatment: Future Appointments (+ 6 months) and Future Tests (+/- 45 days) The Plan of Treatment section includes future care activities for the patient from [facility] [place] [facility] This section includes future appointments and future orders which are active, pending or scheduled. Future Appointments This section includes appointments that were scheduled to occur 6 months from the date of the Encounter, up to a maximum of 20 appointments. The [facility] comes [facility] Appointment Date/Time Appointment Type Appointme nt Facility Name Jan 05, 2025 03:30 PM AMBULATORY - MEDICINE [facility] Jan 15, 2025 02:30 PM AMBULATORY - REHAB MEDICIN E [facility] Jan 20, 2025 10:20 AM AMBULATORY - MEDICINE [facility] Feb 05, 2025 02:20 PM AMBULATORY - MEDICINE [facility] Feb 26, 2025 10:20 AM AMBULATORY - MEDICINE [facility] Mar 02, 2025 10:30 AM AMBULATORY - SURGERY [facility] Mar 09, 2025 11:20 AM AMBULATORY - NONE [facility] May 07, 2025 12:20 PM AMBULATORY - MEDICINE [facility] Active, Pending, and Scheduled Orders This section includes a listing of several types of active, pending, and scheduled orders, including clinic medications orders, diagnostic test orders, procedure orders and consult orders; where the start date of the order is 45 days before the date of the Encounter or 45 days after the date of theEncounter. The data comes from [facility]. Test Date/Time Test Type Test Details Facility Name January 02, 2025 12:26 PM Consult Order ENDO THYRO ID DISEASE OUTPATIENT ZA Cons Design Assistant's Choice [facility] Jan 06, 2025 10:35 AM Consult Order [facility] PT Cons Design Assistant's Choice [facility] Lab Results: +/- 30 days of the encounter This section includes the Chemistry and Hematology Lab Results on record with [place] for the patient. Radiology Reports and Pathology Reports are provided separately, in subsequent sections. Lab Results This section contains the Chemistry/Hematology Results that were resulted 30 days before or 30 daysafter the date of the Encounter. Date/Time Source Result Type Result - Unit Interpretation Reference Range Specimen Type Comment Jan 20, 2025 01:50 PM [facility] WARFARIN-INR PLASMA Specimen Type: PLASMA No comment entered. Ordering Provider: RYAN HENRIQUEZ Report Released Date/Time: Jan 16, 2025 03:59 PM Reporting Lab: [facility] [address] [facility] [address] Performing Lab: [facility] [address] PROTIME 26.7 s H 9.4-12.5 INR VALUE 2.4 {INR} January 02, 2025 12:36 PM [facility] URIC ACID PLASMA Specimen Type: PLASM A Comment: No hemolysis noted. Ordering Provider: LEO MATOS Report Released Date/Time: January 02, 2025 11:44 AM Reporting Lab: [facility] [address] Performing Lab: [facility] [address] [facility] [address] URIC ACID 10.8 mg/dL H 3.5-7.2 January 02, 2025 12:36 PM [facility] FERRITIN SERUM Specimen Type: SERUM No comment entered. Ordering Provider: LEO MATOS Report Released Date/Time: January 02, 2025 11:44 AM Reporting Lab: [place] [id number] [facility] [address] Performing Lab: [address] [address] FERRITIN 23.82 ng/mL 22-275 January 02, 2025 12:[address] [facility] IRON/TIBC PROFILE SERUM Specimen Type: SERUM Comment: FE Sat Unable to be calculated Ordering Provider: LEO MATOS Report Released Date/Time: January 02, 2025 11:44 AM Reporting Lab: [facility] [address] [facility] [address] Performing Lab: [facility] [address] [facility] [address] TRANSFERRIN 378 mg/dL H 163-344 IRON SATURATION 7 L 20-50 IRON 35 ug/dL L 65-175 TIBC 473 ug/dL H 250-450 January 02, 2025 12:36 PM [facility] HGA1C BLOOD Specimen Type: BLOOD No comment entered. Ordering Provider: LEO MATOS Report Released Date/Time: January 02, 2025 11:44 AM Reporting Lab: [facility] [address] [place] [address] Performing Lab: [facility] [address] [place] [phone] HGA1C 7.7 H 4.0-6.0 January 02, 2025 12:36 PM [facility] LIPID PANEL (STL) PLASMA Specimen Type: PLASM A Comment: No hemolysis noted. Ordering Provider: LEO MATOS Report Released Date/Time: January 02, 2025 11:44 AM Reporting Lab: [facility] [facility] [address] Performing Lab: [facility] [address] [place] [phone] CHOLESTEROL 164 mg/dL 0-200 TRIGLYCERIDE 210 mg/dL H 0-150 CALCULATED LDL 88 mg/dL See Interp HDL(New) 34 mg/dL L > 40 January 02, 2025 12:36 PM [facility] CRP PLASMA Specimen Type: PLASM A Comment: No hemolysis noted. Ordering Provider: LEO MATOS Report Released Date/Time: January 02, 2025 11:53 AM Reporting Lab: [facility] [address] [place] [address] Performing Lab: [facility] [address] [facility] [address] CRP 0.9 mg/dL H 0.0-0.5 January 02, 2025 12:36 PM [facility] ESR ISED(STL) BLOOD Specimen Type: BLOOD No comment entered. Ordering Provider: LEO MATOS Report Released Date/Time: January 02, 2025 11:53 AM Reporting Lab: [facility] [address] [place] [phone] Performing Lab: [facility] [address] [facility] [address] ESR ISED(STL) 6 mm/h 0-19 January 02, 2025 12:36 PM [facility] COMPREHENSIVE METABOLIC PANEL PLASMA Specimen Type: PLASMA Comment: No hemolysis noted. Ordering Provider: LEO MATOS Report Released Date/Time: January 02, 2025 11:44 AM Reporting Lab: [facility] [facility] [address] Performing Lab: [facility] [address] [facility] [address] CREATININE 2.34 mg/dL H 0.70-1.30 UREA NITROGEN 39.6 mg/dL H 9.0-25.0 GLUCOSE 178 mg/dL H 72-99 SODIUM 137 meq/L 136-145 POTASSIUM 4.3 meq/L 3.5-5.0 CHLORIDE 104 meq/L 98-107 CARBON DIOXIDE 23 meq/L 22-31 CALCIUM 9.0 mg/dL 8.4-10.4 PROTEIN 8.1 g/dL 6.0-8.6 ALBUMIN 4.1 g/dL 3.4-5.0 TOTAL BILIRUBIN 0.4 mg/dL 0.2-1.2 ALKALINE PHOSPHATASE 115 U/L 40-150 AST/SGOT 15 U/L 5-34 ALT/SGPT 14 U/L 8-40 EGFR (CKD-EPI 2020) 29.37 >60 January 02, 2025 12:36 PM [facility] CBC BLOOD Specimen Type: BLOOD No comment entered. Ordering Provider: LEO MATOS Report Released Date/Time: January 02, 2025 11:44 AM Reporting Lab: [facility] [facility] [address] Performing Lab: [facility] [address] [facility] [address] WBC 8.5 10*3/uL 3.6-11.2 RBC 4.80 10*6/uL 4.10-5.70 HGB 12.2 g/dL L 13.1-16.8 HCT 38.5 38.2-48.4 MCV 80.2 fL 80.0-100.0 MCH 25.4 pg L 27.0-34.0 MCHC 31.7 g/dL L 33.0-36.0 PLT 218 10*3/uL 150-400 MPV 10.3 fL 7.5-11.2 RDW 16.3 H 11.8-15.1 LYMPHOCYTES, AUTO % 20 MONOCYTES, AUTO % 9 NEUTROPHILS, AUTO % 69 EOSINOPHILS, AUTO % 2 BASOPHILS, AUTO % 1 LYMPHOCYTES, ABSOLUTE 1.67 10*3/uL 0.77- 4.50 MONOCYTES, ABSOLUTE 0.75 10*3/uL 0.19-0. 80 NEUTROPHILS, ABSOLUTE 5.88 10*3/uL 2.10- 8.00 EOSINOPHILS, ABSOLUTE 0.14 10*3/uL 0.00- 0.60 BASOPHILS, ABSOLUTE 0.04 10*3/uL 0.00-0. 20 December 25, 2024 01:09 PM [facility] WARFARIN-INR PLASMA Specimen Type: PLASM A No comment entered. Ordering Provider: MARCO VAGN Report Released Date/Time: December 10, 2024 03:13 PM Reporting Lab: [facility] [address] Performing Lab: [facility] [facility] [address] PROTIME 23.9 s H 9.4-12.5 INR VALUE 2.1 {INR} December 10, 2024 01:20 PM [facility] HGB,HCT,PLT BLOOD Specimen Type: BLOOD No comment entered. Ordering Provider: MARCO VANG Report Released Date/Time: Nov 25, 2024 02:56 PM Reporting Lab: [facility] [address] Performing Lab: [facility] [address] HGB 11.7 g/dL L 13.1-16.8 HCT 38.4 38.2-48.4 PLT 212 10*3/uL 150-400 December 10, 2024 01:20 PM [facility] WARFARIN-INR PLASMA Specimen Type: PLASM A No comment entered. Ordering Provider: MARCO VANG Report Released Date/Time: Nov 25, 2024 02:56 PM Reporting Lab: [facility] [address] Performing Lab: [facility] [address] PROTIME 35.8 s H 9.4-12.5 INR VALUE 3.2 {INR} Vital Signs: All taken on the encounter date This section contains inpatient and outpatient Vital Signs collected on the date of the Encounter. Date/Time Temperature Pulse Blood Pressure Respiratory Rate SP02 Pain Height Weight Body Mass Index Source January 02, 2025 11:22 AM 107/65 [facility] January 02, 2025 11:22 AM 97.9 96 111/70 18 98 6 72 300.7 41 [facility] N Social History: Smoking Status (Most current) and Tobacco Use (All prior to encounter date) This section includes the most current, and the historical, smoking and tobacco- related health factors from the [place] facility where the Encounter took place. Current Smoking Status This section includes the most current smoking, or tobacco-related health factor, from the [place] facility where the Encounter took place. Date/Time Current Smoking Status Comment Nelly ity January 02, 2025 11:00 AM VA-TOBACCO NEVER U SED CIGARETTES [facility] Tobacco Use History This section includes a history of the smoking, or tobacco-related health factors, that were collected on or before the date of the Encounter. The data comes from the [place] facility where the Encounter took place. Date/Time Smoking Status/Tobacco Use Comment F acility January 02, 2025 11:00 AM VA-TOBACCO NEVER U SED OTHER TYPE [facility] Nov 19, 2023 01:00 PM VA-TOBACCO FORMER USER [facility] Nov 19, 2023 01:00 PM VA-TOBACCO QUIT < 1 YEAR [facility] Aug 03, 2016 02:42 PM LIFETIME NON-USER OF TOBACCO [facility] December 18, 2012 12:47 PM LIFETIME NON-USER OF TOBACCO [facility] Jul 29, 2009 03:09 AM LIFETIME NON-USER OF TOBACCO [facility] December 14, 2006 08:02 AM LIFETIME NON-USER OF TOBACCO [facility] Nov 01, 2005 09:20 AM LIFETIME NON-TOBACCO USER [facility] Advance Directives: All historical and current Section Date Range: From patient's date of to the date document was created. This section includes ALL of a patient's completed or amended [place] Advance and Rescinded Directives. The entries below indicate that a directive exists for the patient, but an actual copy is not included with this document. The data comes from all [place] facilities. Date Advance Directives Provider Source May 16, 2023 ADVANCE DIRECTIVE DISCUSSION INGA LUNA [facility] December 14, 2021 ADVANCE DIRECTIVE DISCUSSION INGA LUNA [facility] May 05, 2021 GOALS & PREFERENCES TO INFORM LIFE-SUSTAINING TREATMENT PLAN RAIN TOBIAS [facility] Radiology Reports: +/- 30 days of [...] the Encounter. The data comes from all [place] treatment facilities. Date/Time Radiology Report Provider Source January 02, 2025 12:43 PM KNEE,LEFT, 3 VIEWS : DARON MILTON [id number] -[id number] M Exm Date: JANUARY 02, 2025@12:43 Req Phys: LEO MATOS Loc: MARY-PACT ITALIA TM 4 PCP (Req'g L Img Loc: [facility] RADIOLOGY Service: Unknown [facility], [address] [place] [address] (Case [id number] COMPLETE) KNEE,LEFT, 3 VIEWS (RAD Detailed) CPT:32243 Proc Modifiers : LEFT, LATERAL, Stand AP, [place] Reason for Study: pain Clinical History: pain, crepitus, h/o partial replacment Report Status: Verified Date Reported: JANUARY 03, 2025 Date Verified: JANUARY 03, 2025 Zipper Joiner E-Sig:/ES/YOKASTA JACOB Report: EXAMINATION: KNEE,LEFT, 3 VIEWS DATE: 01/02/2025 12:43 PM HISTORY: pain. COMPARISON: None. VIEWS:3 FINDINGS:Left knee hemiarthroplasty medial compartment. Prosthetic components in the expected position. 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 No fracture or focal destructive process. Small knee effusion. Impression: 1. Left knee hemiarthroplasty medial component. No delayed complication. 2. 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 3. Small knee effusion. Primary Interpreting Staff: YOKASTA JACOB, RADIOLOGIST (Zipper Joiner) /[facility] Encounter Notes: All associated encounter notes This section contains the clinical notes associated to the Encounter. Date/Time Encounter Note(s) Provider Source Jan 06, 2025 10:01 AM LETTERS: LOCAL TITLE: TEST RESULT GERIATRIC LETTER ST STANDARD TITLE: LETTERS DATE OF NOTE: JAN 06, 2025@10:01 ENTRY DATE: JAN 06, 2025@10:01:08 AUTHOR: LEO MATOS EXP COSIGNER: URGENCY: STATUS: COMPLETED [facility] [address] [place] [address] JAN 06, 2025 DARON MILTON [address] [place], [place] [address] Dear Mr. Daron Milton, I would like [...] optimal is between 100 and 129). TRIGLYCERIDE 210 H mg/dL 01/02/2025 12:36 CHOLESTEROL 164 mg/dL 01/02/2025 12:36 HDL(New) 34 L mg/dL 01/02/2025 12:36 CALCULATED LDL 88 mg/dL 01/02/2025 12:36 These readings are within normal limits. Uric Acid - A uric acid blood test measures how much uric acid is in your blood. It can help diagnose gout, kidney stones, and other conditions related to high or low uric acid levels. URIC ACID 01/02/2025@1236 10.8 H These results are abnormal, but I believe related to your decreased kidney fuction. I don't think you're having an acute gout flare up. I will ask or kidney specialist for their input. HEMOGLOBIN A1C - Gives us information about your diabetes (sugar or glucose) control over the past 3 months. Your target is to keep your A1C below 7.5 %. HGA1C 7.7 H % 01/02/2025 12:36 These results are abnormal. Please contact clinical pharmacist to help improve your blood sugar control @ [phone], extension [phone]. CBC - A complete blood count (CBC) gives important information about the kinds and numbers of cells in the blood, especially red blood cells, white blood cells, and platelets. HGB 12.2 L g/dL 01/02/2025 12:36 HEMATOCRIT 38.5 % (01/02/25 12:36) PLT 218 10*3/uL 01/02/2025 12:36 WHITE BLOOD COUNT 8.5 10*3/uL (01/02/25 12:36) These results are improving, please continue taking iron daily. IRON STUDIES - Test to show iron deficiency. IRON 35 L ug/dL 01/02/2025 12:36 TIBC 473 H ug/dL 01/02/2025 12:36 IRON SATURATION 7 L %SAT 01/02/2025 12:36 FERRITIN 23.82 ng/mL 01/02/2025 12:36 These results are abnormal, please continue taking iron daily. CHEM 7 - This is important information about the current status of your kidneys, liver, and electrolyte and acid/base balance as well as of your blood sugar and blood proteins. SODIUM 137 mEq/L 01/02/2025 12:36 POTASSIUM 4.3 mEq/L 01/02/2025 12:36 CHLORIDE 104 mEq/L 01/02/2025 12:36 UREA NITROGEN 39.6 H mg/dL 01/02/2025 12:36 CREATININE 2.34 H mg/dL 01/02/2025 12:36 CALCIUM 9.0 mg/dL 01/02/2025 12:36 CARBON DIOXIDE 23 mEq/L 01/02/2025 12:36 GLUCOSE 178 H mg/dL 01/02/2025 12:36 EGFR (CKD-EPI 2020) 29.37 01/02/2025 12:36 These results are abnormal. Avoid NSAIDS, follow up w/ kidney specialist. LIVER FUNCTION PANEL - These are tests for liver function: PROTEIN 8.1 g/dL 01/02/2025 12:36 ALBUMIN 4.1 g/dL 01/02/2025 12:36 TOTAL BILIRUBIN 0.4 mg/dL 01/02/2025 12:36 ALKALINE PHOSPHATASE 115 U/L 01/02/2025 12:36 AST/SGOT 15 U/L 01/02/2025 12:36 ALT/SGPT 14 U/L 01/02/2025 12:36 These readings are within normal limits. ESR 6 normal CRP 0.9, slightly elevated RADIOLOGY: Left knee xray: Impression: 1. Left knee hemiarthroplasty medial component. No delayed complication. 2. 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 3. Small knee effusion. Continue tylenol, ice/heat, topical diclofenac. We'll try physical therapy. If that doesn't help, we'll send you to our multimedia educational specialist. PLAN Please continue your treatment as we discussed during your visit & on the phone. If you have any questions please call your therapeutic case manager. I look forward to seeing you at your next clinic appointment. Thank you for choosing the [facility] for your healthcare. FUTURE APPOINTMENTS: 01/08/2025 14:00 MARY-RENAL MD 3 02/09/2025 10:40 ZA-ENDOCRINOLOGY CONSULT 02/26/2025 11:30 MARY-OPTOMETRY 5 07/07/2025 11:00 MARY-PACT ITALIA 4 PCP Sincerely, LEO MATOS [facility] NURSE PRACTITIONER, ITALIA-PACT DARON MILTON [facility] January 02, 2025 11:24 AM NURSING NOTE: LOCAL TITLE: V15 PACT FACE TO FACE NOTE ST STANDARD TITLE: NURSING NOTE DATE OF NOTE: JANUARY 02, 2025@11:24 ENTRY DATE: JANUARY 02, 2025@11:24:18 AUTHOR: DIVYA LARA COSIGNER: URGENCY: STATUS: COMPLETED Provider Visit:SHAWNA Carrero NP Patient Identifiers : Full Name Date of Reason for visit: Established Follow-Up Mode of Arrival: Assistive Device: cane Allergy Review: SEMAGLUTIDE AUG 14, 2024 (HISTORICAL) Symptoms: NAUSEA AND VOMITING DIARRHEA NIACIN FEB 01, 2006 (HISTORICAL) Symptoms: None listed Allergy list reviewed and remains current. Recent Vital Signs: Temperature: 97.9 F [36.6 C] (01/02/2025 11:22) Pulse: 96 (01/02/2025 11:22) Respiration: 18 (01/02/2025 11:22) B/P: 107/65 (01/02/2025 11:22) Pain: 6 (01/02/2025 11:22) Wt: 300.7 lb [136.40 kg] (01/02/2025 11:22) Ht: 72 in [182.9 cm] (01/02/2025 11:22) BMI: 40.9 POX: 98% (01/02/2025 11:22) Would you like to discuss any personal problem, family problem, alcohol use, drug use, or a mental or emotional illness? No Contact provided Primary Care phone number and encouraged to call if any questions or concerns. Review that after hours nurse line [phone] and emergency room are available 26/02 for patient use. Contact verbalized fair understanding. Tobacco Use Screening - AT,DE,L,M,N,P,PH,PS,RT,S,U: The patient has never smoked cigarettes. The patient has never used other types of tobacco. Alcohol Use Screen (AUDIT-C) - V: Alcohol Screen: SCREEN FOR ALCOHOL (AUDIT-C) An alcohol screening test (AUDIT-C) was negative (score=2). 1. How often did you have a drink containing alcohol in the past year? Consider a drink to be a 12 ounce can or bottle of regular beer, 8 ounces of malt liquor, a 5 ounce glass of table wine, or a 1.5 ounce shot of liquor (like scotch, gin, or vodka). Two to four times a month 2. How many drinks containing alcohol did you have on a typical day when you were drinking in the past year? One or two drinks 3. How often did you have six or more drinks on one occasion in the past year? Never COVID-19 Immunization-L,N,P,PH,U: Refused Pfizer Monovalent COVID-19 vaccine Immunization: COVID-19 (PFIZER), MRNA, LNP-S, PF, MARIELOS-SUCROSE, 30 MCG/0.3 ML (AGES 12+ YEARS) Refusal Reason: PATIENT DECISION Patient refuses all immunization(s) in the COVID-19 group Date Documented: 01/02/25 11:27 Homelessness/Food Insecurity Screen - DI,L,N,P,PH,PS,S,U: In the past 2 months, have you been living in stable housing that you own, rent, or stay in as part of a household? Yes - Living in stable housing. Are you worried or concerned that in the next 2 months you may NOT have stable housing that you own, rent, or stay in as part of a household? No - Not worried about housing near future [facility] reports the following: Within the past 12 months, you worried whether your food would run out before you got money to buy more. Never true Within the past 12 months, the food you bought just didn't last and you didn't have money to get more. Never true [facility] MAP: PERSONAL HEALTH PLAN INVENTORY & MAP [facility] Response: BEING ALIVE /es/ MARYANN Marie Licensed Practical Nurse Signed: 01/02/2025 11:29 DIVYA LARA [facility] January 02, 2025 11:21 AM GERIATRIC MEDICINE NOTE: LOCAL TITLE: GERIATRIC PACT CLINIC [facility] STANDARD TITLE: GERIATRIC MEDICINE NOTE DATE OF NOTE: JANUARY 02, 2025@11:21 ENTRY DATE: JANUARY 02, 2025@11:21:24 AUTHOR: LEO MATOSIGNER: URGENCY: STATUS: COMPLETED Type of Evaluation: Geriatric Follow-up : Jun CC: left knee pain, gout MIGUELDARON is a 69 yo well-groomed, congnitively intact male w/ functional dependencies presenting to the [facility] for his medical evaluation & ongoing assistance with [facility] benefits/pharmacy. He is accompanied today by his (primary desk director), Reagan. Also following w/ [facility] psychiat[facility], pharmD and eye clinic. PAST MEDICAL HISTORY 1.Type 2 DM w/ neuropathy, on insulin, gabapentin, followed by pharmD 2.HTN/CKD, BPs well controlled, needs to establish w/ renal 3.Afib, on warfarin, followed by warfarin clinic 4.Hyperlipidemia, on statin 5.GERD, controlled on ppi 6.Sleep apnea, uses cpap, fu sleep study pending 7.gait d/o, using cane, walker, scooter, denies recent falls 8.Vitamin D deficiency, on supplement 9.Allergic rhinitis, controlled on meds 10.Thyroid nodules, needs follow up 11.Anemia 12.COPD, on inhalers, nebulizer 13.Biploar disorder, mood disorder, followed by [facility] 14.Obesity s/p gastric sleeve '16 GERIATRIC REVIEW OF SYSTEMS: Change in weight: losing w/ diet Appetite: good Dysphagia: yes, chronic Dentition: sees dental Sleep: sleeps with cpap Vision: rx glasses Hearing: needs tested Wounds/Ulcers: denies Peripheral neuropathy: bilat feet Constipation: rare Incontinence: rare bowels Nocturia: denies Falls: denies Assistive devices: cane, walker, WC, scooter Recent Hospitalizations: denies HPI/ROS: c/o left knee pain for 1 week, states he heard a pop, no recent injury, pain is constant, sharp, aggrevated w/ weightbearing Also reports he's had several episodes of gout over the past several years and is interested in medication therapy Cognitive Impairment Warning Signs: denies PAST SURGICAL HISTORY gastric sleeve '16 bilat knee replacement lumber fusion '07 FAMILY HISTORY: 3 children - 1 w/ breast cancer SOCIO-ECONOMIC HISTORY: 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 tob use never etoh never illicit drugs never served in [employer] Connected: Yes (70%) ADL/IADL: Frail/Elderly Screen: ADL Screen - Johnson Index of Cecil in Activities of Daily Living Bathing: (2 [...] Low (patient very dependent) IADL Screen - Philippe Instrumental Activities of Daily Living Scale Ability [...] function, independent 0 = Low function, dependent Adherence to medications: good Allergies/ADR: NIACIN, SEMAGLUTIDE Vitals: BP: 118/82 (05/22/2024 11:27) Pulse: 73 (05/22/2024 11:27) Temp: 98 F [36.7 C] (05/22/2024 11:27) RR: 20 (05/22/2024 11:27) Pain: 0 (05/22/2024 11:27) Weight: 328.4 lb [148.96 kg] (05/22/2024 11:27) Height: 73 in [185.4 cm] (05/22/2024 11:27) PHYSICAL EXAMINATION: General: wd/wn male, nad CHEST: CTAB without wheezes, rales, chest symmetrical, breath sounds in all lobes, normal respirations HEART: irreg irreg, distant ABDOMEN: obese, non-tender, BS+ 4 quads EXTREMITIES: no edema EXT: left knee without swelling, warmth or erythema, dec rom w/ sig crepitus, pain with all arom and prom, no instability Assessment and Plan for each problem: 1.Left knee pain -h/o partial replacment many years ago -xray today -check crp, sed rate -apap, topical 2.Type 2 DM w/ neuropathy -05/29: hga1c 8.7, recheck today -cont insulins, emapgliflozin, mounjaro, arb, gabapentin -cont routine eye exams -reconsult podiatry -re-establish w/ PharmD clinic 3.HTN/CKD/edema -dec losartan 12.5mg daily -restart coreg 6.25mg bid -cont furosemide -check bmp -05/29 renal US normal -reconsult renal clinic 4.Afib -restart coreg -cont warfarin -fu warfarin clinic 5.Hyperlipidemia -cont atorvasatin -low chol diet -recheck flp/cmp 6.GERD -cont omeprazole 7.Sleep apnea -sleep study rescheduled for 02/05/25 8.gait d/o -fall precautions -consult for new rollator 9.Vitamin D deficiency -cont supplement 10.Allergic rhinitis -cont zyrtec, flonase 11.Thyroid nodules -us thyroid -reconsult endo 12.Anemia -cont iron -check cbc, iron, ferritin 13.COPD -cont inhalers, nebulizers 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 RTC:6mo or sooner prn Time spent: I spent 60 minutes in records review, chart review, examination/assessment of patient, education, charting and forder operator. Active Outpatient Medications (including Supplies): Active Outpatient Medications Status 1) ACCU-CHEK GUIDE (GLUCOSE) TEST STRIP USE 1 STRIP FOR BLOOD ACTIVE TEST FOUR TIMES A DAY Indication: FOR BLOOD SUGAR MONITORING 2) ALBUTEROL 90MCG (CFC-F) 200D ORAL INHL INHALE 2 PUFFS ORAL ACTIVE INHALATION FOUR TIMES A DAY NEEDED SHAKE WELL. RINSE MOUTHPIECE FREQUENTLY TO PREVENT CLOGGING. Indication: FOR COPD 3) ALBUTEROL SO4 0.083% INHL 3ML INHALE 1 VIAL (2.5MG/3ML) BY ACTIVE NEBULIZATION EVERY 6 HOURS DIRECTED NEEDED Indication: FOR COPD 4) ATORVASTATIN CALCIUM 80MG TAB TAKE ONE TABLET BY MOUTH EVERY ACTIVE EVENING Indication: FOR HIGH CHOLESTEROL 5) BARRIER,NO STING FILM WIPE APPLY 1 PAD TO AFFECTED AREA(S) ACTIVE EVERY 2 WEEKS (EXTERNAL USE ONLY) Indication: FOR OSTOMY CARE 6) BUSPIRONE HCL 15MG TAB TAKE ONE TABLET BY MOUTH THREE TIMES ACTIVE A DAY . DO NOT TAKE WITH GRAPEFRUIT JUICE. Indication: FOR ANXIETY 7) CARVEDILOL 25MG TAB TAKE ONE TABLET BY MOUTH TWICE A DAY ACTIVE TAKE WITH FOOD. Indication: FOR HIGH BLOOD PRESSURE 8) CETIRIZINE HCL 10MG TAB TAKE ONE TABLET BY MOUTH ONCE A DAY ACTIVE Indication: FOR ALLERGIC RHINITIS 9) CHOLECALCIF 50MCG (D3-2,000UNIT) TAB TAKE ONE TABLET BY ACTIVE MOUTH ONCE A DAY Indication: FOR VITAMIN D SUPPLEMENTATION 10) EMPAGLIFLOZIN 25MG TAB TAKE ONE-HALF TABLET BY MOUTH ONCE A ACTIVE DAY Indication: FOR DIABETES 11) FERROUS SULFATE 325MG TAB TAKE ONE TABLET BY MOUTH ONCE A ACTIVE DAY Indication: FOR IRON DEFICIENCY ANEMIA 12) FLUTICASONE PROP 50MCG 120D NASAL INHL INSTILL 1 SPRAY IN ACTIVE NOSTRIL(S) ONCE A DAY NEEDED (MUST BE USED DIRECTED FOR MINIMUM OF 21 DAYS TO PROVIDE ADEQUATE BENEFITS) Indication: FOR RHINITIS 13) FUROSEMIDE 40MG TAB TAKE ONE TABLET BY MOUTH EVERY MORNING ACTIVE Indication: FOR FLUID RETENTION (EDEMA) 14) GABAPENTIN 300MG CAP TAKE ONE CAPSULE BY MOUTH TWICE A DAY ACTIVE Indication: FOR NERVE PAIN 15) GLUCOSE 4GM CHEW TAB CHEW AND SWALLOW FOUR TABLETS BY MOUTH ACTIVE NEEDED REPEAT DOSE IF HYPOGLYCEMIA CONTINUES 15 MINUTES AFTER THE FIRST DOSE. Indication: FOR LOW BLOOD SUGAR 16) GLUCOSE SENSOR FREESTYLE ETHAN 3 PLUS USE SENSOR EVERY 15 ACTIVE DAYS CHANGE SENSOR/SITE EVERY 15 DAYS. TO REPLACE SENSOR FOR ANY REASON OR FOR TECHNICAL HELP PLEASE CALL [employer] DESK: -SPECIFIC PHONE NUMBER: [phone]). Indication: FOR BLOOD GLUCOSE MONITORING 17) HYDROPHILIC (EQV EUCERIN) TOP CREAM APPLY SPARINGLY TO ACTIVE AFFECTED AREA(S) ONCE A DAY (EXTERNAL USE ONLY) Indication: FOR SKIN CARE 18) INSULIN SYRINGE 1ML 30G 12MM USE 1 SYRINGE UNDER THE SKIN ACTIVE THREE TIMES A DAY TO USE WITH INSULIN 19) INSULIN,ASPART,HUMAN 100 UNIT/ML INJ INJECT 30 UNITS UNDER ACTIVE THE SKIN TWO TIMES A DAY BEFORE MEALS ADMINISTER 10 MINUTES BEFORE FOOD DIRECTED. DISCARD ANY VIAL 28 DAYS AFTER OPENING. Indication: FOR DIABETES 20) INSULIN,GLARGINE,HUMAN 100 UNIT/ML INJ INJECT 40 UNITS UNDER ACTIVE THE SKIN ONCE A DAY ADMINISTER AT SAME TIME EACH DAY DIRECTED. DISCARD ANY VIAL 28 DAYS AFTER OPENING. Indication: FOR DIABETES 21) LACTOBACILLUS ACIDOPHILUS TAB TAKE 2 TABLETS BY MOUTH ONCE A ACTIVE DAY Indication: FOR NUTRITION/DIETARY SUPPLEMENTATION 22) LANCET,SOFTCLIX USE LANCET FOR BLOOD TEST FOUR TIMES A DAY ACTIVE DIRECTED Indication: FOR BLOOD SUGAR MONITORING 23) LATANOPROST 0.005% OPH SOLN INSTILL 1 DROP IN BOTH EYES ACTIVE EVERY EVENING KEEP REFRIGERATED UNTIL READY TO USE, THEN STORE AT ROOM TEMPERATURE FOR MAXIMUM OF 42 DAYS. Indication: FOR ELEVATED INTRAOCULAR PRESSURE 24) LOSARTAN 100MG TAB TAKE ONE-HALF TABLET BY MOUTH ONCE A DAY ACTIVE Indication: FOR HIGH BLOOD PRESSURE 25) MELATONIN 3MG CAP/TAB TAKE ONE CAP/TAB BY MOUTH AT BEDTIME ACTIVE Indication: FOR SLEEP 26) MIRTAZAPINE 45MG TAB TAKE ONE TABLET BY MOUTH AT BEDTIME ACTIVE (S) Indication: FOR DEPRESSION 27) OLODATEROL/TIOTROP 2.5MCG/ACTUAT 60D INH INHALE 1 PUFF ORAL ACTIVE INHALATION ONCE A DAY ADMINISTER AT SAME TIME EACH DAY Indication: FOR COPD 28) OMEPRAZOLE 40MG EC CAP TAKE ONE CAPSULE BY MOUTH TWO TIMES A ACTIVE DAY BEFORE MEALS TAKE 30 MINUTES PRIOR TO FOOD. Indication: FOR GASTROESOPHAGEAL REFLUX DISEASE 29) PAROXETINE HCL 20MG TAB TAKE ONE TABLET BY MOUTH ONCE A DAY ACTIVE . DO NOT ABRUPTLY DISCONTINUE MEDICATION. Indication: FOR DEPRESSION 30) QUETIAPINE FUMARATE 100MG TAB TAKE ONE-HALF TABLET BY MOUTH ACTIVE AT BEDTIME Indication: FOR BIPOLAR DISORDER 31) TIRZEPATIDE 5MG/0.5ML INJ,SOLN PACK,4 INJECT 5MG(0.5ML) ACTIVE UNDER THE SKIN EVERY WEEK (ADMINISTER DOSE AT ANY TIME OF DAY, WITH OR WITHOUT MEALS) Indication: FOR DIABETES 32) TRANSPARENT DRESSING 2 3/8IN X 2 3/4IN USE/APPLY DRESSING(S) ACTIVE TO AFFECTED AREA(S) TWO TIMES PER WEEK Indication: FOR WOUND CARE 33) WARFARIN NA ([place]) 2MG TAB TAKE ONE AND ONE-HALF ACTIVE TABLETS BY MOUTH SUNDAY, SUNDAY AND SUNDAY AND TAKE ONE TABLET ALL OTHER DAYS Indication: FOR ANTICOAGULATION 34) ZOLPIDEM TARTRATE 10MG TAB TAKE ONE TABLET BY MOUTH AT ACTIVE BEDTIME NEEDED (TAKE IMMEDIATELY BEFORE BEDTIME DUE TO RAPID ONSET OF ACTION) Indication: FOR INSOMNIA Eye Care At-Risk Screen - L,N,PH,U: Patient identified to be at risk for the following eye condition(s): DIABETIC RETINOPATHY: Diabetes Diagnosis Information: Encounter Diagnosis: 09/11/2024@14:00 E11.9 (ICD-10-CM) Type 2 Diabetes Mellitus without Complications rank: PRIMARY Prov. Narr. - Type 2 diabetes mellitus ([facility] [id number]) MACULAR DEGENERATION: Macular Degeneration Risk Factors Information: Reminder Term: VA-AMD RISK FACTORS Encounter Diagnosis: 11/19/2023@13:00 E66.01 (ICD-10-CM) Morbid (Severe) Obesity due to Excess Calories rank: SECONDARY Prov. Narr. - Obesity,Morbid GLAUCOMA: Glaucoma Risk Factors Information: Encounter Diagnosis: 12/25/2023@15:01:26 H40.1131 (ICD-10-CM) Primary open-angle glaucoma, bilateral, mild stage rank: PRIMARY Prov. Narr. - Primary open-angle glaucoma, bilateral, mild stage Action: Patient has a future eye care appointment scheduled within the next 90 days. Date of Appointment: 02/26/25 /lynn/ LEO BOLANDP- NURSE PRACTITIONER, [facility] Signed: 01/02/2025 12:26 LEO MATOS [facility]
--- OUTSIDE RECORDS SUMMARY | 2025-03-01 17:59 | XMS_ITS | Clinical Summary ---
Author Organization [facility] mel[facility] Address [address], [place] [address] Phone Care Team Providers Care Command Center Analyst Name Role Phone Unavailable Primary Care Provider [...]
--- OUTSIDE RECORDS SUMMARY | 2025-03-01 17:59 | XMS_ITS | Encounter Summary ---
Author Name [facility] [place] [facility] Address [address] [place] [address] Care Team Providers Care Machine Farmworker Name Role Phone ANDREA ALDRICH Primary Care [...] PART B Aug 06, 2007 PART B [id number] MIGUEL,DA VID PATIENT MEDICARE (WNR) MEDICARE () PART B Aug 06, 2007 PART B [id number] [phone] MIGUEL,DA VID PATIENT MEDICARE (WNR) MEDICARE () PART B Aug 06, 2007 PART B [id number] MIGUEL,DA VID PATIENT MEDICARE (WNR) MEDICARE () PART B Aug 06, 2007 PART B [id number] [phone] MIGUEL,DA VID PATIENT MEDICARE (WNR) MEDICARE () PART B Aug 06, 2007 PART B [id number] MIGUEL,DA VID PATIENT MEDICARE (WNR) MEDICARE (M) PART B Aug 06, 2007 PART B [id number] MIGUEL,DA VID PATIENT MEDICARE (WNR) MEDICARE (M) PART A Jul 06, 2001 PART A [id number] [phone] MIGUEL,DA VID PATIENT MEDICARE (WNR) MEDICARE (M) PART A Jul 06, 2001 PART A [id number] MIGUEL,DA VID PATIENT MEDICARE (WNR) MEDICARE (M) PART A Jul 06, 2001 PART A [id number] [phone] MIGUEL,DA VID PATIENT MEDICARE (WNR) MEDICARE (M) PART A Jul 06, 2001 PART A [id number] MIGUEL,DA VID PATIENT MEDICARE (WNR) MEDICARE (M) PART A Jul 06, 2001 PART A [id number] MIGUEL,DA VID PATIENT MEDICARE (WNR) MEDICARE (M) PART A Jul 06, 2001 PART A [id number] MIGUEL,DA VID PATIENT Selected Encounter This section includes the information on record at [place] for the Encounter. Date/Time Encounter Type Encounter Description Reason Pro vider Source IHE Encounter Template Text not used by [place] Advance Directives: All historical and current Section Date Range: From patient's date of to the date document was created. This section includes ALL of a patient's completed or amended [place] Advance and Rescinded Directives. The entries below indicate that a directive exists for the patient, but an actual copy is not included with this document. The data comes from all [place] facilities. Date Advance Directives Provider Source May 16, 2023 ADVANCE DIRECTIVE DISCUSSION [facility] December 14, 2021 ADVANCE DIRECTIVE DISCUSSION [facility] May 05, 2021 GOALS & PREFERENCES TO INFORM LIFE-SUSTAINING TREATMENT PLAN [facility]
--- OUTSIDE RECORDS SUMMARY | 2025-03-01 17:59 | XMS_ITS | Encounter Summary ---
Author Name [facility] [place] [facility] [place] Address [address] [place] [address] Care Team Providers Care Emergency Service Worker Name Role Phone ANDREA ALDRICH Primary Care [...] PART B Aug 06, 2007 PART B [id number] MIGUEL,DA VID PATIENT MEDICARE (WNR) MEDICARE (M) PART B Aug 06, 2007 PART B [id number] [phone] MIGUEL,DA VID PATIENT MEDICARE (WNR) MEDICARE (M) PART B Aug 06, 2007 PART B [id number] MIGUEL,DA VID PATIENT MEDICARE (WNR) MEDICARE (M) PART B Aug 06, 2007 PART B [id number] MIGUEL,DA VID PATIENT MEDICARE (WNR) MEDICARE (M) PART B Aug 06, 2007 PART B [id number] MIGUEL,DA VID PATIENT MEDICARE (WNR) MEDICARE (M) PART B Aug 06, 2007 PART B [id number] MIGUEL,DA VID PATIENT MEDICARE (WNR) MEDICARE (M) PART A Jul 06, 2001 PART A [id number] MIGUEL,DA VID PATIENT MEDICARE (WNR) MEDICARE (M) PART A Jul 06, 2001 PART A [id number] MIGUEL,DA VID PATIENT MEDICARE (WNR) MEDICARE (M) PART A Jul 06, 2001 PART A [id number] MIGUEL,DA VID PATIENT MEDICARE (WNR) MEDICARE (M) PART A Jul 06, 2001 PART A [id number] MIGUEL,DA VID PATIENT MEDICARE (WNR) MEDICARE (M) PART A Jul 06, 2001 PART A [id number] MIGUEL,DA VID PATIENT MEDICARE (WNR) MEDICARE (M) PART A Jul 06, 2001 PART A [id number] MIGUEL,DA VID PATIENT Selected Encounter This section includes the information on record at [place] for the Encounter. Date/Time Encounter Type Encounter Description Reason Provider Source Jun 04, 2024 08:14 AM Outpatient Encounter COMMUNITY CARE CONSULT ANDREW NAZARIO Encounter Template Text not used by [place] Plan of Treatment: Future Appointments (+ 6 months) and Future Tests (+/- 45 days) The Plan of Treatment section includes future care activities for the patient from all [place] treatmentfacilities. This section includes future appointments and future orders which are active, pending or scheduled. Future Appointments This section includes appointments that were scheduled to occur 6 months from the date of the Encounter, up to a maximum of 20 appointments. The data comes from all [place] treatment facilities. Appointment Date/Time Appointment Type Appointme nt Facility Name Jun 12, 2024 10:30 AM AMBULATORY - NONE [facility] Jun 27, 2024 10:30 AM AMBULATORY - SURGERY [facility] Jul 01, 2024 12:00 PM AMBULATORY - MEDICINE [facility] Jul 02, 2024 10:45 AM AMBULATORY - NONE [facility] Jul 14, 2024 11:30 AM AMBULATORY - MEDICINE [facility] Jul 14, 2024 02:00 PM AMBULATORY - NONE [facility] Jul 23, 2024 09:30 AM AMBULATORY - MEDICINE [facility] Aug 08, 2024 09:30 AM AMBULATORY - MEDICINE [facility] Aug 14, 2024 01:30 PM AMBULATORY - NONE [facility] Aug 26, 2024 04:00 PM AMBULATORY - PSYCHIATRY [facility] Aug 27, 2024 01:00 PM AMBULATORY - REHAB MEDICIN E [facility] Sep 01, 2024 01:00 PM AMBULATORY - NONE [facility] Sep 04, 2024 01:00 PM AMBULATORY - MEDICINE [facility] Sep 05, 2024 09:45 AM AMBULATORY - MEDICINE [facility] Sep 10, 2024 09:45 AM AMBULATORY - MEDICINE [facility] Sep 11, 2024 02:00 PM AMBULATORY - NONE [facility] Sep 18, 2024 10:00 AM AMBULATORY - MEDICINE [facility] Sep 23, 2024 10:15 AM AMBULATORY - MEDICINE [facility] Oct 02, 2024 10:45 AM AMBULATORY - MEDICINE [facility] Oct 02, 2024 01:30 PM AMBULATORY - PSYCHIATRY [facility] Active, Pending, and Scheduled Orders This section includes a listing of several types of active, pending, and scheduled orders, including clinic medications orders, diagnostic test orders, procedure orders and consult orders; where the start date of the order is 45 days before the date of the Encounter or 45 days after the date of theEncounter. The data comes from all [facility] facilities. Test Date/Time Test Type Test Details Facility Name May 22, 2024 12:00 AM Laboratory - Chemistry Order 24H UR CHEM PANEL (STL) 24-HOUR URINE SP [facility] May 22, 2024 12:00 AM Laboratory - Chemistry Order PROTEIN ELECTROPHORESIS URINE 24-HOUR URINE SP [facility] Lab Results: +/- 30 days of the [...] Type Comment May 22, 2024 01:24 PM [facility] MICRAL/CREAT PROFILE (STL) URINE Specimen Typ e: URINE No comment entered. Ordering Provider: LEO MATOS Report Released Date/Time: May 22, 2024 12:37 PM Reporting Lab: [facility] [facility] [address] Performing Lab: [facility] [address] URINE ALBUMIN (PB-STL) 75 mg/L No range refer to micral/creat ratio uACR (STL) 377 mg/g H 0-29 CREATININE URINE/OTHERS 19.9 mg/dL L 63.0- 166.0 May 22, 2024 01:24 PM [facility] OSMOLALITY URINE(STL-PB) URINE Specimen Type: URINE No comment entered. Ordering Provider: LEO MATOS Report Released Date/Time: May 22, 2024 12:47 PM Reporting Lab: [facility] [address] [facility] [address] Performing Lab: [place] [address] [facility] [address] OSMOLALITY URINE(STL-PB) 331 50-1200 May 22, 2024 01:24 PM [facility] URINALYSIS (STL-PB) URINE Specimen Type: URIN E No comment entered. Ordering Provider: LEO MATOS Report Released Date/Time: May 22, 2024 12:47 PM Reporting Lab: [facility] [address] Performing Lab: [facility] [address] [facility] [address] URINE COLOR Colorless Yellow U.BILIRUBIN Negative mg/dL Negative U.PH 7.0 5.0-8.0 APPEARANCE Clear Clear U.NITRITE Negative mg/dL Negative URN.GLUCOSE >1000 mg/dL H Negative URN.PROTEIN 10 mg/dL H URN.UROBILINOGEN Normal mg/dL Normal URN.BLOOD Negative mg/dL Negative-Trace URN.KETONES Negative mg/dL Negative-Trac e URN.LEUK.EST. Negative mg/dL Negative-Tr darwin URN.SPECIFIC GRAVITY 1.008 May 22, 2024 01:24 PM [facility] PROTEIN URINE URINE Specimen Type: URINE No comment entered. Ordering Provider: LEO MATOS Report Released Date/Time: May 22, 2024 12:47 PM Reporting Lab: [facility] [address] Performing Lab: [facility] [address] [place] [address] PROTEIN URINE 13.8 mg/dL See Interp May 22, 2024 01:24 PM [facility] URINE ELECTROLYTES (STL) URINE Specimen Type: URINE No comment entered. Ordering Provider: LEO MATOS Report Released Date/Time: May 22, 2024 12:47 PM Reporting Lab: [facility] [address] Performing Lab: [facility] [facility] [address] CREATININE URINE/OTHERS 20.3 mg/dL L 63.0- 166.0 CHLORIDE URINE/OTHERS 109 mmol/L See Int erp POTASSIUM URINE/OTHERS 15.9 mmol/L See I nterp SODIUM URINE/OTHERS 107 mmol/L See Inter p May 22, 2024 01:23 PM [facility] MAGNESIUM PLASMA Specimen Type: PLASM A No comment entered. Ordering Provider: LEO MATOS Report Released Date/Time: May 22, 2024 01:10 PM Reporting Lab: [facility] [address] Performing Lab: [facility] [address] [address] MAGNESIUM 2.0 mg/dL 1.6-2.6 May 22, 2024 01:11 PM [facility] WARFARIN-INR PLASMA Specimen Type: PLASM A No comment entered. Ordering Provider: MARCO VANG Report Released Date/Time: Apr 17, 2024 02:00 PM Reporting Lab: [facility] [address] [place] [address] Performing Lab: [facility] [address] [place] [address] PROTIME 28.1 s H 9.4-12.5 INR VALUE 2.5 {INR} May 22, 2024 01:11 PM [facility] URIC ACID PLASMA Specimen Type: PLASM A No comment entered. Ordering Provider: LEO MATOS Report Released Date/Time: May 22, 2024 12:47 PM Reporting Lab: [facility] [address] Performing Lab: [facility] [address] [facility] [address] URIC ACID 10.2 mg/dL H 3.5-7.2 May 22, 2024 01:10 PM [facility] PROTEIN ELECTROPHORESIS BLOOD SERUM Specimen Type: SERUM Comment: No M Ermias detected. Reference Range: None Detected normalcy status - Abnormal normalcy status - Abnormal NOTE: THIS RESULT IS FLAGGED ABNORMAL Suggestive of acute inflammation pattern with elevation of acute phase proteins. Test Performed by Kaye Russell, [facility], [address] [place] [address] Dante Roy M.D., Ph.D., Director of Laboratories , [facility] [id number] Ordering Provider: LEO MATOS Report Released Date/Time: May 22, 2024 12:47 PM Reporting Lab: [facility] [address] [facility] [address] Performing Lab: [facility] [address] [facility] ALPHA-1 GLOBULIN(SO-PB-STL) 0.4 g/dL H 0.2 -0.3 ALPHA-2 GLOBULIN(SO-PB-STL) 1.0 g/dL H 0.5 -0.9 BETA 1 GLOBULIN(SO-PB-STL) 0.6 g/dL 0.4- 0.6 GAMMA GLOBULIN (SO-PB-STL) 1.3 g/dL 0.8- 1.7 TOTAL PROTEIN (SO-PB-STL) 8.1 g/dL 6.1-8 .1 ALBUMIN(ELECTROPHORESIS 4.3 g/dL 3.8-4.8 BETA 2 GLOBULIN (SO-PB) 0.6 g/dL H 0.2-0.5 INTERPRETATION (STL-PB) SEE NOTE ABNORMAL PROTEIN BAND 1 (SO-PB-STL) SEE NOTE May 22, 2024 01:10 PM [facility] PROST. SPECIFIC AG.(PB-STL) SERUM Specimen Ty pe: SERUM Comment: The listed sex of this patient may not be a typical indication for this test. Therefore, reference ranges or interpretive criteria listed may not be valid. Clinical correlation suggested. Ordering Provider: LEO MATOS Report Released Date/Time: May 22, 2024 12:37 PM Reporting Lab: [facility] [address] Performing Lab: [facility] [address] [facility] [address] PROST. SPECIFIC AG.(PB-STL) 0.705 ng/mL 0.000-4.000 May 22, 2024 01:10 PM [facility] TSH (MA-PB) SERUM Specimen Type: SERUM Comment: The listed sex of this patient may not be a typical indication for this test. Therefore, reference ranges or interpretive criteria listed may not be valid. Clinical correlation suggested. Ordering Provider: LEO MATOS Report Released Date/Time: May 22, 2024 12:37 PM Reporting Lab: [facility] [address] [facility] [address] Performing Lab: [facility] [address] [facility] [address] TSH 0.604 u[IU]/mL 0.470-5.000 May 22, 2024 01:10 PM [facility] LIPID PANEL (STL) PLASMA Specimen Type: PLASM A Comment: No hemolysis noted. LDL calculation invalid when Triglyceride exceeds 250 mg/dl Ordering Provider: LEO MATOS Report Released Date/Time: May 22, 2024 12:37 PM Reporting Lab: [facility] [address] [address] Performing Lab: [facility] [address] [facility] [address] CHOLESTEROL 221 mg/dL H 0-200 TRIGLYCERIDE 341 mg/dL H 0-150 DIRECT LDL 142 mg/dL H <100 CALCULATED LDL comment mg/dL See Interp HDL(New) 33 mg/dL L > 40 May 22, 2024 01:10 PM [facility] FOLATE (STL-MA) SERUM Specimen Type: SERUM Comment: The listed sex of this patient may not be a typical indication for this test. Therefore, reference ranges or interpretive criteria listed may not be valid. Clinical correlation suggested. Ordering Provider: LEO MATOS Report Released Date/Time: May 22, 2024 12:37 PM Reporting Lab: [facility] [address] [address] Performing Lab: [facility] [address] [facility] [address] FOLATE (STL-MA) 10.7 ng/mL 7-20 May 22, 2024 01:10 PM [facility] B12 SERUM Specimen Type: SERUM Comment: The listed sex of this patient may not be a typical indication for this test. Therefore, reference ranges or interpretive criteria listed may not be valid. Clinical correlation suggested. Ordering Provider: LEO MATOS Report Released Date/Time: May 22, 2024 12:37 PM Reporting Lab: [facility] [address] [facility] [address] Performing Lab: [facility] [address] [facility] [address] B12 314 pg/mL 213-816 May 22, 2024 01:10 PM [facility] VITAMIN D, 25-HYDROXY SERUM Specimen Type: SE RUM Comment: The listed sex of this patient may not be a typical indication for this test. Therefore, reference ranges or interpretive criteria listed may not be valid. Clinical correlation suggested. Ordering Provider: LEO MATOS Report Released Date/Time: May 22, 2024 12:37 PM Reporting Lab: [facility] [address] [facility] [address] Performing Lab: [facility] [address] [facility] [address] VITAMIN D, 25-HYDROXY 28.6 ng/mL L 30-96 May 22, 2024 01:10 PM [facility] IRON/TIBC PROFILE SERUM Specimen Type: SERUM No comment entered. Ordering Provider: LEO MATOS Report Released Date/Time: May 22, 2024 12:37 PM Reporting Lab: [facility] [address] [facility] [address] Performing Lab: [facility] [address] [place] [address] TIBC 509 ug/dL H 250-450 TRANSFERRIN 407 mg/dL H 163-344 IRON SATURATION 11 L 20-50 IRON 57 ug/dL L 65-175 May 22, 2024 01:10 PM [facility] FERRITIN SERUM Specimen Type: SERUM No comment entered. Ordering Provider: LEO MATOS Report Released Date/Time: May 22, 2024 12:37 PM Reporting Lab: [facility] [address] [facility] [address] Performing Lab: [facility] [address] [facility] [address] FERRITIN 17.55 ng/mL L 22-275 May 22, 2024 01:10 PM [facility] CYSTATIN C EGFR PANELS (STL-PB-MA) PLASMA Spec imen Type: PLASMA Comment: Choice of which of the reported eGFR values to use depends on the clinical situation. For example, for patients with severe muscle wasting or reduced muscle mass, eGFR calculated using the 2012 cystatin equation may be preferred. Ordering Provider: LEO MATOS Report Released Date/Time: May 22, 2024 12:37 PM Reporting Lab: [place] [address] [facility] [address] Performing Lab: [address] [address] CYSTATIN C 2.45 mg/L H 0.57-1.80 CKD-EPI CYSTATIN C (2011) 22.9 >60 CKD-EPI CREAT-CYSC (2020) 26.5 >60 CREATININE (L) 2.22 mg/dL H 0.7-1.3 May 22, 2024 01:10 PM [facility] PTH, INTACT (L) SERUM Specimen Type: SERUM No comment entered. Ordering Provider: LEO MATOS Report Released Date/Time: May 22, 2024 12:39 PM Reporting Lab: [address] [address] Performing Lab: [address] [address] PTH, INTACT (L) 314.60 pg/mL H 8.7-77.7 May 22, 2024 01:10 PM [facility] COMPREHENSIVE METABOLIC PANEL PLASMA Specimen Type: PLASMA Comment: No hemolysis noted. LDL calculation invalid when Triglyceride exceeds 250 mg/dl Ordering Provider: LEO MATOS Report Released Date/Time: May 22, 2024 12:37 PM Reporting Lab: [facility] [address] [facility] [address] Performing Lab: [facility] [address] [facility] [address] CREATININE 2.30 mg/dL H 0.70-1.30 UREA NITROGEN [...] >60 May 22, 2024 01:10 PM [facility] CBC BLOOD Specimen Type: BLOOD No comment entered. Ordering Provider: LEO MATOS Report Released Date/Time: May 22, 2024 12:37 PM Reporting Lab: [facility] [address] [facility] [address] Performing Lab: [facility] [address] [facility] [address] WBC 8.4 10*3/uL 3.6-11.2 RBC 5.03 10*6/uL [...] 0.00-0. 20 May 22, 2024 01:10 PM [facility] OSMOLALITY SERUM(STL-PB) PLASMA Specimen Type: PLASMA No comment entered. Ordering Provider: LEO MATOS Report Released Date/Time: May 22, 2024 12:47 PM Reporting Lab: [facility] [address] [facility] [address] Performing Lab: [facility] [address] [facility] [address] OSMOLALITY SERUM(STL-PB) 310 H 285-295 May 22, 2024 01:10 PM [facility] RENAL PANEL PLASMA Specimen Type: PLASM A Comment: No hemolysis noted. LDL calculation invalid when Triglyceride exceeds 250 mg/dl Ordering Provider: LEO MATOS Report Released Date/Time: May 22, 2024 12:47 PM Reporting Lab: [facility] [address] [facility] [address] Performing Lab: [facility] [address] [facility] [address] CREATININE 2.30 mg/dL H 0.70-1.30 UREA NITROGEN 28.0 mg/dL H 9.0-25.0 GLUCOSE 219 mg/dL H 72-99 SODIUM 140 meq/L 136-145 POTASSIUM 4.4 meq/L 3.5-5.0 CHLORIDE 101 meq/L 98-107 CARBON DIOXIDE 24 meq/L 22-31 CALCIUM 10.5 mg/dL H 8.4-10.4 PHOSPHOROUS 3.0 mg/dL 2.3-4.7 ALBUMIN 4.4 g/dL 3.4-5.0 EGFR (CKD-EPI 2020) 30.17 >60 May 22, 2024 01:10 PM [facility] HGA1C BLOOD Specimen Type: BLOOD No comment entered. Ordering Provider: JULIA MASTERS Report Released Date/Time: Apr 30, 2024 04:23 PM Reporting Lab: [facility] [address] Performing Lab: [facility] [address] [facility] [address] HGA1C 8.7 H 4.0-6.0 Social History: Smoking Status (Most current) and Tobacco Use (All prior to encounter date) This section includes the most current, and the historical, smoking and tobacco- related health factors from the [place] facility where the Encounter took place. Current Smoking Status This section includes the most current smoking, or tobacco-related health factor, from the [place] facility where the Encounter took place. Date/Time Current Smoking Status Comment Nelly ity Oct 26, 2015 01:43 PM LIFETIME NON-USER OF TOBACCO [facility] Tobacco Use History This section includes a history of the smoking, or tobacco-related health factors, that were collected on or before the date of the Encounter. The data comes from the [place] facility where the Encounter took place. Date/Time Smoking Status/Tobacco Use Comment F acility Jul 03, 2014 01:55 PM LIFETIME NON-USER OF TOBACCO [facility] Oct 01, 2013 12:00 PM LIFETIME NON-USER OF TOBACCO [facility] Nov 17, 2004 03:14 PM LIFETIME NON-TOBACCO USER [facility] Aug 01, 2004 12:58 PM LIFETIME NON-TOBACCO USER [facility] Oct 14, 2003 08:20 AM LIFETIME NON-TOBACCO USER [facility] Advance Directives: All historical and current Section Date Range: From patient's date of to the date document was created. This section includes ALL of a patient's completed or amended [place] Advance and Rescinded Directives. The entries below indicate that a directive exists for the patient, but an actual copy is not included with this document. The data comes from all [place] facilities. Date Advance Directives Provider Source May 16, 2023 ADVANCE DIRECTIVE DISCUSSION INGA LUNA TIANNA [facility] December 14, 2021 ADVANCE DIRECTIVE DISCUSSION INGA LUNA TIANNA [facility] May 05, 2021 GOALS & PREFERENCES TO INFORM LIFE-SUSTAINING TREATMENT PLAN [facility] Radiology Reports: +/- 30 days of the [...] the Encounter. The data comes from all [place] treatment facilities. Date/Time Radiology Report Provider Source Jun 04, 2024 02:21 PM US RENAL COMPLETE: DARON RIVERA [id number] -[id number] M Ex Date: JUN 04, 2024@14:21 Req Phys: LEO MATOS Loc: [facility]-PACT [facility]AYNA CONSULT TEAM4 (Re Img Loc: [facility]-ULTRASOUND Service: [address] [address] (Case [id number] COMPLETE) US RENAL COMPLETE (US Detailed) CPT:51838 Reason for Study: ckd Clinical History: ckd Report Status: Verified Date Reported: JUN 04, 2024 Date Verified: JUN 04, 2024 Anthropology Faculty Member E-[email or web address]/[email or web address] DOWNING Report: DATE: 06/04/2024 2:36 PM EXAM: US RENAL COMPLETE ACCESSION NUMBERS: [id number] HISTORY: ckd COMPARISON: Ultrasound renal 03/03/2009 TECHNIQUE: [...] renal cysts. Dictated by Maurizio Dacosta MD (Machine Binding Folder) Everett Lora, have reviewed the images and report and concur with these findings. Primary Interpreting Staff: EVERETT DOWNING MD (Anthropology Faculty Member) Primary Interpreting Resident: MAURIZIO DACOSTA, Resident Physician /EVERETT PALACIOS [facility] Encounter Notes: All associated encounter notes This section contains the clinical notes associated to the Encounter. Date/Time Encounter Note(s) Provider Source Jun 04, 2024 08:14 AM NONVA NOTE: LOCAL TITLE: COMMUNITY CARE-CARE COORDINATION PLAN NOTE [address] STANDARD TITLE: NONVA NOTE DATE OF NOTE: JUN 04, 2024@08:14 ENTRY DATE: JUN 04, 2024@08:14:28 AUTHOR: ANDREW NAZARIO EXP COSIGNER: URGENCY: STATUS: COMPLETED Community Care Consult: Sleep Study Consult No: [id number] HSRM Referral #: Chief Complaint: History of CARMEN needing new cpap/suplies last sleep study 15 years ago needing evaluation and treatment from a sleep provider. Patient Admitted? No Level of Care Coordination Moderate Care Coordination was determined from: Chart Review Facility Community Care Office Contact Care Coordination Point of Contact: Andrew Nazario RN Services: Basic Care Coordination Services Monitoring and coordination of Rehab/PT Services Direct communication to referring provider Care management, if appropriate Plan: Consult pending processing/upload. Will follow consult for scheduling and will coordinate care with and VA/Community providers throughout the episode of care. Community Care staff will call post first appointment and throughout episode of care as needed. /lynn/ ANDREW NAZARIO REGISTERED NURSE Signed: 06/04/2024 08:17 ANDREW NAZARIO [facility]
--- OUTSIDE RECORDS SUMMARY | 2025-03-01 17:59 | XMS_ITS | Encounter Summary ---
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 Role Phone ANDREA ALDRICH Primary [...] PART B Aug 06, 2007 PART B [id number] [phone] MIGUEL,DA VID PATIENT MEDICARE (WNR) MEDICARE (M) PART B Aug 06, 2007 PART B [id number] [phone] MIGUEL,DA VID PATIENT MEDICARE (WNR) MEDICARE (M) PART B Aug 06, 2007 PART B [id number] [phone] [id number] MIGUEL,DA VID PATIENT MEDICARE (WNR) MEDICARE (M) PART B Aug 06, 2007 PART B [id number] MIGUEL,DA VID PATIENT MEDICARE (WNR) MEDICARE (M) PART B Aug 06, 2007 PART B [id number] MIGUEL,DA VID PATIENT MEDICARE (WNR) MEDICARE (M) PART B Aug 06, 2007 PART B [id number] MIGUEL,DA VID PATIENT MEDICARE (WNR) MEDICARE (M) PART A Jul 06, 2001 PART A [id number] MIGUEL,DA VID PATIENT MEDICARE (WNR) MEDICARE (M) PART A Jul 06, 2001 PART A [id number] MIGUEL,DA VID PATIENT MEDICARE (WNR) MEDICARE (M) PART A Jul 06, 2001 PART A [id number] MIGUEL,DA VID PATIENT MEDICARE (WNR) MEDICARE (M) PART A Jul 06, 2001 PART A [id number] MIGUEL,DA VID PATIENT MEDICARE (WNR) MEDICARE (M) PART A Jul 06, 2001 PART A [id number] MIGUEL,DA VID PATIENT MEDICARE (WNR) MEDICARE (M) PART A Jul 06, 2001 PART A [id number] MIGUEL,DA VID PATIENT Selected Encounter This section includes the information on record at [place] for the Encounter. Date/Time Encounter Type Encounter Description Reason Provider Source Jun 03, 2024 02:30 PM OFFICE O/P EST MOD 30 MIN PSYCHOGERIATRIC - INDIVIDUAL ICD-10-CM F31.9 Bipolar disorder, unspecified SAMI CAMPUZANO JR [facility] Encounter Template Text not used by [place] Assessments - Encounter Diagnoses This section includes the primary and secondary diagnoses documented for the Encounter. Date/Time Primary/Secondary Diagnosis Diagnosis Name Provider Source Jun 03, 2024 03:13 PM PRIMARY Bipolar disorder, unspecified SAMI CAMPUZANO JR [facility] Plan of Treatment: Future Appointments (+ 6 months) and Future Tests (+/- 45 days) The Plan of Treatment section includes future care activities for the patient from all [place] treatmentfacilities. This section includes future appointments and future orders which are active, pending or scheduled. Future Appointments This section includes appointments that were scheduled to occur 6 months from the date of the Encounter, up to a maximum of 20 appointments. The data comes from all [facility]. Appointment Date/Time Appointment Type Appointme nt Facility Name Jun 04, 2024 02:30 PM AMBULATORY - NONE [facility] Jun 12, 2024 10:30 AM AMBULATORY - NONE [facility] Jun 27, 2024 10:30 AM AMBULATORY - SURGERY [facility] Jul 01, 2024 12:00 PM AMBULATORY - MEDICINE [facility] Jul 02, 2024 10:45 AM AMBULATORY - NONE [facility] Jul 14, 2024 11:30 AM AMBULATORY - MEDICINE [facility] Jul 14, 2024 02:00 PM AMBULATORY - NONE [facility] Jul 23, 2024 09:30 AM AMBULATORY - MEDICINE [facility] Aug 08, 2024 09:30 AM AMBULATORY - MEDICINE [facility] Aug 14, 2024 01:30 PM AMBULATORY - NONE [facility] Aug 26, 2024 04:00 PM AMBULATORY - PSYCHIATRY [facility] Aug 27, 2024 01:00 PM AMBULATORY - REHAB MEDICIN E [facility] Sep 01, 2024 01:00 PM AMBULATORY - NONE [facility] Sep 04, 2024 01:00 PM AMBULATORY - MEDICINE [facility] Sep 05, 2024 09:45 AM AMBULATORY - MEDICINE [facility] Sep 10, 2024 09:45 AM AMBULATORY - MEDICINE [facility] Sep 11, 2024 02:00 PM AMBULATORY - NONE [facility] Sep 18, 2024 10:00 AM AMBULATORY - MEDICINE [facility] Sep 23, 2024 10:15 AM AMBULATORY - MEDICINE [facility] Oct 02, 2024 10:45 AM AMBULATORY - MEDICINE [facility] Active, Pending, and Scheduled Orders This section includes a listing of several types of active, pending, and scheduled orders, including clinic medications orders, diagnostic test orders, procedure orders and consult orders; where the start date of the order is 45 days before the date of the Encounter or 45 days after the date of theEncounter. The data comes from all [place] treatment facilities. Test Date/Time Test Type Test Details Facility Name May 22, 2024 12:00 AM Laboratory - Chemistry Order PROTEIN ELECTROPHORESIS URINE 24-HOUR URINE SP [facility] May 22, 2024 12:00 AM Laboratory - Chemistry Order 24H UR CHEM PANEL (STL) 24-HOUR URINE SP [facility] Lab Results: +/- 30 days of the [...] Comment May 22, 2024 01:24 PM [facility] MICRAL/CREAT PROFILE (STL) URINE Specimen Typ e: URINE No comment entered. Ordering Provider: LEO MATOS Report Released Date/Time: May 22, 2024 12:37 PM Reporting Lab: [facility] [address] Performing Lab: [facility] [address] URINE ALBUMIN (PB-STL) 75 mg/L No range refer to micral/creat ratio uACR (STL) 377 mg/g H 0-29 CREATININE URINE/OTHERS 19.9 mg/dL L 63.0- 166.0 May 22, 2024 01:24 PM [facility] OSMOLALITY URINE(STL-PB) URINE Specimen Type: URINE No comment entered. Ordering Provider: LEO MATOS Report Released Date/Time: May 22, 2024 12:47 PM Reporting Lab: [facility] [address] [facility] [address] Performing Lab: [facility] [address] [facility] [address] OSMOLALITY URINE(STL-PB) 331 50-1200 May 22, 2024 01:24 PM [facility] URINALYSIS (STL-PB) URINE Specimen Type: URIN E No comment entered. Ordering Provider: LEO MATOS Report Released Date/Time: May 22, 2024 12:47 PM Reporting Lab: [facility] [address] Performing Lab: [facility] [address] URINE COLOR Colorless Yellow U.BILIRUBIN Negative mg/dL Negative U.PH 7.0 5.0-8.0 APPEARANCE Clear Clear U.NITRITE Negative mg/dL Negative URN.GLUCOSE >1000 mg/dL H Negative URN.PROTEIN 10 mg/dL H URN.UROBILINOGEN Normal mg/dL Normal URN.BLOOD Negative mg/dL Negative-Trace URN.KETONES Negative mg/dL Negative-Trac e URN.LEUK.EST. Negative mg/dL Negative-Tr darwin URN.SPECIFIC GRAVITY 1.008 May 22, 2024 01:24 PM [facility] PROTEIN URINE URINE Specimen Type: URINE No comment entered. Ordering Provider: LEO MATOS Report Released Date/Time: May 22, 2024 12:47 PM Reporting Lab: [facility] [address] Performing Lab: [facility] [address] PROTEIN URINE 13.8 mg/dL See Interp May 22, 2024 01:24 PM [facility] URINE ELECTROLYTES (STL) URINE Specimen Type: URINE No comment entered. Ordering Provider: LEO MATOS Report Released Date/Time: May 22, 2024 12:47 PM Reporting Lab: [facility] [address] Performing Lab: [facility] [address] CREATININE URINE/OTHERS 20.3 mg/dL L 63.0- 166.0 CHLORIDE URINE/OTHERS 109 mmol/L See Int erp POTASSIUM URINE/OTHERS 15.9 mmol/L See I nterp SODIUM URINE/OTHERS 107 mmol/L See Inter p May 22, 2024 01:23 PM [facility] MAGNESIUM PLASMA Specimen Type: PLASM A No comment entered. Ordering Provider: LEO MATOS Report Released Date/Time: May 22, 2024 01:10 PM Reporting Lab: [facility] [address] Performing Lab: [facility] [address] MAGNESIUM 2.0 mg/dL 1.6-2.6 May 22, 2024 01:11 PM [facility] WARFARIN-INR PLASMA Specimen Type: PLASM A No comment entered. Ordering Provider: MARCO VANG Report Released Date/Time: Apr 17, 2024 02:00 PM Reporting Lab: [facility] [address] Performing Lab: [facility] [address] PROTIME 28.1 s H 9.4-12.5 INR VALUE 2.5 {INR} May 22, 2024 01:11 PM [facility] URIC ACID PLASMA Specimen Type: PLASM A No comment entered. Ordering Provider: LEO MATOS Report Released Date/Time: May 22, 2024 12:47 PM Reporting Lab: [facility] [address] Performing Lab: [facility] [address] URIC ACID 10.2 mg/dL H 3.5-7.2 May 22, 2024 01:10 PM [facility] PROTEIN ELECTROPHORESIS BLOOD SERUM Specimen Type: SERUM Comment: No M Ermias detected. Reference Range: None Detected normalcy status - Abnormal normalcy status - Abnormal NOTE: THIS RESULT IS FLAGGED ABNORMAL Suggestive of acute inflammation pattern with elevation of acute phase proteins. Test [facility] by [facility], [address] [place], [place] Dante Roy M.D., Ph.D., Director of Laboratories , [facility] [id number] Ordering Provider: LEO MATOS Report Released Date/Time: May 22, 2024 12:47 PM Reporting Lab: [facility] [address] [facility] [address] Performing Lab: [facility] [address] [facility]-1 GLOBULIN(SO-PB-STL) 0.4 g/dL H 0.2 [...] NOTE May 22, 2024 01:10 PM [facility] PROST. SPECIFIC AG.(PB-STL) SERUM Specimen Ty pe: SERUM Comment: The listed sex of this patient may not be a typical indication for this test. Therefore, reference ranges or interpretive criteria listed may not be valid. Clinical correlation suggested. Ordering Provider: LEO MATOS Report Released Date/Time: May 22, 2024 12:37 PM Reporting Lab: [facility] [address] Performing Lab: [facility] [address] PROST. SPECIFIC AG.(PB-STL) 0.705 ng/mL 0.000-4.000 May 22, 2024 01:10 PM [facility] TSH (MA-PB) SERUM Specimen Type: SERUM Comment: The listed sex of this patient may not be a typical indication for this test. Therefore, reference ranges or interpretive criteria listed may not be valid. Clinical correlation suggested. Ordering Provider: LEO MATOS Report Released Date/Time: May 22, 2024 12:37 PM Reporting Lab: [facility] [address] [place] [address] Performing Lab: [facility] [address] [place] [address] TSH 0.604 u[IU]/mL 0.470-5.000 May 22, 2024 01:10 PM [facility] LIPID PANEL (STL) PLASMA Specimen Type: PLASM A Comment: No hemolysis noted. LDL calculation invalid when Triglyceride exceeds 250 mg/dl Ordering Provider: LEO MATOS Report Released Date/Time: May 22, 2024 12:37 PM Reporting Lab: [facility] [address] Performing Lab: [facility] [facility] [address] CHOLESTEROL 221 mg/dL H 0-200 TRIGLYCERIDE 341 mg/dL H 0-150 DIRECT LDL 142 mg/dL H <100 CALCULATED LDL comment mg/dL See Interp HDL(New) 33 mg/dL L > 40 May 22, 2024 01:10 PM [facility] FOLATE (STL-MA) SERUM Specimen Type: SERUM Comment: The listed sex of this patient may not be a typical indication for this test. Therefore, reference ranges or interpretive criteria listed may not be valid. Clinical correlation suggested. Ordering Provider: LEO MATOS Report Released Date/Time: May 22, 2024 12:37 PM Reporting Lab: [facility] [address] Performing Lab: [facility] [address] [place] [address] FOLATE (STL-SC) 10.7 ng/mL 7-20 May 22, 2024 01:10 PM [facility] VITAMIN D, 25-HYDROXY SERUM Specimen Type: SE RUM Comment: The listed sex of this patient may not be a typical indication for this test. Therefore, reference ranges or interpretive criteria listed may not be valid. Clinical correlation suggested. Ordering Provider: LEO MATOS Report Released Date/Time: May 22, 2024 12:37 PM Reporting Lab: [facility] [address] Performing Lab: [facility]1 [facility] [address] VITAMIN D, 25-HYDROXY 28.6 ng/mL L 30-96 May 22, 2024 01:10 PM [facility] B12 SERUM Specimen Type: SERUM Comment: The listed sex of this patient may not be a typical indication for this test. Therefore, reference ranges or interpretive criteria listed may not be valid. Clinical correlation suggested. Ordering Provider: LEO MATOS Report Released Date/Time: May 22, 2024 12:37 PM Reporting Lab: [facility] [address] Performing Lab: [facility] [facility] [address] B12 314 pg/mL 213-816 May 22, 2024 01:10 PM [facility] IRON/TIBC PROFILE SERUM Specimen Type: SERUM No comment entered. Ordering Provider: LEO MATOS Report Released Date/Time: May 22, 2024 12:37 PM Reporting Lab: [facility] [address] [place] [address] Performing Lab: [facility] [address] [place] [address] TIBC 509 ug/dL H 250-450 TRANSFERRIN 407 mg/dL H 163-344 IRON SATURATION 11 L 20-50 IRON 57 ug/dL L 65-175 May 22, 2024 01:10 PM [facility] FERRITIN SERUM Specimen Type: SERUM No comment entered. Ordering Provider: LEO MATOS Report Released Date/Time: May 22, 2024 12:37 PM Reporting Lab: [address] [address] Performing Lab: [address] [address] FERRITIN 17.55 ng/mL L 22-275 May 22, 2024 01:10 PM [facility] CYSTATIN C EGFR PANELS (STL-PB-MA) PLASMA Spec imen Type: PLASMA Comment: Choice of which of the reported eGFR values to use depends on the clinical situation. For example, for patients with severe muscle wasting or reduced muscle mass, eGFR calculated using the 2012 cystatin equation may be preferred. Ordering Provider: LEO MATOS Report Released Date/Time: May 22, 2024 12:37 PM Reporting Lab: [address] [address] Performing Lab: [address] [address] CYSTATIN C 2.45 mg/L H 0.57-1.80 CKD-EPI CYSTATIN C (2011) 22.9 >60 CKD-EPI CREAT-CYSC (2020) 26.5 >60 CREATININE (STL) 2.22 mg/dL H 0.7-1.3 May 22, 2024 01:10 PM [facility] PTH, INTACT (STL) SERUM Specimen Type: SERUM No comment entered. Ordering Provider: LEO MATOS Report Released Date/Time: May 22, 2024 12:39 PM Reporting Lab: [address] [address] Performing Lab: [address] [address] PTH, INTACT (STL) 314.60 pg/mL H 8.7-77.7 May 22, 2024 01:10 PM [facility] COMPREHENSIVE METABOLIC PANEL PLASMA Specimen Type: PLASMA Comment: No hemolysis noted. LDL calculation invalid when Triglyceride exceeds 250 mg/dl Ordering Provider: LEO MATOS Report Released Date/Time: May 22, 2024 12:37 PM Reporting Lab: [facility] [address] Performing Lab: [facility]1 [facility] [address] CREATININE 2.30 mg/dL H 0.70-1.30 UREA NITROGEN [...] 30.17 >60 May 22, 2024 01:10 PM [facility] CBC BLOOD Specimen Type: BLOOD No comment entered. Ordering Provider: LEO MATOS Report Released Date/Time: May 22, 2024 12:37 PM Reporting Lab: [facility]1 [facility] [address] Performing Lab: [facility] #1 [place] [phone] WBC 8.4 10*3/uL 3.6-11.2 RBC 5.03 10*6/uL [...] 0.00-0. 20 May 22, 2024 01:10 PM [facility] OSMOLALITY SERUM(STL-PB) PLASMA Specimen Type: PLASMA No comment entered. Ordering Provider: LEO MATOS Report Released Date/Time: May 22, 2024 12:47 PM Reporting Lab: [address] [address] Performing Lab: [address] [address] OSMOLALITY SERUM(STL-PB) 310 H 285-295 May 22, 2024 01:10 PM [facility] RENAL PANEL PLASMA Specimen Type: PLASM A Comment: No hemolysis noted. LDL calculation invalid when Triglyceride exceeds 250 mg/dl Ordering Provider: LEO MATOS Report Released Date/Time: May 22, 2024 12:47 PM Reporting Lab: [facility] [address] Performing Lab: [facility]1 [facility] [address] CREATININE 2.30 mg/dL H 0.70-1.30 UREA NITROGEN 28.0 mg/dL H 9.0-25.0 GLUCOSE 219 mg/dL H 72-99 SODIUM 140 meq/L 136-145 POTASSIUM 4.4 meq/L 3.5-5.0 CHLORIDE 101 meq/L 98-107 CARBON DIOXIDE 24 meq/L 22-31 CALCIUM 10.5 mg/dL H 8.4-10.4 PHOSPHOROUS 3.0 mg/dL 2.3-4.7 ALBUMIN 4.4 g/dL 3.4-5.0 EGFR (CKD-EPI 2020) 30.17 >60 May 22, 2024 01:10 PM [facility] HGA1C BLOOD Specimen Type: BLOOD No comment entered. Ordering Provider: JULIA MASTERS Report Released Date/Time: Apr 30, 2024 04:23 PM Reporting Lab: [facility] [address] Performing Lab: [facility] #1 [facility] [address] HGA1C 8.7 H 4.0-6.0 Social History: Smoking Status (Most current) and Tobacco Use (All prior to encounter date) This section includes the most current, and the historical, smoking and tobacco- related health factors from the [place] facility where the Encounter took place. Current Smoking Status This section includes the most current smoking, or tobacco-related health factor, from the [place] facility where the Encounter took place. Date/Time Current Smoking Status Comment Nelly ity Nov 19, 2023 01:00 PM VA-TOBACCO FORMER USER [facility] Tobacco Use History This section includes a history of the smoking, or tobacco-related health factors, that were collected on or before the date of the Encounter. The data comes from the [place] facility where the Encounter took place. Date/Time Smoking Status/Tobacco Use Comment F acility Nov 19, 2023 01:00 PM VA-TOBACCO QUIT < 1 YEAR [facility] Aug 03, 2016 02:42 PM LIFETIME NON-USER OF TOBACCO [facility] December 18, 2012 12:47 PM LIFETIME NON-USER OF TOBACCO [facility] Jul 29, 2009 03:09 AM LIFETIME NON-USER OF TOBACCO [facility] December 14, 2006 08:02 AM LIFETIME NON-USER OF TOBACCO [facility] Nov 01, 2005 09:20 AM LIFETIME NON-TOBACCO USER [facility] Advance Directives: All historical and current Section Date Range: From patient's date of to the date document was created. This section includes ALL of a patient's completed or amended [place] Advance and Rescinded Directives. The entries below indicate that a directive exists for the patient, but an actual copy is not included with this document. The data comes from all [place] facilities. Date Advance Directives Provider Source May 16, 2023 ADVANCE DIRECTIVE DISCUSSION JEREMYINGAYANELIS [facility] December 14, 2021 ADVANCE DIRECTIVE DISCUSSION JEREMYINGA Gilmore [facility] May 05, 2021 GOALS & PREFERENCES TO INFORM LIFE-SUSTAINING TREATMENT PLAN RAIN TOBIAS [facility] Radiology Reports: +/- 30 days of [...] the Encounter. The data comes from all [place] treatment facilities. Date/Time Radiology Report Provider Source Jun 04, 2024 02:21 PM US RENAL COMPLETE: MIGUELDARON [id number] [id number] M Exm Date: JUN 04, 2024@14:21 Req Phys: LEO MATOS Loc: [facility]-PACT RAYNA CONSULT TEAM4 (Re Img Loc: [facility]-ULTRASOUND Service: [address] [address] (Case [id number] COMPLETE) US RENAL COMPLETE (US Detailed) CPT:96808 Reason for Study: ckd Clinical History: ckd Report Status: Verified Date Reported: JUN 04, 2024 Date Verified: JUN 04, 2024 Hand Presser E-Sig:/ES/EVERETT DOWNING Report: DATE: 06/04/2024 2:36 PM EXAM: US RENAL COMPLETE ACCESSION NUMBERS: [id number] HISTORY: ckd COMPARISON: Ultrasound renal 03/03/2009 TECHNIQUE: [...] renal cysts. Dictated by Maurizio Dacosta MD ([employer] Data Warehouse Developer) Everett Lora, have reviewed the images and report and concur with these findings. Primary Interpreting Staff: EVERETT DOWNING MD (Hand Presser) Primary Interpreting Resident: MAURIZIO DACOSTA, Resident Physician /EVERETT PALACIOS [facility] Encounter Notes: All associated encounter notes This section contains the clinical notes associated to the Encounter. Date/Time Encounter Note(s) Provider Source Jun 03, 2024 02:37 PM PSYCHIATRY NOTE: LOCAL TITLE: PSYCHIATRY [facility] STANDARD TITLE: PSYCHIATRY NOTE DATE OF NOTE: JUN 03, 2024@14:37 ENTRY DATE: JUN 03, 2024@14:37:14 AUTHOR: SAMI CAMPUZANO JR EXP COSIGNER: URGENCY: STATUS: COMPLETED PSYCHIATRY ST Has ADDENDA [facility] - MEDICATION MANAGEMENT Name..................AIRAM S,NICOLE Age...................68 Sex...................MALE SSN...................[id number] Today's Date..........JUN 03, 2024 Service Connection....Service Connected: Yes (70%) ALLERGIES: NIACIN OUTPATIENT MEDICATIONS: Active Outpatient Medications (excluding Supplies): Issue Date Status Last Fill Active Outpatient Medications Refills Expiration 1) ACCU-CHEK GUIDE (GLUCOSE) TEST STRIP ACTIVE Issu:07-25-24 Qty: 400 for 100 days Sig: USE 1 Refills: 0 Last:02-28-24 STRIP FOR BLOOD TEST ONCE A DAY Expr:06-07-24 *INTENSIVE INSULIN THERAPY- UP TO 4 TIMES DAILY Feb 2) ACCU-CHEK GUIDE ME (GLUCOSE) METER Qty: ACTIVE Issu:02-28-24 1 for 180 days Sig: USE GLUCOSE METER Refills: 0 Last:02-28-24 FOR DIRECTED -CONTACT COMPANY Expr:08-26-24 FOR REPLACEMENT OR PROBLEM 3) ALBUTEROL 90MCG (CFC-F) 200D ORAL INHL ACTIVE Issu:05-22-24 Qty: 4 for 90 days Sig: INHALE 2 Refills: 3 Last:05-22-24 PUFFS ORAL INHALATION FOUR TIMES A DAY Expr:05-23-25 NEEDED FOR COPD SHAKE WELL. RINSE MOUTHPIECE FREQUENTLY TO PREVENT CLOGGING. 4) ALBUTEROL SO4 0.083% INHL 3ML Qty: 60 ACTIVE Issu:05-22-24 for 15 days Sig: INHALE 1 VIAL Refills: 11 Last:05-22-24 (2.5MG/3ML) BY NEBULIZATION EVERY 6 Expr:05-23-25 HOURS DIRECTED NEEDED FOR COPD 5) ATORVASTATIN CALCIUM 80MG TAB Qty: 90 ACTIVE Issu:05-22-24 for 90 days Sig: TAKE ONE TABLET BY Refills: 3 Last:05-22-24 MOUTH EVERY EVENING Expr:05-23-25 6) CARVEDILOL 25MG TAB Qty: 180 for 90 ACTIVE Issu:05-22-24 days Sig: TAKE ONE TABLET BY MOUTH Refills: 3 Last:05-22-24 TWICE A DAY TAKE WITH FOOD. Expr:05-23-25 7) CETIRIZINE HCL 10MG TAB Qty: 90 for 90 ACTIVE Issu:05-22-24 days Sig: TAKE ONE TABLET BY MOUTH Refills: 3 Last:05-22-24 ONCE A DAY Expr:05-23-25 8) CHOLECALCIF 50MCG (D3-2,000UNIT) TAB ACTIVE Issu:05-23-24 Qty: 100 for 90 days Sig: TAKE ONE Refills: 3 Last:10-19-24 TABLET BY MOUTH ONCE A DAY FOR VITAMIN Expr:05-24-25 D SUPPLEMENTATION 9) EMPAGLIFLOZIN 25MG TAB Qty: 45 for 90 ACTIVE Issu:05-22-24 days Sig: TAKE ONE-HALF TABLET BY Refills: 3 Last:05-22-24 MOUTH ONCE A DAY Expr:05-23-25 10) FERROUS SULFATE 325MG TAB Qty: 100 for ACTIVE Issu:05-23-24 90 days Sig: TAKE ONE TABLET BY MOUTH Refills: 0 Last:05-24-24 ONCE A DAY FOR IRON DEFICIENCY ANEMIA Expr:08-21-24 11) FLUTICASONE PROP 50MCG 120D NASAL INHL ACTIVE Issu:05-22-24 Qty: 3 for 90 days Sig: INSTILL 1 Refills: 3 Last:05-22-24 SPRAY IN NOSTRIL(S) ONCE A DAY Expr:05-23-25 NEEDED FOR RHINITIS (MUST BE USED DIRECTED FOR MINIMUM OF 21 DAYS TO PROVIDE ADEQUATE BENEFITS) 12) FUROSEMIDE 40MG TAB Qty: 90 for 90 days ACTIVE Issu:05-22-24 Sig: TAKE ONE TABLET BY MOUTH EVERY Refills: 3 Last:05-22-24 MORNING Expr:05-23-25 13) GABAPENTIN 300MG CAP Qty: 180 for 90 ACTIVE Issu:05-22-24 days Sig: TAKE ONE CAPSULE BY MOUTH Refills: 3 Last:05-22-24 TWICE A DAY FOR NERVE PAIN Expr:05-23-25 14) GLUCOSE 4GM CHEW TAB Qty: 30 for 90 ACTIVE (S) Issu:05-22-24 days Sig: CHEW AND SWALLOW FOUR Refills: 3 Last:06-23-24 TABLETS BY MOUTH NEEDED REPEAT Expr:05-23-25 DOSE IF HYPOGLYCEMIA CONTINUES 15 MINUTES AFTER THE FIRST DOSE. 15) LATANOPROST 0.005% OPH SOLN Qty: 7.5 ACTIVE Issu:12-25-23 for 90 days Sig: INSTILL 1 DROP IN Refills: 2 Last:04-01-24 BOTH EYES EVERY EVENING FOR ELEVATED Expr:12-25-24 INTRAOCULAR PRESSURE KEEP REFRIGERATED UNTIL READY TO USE, THEN STORE AT ROOM TEMPERATURE FOR MAXIMUM OF 42 DAYS. 16) LOSARTAN 100MG TAB Qty: 45 for 90 days ACTIVE (S) Issu:05-22-24 Sig: TAKE ONE-HALF TABLET BY MOUTH Refills: 3 Last:07-23-24 ONCE A DAY FOR HIGH BLOOD PRESSURE Expr:05-23-25 17) OLODATEROL/TIOTROP 2.5MCG/ACTUAT 60D INH ACTIVE Issu:05-22-24 Qty: 3 for 90 days Sig: INHALE 1 PUFF Refills: 3 Last:05-22-24 ORAL INHALATION ONCE A DAY FOR COPD Expr:05-23-25 ADMINISTER AT SAME TIME EACH DAY 18) OMEPRAZOLE 40MG EC CAP Qty: 180 for 90 ACTIVE Issu:05-22-24 days Sig: TAKE ONE CAPSULE BY MOUTH Refills: 3 Last:05-22-24 TWO TIMES A DAY BEFORE MEALS TAKE 30 Expr:05-23-25 MINUTES PRIOR TO FOOD. 19) QUETIAPINE FUMARATE 25MG TAB Qty: 15 ACTIVE Issu:01-02-24 for 30 days Sig: TAKE ONE-HALF TABLET Refills: 1 Last:04-13-24 BY MOUTH AT BEDTIME Expr:01-02-25 20) SEMAGLUTIDE 1MG/0.75ML INJ PEN 3ML Qty: ACTIVE Issu:04-30-24 1 for 28 days Sig: INJECT 1MG UNDER Refills: 1 Last:05-01-24 THE SKIN EVERY WEEK Expr:05-01-25 21) WARFARIN NA (ELVIN STATE) 2MG TAB Qty: ACTIVE Issu:04-17-24 40 for 30 days Sig: TAKE ONE TABLET Refills: 2 Last:05-24-24 BY MOUTH SUNDAY, SUNDAY AND SUNDAY Expr:04-18-25 AND TAKE ONE AND ONE-HALF TABLETS ALL OTHER DAYS FOR ANTICOAGULATION 22) ZOLPIDEM TARTRATE 10MG TAB Qty: 30 for ACTIVE Issu:01-06-24 30 days Sig: TAKE ONE TABLET BY MOUTH Refills: 0 Last:05-22-24 AT BEDTIME NEEDED FOR INSOMNIA Expr:07-08-24 (TAKE IMMEDIATELY BEFORE BEDTIME DUE TO RAPID ONSET OF ACTION) PROBLEM LIST: 1) Type 2 diabetes mellitus 2) Sleep apnea (SNOMED CT 84039896) 3) Gastroesophageal reflux disease (SNOMED CT 498164677) 4) Allergic rhinitis (SNOMED CT 96839460) 5) Obesity (SNOMED CT 537992687) 6) Benign essential hypertension (SNOMED CT 4906180) 7) Bipolar disorder (SNOMED CT 73560458) 8) Hyperlipidemia (SNOMED CT 15691918) 9) Chronic low back pain 10) Primary Open Angle Glaucoma (ICD-9-CM 365.11) 11) Anemia (SNOMED CT 725786063) 12) Vitamin D deficiency (SNOMED CT 60739085) 13) Encounter for Therapeutic Drug Monitoring (ICD-9-CM V58.83) 14) Walking disability 15) Chronic low back pain (SNOMED CT 331707361) 16) Multinodular goiter (SNOMED CT 556808873) 17) Cardiomegaly (SNOMED CT 4771463) 18) Morbid obesity (SNOMED CT 794661565) 19) Mood Disorder Due To...[Indicate The General [...] BEING TREATED THIS VISIT: Bipolar Disorder HPI: Comes alone. The patient says his mood is good, with good appetite. He CLEARLY denies SI and wish. Sleep broken, 2 hours at a time. We agreed to increase quetiapine to 25 qhs. Usual warnings and precautions discussed. MSE: Cooperative, good eye contact, no abnormal movements (? a few lip twitches? I told him about this, the risks on quetiapine of possibly permanent tardive dyskinesia, and asks him to monitor and call me if this is happening). Mood good, affect calm and stable. Speech is elicitable and directable. No pressure. Thoughts organized without flight of ideas, loose associations, circumstantiality, blocking. He CLEARLY denies SI. NO HI, AH, VH, suspicions. A & O X 3. Insight and judgment are good. ASSESSMENT AND TREATMENT PLAN (INCLUDING RISK ASSESSMENT): Bipolar Disorder PLAN: Increase queetiapine to 25 mg qhs for mood stability, sleep. Continue other meds. He agrees to call me before if problems. Support given. /lynn/ SAMI CAMPUZANO JR, MD [facility] PHYSICIAN (STAFF) Signed: 06/03/2024 15:13 07/23/2024 ADDENDUM STATUS: COMPLETED Request for renewal of quetiapine. Changed quetiapine to 25mg hs instead of 12.5mg as per above recom by Dr. Campuzano. /es/ MIGUEL MCCLENDON MD Staff Physician, Psychiatry Signed: 07/23/2024 08:13 SAMI CAMPUZANO JR [facility]
--- OUTSIDE RECORDS SUMMARY | 2025-03-01 17:59 | XMS_ITS | Encounter Summary ---
Author Name [facility] [place] Organization [place] Address [address] [place] [address] Care Team Providers Care Risk Mgr Name Role Phone ANDREA ALDRICH Primary Care [...] PART B Aug 06, 2007 PART B [id number] MIGUEL,DA VID PATIENT MEDICARE (WNR) MEDICARE () PART B Aug 06, 2007 PART B [id number] [phone] MIGUEL,DA VID PATIENT MEDICARE (WNR) MEDICARE () PART B Aug 06, 2007 PART B [id number] MIGUEL,DA VID PATIENT MEDICARE (WNR) MEDICARE () PART B Aug 06, 2007 PART B [id number] MIGUEL,DA VID PATIENT MEDICARE (WNR) MEDICARE () PART B Aug 06, 2007 PART B [id number] MIGUEL,DA VID PATIENT MEDICARE (WNR) MEDICARE (M) PART B Aug 06, 2007 PART B [id number] MIGUEL,DA VID PATIENT MEDICARE (WNR) MEDICARE (M) PART A Jul 06, 2001 PART A [id number] [id number] MIGUEL,DA VID PATIENT MEDICARE (WNR) MEDICARE (M) PART A Jul 06, 2001 PART A [id number] [phone] MIGUEL,DA VID PATIENT MEDICARE (WNR) MEDICARE (M) PART A Jul 06, 2001 PART A [id number] MIGUEL,DA VID PATIENT MEDICARE (WNR) MEDICARE (M) PART A Jul 06, 2001 PART A [id number] MIGUEL,DA VID PATIENT MEDICARE (WNR) MEDICARE (M) PART A Jul 06, 2001 PART A [id number] MIGUEL,DA VID PATIENT MEDICARE (WNR) MEDICARE (M) PART A Jul 06, 2001 PART A [id number] MIGUEL,DA VID PATIENT Selected Encounter This section includes the information on record at [place] for the Encounter. Date/Time Encounter Type Encounter Description Reason Pro vider Source IHE Encounter Template Text not used by [place] Advance Directives: All historical and current Section [...] 2023 ADVANCE DIRECTIVE DISCUSSION INGA LUNA TIANNA [facility] December 14, 2021 ADVANCE DIRECTIVE DISCUSSION INGA LUNA TIANNA [facility] May 05, 2021 GOALS & PREFERENCES TO INFORM LIFE-SUSTAINING TREATMENT PLAN [facility]IN [facility]
--- OUTSIDE RECORDS SUMMARY | 2025-03-01 17:59 | XMS_ITS | Encounter Summary ---
Author Name [facility] [place] [facility] [place] Address [address] [place] [address] Care Team Providers Care Help Aid Name Role Phone ANDREA ALDRICH Primary Care [...] PART B Aug 06, 2007 PART B [id number] [phone] MIGUEL,DA VID PATIENT MEDICARE (WNR) MEDICARE (M) PART B Aug 06, 2007 PART B [id number] MIGUEL,DA VID PATIENT MEDICARE (WNR) MEDICARE (M) PART B Aug 06, 2007 PART B [id number] MIGUEL,DA VID PATIENT MEDICARE (WNR) MEDICARE (M) PART B Aug 06, 2007 PART B [id number] MIGUEL,DA VID PATIENT MEDICARE (WNR) MEDICARE (M) PART B Aug 06, 2007 PART B [id number] [phone] MIGUEL,DA VID PATIENT MEDICARE (WNR) MEDICARE (M) PART B Aug 06, 2007 PART B [id number] MIGUEL,DA VID PATIENT MEDICARE (WNR) MEDICARE (M) PART A Jul 06, 2001 PART A [id number] MIGUEL,DA VID PATIENT MEDICARE (WNR) MEDICARE (M) PART A Jul 06, 2001 PART A [id number] MIGUEL,DA VID PATIENT MEDICARE (WNR) MEDICARE (M) PART A Jul 06, 2001 PART A [id number] MIGUEL,DA VID PATIENT MEDICARE (WNR) MEDICARE (M) PART A Jul 06, 2001 PART A [id number] MIGUEL,DA VID PATIENT MEDICARE (WNR) MEDICARE (M) PART A Jul 06, 2001 PART A [id number] MIGUEL,DA VID PATIENT MEDICARE (WNR) MEDICARE (M) PART A Jul 06, 2001 PART A [id number] MIGUEL,DA VID PATIENT Selected Encounter This section includes the information on record at [place] for the Encounter. Date/Time Encounter Type Encounter Description Reason Provider Source Aug 21, 2024 05:38 PM [facility] OL DIG ASSMT&MGMT 5-10 CLINICAL PHARMACY ICD-10-CM E11.9 Type 2 diabetes mellitus without complications OMAR BRENNER IHE Encounter Template Text not used by [place] Assessments - Encounter Diagnoses This section includes the primary and secondary diagnoses documented for the Encounter. Date/Time Primary/Secondary Diagnosis Diagnosis Name Provider Source Aug 21, 2024 05:46 PM PRIMARY Type 2 diabetes mellitus without complications OMAR BRENNER [facility] Plan of Treatment: Future Appointments (+ 6 months) and Future Tests (+/- 45 days) The Plan of Treatment section includes future care activities for the patient from all [place] treatmentfacilities. This section includes future appointments and future orders which are active, pending or scheduled. Future Appointments This section includes appointments that were scheduled to occur 6 months from the date of the Encounter, up to a maximum of 20 appointments. The data comes from all [facility] facilities. Appointment Date/Time Appointment Type Appointme nt Facility Name Aug 26, 2024 04:00 PM AMBULATORY - PSYCHIATRY [facility] Aug 27, 2024 01:00 PM AMBULATORY - REHAB MEDICIN E [facility] Sep 01, 2024 01:00 PM AMBULATORY - NONE [facility] Sep 04, 2024 01:00 PM AMBULATORY - MEDICINE [facility] Sep 05, 2024 09:45 AM AMBULATORY - MEDICINE [facility] Sep 10, 2024 09:45 AM AMBULATORY - MEDICINE [facility] Sep 11, 2024 02:00 PM AMBULATORY - NONE [facility] Sep 18, 2024 10:00 AM AMBULATORY - MEDICINE [facility] Sep 23, 2024 10:15 AM AMBULATORY - MEDICINE [facility] Oct 02, 2024 10:45 AM AMBULATORY - MEDICINE [facility] Oct 02, 2024 01:30 PM AMBULATORY - PSYCHIATRY [facility] Oct 08, 2024 08:00 AM AMBULATORY - MEDICINE [facility] Oct 09, 2024 10:45 AM AMBULATORY - MEDICINE [facility] Oct 09, 2024 01:00 PM AMBULATORY - NONE [facility] Oct 13, 2024 01:00 PM AMBULATORY - NONE [facility] Oct 14, 2024 10:00 AM AMBULATORY - MEDICINE [facility] Oct 17, 2024 10:15 AM AMBULATORY - MEDICINE [facility] Nov 14, 2024 08:45 AM AMBULATORY - MEDICINE [facility] Nov 18, 2024 10:30 AM AMBULATORY - MEDICINE [facility] Nov 24, 2024 11:00 AM AMBULATORY - MEDICINE [facility] Lab Results: +/- 30 days of the encounter This section includes the Chemistry and Hematology Lab Results on record with [place] for the patient. Radiology Reports and Pathology Reports are provided separately, in subsequent sections. Lab Results This section contains the Chemistry/Hematology Results that were resulted 30 days before or 30 daysafter the date of the Encounter. Date/Time Source Result Type Result - Unit Interpretation Reference Range Specimen Type Comment Aug 08, 2024 11:27 AM [facility]-INR PLASMA Specimen Type: PLASMA No comment entered. Ordering Provider: MARCO VANG Report Released Date/Time: Aug 04, 2024 11:00 AM Reporting Lab: [facility] [place] [address] Performing Lab: [facility] [place] [address] PROTIME 23.2 s H 9.4-12.5 INR VALUE 2.1 {INR} Aug 04, 2024 08:54 AM [facility]R PLASMA Specimen Type: PLASM A No comment entered. Ordering Provider: MARCO VANG Report Released Date/Time: Jul 31, 2024 02:59 PM Reporting Lab: [facility] [id number] Performing Lab: [facility] [id number] PROTIME 17.0 s H 9.4-12.5 INR VALUE 1.5 {INR} Jul 31, 2024 01:03 PM [facility]-INR PLASMA Specimen Type: PLASM A No comment entered. Ordering Provider: MARCO VANG Report Released Date/Time: Jul 15, 2024 03:20 PM Reporting Lab: [facility] [id number] Performing Lab: [facility] [place] [address] PROTIME 21.8 s H 9.4-12.5 INR VALUE 2.0 {INR} Social History: Smoking Status (Most current) and Tobacco Use (All prior to encounter date) This section includes the most current, and the historical, smoking and tobacco- related health factors from the [place] facility where the Encounter took place. Current Smoking Status This section includes the most current smoking, or tobacco-related health factor, from the [place] facility where the Encounter took place. Date/Time Current Smoking Status Comment Nelly [email or web address] Oct 26, 2015 01:43 PM LIFETIME NON-USER OF TOBACCO [facility] Tobacco Use History This section includes a history of the smoking, or tobacco-related health factors, that were collected on or before the date of the Encounter. The data comes from the [place] facility where the Encounter took place. Date/Time Smoking Status/Tobacco Use Comment José Luis [email or web address] Jul 03, 2014 01:55 PM LIFETIME NON-USER OF TOBACCO [facility] Oct 01, 2013 12:00 PM LIFETIME NON-USER OF TOBACCO [facility] Nov 17, 2004 03:14 PM LIFETIME NON-TOBACCO USER [facility] Aug 01, 2004 12:58 PM LIFETIME NON-TOBACCO USER [facility] Oct 14, 2003 08:20 AM LIFETIME NON-TOBACCO USER [facility] Advance Directives: All historical and current Section Date Range: From patient's date of to the date document was created. This section includes ALL of a patient's completed or amended [place] Advance and Rescinded Directives. The entries below indicate that a directive exists for the patient, but an actual copy is not included with this document. The data comes from all [place] facilities. Date Advance Directives Provider Source May 16, 2023 ADVANCE DIRECTIVE DISCUSSION INGA LUNA TIANNA [facility] December 14, 2021 ADVANCE DIRECTIVE DISCUSSION INGA LUNA TIANNA [facility] May 05, 2021 GOALS & PREFERENCES TO INFORM LIFE-SUSTAINING TREATMENT PLAN RAIN TOBIAS [facility] Encounter Notes: All associated encounter notes This section contains the clinical notes associated to the Encounter. Date/Time Encounter Note(s) Provider Source Aug 21, 2024 05:41 PM PHARMACY CONSULT: LOCAL TITLE: PHARMACY PRIOR APPROVAL CONSULT [facility] STANDARD TITLE: PHARMACY CONSULT DATE OF NOTE: AUG 21, 2024@17:41 ENTRY DATE: AUG 21, 2024@17:41:06 AUTHOR: OMAR BRENNER EXP COSIGNER: URGENCY: STATUS: COMPLETED The medical record has been reviewed with regard to this prior authorization drug request. Medication requested: TIRZEPATIDE 2.5MG/0.5ML INJ,SOLN PACK,4 Medication indication: DM Medical history relevant to this request: HGA1C 8.7 H % 05/22/2024 13:10 --No pancreatitis or self/family history of thyroid cancer --Last eye exam/results 12/2023 mild retinopathy Tirzepatide (MOUNJARO) Injection Inclusion Criteria All of the following must be met (YES) Diagnosis of Type 2 diabetes (YES) Inadequate glycemic control on at least 1mg of semaglutide injection plus two or more glucose lowering drugs (metformin, empagliflozin, insulin, pioglitazone, sulfonylurea) for at least 6 months (YES) Change needed to achieve goal A1C is less than 1%. Goal A1C should be based on those recommended in the [place]/[facility] Diabetes Guidelines (YES) Adherent to current diabetes medications as evidenced by a review of prescription refill history during the last 6 months (YES) Current non-GLP 1A drugs are optimized as appropriate --Uncontrolled DM on basal/bolus insulin, empaglfilozin --A1c reflective of semaglutide 1mg weekly but stopped due to ADRs --approved The request is approved - A documented adverse reaction occurred with the preferred formulary alternative(s) - A documented therapeutic failure of the preferred formulary alternative(s) exists TIME REVIEWING CHART:12. (minutes) /lynn/ OMAR BRENNER PHARM.DPam, [facility] CLINICAL PHARMACIST Signed: 08/21/2024 17:46 OMAR BRENNER [facility]
--- OUTSIDE RECORDS SUMMARY | 2025-03-01 18:00 | XMS_ITS ---
Author Name [facility] Organization [facility] [place] Address [address] [place] [address] Care Team Providers Care Director Of Enterprise Strategy Name Role Phone ANDREA ALDRICH Primary Care [...] PART B Aug 06, 2007 PART B [id number] [phone] YOAN,DA VID PATIENT MEDICARE (WNR) MEDICARE (M) PART B Aug 06, 2007 PART B [id number] [phone] YOAN,DA VID PATIENT MEDICARE (WNR) MEDICARE (M) PART B Aug 06, 2007 PART B [id number] YOAN,DA VID PATIENT MEDICARE (WNR) MEDICARE (M) PART B Aug 06, 2007 PART B [id number] [phone] YOAN,DA VID PATIENT MEDICARE (WNR) MEDICARE (M) PART B Aug 06, 2007 PART B [id number] YOAN,DA VID PATIENT MEDICARE (WNR) MEDICARE (M) PART B Aug 06, 2007 PART B [id number] YOAN,DA VID PATIENT MEDICARE (WNR) MEDICARE (M) PART A Jul 06, 2001 PART A [id number] YOAN,DA VID PATIENT MEDICARE (WNR) MEDICARE (M) PART A Jul 06, 2001 PART A [id number] YOAN,DA VID PATIENT MEDICARE (WNR) MEDICARE (M) PART A Jul 06, 2001 PART A [id number] [phone] YOAN,DA VID PATIENT MEDICARE (WNR) MEDICARE (M) PART A Jul 06, 2001 PART A [id number] [phone] YOAN,DA VID PATIENT MEDICARE (WNR) MEDICARE (M) PART A Jul 06, 2001 PART A [id number] YOAN,DA VID PATIENT MEDICARE (WNR) MEDICARE (M) PART A Jul 06, 2001 PART A [id number] YOAN,DA VID PATIENT Selected Encounter This section includes the information on record at [place] for the Encounter. Date/Time Encounter Type Encounter Description Reason Provider Source Jan 05, 2025 03:30 PM PENDING SALE TO [facility] ASS[facility]/REASSESSM [facility] CAREGIVER SUPPORT PROGRAM ICD-10-CM F31.9 Bipolar disorder, unspecified RACHEL ALSTON Ngozi Encounter Template Text not used by [place] Assessments - Encounter Diagnoses This section includes the primary and secondary diagnoses documented for the Encounter. Date/Time Primary/Secondary Diagnosis Diagnosis Name Provider Source Jan 05, 2025 04:30 PM PRIMARY Bipolar disorder, unspecified RACHEL ALSTON [facility] Plan of Treatment: Future Appointments (+ 6 months) and Future Tests (+/- 45 days) The Plan of Treatment section includes future care activities for the patient from all [place] treatmentfacilities. This section includes future appointments and future orders which are active, pending or scheduled. Future Appointments This section includes appointments that were scheduled to occur 6 months from the date of the Encounter, up to a maximum of 20 appointments. The data comes from all [facility]. Appointment Date/Time Appointment Type Appointme nt Facility Name Jan 15, 2025 02:30 PM AMBULATORY - REHAB MEDICIN E [facility] Jan 20, 2025 10:20 AM AMBULATORY - MEDICINE [facility] Feb 05, 2025 02:20 PM AMBULATORY - MEDICINE [facility] Feb 26, 2025 10:20 AM AMBULATORY - MEDICINE [facility] Mar 02, 2025 10:30 AM AMBULATORY - SURGERY [facility] Mar 09, 2025 11:20 AM AMBULATORY - NONE . ELAINE S [facility] May 07, 2025 12:20 PM AMBULATORY - MEDICINE [facility] Jul 07, 2025 11:00 AM AMBULATORY - REHAB MEDICIN E [facility] Active, Pending, and Scheduled Orders This section includes a listing of several types of active, pending, and scheduled orders, including clinic medications orders, diagnostic test orders, procedure orders and consult orders; where the start date of the order is 45 days before the date of the Encounter or 45 days after the date of theEncounter. The data comes from all [facility]. Test Date/Time Test Type Test Details Facility Name January 02, 2025 12:26 PM Consult Order ENDO THYRO ID DISEASE OUTPATIENT ZA [facility] [employer] Jan 06, 2025 10:35 AM Consult Order [facility] Lab Results: +/- 30 days of the encounter This section includes the Chemistry and Hematology Lab Results on record with [place] for the patient. Radiology Reports and Pathology Reports are provided separately, in subsequent sections. Lab Results This section contains the Chemistry/Hematology Results that were resulted 30 days before or 30 daysafter the date of the Encounter. Date/Time Source Result Type Result - Unit Interpretation Reference Range Specimen Type Comment Jan 20, 2025 01:50 PM [facility] WARFARIN-INR PLASMA Specimen Type: PLASMA No comment entered. Ordering Provider: RYAN HENRIQUEZ Report Released Date/Time: Jan 16, 2025 03:59 PM Reporting Lab: [facility] [phone] Performing Lab: [facility] [id number] PROTIME 26.7 s H 9.4-12.5 INR VALUE 2.4 {INR} January 02, 2025 12:36 PM [facility] URIC ACID PLASMA Specimen Type: PLASM A Comment: No hemolysis noted. Ordering Provider: LEO MATOS Report Released Date/Time: January 02, 2025 11:44 AM Reporting Lab: [facility] [phone] Performing Lab: [facility] [address] URIC ACID 10.8 mg/dL H 3.5-7.2 January 02, 2025 12:36 PM [facility] FERRITIN SERUM Specimen Type: SERUM No comment entered. Ordering Provider: LEO MATOS Report Released Date/Time: January 02, 2025 11:44 AM Reporting Lab: [address] [address] Performing Lab: [address] [address] FERRITIN 23.82 ng/mL 22-275 January 02, 2025 12:36 PM [facility] IRON/TIBC PROFILE SERUM Specimen Type: SERUM Comment: FE Sat Unable to be calculated Ordering Provider: LEO MATOS Report Released Date/Time: January 02, 2025 11:44 AM Reporting Lab: [address] [phone] Performing Lab: [address] [address] TRANSFERRIN 378 mg/dL H 163-344 IRON SATURATION 7 L 20-50 IRON 35 ug/dL L 65-175 TIBC 473 ug/dL H 250-450 January 02, 2025 12:36 PM [facility] HGA1C BLOOD Specimen Type: BLOOD No comment entered. Ordering Provider: LEO MATOS Report Released Date/Time: January 02, 2025 11:44 AM Reporting Lab: [facility] [place] [address] Performing Lab: [facility] [place] [address] HGA1C 7.7 H 4.0-6.0 January 02, 2025 12:36 PM [facility] LIPID PANEL (STL) PLASMA Specimen Type: PLASM A Comment: No hemolysis noted. Ordering Provider: LEO MATOS Report Released Date/Time: January 02, 2025 11:44 AM Reporting Lab: [facility] [place] [address] Performing Lab: [facility] [place] [address] CHOLESTEROL 164 mg/dL 0-200 TRIGLYCERIDE 210 mg/dL H 0-150 CALCULATED LDL 88 mg/dL See Interp HDL(New) 34 mg/dL L > 40 January 02, 2025 12:36 PM [facility] CRP PLASMA Specimen Type: PLASM A Comment: No hemolysis noted. Ordering Provider: LEO MATOS Report Released Date/Time: January 02, 2025 11:53 AM Reporting Lab: [facility] [place] [address] Performing Lab: [facility] [place] [address] CRP 0.9 mg/dL H 0.0-0.5 January 02, 2025 12:36 PM [facility] ESR ISED(STL) BLOOD Specimen Type: BLOOD No comment entered. Ordering Provider: LEO MATOS Report Released Date/Time: January 02, 2025 11:53 AM Reporting Lab: [facility] [place] [address] Performing Lab: [facility] [address] ESR ISED(STL) 6 mm/h 0-19 January 02, 2025 12:36 PM [facility] COMPREHENSIVE METABOLIC PANEL PLASMA Specimen Type: PLASMA Comment: No hemolysis noted. Ordering Provider: LEO MATOS Report Released Date/Time: January 02, 2025 11:44 AM Reporting Lab: [facility] [place] [phone] Performing Lab: [facility] [place] [address] CREATININE 2.34 mg/dL H 0.70-1.30 UREA NITROGEN [...] 29.37 >60 January 02, 2025 12:36 PM [facility] CBC BLOOD Specimen Type: BLOOD No comment entered. Ordering Provider: LEO MATOS Report Released Date/Time: January 02, 2025 11:44 AM Reporting Lab: [facility] [address] Performing Lab: [facility] [place] [phone] WBC 8.5 10*3/uL 3.6-11.2 RBC 4.80 10*6/uL [...] 0.00-0. 20 December 25, 2024 01:09 PM [facility] WARFARIN-INR PLASMA Specimen Type: PLASM A No comment entered. Ordering Provider: MARCO VANG Report Released Date/Time: December 10, 2024 03:13 PM Reporting Lab: [facility] [place] [address] Performing Lab: [facility] [place] [address] PROTIME 23.9 s H 9.4-12.5 INR VALUE 2.1 {INR} December 10, 2024 01:20 PM [facility] HGB,HCT,PLT BLOOD Specimen Type: BLOOD No comment entered. Ordering Provider: MARCO VANG Report Released Date/Time: Nov 25, 2024 02:56 PM Reporting Lab: [facility] [phone] Performing Lab: [facility] [place] [phone] HGB 11.7 g/dL L 13.1-16.8 HCT 38.4 38.2-48.4 PLT 212 10*3/uL 150-400 December 10, 2024 01:20 PM [facility] WARFARIN-INR PLASMA Specimen Type: PLASM A No comment entered. Ordering Provider: MARCO VANG Report Released Date/Time: Nov 25, 2024 02:56 PM Reporting Lab: [facility] [phone] Performing Lab: [facility] [phone] PROTIME 35.8 s H 9.4-12.5 INR VALUE 3.2 {INR} Social History: Smoking Status (Most current) and Tobacco Use (All prior to encounter date) This section includes the most current, and the historical, smoking and tobacco- related health factors from the [place] facility where the Encounter took place. Current Smoking Status This section includes the most current smoking, or tobacco-related health factor, from the [place] facility where the Encounter took place. Date/Time Current Smoking Status Comment Nelly dominguez Oct 26, 2015 01:43 PM LIFETIME NON-USER OF TOBACCO [facility] Tobacco Use History This section includes a history of the smoking, or tobacco-related health factors, that were collected on or before the date of the Encounter. The data comes from the [place] facility where the Encounter took place. Date/Time Smoking Status/Tobacco Use Comment F acility Jul 03, 2014 01:55 PM LIFETIME NON-USER OF TOBACCO [facility] Oct 01, 2013 12:00 PM LIFETIME NON-USER OF TOBACCO [facility] Nov 17, 2004 03:14 PM LIFETIME NON-TOBACCO USER [facility] Aug 01, 2004 12:58 PM LIFETIME NON-TOBACCO USER [facility] Oct 14, 2003 08:20 AM LIFETIME NON-TOBACCO USER [facility] Advance Directives: All historical and current Section Date Range: From patient's date of to the date document was created. This section includes ALL of a patient's completed or amended [place] Advance and Rescinded Directives. The entries below indicate that a directive exists for the patient, but an actual copy is not included with this document. The data comes from all [place] facilities. Date Advance Directives Provider Source May 16, 2023 ADVANCE DIRECTIVE DISCUSSION INGA LUNA [facility] December 14, 2021 ADVANCE DIRECTIVE DISCUSSION INGA LUNA [facility] May 05, 2021 GOALS & PREFERENCES TO INFORM LIFE-SUSTAINING TREATMENT PLAN TOBIAS,RAIN B TIANNA [facility] Radiology Reports: +/- 30 days of [...] the Encounter. The data comes from all [place] treatment facilities. Date/Time Radiology Report Provider Source January 02, 2025 12:43 PM KNEE,LEFT, 3 VIEWS : DARON RIVERA [id number] -[id number] M Exm Date: JANUARY 02, 2025@12:43 Req Phys: LEO MATOS Loc: [facility] TM 4 PCP (Req'g L Img Loc: [facility] Service: [address] [address] (Case [id number] COMPLETE) KNEE,LEFT, 3 VIEWS (RAD Detailed) CPT:38741 Proc Modifiers : LEFT, LATERAL, Stand AP, [place] Reason for Study: pain Clinical History: pain, crepitus, h/o partial replacment Report Status: Verified Date Reported: JANUARY 03, 2025 Date Verified: JANUARY 03, 2025 [employer] Drier E-Sig:/ES/YOKASTA JACOB Report: EXAMINATION: KNEE,LEFT, 3 VIEWS [...] effusion. Primary Interpreting Staff: YOKASTA JACOB, RADIOLOGIST (Skein Yard Drier) /YOKASTA LOW [facility] Encounter Notes: All associated encounter notes This section contains the clinical notes associated to the Encounter. Date/Time Encounter Note(s) Provider Source Jan 05, 2025 03:46 PM CAREGIVER CERTIFIC ATE: LOCAL TITLE: [facility] WELLNESS CONTACT STANDARD TITLE: CAREGIVER CERTIFICATE DATE OF NOTE: JAN 05, 2025@15:46 ENTRY DATE: JAN 05, 2025@15:46:24 AUTHOR: RACHEL ALSTON COSIGNER: URGENCY: STATUS: COMPLETED Caregiver Support Program [facility] Wellness Contact [place] This [place] is enrolled in [place]'s Program of Comprehensive Assistance for Family Caregivers (PCAFC). While enrolled in [facility], wellness contacts review the [place]'s well-being, adequacy of personal care services being provided by the Family Caregiver(s), and the well-being of the Family Caregiver(s). Wellness contacts occur at a minimum of once every 120 days, and at least one visit must occur in the eligible [place]'s home on an annual basis. Date of Visit: Jan Length of visit: 30 minutes The was identified using the following thomas identifiers: Full Name: DARON RIVERA Date of : [birth year] Full Address: [address] [place] [address] Phone #: Email address: Patient Email - [email or web address] Is the above contact information in the electronic health record and the Caregiver Support Program IT system, correct? Yes Reason for contact: Routine (120-day contact) Individuals providing input include: [place] Primary Family Caregiver Method of contact: Video Telehealth Contact number for backup/emergency communication: [place] location during visit:* Home [address] [place] [address] Others present for visit with 's consent: Name(s): Reagan Connorers confirms location is safe and private for visit. Telehealth Disclosure: Visit conducted by synchronous telehealth. verbal consent obtained. Location/emergency number confirmed. Environment surveyed and all participants identified. Virtual conference room locked. INFORMATION [place] is receiving care from: Primary Family Caregiver Name: Reaganrasta Moore Have there been any changes to the individuals living in the [place]'s household? No Have there been any changes in the 's Advance Directive for Health Care, Guardianship/Conservator, or Fiduciary status? No ASSESSMENT How has your physical/mental/emotional health been lately? Details: It's been okay...any day I wake up is good day. Some bad days, not too often. Usually I hurt pretty bad on bad days...pain is in back, knees and shoulder. I went to the doctor last week because joint pain in both knees. He did x-rays and will send me to ortho for that. Have you experienced any changes (falls, ER visits, hospitalizations) and/or any concerns? Yes Details: 1 fall, ER visit and hospitalization. [place] shares, I had a really bad gout outbreak about 3 months ago. I was put on medicine and they adjusted my medications to get blood back to where it needed to be. Caregiver shares that [place] was also dehydrated and took him off of Ozempic as this made him not want to eat and then his blood got too thin because he is also on blood thinners. [place] reports he fell, going into the bedroom, getting ready for bed. He reports he just lost his balance. No injuries, just bruised pride. Caregiver and report the fall was at the end of December. How are you coping with these changes or concerns? Details: I'm okay....on Ozempic for diabetes...They took me off it and prescribed to do weekly shots with Monaro. Ozempic made me sick when I ate food. I lost 30lbs...Since on new medication, I'm still losing weight. Do you have any medication concerns? No Do you have the needed medical equipment to support you in your home? No Details: doctor ordered what I needed. I'm getting a new walker. Do you feel that your care needs are being adequately met? Yes Do you have any legal or financial planning concerns? No Do you feel comfortable and safe in your home environment? Yes What goals or needs can we assist you with? Details: Not that I can think of. CAREGIVER INPUT Caregiver's understanding of the 's treatment plan: Details: What he is doing is a lot of what is going on. They x-rayed his knees and waiting to find out that and doctor will send on to ortho to find out. He has a partial placement that is about 25-30 years old and it's giving way. Being up here in [place], he doesn't have the breathing issues he was having in [place], he still has issues but nothing it was down there. He has COPD. That is doing okay right now, but it's still there. We go out every day and he piddles around in the garage, sweeping up leaves. He takes his walker and sits on it. He is more active now than he has been in last 30 years. Are there any supports or services the Caregiver needs to adequately meet the needs of the ? No Support services currently in place include: Other Details: [employer], Psychiatry [facility] staff provided information on the following resources and supports: - Other [place] Services: N/A PLAN: No follow-up needed outside of regularly scheduled [facility] Wellness Contacts SUMMARY OF VISIT: Wellness Contact was conducted via Telehealth/VVC. Caregiver and [place] actively participated the Wellness contact. Both were friendly and able to stay on topic. [place]/Caregiver reports one E.D visit with a hospitalization and 1 fall during past 120 days. No injuries from the fall and E.D. visit was related to GLP-1 medication curbing appetite and having a negative side effect with his blood thinners. [place] is on a new GLP-1 medication to help with diabetes and weight loss. [place]/Caregiver reports no additional needs at this time for additional supports. Caregiver appears to have a good understanding with providers treatment plan. Caregiver reports [place]'s health has been doing better since they moved from [place] to [place] and notes that is more active that he used to be in the past. /lynn/ TENZIN Dominguez, VETERINARY EPIDEMIOLOGIST Systems Lead, Caregiver Support Program Signed: 01/07/2025 17:18 RACHEL ALSTON [facility]
--- OUTSIDE RECORDS SUMMARY | 2025-03-01 18:00 | XMS_ITS | Encounter Summary ---
Author Organization [facility] Madeline melendez Address [address] [place] [address] Phone Care Team Providers Care Senior Publications Specialist Name Role Phone Unavailable Primary Care Provider Unavailabl e Encounter Details Date Type Department Care Team (Late st Contact Info) Description 05/18/2021 Hospital/ED/SNF/HH Visit [facility] [place] [address] Provider, [place] [address] [place] [id number] Social History Tobacco Use Types Packs/Day [...]
--- OUTSIDE RECORDS SUMMARY | 2025-03-01 18:00 | XMS_ITS | Encounter Summary ---
Author Name [facility] [place] [facility] [place] Address [address] [place] [address] Care Team Providers Care Gi Tech Name Role Phone ANDREA ALDRICH Primary Care [...] PART B Aug 06, 2007 PART B [id number] MIGUEL,DA VID PATIENT MEDICARE (WNR) MEDICARE (M) PART B Aug 06, 2007 PART B [id number] MIGUEL,DA VID PATIENT MEDICARE (WNR) MEDICARE (M) PART B Aug 06, 2007 PART B [id number] [phone] MIGUEL,DA VID PATIENT MEDICARE (WNR) MEDICARE (M) PART B Aug 06, 2007 PART B [id number] MIGUEL,DA VID PATIENT MEDICARE (WNR) MEDICARE (M) PART B Aug 06, 2007 PART B [id number] MIGUEL,DA VID PATIENT MEDICARE (WNR) MEDICARE (M) PART B Aug 06, 2007 PART B [id number] [phone] MIGUEL,DA VID PATIENT MEDICARE (WNR) MEDICARE (M) PART A Jul 06, 2001 PART A [id number] [id number] MIGUEL,DA VID PATIENT MEDICARE (WNR) MEDICARE (M) PART A Jul 06, 2001 PART A [id number] MIGUEL,DA VID PATIENT MEDICARE (WNR) MEDICARE (M) PART A Jul 06, 2001 PART A [id number] [phone] [id number] MIGUEL,DA VID PATIENT MEDICARE (WNR) MEDICARE (M) PART A Jul 06, 2001 PART A [id number] MIGUEL,DA VID PATIENT MEDICARE (WNR) MEDICARE (M) PART A Jul 06, 2001 PART A [id number] MIGUEL,DA VID PATIENT MEDICARE (WNR) MEDICARE (M) PART A Jul 06, 2001 PART A [id number] MIGUEL,DA VID PATIENT Selected Encounter This section includes the information on record at [place] for the Encounter. Date/Time Encounter Type Encounter Description Reason Provider Source Aug 26, 2024 04:00 PM OFFICE O/P EST MOD 30 MIN PSYCHOGERIATRIC - INDIVIDUAL ICD-10-CM F31.9 Bipolar disorder, unspecified SAMI ENRIQUEZ JR [facility] Encounter Template Text not used by [place] Assessments - Encounter Diagnoses This section includes the primary and secondary diagnoses documented for the Encounter. Date/Time Primary/Secondary Diagnosis Diagnosis Name Provider Source Aug 27, 2024 04:17 PM PRIMARY Bipolar disorder, unspecified SAMI ENRIQUEZ JR [facility] Plan of Treatment: Future Appointments (+ 6 months) and Future Tests (+/- 45 days) The Plan of Treatment section includes future care activities for the patient from all [place] treatmentfacilities. This section includes future appointments and future orders which are active, pending or scheduled. Future Appointments This section includes appointments that were scheduled to occur 6 months from the date of the Encounter, up to a maximum of 20 appointments. The data comes from all [facility]. Appointment Date/Time Appointment Type Appointme nt Facility Name Aug 27, 2024 01:00 PM AMBULATORY - REHAB [facility]IC[facility] Sep 01, 2024 01:00 PM AMBULATORY - NONE [facility] Sep 04, 2024 01:00 PM AMBULATORY - MEDICINE [facility] Sep 05, 2024 09:45 AM AMBULATORY - MEDICINE [facility] Sep 10, 2024 09:45 AM AMBULATORY - MEDICINE [facility] Sep 11, 2024 02:00 PM AMBULATORY - NONE [facility] Sep 18, 2024 10:00 AM AMBULATORY - MEDICINE [facility] Sep 23, 2024 10:15 AM AMBULATORY - MEDICINE [facility] Oct 02, 2024 10:45 AM AMBULATORY - MEDICINE [facility] Oct 02, 2024 01:30 PM AMBULATORY - PSYCHIATRY [facility] Oct 08, 2024 08:00 AM AMBULATORY - MEDICINE [facility] Oct 09, 2024 10:45 AM AMBULATORY - MEDICINE [facility] Oct 09, 2024 01:00 PM AMBULATORY - NONE [facility] Oct 13, 2024 01:00 PM AMBULATORY - NONE [facility] Oct 14, 2024 10:00 AM AMBULATORY - MEDICINE [facility] Oct 17, 2024 10:15 AM AMBULATORY - MEDICINE [facility] Nov 14, 2024 08:45 AM AMBULATORY - MEDICINE [facility] Nov 18, 2024 10:30 AM AMBULATORY - MEDICINE [facility] Nov 24, 2024 11:00 AM AMBULATORY - MEDICINE [facility] December 09, 2024 09:30 AM AMBULATORY - MEDICINE [facility] Lab Results: +/- 30 days [...] Type Comment Aug 08, 2024 11:27 AM [facility]-INR PLASMA Specimen Type: PLASMA No comment entered. Ordering Provider: MARCO VANG Report Released Date/Time: Aug 04, 2024 11:00 AM Reporting Lab: [facility] [address] Performing Lab: [facility] [address] PROTIME 23.2 s H 9.4-12.5 INR VALUE 2.1 {INR} Aug 04, 2024 08:54 AM [facility]-INR PLASMA Specimen Type: PLASM A No comment entered. Ordering Provider: MARCO VANG Report Released Date/Time: Jul 31, 2024 02:59 PM Reporting Lab: [facility] [address] Performing Lab: [facility] [address] PROTIME 17.0 s H 9.4-12.5 INR VALUE 1.5 {INR} Jul 31, 2024 01:03 PM [facility]-INR PLASMA Specimen Type: PLASM A No comment entered. Ordering Provider: MARCO VANG Report Released Date/Time: Jul 15, 2024 03:20 PM Reporting Lab: [facility] [address] Performing Lab: [facility] [facility] [address] PROTIME 21.8 s H 9.4-12.5 INR VALUE 2.0 {INR} Social History: Smoking Status (Most current) and Tobacco Use (All prior to encounter date) This section includes the most current, and the historical, smoking and tobacco- related health factors from the [place] facility where the Encounter took place. Current Smoking Status This section includes the most current smoking, or tobacco-related health factor, from the [place] facility where the Encounter took place. Date/Time Current Smoking Status Comment Nelly meriday Nov 19, 2023 01:00 PM VA-TOBACCO FORMER USER [facility] Tobacco Use History This section includes a history of the smoking, or tobacco-related health factors, that were collected on or before the date of the Encounter. The data comes from the [place] facility where the Encounter took place. Date/Time Smoking Status/Tobacco Use Comment F aclakeisha Nov 19, 2023 01:00 PM [place]-TOBACCO QUIT < 1 YEAR [facility] Aug 03, 2016 02:42 PM LIFETIME NON-USER OF TOBACCO [facility] December 18, 2012 12:47 PM LIFETIME NON-USER OF TOBACCO [facility] Jul 29, 2009 03:09 AM LIFETIME NON-USER OF TOBACCO [facility] December 14, 2006 08:02 AM LIFETIME NON-USER OF TOBACCO [facility] Nov 01, 2005 09:20 AM LIFETIME NON-TOBACCO USER [facility] Advance Directives: All historical and current Section Date Range: From patient's date of to the date document was created. This section includes ALL of a patient's completed or amended [place] Advance and Rescinded Directives. The entries below indicate that a directive exists for the patient, but an actual copy is not included with this document. The data comes from all [place] facilities. Date Advance Directives Provider Source May 16, 2023 ADVANCE DIRECTIVE DISCUSSION INGA LUNA TIANNA [facility] December 14, 2021 ADVANCE DIRECTIVE DISCUSSION INGA LUNA TIANNA [facility] May 05, 2021 GOALS & PREFERENCES TO INFORM LIFE-SUSTAINING TREATMENT PLAN [facility] Encounter Notes: All associated encounter notes This section contains the clinical notes associated to the Encounter. Date/Time Encounter Note(s) Provider Source Aug 26, 2024 03:55 PM PSYCHIATRY NOTE: LOCAL TITLE: PSYCHIATRY [facility] STANDARD TITLE: PSYCHIATRY NOTE DATE OF NOTE: AUG 26, 2024@15:55 ENTRY DATE: AUG 26, 2024@15:55:12 AUTHOR: ZOE,SAMI M JR EXP COSIGNER: URGENCY: STATUS: COMPLETED [facility] - MEDICATION MANAGEMENT Name..................AIRAM Mary BethDARON Age...................69 Sex...................MALE SSN...................[id number] Today's Date..........AUG 26, 2024 Service Connection....Service Connected: Yes (70%) ALLERGIES: NIACIN, SEMAGLUTIDE OUTPATIENT MEDICATIONS: Active Outpatient Medications (excluding Supplies): Issue Date Status Last Fill Active Outpatient Medications Refills Expiration = 1) ACCU-CHEK GUIDE ME (GLUCOSE) METER Qty: 1 ACTIVE Issue: 02/28/24 for 180 days Sig: USE GLUCOSE METER FOR Refills: 0 Last : 02/28/24 DIRECTED -CONTACT [place] [facility] Expr : 08/26/24 FOR REPLACEMENT OR PROBLEM Indication: FOR BLOOD SUGAR MONITORING 2) ALBUTEROL [...] NEBULIZATION EVERY 6 HOURS DIRECTED Expr : 10/18/25 NEEDED Indication: FOR COPD 4) ATORVASTATIN CALCIUM [...] TABLET BY MOUTH TWICE A DAY Refills: 3 Last : 05/22/24 TAKE WITH FOOD. Expr : 05/23/25 Indication: [...] Sig: TAKE ONE TABLET BY Refills: 3 Last : 05/24/24 MOUTH ONCE A DAY Expr : 05/24/25 Indication: FOR VITAMIN D SUPPLEMENTATION 9) EMPAGLIFLOZIN 25MG TAB Qty: 45 for 90 days ACTIVE Issue: 05/22/24 Sig: TAKE ONE-HALF TABLET BY MOUTH ONCE A Refills: 3 Last : 05/22/24 DAY Expr : 05/23/25 Indication: FOR DIABETES [...] Qty: 90 for 90 days Sig: ACTIVE Issue: 05/22/24 TAKE ONE TABLET BY MOUTH EVERY MORNING Refills: 3 Last : 05/22/24 Indication: FOR FLUID RETENTION (EDEMA) Expr : 05/23/25 12) GABAPENTIN 300MG CAP Qty: 180 for 90 days ACTIVE Issue: 05/22/24 Sig: TAKE ONE CAPSULE BY MOUTH TWICE A DAY Refills: 3 Last : 05/22/24 Indication: FOR NERVE PAIN Expr : 05/23/25 [...] Sig: INJECT 30 UNITS UNDER THE Refills: 1 Last : 06/13/24 SKIN TWO TIMES A DAY BEFORE MEALS Expr : 06/14/25 ADMINISTER 10 MINUTES BEFORE FOOD DIRECTED. DISCARD ANY VIAL 28 DAYS AFTER OPENING. Indication: FOR DIABETES 16) INSULIN,GLARGINE,HUMAN 100 UNIT/ML INJ Qty: ACTIVE Issue: 08/08/24 1 for 25 days Sig: INJECT 40 UNITS UNDER THE Refills: 3 Last : 08/10/24 SKIN ONCE A DAY ADMINISTER AT SAME TIME EACH Expr : 08/09/25 DAY DIRECTED. DISCARD ANY VIAL 28 DAYS AFTER OPENING. Indication: FOR DIABETES 17) LATANOPROST 0.005% OPH SOLN Qty: 7.5 for 90 ACTIVE Issue: 12/25/23 days Sig: INSTILL 1 DROP IN BOTH EYES EVERY Refills: 1 Last : 07/15/24 EVENING KEEP REFRIGERATED UNTIL READY TO Expr : 12/25/24 USE, THEN STORE AT ROOM TEMPERATURE FOR MAXIMUM OF 42 DAYS. Indication: FOR ELEVATED INTRAOCULAR PRESSURE 18) LOSARTAN 100MG TAB Qty: 45 for 90 days Sig: ACTIVE Issue: 05/22/24 TAKE ONE-HALF TABLET BY MOUTH ONCE A DAY Refills: 3 Last : 07/23/24 Indication: FOR HIGH BLOOD PRESSURE Expr : 05/23/25 19) MELATONIN 3MG CAP/TAB Qty: 60 for 60 days ACTIVE Issue: 07/16/24 Sig: TAKE ONE CAP/TAB BY MOUTH AT BEDTIME Refills: 0 Last : 07/16/24 Indication: FOR SLEEP Expr : 09/14/24 20) MIRTAZAPINE 45MG TAB Qty: 90 for 90 days ACTIVE Issue: 08/10/24 Sig: TAKE ONE TABLET BY MOUTH AT BEDTIME Refills: 1 Last : 08/10/24 Indication: FOR DEPRESSION Expr : 08/11/25 21) OLODATEROL/TIOTROP 2.5MCG/ACTUAT 60D INH ACTIVE Issue: 05/22/24 Qty: 3 for 90 days Sig: INHALE 1 PUFF ORAL Refills: 2 Last : 08/10/24 INHALATION ONCE A DAY ADMINISTER AT SAME Expr : 05/23/25 TIME EACH DAY Indication: FOR COPD 22) OMEPRAZOLE 40MG EC CAP Qty: 180 for 90 days ACTIVE Issue: 05/22/24 Sig: TAKE ONE CAPSULE BY MOUTH TWO TIMES A Refills: 3 Last : 05/22/24 DAY BEFORE MEALS TAKE 30 MINUTES PRIOR TO Expr : 05/23/25 FOOD. Indication: FOR GASTROESOPHAGEAL REFLUX DISEASE 23) PAROXETINE HCL 20MG TAB Qty: 90 for 90 days ACTIVE Issue: 08/10/24 Sig: TAKE ONE TABLET BY MOUTH ONCE A DAY . Refills: 1 Last : 08/10/24 DO NOT ABRUPTLY DISCONTINUE MEDICATION. Expr : 08/11/25 Indication: FOR DEPRESSION 24) QUETIAPINE FUMARATE 50MG TAB Qty: 15 for 30 ACTIVE Issue: 08/10/24 days Sig: TAKE ONE-HALF TABLET BY MOUTH AT Refills: 3 Last : 08/10/24 BEDTIME Expr : 08/11/25 Indication: FOR BIPOLAR DISORDER 25) TIRZEPATIDE 2.5MG/0.5ML INJ,SOLN PACK,4 Qty: ACTIVE Issue: 08/21/24 1 for 28 days Sig: INJECT 2.5MG(0.5ML) UNDER Refills: 5 Last : 08/21/24 THE SKIN EVERY WEEK (ADMINISTER DOSE AT ANY Expr : 08/22/25 TIME OF DAY, WITH OR WITHOUT MEALS) Indication: FOR DIABETES 26) WARFARIN NA ([place]) 2MG TAB Qty: 40 ACTIVE Issue: 08/04/24 for 30 days Sig: TAKE ONE TABLET BY MOUTH Refills: 3 Last : 08/22/24Sunday, SUNDAY AND SUNDAY AND TAKE ONE Expr : 08/05/25 AND ONE-HALF TABLETS ALL OTHER DAYS Indication: FOR ANTICOAGULATION 27) ZOLPIDEM TARTRATE 10MG TAB Qty: 30 for 30 ACTIVE Issue: 06/04/24 days Sig: TAKE ONE TABLET BY MOUTH AT Refills: 2 Last : 07/15/24 BEDTIME NEEDED (TAKE IMMEDIATELY BEFORE Expr : 12/05/24 BEDTIME DUE TO RAPID ONSET OF ACTION) Indication: FOR INSOMNIA PROBLEM LIST: 1) Type 2 diabetes mellitus 2) Sleep apnea (SNOMED CT 13459644) 3) Gastroesophageal reflux disease (SNOMED CT 358788214) 4) Allergic rhinitis (SNOMED CT 07949671) 5) Obesity (SNOMED CT 310503251) 6) Benign essential hypertension (SNOMED CT 2585931) 7) Bipolar disorder (SNOMED CT 69497246) 8) Hyperlipidemia (SNOMED CT 97958945) 9) Chronic low back pain 10) Primary Open Angle Glaucoma (ICD-9-CM 365.11) 11) Anemia (SNOMED CT 323016847) 12) Vitamin D deficiency (SNOMED CT 48441207) 13) Encounter for Therapeutic Drug Monitoring (ICD-9-CM V58.83) 14) Walking disability 15) Chronic low back pain (SNOMED CT 478452132) 16) Multinodular goiter (SNOMED CT 267903005) 17) Cardiomegaly (SNOMED CT 1073404) 18) Morbid obesity (SNOMED CT 306122302) 19) Mood Disorder Due To...[Indicate The General [...] TREATED THIS VISIT: Bipolar Disorder HPI: Comes with . THe patient has been irritable. They talk of a stressful move. NOT suicidal. Sleep good, appetite not great. MSE: Cooperative, good eye contact, no abnormal movements. Mood irritable, affect calm and stable. Speech is elicitable and directable. No pressure. Thoughts organized without flight of ideas, loose associations, circumstantiality, blocking. He CLEARLY denies SI. NO HI, AH, VH, suspicions. A & O X 3. Insight and judgment are good. ASSESSMENT AND TREATMENT PLAN (INCLUDING RISK ASSESSMENT): Bipolar Disorder PLAN: Increase queetiapine to 50 mg qhs for mood stability, sleep. Continue other meds. He agrees to call me before if problems. Support given. A full risk assessment was done; patient does not appear to be at acute risk of harm to self/others at this time. /es/ SAMI HERNANDEZ [facility] PHYSICIAN (STAFF) Signed: 08/27/2024 16:17 SAMI ENRIQUEZ JR [facility]
--- OUTSIDE RECORDS SUMMARY | 2025-03-01 18:00 | XMS_ITS | Encounter Summary ---
Author Name [facility] [facility] [place] [facility] [place] [facility] [place] Address [address] [place] [address] Care Team Providers Care Rehab Director Name Role Phone ANDREA ALDRICH Primary Care [...] PART B Aug 06, 2007 PART B [phone] MIGUEL,DA VID PATIENT MEDICARE (WNR) MEDICARE (M) PART B Aug 06, 2007 PART B [id number] MIGUEL,DA VID PATIENT MEDICARE (WNR) MEDICARE (M) PART B Aug 06, 2007 PART B [id number] MIGUEL,DA VID PATIENT MEDICARE (WNR) MEDICARE (M) PART B Aug 06, 2007 PART B [id number] MIGUEL,DA VID PATIENT MEDICARE (WNR) MEDICARE (M) PART B Aug 06, 2007 PART B [id number] MIGUEL,DA VID PATIENT MEDICARE (WNR) MEDICARE (M) PART B Aug 06, 2007 PART B [id number] MIGUEL,DA VID PATIENT MEDICARE (WNR) MEDICARE (M) PART A Jul 06, 2001 PART A [id number] MIGUEL,DA VID PATIENT MEDICARE (WNR) MEDICARE (M) PART A Jul 06, 2001 PART A [id number] MIGUEL,DA VID PATIENT MEDICARE (WNR) MEDICARE (M) PART A Jul 06, 2001 PART A [id number] MIGUEL,DA VID PATIENT MEDICARE (WNR) MEDICARE (M) PART A Jul 06, 2001 PART A [id number] MIGUEL,DA VID PATIENT MEDICARE (WNR) MEDICARE (M) PART A Jul 06, 2001 PART A [id number] MIGUEL,DA VID PATIENT MEDICARE (WNR) MEDICARE (M) PART A Jul 06, 2001 PART A [id number] MIGUEL,DA VID PATIENT Selected Encounter This section includes the information on record at [place] for the Encounter. Date/Time Encounter Type Encounter Description Reason Provider Source Feb 05, 2025 02:20 PM OFFICE O/P NEW MOD 45 MIN RENAL/NEPHROL(EXCE PT DIALYSIS) ICD-10-CM N18.4 Chronic kidney disease, stage 4 (severe) AMOS JARVIS IHNgozi Encounter Template Text not used by [place] Assessments - Encounter Diagnoses This section includes the primary and secondary diagnoses documented for the Encounter. Date/Time Primary/Secondary Diagnosis Diagnosis Name Provider Source Feb 11, 2025 12:35 PM PRIMARY Chronic kidney disease, stage 4 (severe) SHWETA JARVIS [facility] Feb 11, 2025 12:35 PM SECONDARY Anemia in chronic kidney disease SHWETA JARVIS [facility] Feb 11, 2025 12:35 PM SECONDARY Essential (primary) hypertension SHWETA JARVIS [facility] Feb 11, 2025 12:35 PM SECONDARY Gout, unspecified SHWETA JARVIS [facility] Feb 11, 2025 12:35 PM SECONDARY Hyperlipidemia, unspecified SHWETA JARVIS [facility] Feb 11, 2025 12:35 PM SECONDARY Iron deficiency anemia, unspecified SHWETA JARVIS [facility] Feb 11, 2025 12:35 PM SECONDARY Obstructive sleep apnea (adult) (pediatric) SHWETA JARVIS [facility] Feb 11, 2025 12:35 PM SECONDARY Secondary hyperparathyroidism of renal origin SHWETA JARVIS [facility] Feb 11, 2025 12:35 PM SECONDARY Type 2 diabetes mellitus without complications SHWETA JARVIS [facility] Feb 11, 2025 12:35 PM SECONDARY Vitamin D deficiency, unspecified SHWETA JARVIS [facility] Plan of Treatment: Future Appointments (+ 6 months) and Future Tests (+/- 45 days) The Plan of Treatment section includes future care activities for the patient from all [facility]. This section includes future appointments and future orders which are active, pending or scheduled. Future Appointments This section includes appointments that were scheduled to occur 6 months from the date of the Encounter, up to a maximum of 20 appointments. The data comes from all [place] treatment facilities. Appointment Date/Time Appointment Type Appointme nt Facility Name Feb 26, 2025 10:20 AM AMBULATORY - MEDICINE [facility] Mar 02, 2025 10:30 AM AMBULATORY - SURGERY [facility] Mar 09, 2025 11:20 AM AMBULATORY - NONE [facility] May 07, 2025 12:20 PM AMBULATORY - MEDICINE [facility] Jul 07, 2025 11:00 AM AMBULATORY - REHAB MEDICIN E [facility] Active, Pending, and Scheduled Orders This section includes a listing of several types of active, pending, and scheduled orders, including clinic medications orders, diagnostic test orders, procedure orders and consult orders; where the start date of the order is 45 days before the date of the Encounter or 45 days after the date of theEncounter. The data comes from all [place] treatment facilities. Test Date/Time Test Type Test Details Facility Name January 02, 2025 12:26 PM Consult Order ENDO THYRO ID DISEASE OUTPATIENT [facility] Jan 06, 2025 10:35 AM Consult Order [facility] PT Cons [facility] Feb 26, 2025 12:00 AM Laboratory - Chemi stry Order WARFARIN-INR BLOOD PLASMA SP [facility] Feb 27, 2025 11:58 AM Consult Order [facility] ORTHO SURG [facility] Lab Results: +/- 30 days of the encounter This section includes the Chemistry and Hematology Lab Results on record with [place] for the patient. Radiology Reports and Pathology Reports are provided separately, in subsequent sections. Lab Results This section contains the Chemistry/Hematology Results that were resulted 30 days before or 30 daysafter the date of the Encounter. Date/Time Source Result Type Result - Unit Interpretation Reference Range Specimen Type Comment Jan 20, 2025 01:50 PM [facility] WARFARIN-INR PLASMA Specimen Type: PLASMA No comment entered. Ordering Provider: RYAN HENRIQUEZ Report Released Date/Time: Jan 16, 2025 03:59 PM Reporting Lab: [facility] [id number] Performing Lab: [facility] [id number] PROTIME 26.7 s H 9.4-12.5 INR VALUE 2.4 {INR} Vital Signs: All taken on the encounter date This section contains inpatient and outpatient Vital Signs collected on the date of the Encounter. Date/Time Temperature Pulse Blood Pressure Respiratory Rate SP02 Pain Height Weight Body Mass Index Source Feb 05, 2025 02:38 PM 97.7 F 59 /min 115/74 mm[Hg] 18 /min 100 % [facility] Social History: Smoking Status (Most current) and Tobacco Use (All prior to encounter date) This section includes the most current, and the historical, smoking and tobacco- related health factors from the [place] facility where the Encounter took place. Current Smoking Status This section includes the most current smoking, or tobacco-related health factor, from the [place] facility where the Encounter took place. Date/Time Current Smoking Status Comment Nelly ity January 02, 2025 11:00 AM VA-TOBACCO NEVER U SED CIGARETTES [facility] Tobacco Use History This section includes a history of the smoking, or tobacco-related health factors, that were collected on or before the date of the Encounter. The data comes from the [place] facility where the Encounter took place. Date/Time Smoking Status/Tobacco Use Comment F aclakeisha January 02, 2025 11:00 AM VA-TOBACCO NEVER U SED OTHER TYPE [facility] Nov 19, 2023 01:00 PM VA-TOBACCO FORMER USER [facility] Nov 19, 2023 01:00 PM VA-TOBACCO QUIT < 1 YEAR [facility] Aug 03, 2016 02:42 PM LIFETIME NON-USER OF TOBACCO [facility] December 18, 2012 12:47 PM LIFETIME NON-USER OF TOBACCO [facility] Jul 29, 2009 03:09 AM LIFETIME NON-USER OF TOBACCO [facility] December 14, 2006 08:02 AM LIFETIME NON-USER OF TOBACCO [facility] Nov 01, 2005 09:20 AM LIFETIME NON-TOBACCO USER [facility] Advance Directives: All historical and current Section Date Range: From patient's date of to the date document was created. This section includes ALL of a patient's completed or amended [place] Advance and Rescinded Directives. The entries below indicate that a directive exists for the patient, but an actual copy is not included with this document. The data comes from all [facility]. Date Advance Directives Provider Source May 16, 2023 ADVANCE DIRECTIVE DISCUSSION INGA LUNA TIANNA [facility] December 14, 2021 ADVANCE DIRECTIVE DISCUSSION INGA LUNA TIANNA [facility] May 05, 2021 GOALS & PREFERENCES TO INFORM LIFE-SUSTAINING TREATMENT PLAN [facility] Encounter Notes: All associated encounter notes This section contains the clinical notes associated to the Encounter. Date/Time Encounter Note(s) Provider Source Feb 05, 2025 02:39 PM NEPHROLOGY CONSULT: LOCAL TITLE: RENAL OUTPATIENT CONSULT [facility] STANDARD TITLE: NEPHROLOGY CONSULT DATE OF NOTE: FEB 05, 2025@14:39 ENTRY DATE: FEB 05, 2025@14:39:46 AUTHOR: GARRY JARVISIGNER: URGENCY: STATUS: COMPLETED RENAL CLINIC INITIAL NOTE Reason for referral: Chronic kidney disease HPI: Mr. Daron Milton, a 69 year old male was seen in nephrology clinic today for further evaluation and management of chronic kidney disease. He reports being seen by a car pilot in [place] for about 2 years. He came to [facility] in November 2023. Longstanding history of DM and hypertension. He believes he has diabetic retinopathy. He did not tolerate semaglutide and taking tirzepatide now. He reports losing about 50 pounds over the past 3-4 months. Losartan dose was lowered 100-> 50->12.5 mg/day. Recent home BP are similar to today's clinic BP. Gout - stable, never took allopurinol (last flare 3 months ago, same time as taking Ozempic). He was pleased to share that he uses a cane now (previously used a walker until August). He came with his to clinic today and used a w/chair due to a long walking distance from the parking lot. He does not report chest pain, dyspnea, dizziness, or new urinary symptoms. PMH: 1) Type 2 diabetes mellitus x 30 years 2) Sleep apnea (SNOMED CT 15684469) - uses CPAP machine 3) Gastroesophageal reflux disease (SNOMED CT 391621979) 4) Allergic rhinitis (SNOMED CT 39107486) 5) Obesity (SNOMED CT 881161957) 6) Benign essential hypertension (SNOMED CT 0336793) x 20-30 years 7) Bipolar disorder (SNOMED CT 34111868) 8) Hyperlipidemia (SNOMED CT 09372726) 9) Chronic low back pain 10) Primary Open Angle Glaucoma (ICD-9-CM 365.11) 11) Anemia (SNOMED CT 873818899) 12) Vitamin D deficiency (SNOMED CT 83755419) 13) Multinodular goiter (SNOMED CT 771373685) 14) Morbid obesity 15) Exposure to potentially hazardous substance 16) Peripheral neuropathy due to type 2 diabetes mellitus 17) Hypertensive heart AND chronic kidney disease stage 3 18) Atrial fibrillation 19) Abnormal gait 20) Chronic obstructive pulmonary disease 21) Hearing loss 22) Long-term current use of insulin 23) Long-term current use of oral hypoglycemic agent 24) Gout Outpatient Medications: Medications were reviewed with the patient and answered questions. Active Outpatient Medications (including Supplies): Active Outpatient [...] GRAPEFRUIT JUICE. Indication: FOR ANXIETY 7) CARVEDILOL 12.5MG TAB TAKE ONE-HALF TABLET BY MOUTH TWICE A ACTIVE (S) DAY TAKE WITH FOOD. Indication: FOR AFIB/BLOOD PRESSURE 8) CETIRIZINE HCL 10MG TAB TAKE ONE TABLET BY MOUTH ONCE A DAY ACTIVE Indication: FOR ALLERGIC RHINITIS 9) CHOLECALCIF 50MCG (D3-2,000UNIT) TAB TAKE ONE TABLET BY ACTIVE MOUTH ONCE A DAY Indication: FOR VITAMIN D SUPPLEMENTATION 10) DICLOFENAC NA 1% TOP GEL APPLY 2 GM TO AFFECTED AREA(S) FOUR ACTIVE TIMES A DAY NEEDED NO MORE THAN 16 GM/DAY TO ANY LOWER EXTREMITY JOINT. NO MORE THAN 8 GM/DAY TO ANY UPPER EXTREMITY JOINT. MAX 32GM/DAY OVER ALL JOINTS.(MEASURE DOSE WITH RULER INSIDE BOX) Indication: FOR PAIN 11) EMPAGLIFLOZIN 25MG TAB TAKE ONE-HALF TABLET BY MOUTH ONCE A ACTIVE DAY Indication: FOR DIABETES 12) FERROUS SULFATE 325MG TAB TAKE ONE TABLET BY MOUTH ONCE A ACTIVE DAY Indication: FOR IRON DEFICIENCY ANEMIA 13) FLUTICASONE PROP 50MCG 120D NASAL INHL INSTILL 1 SPRAY IN ACTIVE NOSTRIL(S) ONCE A DAY NEEDED (MUST BE USED DIRECTED FOR MINIMUM OF 21 DAYS TO PROVIDE ADEQUATE BENEFITS) Indication: FOR RHINITIS 14) FUROSEMIDE 40MG TAB TAKE ONE TABLET BY MOUTH EVERY MORNING ACTIVE Indication: FOR FLUID RETENTION (EDEMA) 15) GABAPENTIN 300MG CAP TAKE ONE CAPSULE BY MOUTH TWICE A DAY ACTIVE Indication: FOR NERVE PAIN 16) GLUCOSE 4GM CHEW TAB CHEW AND SWALLOW FOUR TABLETS BY MOUTH ACTIVE NEEDED REPEAT DOSE IF HYPOGLYCEMIA CONTINUES 15 MINUTES AFTER THE FIRST DOSE. Indication: FOR LOW BLOOD SUGAR 17) GLUCOSE SENSOR [employer] ETHAN 3 PLUS USE SENSOR EVERY 15 ACTIVE DAYS CHANGE SENSOR/SITE EVERY 15 DAYS. TO REPLACE SENSOR FOR ANY REASON OR FOR TECHNICAL HELP PLEASE CALL [employer] HELP DESK: -SPECIFIC PHONE NUMBER: ([phone]). Indication: FOR BLOOD GLUCOSE MONITORING 18) HYDROPHILIC (EQV EUCERIN) TOP CREAM APPLY SPARINGLY TO ACTIVE AFFECTED AREA(S) ONCE A DAY (EXTERNAL USE ONLY) Indication: FOR SKIN CARE 19) INSULIN SYRINGE 1ML 30G 12MM USE 1 SYRINGE UNDER THE SKIN ACTIVE THREE TIMES A DAY TO USE WITH INSULIN 20) INSULIN,ASPART,HUMAN 100 UNIT/ML INJ INJECT 30 UNITS UNDER ACTIVE THE SKIN TWO TIMES A DAY BEFORE MEALS ADMINISTER 10 MINUTES BEFORE FOOD DIRECTED. DISCARD ANY VIAL 28 DAYS AFTER OPENING. Indication: FOR DIABETES 21) INSULIN,GLARGINE,HUMAN 100 UNIT/ML INJ INJECT 40 UNITS UNDER ACTIVE THE SKIN ONCE A DAY ADMINISTER AT SAME TIME EACH DAY DIRECTED. DISCARD ANY VIAL 28 DAYS AFTER OPENING. Indication: FOR DIABETES 22) LACTOBACILLUS ACIDOPHILUS TAB TAKE 2 TABLETS BY MOUTH ONCE A ACTIVE (S) DAY Indication: FOR NUTRITION/DIETARY SUPPLEMENTATION 23) LANCET,SOFTCLIX USE LANCET FOR BLOOD TEST FOUR TIMES A DAY ACTIVE DIRECTED Indication: FOR BLOOD SUGAR MONITORING 24) LATANOPROST 0.005% OPH SOLN INSTILL 1 DROP IN BOTH EYES ACTIVE (S) EVERY EVENING KEEP REFRIGERATED UNTIL READY TO USE, THEN STORE AT ROOM TEMPERATURE FOR MAXIMUM OF 42 DAYS. Indication: FOR ELEVATED INTRAOCULAR PRESSURE 25) LOSARTAN 25MG TAB TAKE ONE-HALF TABLET BY MOUTH ONCE A DAY ACTIVE Indication: FOR HIGH BLOOD PRESSURE 26) MELATONIN 3MG CAP/TAB TAKE ONE CAP/TAB BY MOUTH AT BEDTIME ACTIVE (S) Indication: FOR SLEEP 27) MIRTAZAPINE 45MG TAB TAKE ONE TABLET BY MOUTH AT BEDTIME ACTIVE Indication: FOR DEPRESSION 28) OLODATEROL/TIOTROP 2.5MCG/ACTUAT 60D INH INHALE 1 PUFF ORAL ACTIVE INHALATION ONCE A DAY ADMINISTER AT SAME TIME EACH DAY Indication: FOR COPD 29) OMEPRAZOLE 40MG EC CAP TAKE ONE CAPSULE BY MOUTH TWO TIMES A ACTIVE DAY BEFORE MEALS TAKE 30 MINUTES PRIOR TO FOOD. Indication: FOR GASTROESOPHAGEAL REFLUX DISEASE 30) PAROXETINE HCL 20MG TAB TAKE ONE TABLET BY MOUTH ONCE A DAY ACTIVE . DO NOT ABRUPTLY DISCONTINUE MEDICATION. Indication: FOR DEPRESSION 31) QUETIAPINE FUMARATE 100MG TAB TAKE ONE-HALF TABLET BY MOUTH ACTIVE AT BEDTIME Indication: FOR BIPOLAR DISORDER 32) TIRZEPATIDE 5MG/0.5ML INJ,SOLN PACK,4 INJECT 5MG(0.5ML) ACTIVE UNDER THE SKIN EVERY WEEK (ADMINISTER DOSE AT ANY TIME OF DAY, WITH OR WITHOUT MEALS) Indication: FOR DIABETES 33) TRANSPARENT DRESSING 2 3/8IN X 2 3/4IN USE/APPLY DRESSING(S) ACTIVE TO AFFECTED AREA(S) TWO TIMES PER WEEK Indication: FOR WOUND CARE 34) WARFARIN NA ([place]) 2MG TAB TAKE ONE AND ONE-HALF ACTIVE TABLETS BY MOUTH SUNDAY AND SUNDAY AND TAKE ONE TABLET ALL OTHER DAYS Indication: FOR ANTICOAGULATION 35) ZOLPIDEM TARTRATE 10MG TAB TAKE ONE TABLET BY MOUTH AT ACTIVE BEDTIME NEEDED (TAKE IMMEDIATELY BEFORE BEDTIME DUE TO RAPID ONSET OF ACTION) Indication: FOR INSOMNIA Allergies: semaglutide (nausea, vomiting, and diarrhea) and niacin. Family History: Noncontributory. Social History: No tabacco, alcohol, or substance use. ROS: All 14 systems reviewed are negative except for HPI. Physical exam: Temperature: 97.7 F [36.5 C] (02/05/2025 14:38) Blood Pressure: 115/74 (02/05/2025 14:38) Pulse: 59 (02/05/2025 14:38) Respirations: 18 (02/05/2025 14:38) O2 Saturation: 100% (02/05/2025 14:38) Weight: 300.7 lb [136.40 kg] (01/02/2025 11:22) Height: 72 in [182.9 cm] (01/02/2025 11:22) Gen: No apparent cardiopulmonary distress HEENT: grossly unremarkable Neck: absent thyromegaly or lymphadenopathy Lungs: clear to auscultation CV: regular rate and rhythm, absent friction rub Abd: soft, nontender, +BS Ext: absent edema Skin: no new rash noted Neuro: alert and oriented x 4, absent asterixis Relevant laboratory test results and imaging study findings were reviewed with the patient during this clinic visit and answered questions: Lab Data: WBC 8.5 10*3/uL 01/02/2025 12:36 RBC 4.80 10*6/uL 01/02/2025 12:36 HGB 12.2 L g/dL 01/02/2025 12:36 HCT 38.5 % 01/02/2025 12:36 MCV 80.2 fL 01/02/2025 12:36 MCH 25.4 L pg 01/02/2025 12:36 MCHC 31.7 L g/dL 01/02/2025 12:36 RDW 16.3 H % 01/02/2025 12:36 PLT 218 10*3/uL 01/02/2025 12:36 MPV 10.3 fL 01/02/2025 12:36 Renal Function Panel: SODIUM 137 mEq/L 01/02/2025 12:36 POTASSIUM 4.3 mEq/L 01/02/2025 12:36 CHLORIDE 104 mEq/L 01/02/2025 12:36 UREA NITROGEN 39.6 H mg/dL 01/02/2025 12:36 CREATININE 2.34 H mg/dL 01/02/2025 12:36 CALCIUM 9.0 mg/dL 01/02/2025 12:36 CARBON DIOXIDE 23 mEq/L 01/02/2025 12:36 GLUCOSE 178 H mg/dL 01/02/2025 12:36 EGFR (CKD-EPI 2020) 29.37 01/02/2025 12:36 ALBUMIN 4.1 g/dL 01/02/2025 12:36 PHOSPHOROUS 3.0 mg/dL 05/22/2024 13:10 MAGNESIUM 2.0 mg/dL (05/22/24 13:23) Specimen: [id number] Specimen Collection Date: May 22, 2024@13:10 Test name Result units Ref. range Site Code PTH, INTACT (STL) 314.60 H pg/mL 8.7 - 77.7 [657] VITAMIN D, 25-HYDROXY 28.6 L ng/mL 05/22/2024 13:10 Anemia Labs: IRON 35 L ug/dL 01/02/2025 12:36 IRON SATURATION 7 L %SAT 01/02/2025 12:36 TIBC 473 H ug/dL 01/02/2025 12:36 FERRITIN 23.82 ng/mL 01/02/2025 12:36 B12 314 pg/mL 05/22/2024 13:10 FOLATE (STL-MA) 10.7 ng/mL 05/22/2024 13:10 HGA1C 7.7 H % 01/02/2025 12:36 TRIGLYCERIDE 210 H mg/dL 01/02/2025 12:36 CHOLESTEROL 164 mg/dL 01/02/2025 12:36 HDL(New) 34 L mg/dL 01/02/2025 12:36 DIRECT LDL 142 H mg/dL 05/22/2024 13:10 CALCULATED LDL 88 mg/dL 01/02/2025 12:36 Urine Studies: URINE COLOR Colorless 05/22/2024 13:24 APPEARANCE Clear 05/22/2024 13:24 U.PH 7.0 05/22/2024 13:24 U.BILIRUBIN Negative mg/dL 05/22/2024 13:24 U.NITRITE Negative mg/dL 05/22/2024 13:24 CREATuF: 20.3 (05/22/24 13:24) M/CREAT: 377 (05/22/24 13:24) MICRAL: 75 (05/22/24 13:24) Impression for US RENAL COMPLETE, 06/04/24, case [id number] No evidence of renal calculi or hydronephrosis. Bilateral renal cysts. Dictated by Hay Dacosta MD (Program Eligibility Specialist) I, Ariel Roberto, have reviewed the images and report and concur with these findings. Assessment/Recommendations: 1. Chronic kidney disease (CKD, stage G4 A3) related to diabetes mellitus (DM) and hypertension. Relatively stable kidney function (creatinine and eGFR) and albuminuria (377mg/g creatinine. He is receiving low dose losartan, tirzepatide, and empagliflozin. To repeat laboratory tests prior to return visit in 3 months. The patient was educated about CKD (serum creatinine, eGFR, and urine albumin results) expected course, management strategies, and answered questions. Renal replacement therapy (RETAIL KEY HOLDER) education, dialysis access, and transplant referral when eGFR < 20 mL/min. 2. HTN/Volume: BP is at goal (<130/80mmHg) and the patient appears clinically euvolemic. He is receiving losartan, carvedilol, and furosemide and tolerating well. To monitor home BP and bring the record to return visit. He was counseled on healthy diet/salt restriction. 3. DM with HbA1c of 7.7%. He is taking insulin, empagliflozin, and tirzepatide and tolerating well. He plans to adhere to healthy diet, monitor home blood glucose levels, and follow-up with PCP. 4. Anemia in CKD: hemoglobin is above goal, low iron saturation, and he is on oral iron supplement. NYDIA is not indicated at present. To monitor repeat levels. 5. Secondary Hyperparathyroidism in CKD and vitamin D deficiency: higher PTH. He is currently taking cholecalciferol 2,000 units (50 mcg)once daily, to encourage low phosphorus diet (minimize intake of chocolate, dark sodas, cheese, etc.) and follow repeat levels. 6. Hypercholesterolemia, receiving atorvastatin 80mg and lipid panel as above. 7. Obstructive sleep apnea, tolerating CPAP, and reports good sleep at nights. 8. Gout - not taking any medications at present, counseled on low purine diet, and to add serum uric acid level to next blood draw. I spent 45 minutes on some or all of the following: chart review, history, physical examination, treatment planning, education and counseling of the patient, placing orders, and documentation in the electronic health record. /lynn/ GARRY JARVIS MD Staff Physician - Nephrology Signed: 02/11/2025 12:35 GARRY JARVIS [facility]
--- OUTSIDE RECORDS SUMMARY | 2025-03-01 18:00 | XMS_ITS | Encounter Summary ---
Author Name [facility] [place] Organization [place] Address [address] [place] [address] Care Team Providers Care Nuclear Design Engineer Name Role Phone ANDREA ALDRICH Primary [...] PART B Aug 06, 2007 PART B [id number] MIGUEL,DA VID PATIENT MEDICARE ([place]NR) MEDICARE () PART B Aug 06, 2007 PART B [id number] MIGUEL,DA VID PATIENT MEDICARE (WNR) MEDICARE () PART B Aug 06, 2007 PART B [id number] [id number] MIGUEL,DA VID PATIENT MEDICARE (WNR) MEDICARE () PART B Aug 06, 2007 PART B [id number] MIGUEL,DA VID PATIENT MEDICARE (WNR) MEDICARE () PART B Aug 06, 2007 PART B [id number] MIGUEL,DA VID PATIENT MEDICARE (WNR) MEDICARE (M) PART B Aug 06, 2007 PART B [id number] MIGUEL,DA VID PATIENT MEDICARE (WNR) MEDICARE (M) PART A Jul 06, 2001 PART A [id number] MIGUEL,DA VID PATIENT MEDICARE (WNR) MEDICARE (M) PART A Jul 06, 2001 PART A [id number] MIGUEL,DA VID PATIENT MEDICARE (WNR) MEDICARE (M) PART A Jul 06, 2001 PART A [id number] MIGUEL,DA VID PATIENT MEDICARE (WNR) MEDICARE (M) PART A Jul 06, 2001 PART A [id number] MIGUEL,DA VID PATIENT MEDICARE (WNR) MEDICARE (M) PART A Jul 06, 2001 PART A [id number] MIGUEL,DA VID PATIENT MEDICARE (WNR) MEDICARE (M) PART A Jul 06, 2001 PART A [id number] MIGUEL,DA VID PATIENT Selected Encounter This section includes the information on record at [place] for the Encounter. Date/Time Encounter Type Encounter Description Reason Pro vider Source IHE Encounter Template Text not used by [place] Advance Directives: All historical and current Section Date Range: From patient's date of to the date document was created. This section includes ALL of a patient's completed or amended [place] Advance and Rescinded Directives. The entries below indicate that a directive exists for the patient, but an actual copy is not included with this document. The data comes from all [place] facilities. Date Advance Directives Provider Source May 16, 2023 ADVANCE DIRECTIVE DISCUSSION INGA LUNA TIANNA [facility] December 14, 2021 ADVANCE DIRECTIVE DISCUSSION INGA LUNA TIANNA [facility] May 05, 2021 GOALS & PREFERENCES TO INFORM LIFE-SUSTAINING TREATMENT PLAN [facility]
--- OUTSIDE RECORDS SUMMARY | 2025-03-01 18:00 | XMS_ITS | Encounter Summary ---
Author Organization [facility] Madeline melendez Address [address] [place] [address] Phone Care Team Providers Care Piano Instructor Name Role Phone Unavailable Primary Care Provider Unavailabl e Encounter Details Date Type Department Care Team (Late st Contact Info) Description 08/25/2021 Hospital/ED/SNF/HH Visit [facility] [place] [address] Provider, MD Star [address] [place] [id number] Social History Tobacco Use Types Packs/Day [...]
[2025-03-01] MEDS: ACETAMINOPHEN 500 MG TABLET 1000 MG PO (18:07)
[2025-03-01 18:20] LABS: Hematocrit 36.8 % (42.0-52.0); Hemoglobin 11.2 g/dL (14.0-18.0); Immature Granulocyte Percent A 0.2 % (0-0.5); Lymphocytes Absolute Auto 1.78 K/mm3 (0.9-3.2); Mean Corpuscular HGB Conc 30.4 g/dl (32-36); Mean Corpuscular Hemoglobin 25.1 pg (26-34); Mean Corpuscular Volume 82.5 fl (80-100); Nucleated Red Blood Cells Absolute Auto 0.000 K/mm3 (0.0-0.012); Nucleated Red Blood Cells Perc 0.0 % (0.0-0.2); Platelet Count Result 246 k/mm3 (150-375); Red Blood Count 4.46 M/mm3 (4.6-6.20); White Blood Count 9.2 K/mm3 (4.5-10.0)
[2025-03-01 18:38] LABS: Alanine Aminotransferase 21 U/L (6-50); Albumin Level 3.9 g/dL (3.5-5.1); Alkaline Phosphatase 91 U/L (38-126); Anion Gap 10 mmol/L (4-12); Aspartate Amino Transferase 23 U/L (17-59); Bilirubin,Total 0.8 mg/dL (0.2-1.3); Blood Urea Nitrogen 29 mg/dL (9-20); CRP 7.5 mg/dL (<1.0); Calcium 9.5 mg/dL (8.4-10.2); Carbon Dioxide 24 mmol/L (22-30); Chloride 104 mmol/L (98-107); Estimated CRCL calculation 42 ml/min; Estimated Glomerular Filt Rate 31; Glucose 150 mg/dL (65-110); Potassium 3.8 mmol/L (3.4-5.0); Sodium 138 mmol/L (137-145); Total Protein 7.7 g/dL (6.3-8.2)
[2025-03-01] MEDS: HYDROcodone/acetaminophen (*CRX) 7.5-325 MG TABLET 1 TAB PO (20:29)
== END 2025-03-01 20:41 | disposition home or self-care (01) ==
PROVIDERS: Emergency Provider Student in an Organized Health Care Education/Training Program
DX: M25.561 Pain in right knee (principal); M25.461 Effusion, right knee; D64.9 Anemia, unspecified; R70.0 Elevated erythrocyte sedimentation rate; R79.82 Elevated C-reactive protein (CRP); I13.0 Hypertensive heart and chronic kidney disease with heart failure and stage 1 through stage 4 chronic kidney disease, or unspecified chronic kidney disease; I50.9 Heart failure, unspecified; N18.4 Chronic kidney disease, stage 4 (severe); E11.22 Type 2 diabetes mellitus with diabetic chronic kidney disease; E11.42 Type 2 diabetes mellitus with diabetic polyneuropathy; E11.39 Type 2 diabetes mellitus with other diabetic ophthalmic complication; H42 Glaucoma in diseases classified elsewhere; J44.9 Chronic obstructive pulmonary disease, unspecified; G47.33 Obstructive sleep apnea (adult) (pediatric); K21.9 Gastro-esophageal reflux disease without esophagitis; F43.10 Post-traumatic stress disorder, unspecified; F31.9 Bipolar disorder, unspecified; Z96.653 Presence of artificial knee joint, bilateral; Z96.611 Presence of right artificial shoulder joint; Z86.718 Personal history of other venous thrombosis and embolism; Z86.73 Personal history of transient ischemic attack (TIA), and cerebral infarction without residual deficits; Z86.14 Personal history of Methicillin resistant Staphylococcus aureus infection; Z79.01 Long term (current) use of anticoagulants; Z79.4 Long term (current) use of insulin; Z79.899 Other long term (current) drug therapy
CPT/HCPCS: 36415; 73700; 80053; 85025; 85652; 86140; 93971; 99284; A9270

== ENCOUNTER 2025-05-28 13:20 | Emergency (ER) | payer OTHER, SELFPAY ==
[2025-05-28 13:21] VITALS: BP 127/89; PULSE 71; RESP 14; TEMP 36.5; O2SAT 99
--- NOTE | 2025-05-28 13:49 | ED.SKABFB ---
HPI - Skin/Abscess/Foreign Bdy General Chief complaint: Skin/Abscess/Foreign Body Stated complaint: insect bite to abdoman Time Seen by Provider: 05/28/25 13:32 Source: patient and family Mode of arrival: ambulatory Limitations: no limitations History of Present Illness HPI narrative: This is a 69-year-old male with a history of diabetes and hypertension and on blood thinners for lower extremity DVT presents with abscess on right lower abdomen that is red warm nonfluctuant no drainage, no fever chills no nausea or vomiting no chest pain or shortness of breath. Symptoms started approximately 1 week ago and have progressed since then. MD complaint: abscess/boil Onset (ago): week(s) Tetanus up to date: yes Severity: moderate Pain Consistency: constant Related Data Home Medications ?Medication ?Instructions ?Recorded ?Confirmed ?Last Taken ?Type Lactobacillus acidophilus 0.5 mg 100 mmu cells PO DAILY 07/24/24 05/28/25 Unknown History (100 million cell) tablet atorvastatin 80 mg tablet 80 mg PO HS 07/24/24 05/28/25 Unknown History cetirizine 10 mg tablet (24Hour 10 mg PO DAILY 07/24/24 05/28/25 Unknown History Allergy) cholecalciferol (vitamin D3) 50 4,000 unit PO DAILY 07/24/24 05/28/25 Unknown History mcg (2,000 unit) capsule (Vitamin D3) empagliflozin 25 mg tablet 12.5 mg PO DAILY diabetes 07/24/24 05/28/25 07/24/24 History furosemide 40 mg tablet (Lasix) 40 mg PO DAILY 07/24/24 05/28/25 07/24/24 History losartan 50 mg tablet (Cozaar) 50 mg PO DAILY HTN 07/24/24 05/28/25 07/24/24 History mirtazapine 45 mg tablet 45 mg PO HS restless legs 07/24/24 05/28/25 07/23/24 History omeprazole 40 mg capsule,delayed 40 mg PO BID 07/24/24 05/28/25 Unknown History release paroxetine HCl 20 mg tablet 20 mg PO DAILY 07/24/24 05/28/25 Unknown History warfarin 2 mg tablet 2 mg PO QMWF 07/24/24 07/24/24 Unknown History Held on 07/28/24. Instructions: Resume on 08/15/24. HOLD until INR comes back to goal of 2-2.5. warfarin 3 mg tablet 3 mg PO QTUTHSASU 07/24/24 07/24/24 Unknown History Held on 07/28/24. Instructions: Resume on 08/15/24. HOLD until INR comes back to goal of 2-2.5. zolpidem 10 mg tablet 10 mg PO HS PRN insomnia 07/24/24 05/28/25 Unknown History latanoprost 0.005 % eye drops 1 drp EACH EYE DAILY 07/26/24 05/28/25 Unknown History melatonin 3 mg capsule 3 mg PO HS PRN sleep 07/26/24 05/28/25 Unknown History quetiapine 25 mg tablet (Seroquel) 25 mg PO HS 07/26/24 05/28/25 Unknown History Allergies Allergy/AdvReac Type Severity Reaction Status Date / Time nafcillin Allergy Unknown Unknown Verified 05/28/25 13:22 oxycodone AdvReac Mild Unknown Verified 05/28/25 13:22 Review of Systems Review of Systems: All systems reviewed & are unremarkable except as noted in HPI and below PMFSH Past Medical History Medical History Diabetic peripheral neuropathy Bipolar disorder PTSD (post-traumatic stress disorder) Depression Thyroid nodule Glaucoma GERD (gastroesophageal reflux disease) Obstructive sleep apnea COPD (chronic obstructive pulmonary disease) Essential hypertension CHF (congestive heart failure) Chronic anticoagulation Atrial fibrillation CVA (cerebral vascular accident) DVT (deep venous thrombosis) Right lower extremity Diabetes Prior to Ozempic his A1c was 14 after Ozempic his A1c is down to 6.2 Chronic kidney disease Stage IV Surgical History Surgical History History of arthroplasty of right shoulder History of spinal fusion Complicated by MRSA infection History of gastric bypass (~2014) History of knee replacement, total bilateral Family History Family History Father Parkinson's disease Hypertension Mother Hypertension Social History Social History Social History: He lives with his of approximately 40 years. He served in the [employer] for 11 years. 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 He is a lifelong nonsmoker and has not drink to any significant amount since he was in his early 20s or 30s. He denies ever having been a problem drinker. He denies illicit substance use. He ambulates with a walker or utilizes a wheelchair for mobility. Receives care through the [place]. Code status: Full code Surrogate decision maker: Smoking status: Never smoker Alcohol intake: never Substance use: never Do You Feel Safe in your Home?: Yes Lack of Transportation: No Lack of Food: Never True Current Housing: I Have Housing Concerned About Future Housing: No Difficulty Paying Gas/Electric Bills: No Difficulty Paying for Meds: No Currently Unemployed: No Education: High School Diploma/GED Difficulty w/ Childcare or Family Care: No Spiritual care concerns: No Exam Const: General: healthy appearing Nutritional Appearance: well nourished Orientation/consciousness: patient oriented x3 Limitations: no limitations Chest: Chest palpation & inspection: normal inspection of the chest Resp: Effort & Inspection: normal respiratory effort Auscultation: clear to auscultation bilaterally Cardio: Rate: regular rate Rhythm: regular rhythm GI: GI Palp: Yes Soft to palpation Auscultation: normal bowel sounds Skin: Other: Has a round warm red lesion with a central punctate area with no drainage currently nonfluctuant bed is warm and tender to touch proximally 3cm in diameter. Extrem: General: normal to inspection, no clubbing, cyanosis or edema and no pedal edema Course Course Emergency Course: Medical decision making narrative: The patient was evaluated by myself in the emergency department. History obtained from the patient who is an independent historian and physical exam and witnessed by nurse. Patient received p.o. dose of 600mg clindamycin. Repeat assessment: Doing well on repeat exam with no acute distress Repeat vitals stable Patient agrees with discussion and after shared medical decision making and agrees with discharge. All questions answered to the patient's satisfaction. Advised follow-up with primary in next 3 to 5 days. Patient provided with strict return precautions and return to the ED if any worsening symptoms. Vital Signs Vital signs: Vital Signs Temperature 36.5 C 05/28/25 13:21 Pulse Rate 71 05/28/25 13:21 Respiratory Rate 14 05/28/25 13:21 Blood Pressure 127/89 05/28/25 13:21 Pulse Oximetry 99 05/28/25 13:21 Oxygen Delivery Room Air 05/28/25 13:21 Temperature 36.5 C 05/28/25 13:21 Pulse Rate 71 05/28/25 13:21 Respiratory Rate 14 05/28/25 13:21 Blood Pressure 127/89 05/28/25 13:21 Pulse Oximetry 99 05/28/25 13:21 Oxygen Delivery Room Air 05/28/25 13:21 Critical Care Time Critical Care Time Critical Care Time: No Discharge Plan Discharge Clinical Impression: Cellulitis Qualifiers: Site of cellulitis: unspecified site Qualified Code(s): L03.90 - Cellulitis, unspecified Abscess of skin or subcutaneous tissue Qualifiers: Site of cutaneous abscess: other site Qualified Code(s): L02.818 - Cutaneous abscess of other sites Patient Disposition: Home Condition: Stable Instructions: Antibiotic Form, Cellulitis (ED), Abscess (ED) Additional Instructions: Advised patient to take medication as prescribed and follow with primary care physician within next 3 to 5 days for further evaluation and treatment. Patient Language: Malian Prescriptions: New clindamycin HCl [Cleocin HCl] 300 mg capsule 300 mg PO Q6H 10 Days Qty: 40 0RF No Action mirtazapine 45 mg tablet 45 mg PO HS losartan [Cozaar] 50 mg tablet 50 mg PO DAILY furosemide [Lasix] 40 mg tablet 40 mg PO DAILY empagliflozin 25 mg tablet 12.5 mg PO DAILY cetirizine [24Hour Allergy] 10 mg tablet 10 mg PO DAILY paroxetine HCl 20 mg tablet 20 mg PO DAILY zolpidem 10 mg tablet 10 mg PO HS PRN (Reason: insomnia) Lactobacillus acidophilus 0.5 mg (100 million cell) tablet 100 mmu cells PO DAILY atorvastatin 80 mg tablet 80 mg PO HS omeprazole 40 mg capsule,delayed release(DR/EC) 40 mg PO BID cholecalciferol (vitamin D3) [Vitamin D3] 50 mcg (2,000 unit) capsule 4,000 unit PO DAILY warfarin 2 mg tablet 2 mg PO QMWF warfarin 3 mg tablet 3 mg PO QTUTHSASU melatonin 3 mg capsule 3 mg PO HS PRN (Reason: sleep) quetiapine [Seroquel] 25 mg tablet 25 mg PO HS Patient Comments: Pt takes 1/2 tablet at bedtime. latanoprost 0.005 % drops 1 drp EACH EYE DAILY Patient Comments: in evening colchicine [Colcrys] 0.6 mg Tablet 0.6 mg PO Q12HR Qty: 14 0RF acetaminophen 325 mg Tablet 650 mg PO Q4H PRN (Reason: Mild Pain (1-3) Or Fever) Qty: 30 0RF insulin glargine [Lantus U-100 Insulin] 100 unit/mL Solution 7 unit subcut DAILY Qty: 10 0RF acetaminophen 500 mg capsule 1,000 mg PO Q6H PRN (Reason: pain) Qty: 30 0RF hydrocodone-acetaminophen 7.5-325 mg tablet 1 tablet PO Q8H PRN (Reason: pain) 5 Days Qty: 14 0RF Follow-up/Referrals: [facility] [Primary Care Provider, Medical] Time of Disposition: 13:55
[2025-05-28] MEDS: CLINDAMYCIN HCL 150 MG CAP 600 MG PO (13:53)
--- OUTSIDE RECORDS SUMMARY | 2025-05-28 14:15 | XMS_ITS | Clinical Summary ---
Author Organization [facility] Address [address] [place] [address] Care Team Providers Care Induction Furnace Operator Name Role Phone Carin Lizarraga RN Unavailable [phone] Pcp, None Primary Care Provider Unavailabl e Source Comments [facility],non-owned Affiliates and Associated Physician Practices is amultiple site organization consisting of ambulatory clinics and hospital sitesin [place], [place], [place] and [place]. This disclosure is being madepursuant to the Care Everywhere program and may not contain all information available regarding this patient. Last updated [facility] Allergies Active Allergy Reactions Criticality Noted Date Comments Oxycodone Shortness of Breath High 04/07/2015 Medications * Be aware that medications may not be up to date on this document. Alwaysverify current medications with the patient. [place]-3 Fatty Acids (FISH OIL CONCENTRATE PO) Take 500 mg by mouth 2 times daily after meals Active omeprazole (PRILOSEC) 20 MG capsule Take 20 mg by mouth 2 times daily,before breakfast and supper Active Cholecalciferol (VITAMIN D) 2000 UNITS CAPS capsule Take 2,000 Units by mouth once daily Active lithium carbonate (ESKALITH) 300 MG capsule Take 300 mg by mouth 2 times daily Active PARoxetine (PAXIL) 20 MG tablet Take 20 mg by mouth at bedtime Active busPIRone (BUSPAR) 10 MG tablet Take 10 mg by mouth 3 times daily as needed Active albuterol HFA (PROVENTIL;KIN SHAHBAZ;PROAIR) 108 (90 BASE) MCG/ACT inhaler Inhale 1-2 Puffs by mouth every 6 hours as needed Active Multiple Vitamins-Mineral s (BARIATRIC FUSION) CHEW Take 1 Tab by mouth once daily Active calcium citrate-vitamin D 500-500 MG-UNIT chew Take 1 Tab by mouth once daily Active thiamine (VITAMIN B-1) 100 MG tablet Take 100 mg by mouth once daily Active Biotin 5 MG Take 1 Cap by mouth once daily Active hydrocodone-acet aminophen 7.5-325 MG/15ML solution Take 15 mL by mouth every 4 hours 473 mL 0 6 Active budesonide-formo terol (SYMBICORT) 160-4.5 MCG/ACT inhaler Inhale 2 Puffs by mouth 2 times daily 2 Inhaler 1 6 Active mirtazapine (REMERON) 45 MG tablet Take 45 mg by mouth at bedtime Active Active Problems Problem Noted Date Diagnosed Date Anemia 03/29/2025 Atrial fibrillation 03/29/2025 Bipolar disorder 03/29/2025 Stage 4 chronic kidney disease 03/29/2025 Chronic obstructive pulmonary disease 03/29/2025 Essential tremor 03/29/2025 Gout 03/29/2025 Primary open angle glaucoma (POAG) 03/29/2025 Diabetic peripheral neuropat hy associated with type 2 diabetes mellitus 03/29/2025 Vitamin D deficiency 03/29/2025 BMI 45.0-49.9, adult 08/13/2015 snf (current) use of insulin 08/13/2015 Overview (08/13/2015): (H & P Dr. Srikanth Goddard MD 08/11/2015). Dyspnea on exertion 06/04/2015 Hypercholesterolemia 06/04/2015 M.Obesity 05/28/2015 HTN (hypertension), benign 05/28/2015 Chronic cough 05/26/2015 Allergic rhinitis due to allergen 05/26/2015 Asthma, mild intermittent 05/26/2015 CARMEN (obstructive sleep apnea) Hypoxemia requiring supplemental oxygen Type 2 diabetes mellitus without complication Overview (05/06/2025): IMO 05/06/2025 Cardiomyopathy GERD (gastroesophageal reflux disease) Resolved Problems Problem Noted Date Diagnosed Date Resolved Date Hypertension 05/28/2015 Hypercholesteremia 5 Encounters Date Type Department Care Team Description 03/27/2025 9:45 AM CDT Office Visit [facility] - Orth[facility] [address] [place] [phone] Prabhu Mcdaniel, Pain due to total right knee replacement, initial encounter (Primary Dx) 03/27/2025 Travel 03/24/2025 Orders Only [facility] - Orth[facility] Surgery [address] [place] [phone] Prabhu Mcdaniel, Right knee pain, unspecified chronicity from Last 3 Months Family History Medical History Relation Name Comments CAD (Coronary Artery Disease) Other 1 Depression Other 2 Relation Name Status Comments Brother Alive Other 1 Other 2 Sister 1 Alive Sister 2 Alive Sister 3 Alive Sister 4 Alive Social History Tobacco Use Types Packs/Day Years Used Date Smoking Tobacco: Never Smokeless Tobacco: Never Alcohol Use Standard Drinks/Week Comments No 0 (1 standard drink = 0.6 oz pur e alcohol) PHQ-2 Answer Date Recorded Patient Health Questionnaire-2 Score 3 03/27/2025 Sex and Gender Information Value Date Recorded Sex Assigned at Not on file Legal Sex Male 5:49 AM SUPERVISOR OF COMMUNICATIONS Gender Identity Not on file Sexual Orientation Not on file Last Filed Vital Signs Vital Sign Reading Time Taken Comments Blood Pressure 161/96 10/05/2015 12:50 PM SUPERVISOR OF COMMUNICATIONS Pulse 77 10/05/2015 12:50 PM SUPERVISOR OF COMMUNICATIONS Temperature 36.8 C (98.2 F) 09/29/2015 11:28 AM SUPERVISOR OF COMMUNICATIONS Respiratory Rate 20 09/29/2015 11:28 AM SUPERVISOR OF COMMUNICATIONS Oxygen Saturation 93% 09/29/2015 11:28 AM SUPERVISOR OF COMMUNICATIONS Inhaled Oxygen Concentration 21% 05/26/2015 2 :00 PM CDT Weight 128.8 kg (284 lb) 03/27/2025 10:15 AM CDT Height 182.9 cm (6') 03/27/2025 10:15 AM CDT Body Mass Index 38.52 03/27/2025 10:15 AM CDT Plan of Treatment Upcoming Encounters Date Type Department Care Team (Late st Contact Info) Description 07/10/2025 1:15 PM SUPERVISOR OF COMMUNICATIONS Office Visit [facility] - Orthopedic Surgery [address] [place] [phone] Prabhu Mcdaniel, DO [address] [place] [id number] Health Maintenance Due Date Last Done Comments COLOGUARD (AGES 45-75) - COLON CA SCREENING 1955 COLON MONITORING 1955 COLONOSCOPY - COLON CA SCREENING 1955 CT COLONOGRAPHY - COLON CA SCREENING 1955 Colorectal Cancer Screening 1955 FIT - COLON CA SCREENING 1955 FLEX SIG - COLON CA SCREENING 1955 MEDICARE AWV 12 MONTHS 1955 HEPATITIS C SCREENING 06/04/1973 DTAP/TDAP/TD VACCINES (1 - Tdap) 1974 PNEUMOCOCCAL VACCINE 50+ (1 of 2 - PCV) 1974 DIABETES-STATIN 1995 ZOSTER VACCINE (1 of 2) 2005 Respiratory Syncytial Virus (RSV) Vaccine Pt: or over 60 yrs (1 - Risk 60-74 years 1-dose series) 2015 DIABETES-FOOT EXAM WITH MONOFILAMENT 08/16/2015 DIABETES-HGB A1C 04/02/2022 10/03/2021, 09/10/2015 DIABETES - URINE PROTEIN SCREENING 08/06/2024 DIABETES-SERUM CREATININE 08/23/20242023, 09/29/2015, 09/28/2015, Additional history exists COVID-19 VACCINE ( - 2024- season) 2025 10/19/2020, 09/21/2020 INFLUENZA VACCINE (#1) 2025 , 07/17/2022, 05/05/2021, Additional history exists DIABETES RETINOPATHY SCREENING 03/02/2027 03/02/2025, 03/28/2024, 12/25/2023 HEPATITIS B VACCINE Aged Out No longe r eligible based on patient's age to complete this topic HIB VACCINE Aged Out No longer eligi ble based on patient's age to complete this topic HPV VACCINE Aged Out No longer eligi ble based on patient's age to complete this topic MENINGOCOCCAL (Group B) VACCINE SHARED DECISION-MAKING Aged Out No longer eligible based on patient's age to complete this topic MENINGOCOCCAL GROUPS A/C/Y/W VACCINE Aged Out No longer eligible based on patient's age to complete this topic Procedures Procedure Name Priority Date/Time Associated Diagnosis Comments BASIC METABOLIC PANEL (CALCIUM TOTAL) AM Draw 09/29/2015 4:03 AM SUPERVISOR OF COMMUNICATIONS HEMOGLOBIN A1C Routine 09/10/2015 2:49 PM SUPERVISOR OF COMMUNICATIONS Type 2 diabetes mellitus without complication from Last 3 Months or Most Recently Relevant to Health Maintenance Results * (ABNORMAL) BASIC METABOLIC PANEL (CALCIUM TOTAL) (09/29/2015 4:03 AM SUPERVISOR OF COMMUNICATIONS) Glucose 126(H) 74 - 106 mg/dL 09/29/2015 5:30 AM [facility] Sodium 140 136 - 145 mmol/L 09/29/2015 5:30 AM [facility] Potassium 3.7 3.5 - 5.1 mmol/L 09/29/2015 5:30 AM [facility] Chloride 107 98 - 107 mmol/L 09/29/2015 5:30 AM [facility] CO2 26 22 - 31 mmol/L 09/29/2015 5:30 AM [facility] Calcium 10.3(H) 8.5 - 10.1 mg/dL 09/29/2015 5:30 AM [facility] Anion Gap 7 5 - 20 mmol/L 09/29/2015 5:30 AM [facility] BUN 24(H) 7 - 21 mg/dL 09/29/2015 5:30 AM [facility] Creatinine 1.30 0.50 - 1.30 mg/dL 09/29/2015 5:30 AM [facility] eGFR by MDRD 56(L) >60 mL/min/1.7 3m2 09/29/2015 5:30 AM [facility] eGFR by MDRD >60 >60 mL/min/1.7 3m2 09/29/2015 5:30 AM [facility] Blood BLOOD SPECIMEN / Unknown 09/29/2015 4:03 AM SUPERVISOR OF COMMUNICATIONS 09/29/2015 4:59 AM SUPERVISOR OF COMMUNICATIONS us Srikanth Goddard MD LAB - CHEMISTRY ORDERABLES F inal Result [facility] [address] [place] [address] * HEMOGLOBIN A1C (HgbA1C) (09/10/2015 2:49 PM SUPERVISOR OF COMMUNICATIONS) Hemoglobin A1c 5.6 4.8 - 5.6 % [facility] INSURANCE BILL Comment: . Pre-diabetes: 5.7 - 6.4 Diabetes: >6.4 Glycemic control for adults with diabetes: <7.0 Whole blood specimen (specimen) BLOOD SPECIMEN WITH EDTA / Unknown 09/10/2015 2:49 PM SUPERVISOR OF COMMUNICATIONS 09/10/2015 5:37 PM SUPERVISOR OF COMMUNICATIONS Narrative Resulting Agency Comment [facility] [address] [phone] us Srikanth Goddard MD LAB - CHEMISTRY ORDERABLES F inal Result [facility] INSURANCE BILL [address] [place] [phone] from Last 3 Months or Most Recently Relevant to Health Maintenance Insurance MEDICARE [facility] Advance Directives * Full Code (Latest Code Status on File) Date Activated Date Inactivated Comments 09/27/2015 5:30 PM 09/29/2015 5:25 PM Care Teams Induction Furnace Operator Relationship Specialty Start Date End Date Pcp, None [phone] [place] [address] PCP - General 03/27/25 Carin Lizarraga, RN [employer] 09/28/15
--- OUTSIDE RECORDS SUMMARY | 2025-05-28 14:52 | XMS_ITS | Clinical Summary ---
Author Organization [facility] Address [address] [place] [address] Care Team Providers Care Respite Care Provider Name Role Phone Carin Lizarraga RN Unavailable [phone] Pcp, None Primary Care Provider Unavailabl e Source Comments [facility],non-owned Affiliates and Associated Physician Practices is amultiple site organization consisting of ambulatory clinics and hospital sitesin [place], [place], [place] and [place]. This disclosure is being madepursuant to the Care Everywhere program and may not contain all information available regarding this patient. Last updated 18.[facility] Allergies Active Allergy Reactions Criticality Noted Date Comments Oxycodone Shortness of Breath High 04/07/2015 Medications * Be aware that medications may not be up to date on this document. Alwaysverify current medications with the patient. 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, initial encounter (Primary Dx) 03/27/2025 Travel 03/24/2025 Orders Only [facility] - Orthopedic Surgery [address] [place] [phone] Prabhu Mcdaniel, Right knee pain, unspecified chronicity [...] on file Legal Sex Male 5:49 AM WAISTBAND SETTER Gender Identity Not on file Sexual Orientation Not on file Last Filed Vital Signs Vital Sign Reading Time Taken Comments Blood Pressure 161/96 10/05/2015 12:50 PM WAISTBAND SETTER Pulse 77 10/05/2015 12:50 PM WAISTBAND SETTER Temperature 36.8 C (98.2 F) 09/29/2015 11:28 AM WAISTBAND SETTER Respiratory Rate 20 09/29/2015 11:28 AM WAISTBAND SETTER Oxygen Saturation 93% 09/29/2015 11:28 AM WAISTBAND SETTER Inhaled Oxygen Concentration 21% 05/26/2015 2 :00 PM CDT Weight 128.8 kg (284 lb) 03/27/2025 10:15 AM CDT Height 182.9 cm (6') 03/27/2025 10:15 AM CDT Body Mass Index 38.52 03/27/2025 10:15 AM CDT Plan of Treatment Upcoming Encounters Date Type Department Care Team (Late st Contact Info) Description 07/10/2025 1:15 PM WAISTBAND SETTER Office Visit [facility] - Orthopedic Surgery [address] [place] [phone] Prabhu Mcdaniel, DO [address] [place] [id number] Health Maintenance Due Date Last Done Comments [...] (CALCIUM TOTAL) AM Draw 09/29/2015 4:03 AM WAISTBAND SETTER HEMOGLOBIN A1C Routine 09/10/2015 2:49 PM WAISTBAND SETTER Type 2 diabetes mellitus without complication from Last 3 Months or Most Recently Relevant to Health Maintenance Results * (ABNORMAL) BASIC METABOLIC PANEL (CALCIUM TOTAL) (09/29/2015 4:03 AM WAISTBAND SETTER) Glucose 126(H) 74 - 106 mg/dL 09/29/2015 5:30 AM [facility] Sodium 140 136 - 145 mmol/L 09/29/2015 5:30 AM [facility] Potassium 3.7 3.5 - 5.1 mmol/L 09/29/2015 5:30 AM [facility] Chloride 107 98 - 107 mmol/L 09/29/2015 5:30 AM [facility] CO2 26 22 - 31 mmol/L 09/29/2015 5:30 AM [facility] Calcium 10.3(H) 8.5 - 10.1 mg/dL 09/29/2015 5:30 AM [facility] Anion Gap 7 5 - 20 mmol/L 09/29/2015 5:30 AM [facility] BUN 24(H) 7 - 21 mg/dL 09/29/2015 5:30 AM [facility] Creatinine 1.30 0.50 - 1.30 mg/dL 09/29/2015 5:30 AM [facility] eGFR by MDRD 56(L) >60 mL/min/1.7 3m2 09/29/2015 5:30 AM [facility] eGFR by MDRD >60 >60 mL/min/1.7 3m2 09/29/2015 5:30 AM [facility] Blood BLOOD SPECIMEN / Unknown 09/29/2015 4:03 AM WAISTBAND SETTER 09/29/2015 4:59 AM WAISTBAND SETTER us Srikanth Goddard MD LAB - CHEMISTRY ORDERABLES F inal Result [facility] [address] [place] [address] * HEMOGLOBIN A1C (HgbA1C) (09/10/2015 2:49 PM WAISTBAND SETTER) Hemoglobin A1c 5.6 4.8 - 5.6 % [facility] INSURANCE BILL Comment: . Pre-diabetes: 5.7 - 6.4 Diabetes: >6.4 Glycemic control for adults with diabetes: <7.0 Whole blood specimen (specimen) BLOOD SPECIMEN WITH EDTA / Unknown 09/10/2015 2:49 PM WAISTBAND SETTER 09/10/2015 5:37 PM WAISTBAND SETTER Narrative Resulting Agency Comment [facility] [address] [id number] us Srikanth Goddard MD LAB - CHEMISTRY ORDERABLES F inal Result [facility] INSURANCE BILL [address] [place] [address] from Last 3 Months or Most Recently Relevant to Health Maintenance Insurance MEDICARE [facility] Advance Directives * Full Code (Latest Code Status on File) Date Activated Date Inactivated Comments 09/27/2015 5:30 PM 09/29/2015 5:25 PM Care Teams Respite Care Provider Relationship Specialty Start Date End Date Pcp, None [address] [place] [address] PCP - General 03/27/25 Carin Lizarraga, RN [employer] 09/28/15
== END 2025-05-28 14:10 | disposition home or self-care (01) ==
PROVIDERS: Emergency Provider Emergency Medicine
DX: L02.818 Cutaneous abscess of other sites (principal); I13.0 Hypertensive heart and chronic kidney disease with heart failure and stage 1 through stage 4 chronic kidney disease, or unspecified chronic kidney disease; E11.22 Type 2 diabetes mellitus with diabetic chronic kidney disease; N18.4 Chronic kidney disease, stage 4 (severe); I50.9 Heart failure, unspecified; I48.91 Unspecified atrial fibrillation; J44.9 Chronic obstructive pulmonary disease, unspecified; Z79.01 Long term (current) use of anticoagulants; Z86.718 Personal history of other venous thrombosis and embolism; Z79.899 Other long term (current) drug therapy; Z86.73 Personal history of transient ischemic attack (TIA), and cerebral infarction without residual deficits
CPT/HCPCS: 99283

== ENCOUNTER 2025-07-11 14:19 | Emergency (ER) | payer OTHER, SELFPAY ==
[2025-07-11 14:19] VITALS: BP 156/93; PULSE 76; RESP 16; TEMP 36.4; O2SAT 100
--- OUTSIDE RECORDS SUMMARY | 2025-07-11 14:22 | XMS_ITS | Clinical Summary ---
Author Organization [facility] Address [address] [place] [address] Care Team Providers Care Mule Rider Name Role Phone Carin Lizarraga RN Unavailable [phone] Pcp, None Primary Care Provider Unavailabl e Source Comments [facility],non-owned Affiliates and Associated Physician Practices is amultiple site organization consisting of ambulatory clinics and hospital sitesin [place], [place], [place] and [place]. This disclosure is being madepursuant to the Care Everywhere program and may not contain all information available regarding this patient. Last updated 18.[facility] Allergies Active Allergy Reactions Criticality Noted Date Comments Oxycodone Shortness of Breath High 04/07/2015 Medications * Be aware that medications may not be up to date on this document. Alwaysverify current medications with the patient. [place]-3 Fatty Acids (FISH OIL CONCENTRATE PO) Take [...] D deficiency 03/29/2025 BMI 45.0-49.9, adult 08/13/2015 halfway (current) use of insulin 08/13/2015 Overview (08/13/2015): [...] Encounters Date Type Department Care Team Description 06/17/2025 Orders Only [facility] - Orthopedic Surgery [address] [place] [phone] Prabhu Mcdaniel DO Right knee pain, unspecified chronicity from Last [...] on file Legal Sex Male 5:49 AM EGG PROCESSING SUPERVISOR Gender Identity Not on file Sexual Orientation Not on file Last Filed Vital Signs Vital Sign Reading Time Taken Comments Blood Pressure 161/96 10/05/2015 12:50 PM EGG PROCESSING SUPERVISOR Pulse 77 10/05/2015 12:50 PM EGG PROCESSING SUPERVISOR Temperature 36.8 C (98.2 F) 09/29/2015 11:28 AM EGG PROCESSING SUPERVISOR Respiratory Rate 20 09/29/2015 11:28 AM EGG PROCESSING SUPERVISOR Oxygen Saturation 93% 09/29/2015 11:28 AM EGG PROCESSING SUPERVISOR Inhaled Oxygen Concentration 21% 05/26/2015 2 :00 PM CDT Weight 128.8 kg (284 lb) 03/27/2025 10:15 AM CDT Height 182.9 cm (6') 03/27/2025 10:15 AM CDT Body Mass Index 38.52 03/27/2025 10:15 AM CDT Plan of Treatment Health Maintenance Due Date Last Done Comments [...] 50+ (1 of 2 - PCV) 1974 Respiratory Syncytial Virus (RSV) Vaccine Pt: or over 60 yrs (1 - Risk 50-74 years 1-dose series) 2005 ZOSTER VACCINE (1 of 2) 2005 DIABETES-FOOT EXAM WITH MONOFILAMENT 08/16/2015 DIABETES-HGB A1C 03/10/2016 09/10/2015 DIABETES-SERUM CREATININE 09/29/20162015, 09/28/2015, 09/28/2015, Additional history exists DIABETES - URINE PROTEIN SCREENING 08/06/2024 COVID-19 VACCINE ( season) 2025 10/19/2020, 09/21/2020 INFLUENZA VACCINE (#1) [...] (CALCIUM TOTAL) AM Draw 09/29/2015 4:03 AM EGG PROCESSING SUPERVISOR HEMOGLOBIN A1C Routine 09/10/2015 2:49 PM EGG PROCESSING SUPERVISOR Type 2 diabetes mellitus without complication from Last 3 Months or Most Recently Relevant to Health Maintenance Results * (ABNORMAL) BASIC METABOLIC PANEL (CALCIUM TOTAL) (09/29/2015 4:03 AM EGG PROCESSING SUPERVISOR) Glucose 126(H) 74 - 106 mg/dL 09/29/2015 5:30 AM EGG PROCESSING SUPERVISOR [facility] Sodium 140 136 - 145 mmol/L 09/29/2015 5:30 AM EGG PROCESSING SUPERVISOR [facility] Potassium 3.7 3.5 - 5.1 mmol/L 09/29/2015 5:30 AM EGG PROCESSING SUPERVISOR [facility] Chloride 107 98 - 107 mmol/L 09/29/2015 5:30 AM [facility] CO2 26 22 - 31 mmol/L 09/29/2015 5:30 AM [facility] Calcium 10.3(H) 8.5 - 10.1 mg/dL 09/29/2015 5:30 AM [facility] Anion Gap 7 5 - 20 mmol/L 09/29/2015 5:30 AM [facility] BUN 24(H) 7 - 21 mg/dL 09/29/2015 5:30 AM [facility] Creatinine 1.30 0.50 - 1.30 mg/dL 09/29/2015 5:30 AM [facility] eGFR by MDRD 56(L) >60 mL/min/1.7 3m2 09/29/2015 5:30 AM [facility] eGFR by MDRD >60 >60 mL/min/1.7 3m2 09/29/2015 5:30 AM [facility] Blood BLOOD SPECIMEN / Unknown 09/29/2015 4:03 AM EGG PROCESSING SUPERVISOR 09/29/2015 4:59 AM EGG PROCESSING SUPERVISOR Srikanth Goddard MD LAB - CHEMISTRY ORDERABLES F inal Result Performing Organization Address City/[facility]/ZIP Co de Phone Number [facility] [address] [place] [address] * HEMOGLOBIN A1C (HgbA1C) (09/10/2015 2:49 PM EGG PROCESSING SUPERVISOR) Hemoglobin A1c 5.6 4.8 - 5.6 % [facility] INSURANCE BILL Comment: . Pre-diabetes: 5.7 - 6.4 Diabetes: >6.4 Glycemic control for adults with diabetes: <7.0 Whole blood specimen (specimen) BLOOD SPECIMEN WITH EDTA / Unknown 09/10/2015 2:49 PM EGG PROCESSING SUPERVISOR 09/10/2015 5:37 PM EGG PROCESSING SUPERVISOR Narrative Resulting Agency Comment [facility] [address] [id number] Srikanth Goddard MD LAB - CHEMISTRY ORDERABLES F inal Result [facility] INSURANCE BILL [address] [place] [address] from Last 3 Months or Most Recently Relevant to Health Maintenance Insurance MEDICARE [facility] Advance Directives * Full Code (Latest Code Status on File) Date Activated Date Inactivated Comments 09/27/2015 5:30 PM 09/29/2015 5:25 PM Care Teams Mule Rider Relationship Specialty Start Date End Date Pcp, None [address] [place] [address] PCP - General 03/27/25 Carin Lizarraga, MICKI Curriculum Writer 09/28/15
--- NOTE | 2025-07-11 14:31 | ECG_ITS ---
Test Date: 2025-07-11 14:51:16 Measurements Intervals [place] Rate: 70 P: 0 TN: 0 QRS: -23 QRSD: 101 T: 1 QT: 393 QTc: 424 Interpretive Statements ATRIAL FIBRILLATION DELAYED PRECORDIAL R/S TRANSITION BORDERLINE ST-T WAVE ABNORMALITY- INFERIOR LEADS BASELINE ARTIFACT- I, II, III, AVR, AVL, AVF, V1-V6 ABNORMAL ECG No previous ECG available for comparison Electronically Signed On 07-11-2025 15:59:42 PRIVATE CLIENT ADVISOR by Homero Hughes D.O.
[2025-07-11 14:48] LABS: Hematocrit 42.7 % (37.0-46.0); Hemoglobin 13.5 g/dL (12.4-15.3); Immature Granulocyte Percent A 0.2 % (0.0-0.0); Lymphocytes Absolute Auto 1.54 K/mm3 (1.10-4.50); Mean Corpuscular HGB Conc 31.6 g/dL (32-36); Mean Corpuscular Hemoglobin 25.9 pg (27.0-31.0); Mean Corpuscular Volume 81.8 fL (78.0-102.0); Nucleated Red Blood Cells Absolute Auto 0.00 K/mm3 (0.00-0.00); Nucleated Red Blood Cells Perc 0.0 % (0-0.0); Platelet Count Result 211 K/mm3 (150-420); Red Blood Count 5.22 M/mm3 (4.70-6.10); White Blood Count 8.1 K/mm3 (4.8-10.8)
[2025-07-11 15:00] LABS: Acetaminophen < 10 ug/mL (10-30); Salicylate < 1.0 mg/dL (2-20)
[2025-07-11 15:01] LABS: Alanine Aminotransferase 21 U/L (6-50); Anion Gap 11 mmol/L (4-12); Aspartate Amino Transferase 23 U/L (17-59); Bilirubin,Total 0.8 mg/dL (0.2-1.3); Blood Urea Nitrogen 32 mg/dL (9-20); Calcium 9.9 mg/dL (8.4-10.2); Carbon Dioxide 23 mmol/L (22-30); Chloride 104 mmol/L (98-107); Estimated CRCL calculation 47 ml/min; Estimated Glomerular Filt Rate 37; Glucose 205 mg/dL (65-110); Osmolality Calculated 298 mOsm/kg (285-295); Potassium 3.9 mmol/L (3.4-5.0); Sodium 138 mmol/L (137-145)
[2025-07-11 15:02] LABS: Albumin Level 4.6 g/dL (3.5-5.1); Alkaline Phosphatase 115 U/L (38-126); Total Protein 7.7 g/dL (6.3-8.2)
--- OUTSIDE RECORDS SUMMARY | 2025-07-11 15:11 | XMS_ITS | Clinical Summary ---
Author Organization [facility] [employer] Address [address] [address] Care Team Providers Care Correctional Therapy Director Name Role Phone Carin Lizarraga RN Unavailable [phone] Pcp, None Primary Care Provider Unavailabl e Source Comments [facility] [employer],non-owned Affiliates and Associated Physician Practices is amultiple site organization consisting of ambulatory clinics and hospital sitesin [place], [place], [place] and [place]. This disclosure is being madepursuant to the Care Everywhere program and may not contain all information available regarding this patient. Last updated 18.[facility] [employer] Allergies Active Allergy Reactions Criticality Noted Date Comments Oxycodone Shortness of Breath High 04/07/2015 Medications * Be aware that medications may not be up to date on this document. Alwaysverify current medications with the patient. [place]-3 Fatty Acids (FISH OIL CONCENTRATE PO) Take [...] D deficiency 03/29/2025 BMI 45.0-49.9, adult 08/13/2015 [facility]PC (current) use of insulin 08/13/2015 Overview (08/13/2015): [...] [facility] [address] [place] [phone] Prabhu Mcdaniel DO Right knee pain, unspecified [...] on file Legal Sex Male 5:49 AM FIELD CHECKER Gender Identity Not on file Sexual Orientation Not on file Last Filed Vital Signs Vital Sign Reading Time Taken Comments Blood Pressure 161/96 10/05/2015 12:50 PM FIELD CHECKER Pulse 77 10/05/2015 12:50 PM FIELD CHECKER Temperature 36.8 C (98.2 F) 09/29/2015 11:28 AM FIELD CHECKER Respiratory Rate 20 09/29/2015 11:28 AM FIELD CHECKER Oxygen Saturation 93% 09/29/2015 11:28 AM FIELD CHECKER Inhaled Oxygen Concentration 21% 05/26/2015 2 :00 [...] (CALCIUM TOTAL) AM Draw 09/29/2015 4:03 AM FIELD CHECKER HEMOGLOBIN A1C Routine 09/10/2015 2:49 PM FIELD CHECKER Type 2 diabetes mellitus without complication from Last 3 Months or Most Recently Relevant to Health Maintenance Results * (ABNORMAL) BASIC METABOLIC PANEL (CALCIUM TOTAL) (09/29/2015 4:03 AM FIELD CHECKER) Glucose 126(H) 74 - 106 mg/dL 09/29/2015 5:30 AM FIELD CHECKER [facility] Sodium 140 136 - 145 mmol/L 09/29/2015 5:30 AM FIELD CHECKER [facility] Potassium 3.7 3.5 - 5.1 mmol/L 09/29/2015 5:30 AM FIELD CHECKER [facility] Chloride 107 98 - 107 mmol/L 09/29/2015 5:30 AM [facility] CO2 26 22 - 31 mmol/L 09/29/2015 5:30 AM [facility] Calcium 10.3(H) 8.5 - 10.1 mg/dL 09/29/2015 5:30 AM [facility] Anion Gap 7 5 - 20 mmol/L 09/29/2015 5:30 AM [facility] BUN 24(H) 7 - 21 mg/dL 09/29/2015 5:30 AM [facility] Creatinine 1.30 0.50 - 1.30 mg/dL 09/29/2015 5:30 AM [facility] eGFR by MDRD 56(L) >60 mL/min/1.7 3m2 09/29/2015 5:30 AM [facility] eGFR by MDRD >60 >60 mL/min/1.7 3m2 09/29/2015 5:30 AM [facility] Blood BLOOD SPECIMEN / Unknown 09/29/2015 4:03 AM FIELD CHECKER 09/29/2015 4:59 AM FIELD CHECKER Srikanth Goddard MD LAB - CHEMISTRY ORDERABLES F inal Result Performing Organization Address City/[facility]/ZIP Co de Phone Number [facility] [address] [place] [address] * HEMOGLOBIN A1C (HgbA1C) (09/10/2015 2:49 PM FIELD CHECKER) Hemoglobin A1c 5.6 4.8 - 5.6 % [facility] INSURANCE BILL Comment: . Pre-diabetes: 5.7 - 6.4 Diabetes: >6.4 Glycemic control for adults with diabetes: <7.0 Whole blood specimen (specimen) BLOOD SPECIMEN WITH EDTA / Unknown 09/10/2015 2:49 PM FIELD CHECKER 09/10/2015 5:37 PM FIELD CHECKER Narrative Resulting Agency Comment [facility] [address] [id number] Srikanth Goddard MD LAB - CHEMISTRY ORDERABLES F inal Result [facility] INSURANCE BILL [address] [place] [address] from Last 3 Months or Most Recently Relevant to Health Maintenance Insurance MEDICARE [facility] Advance Directives * Full Code (Latest Code Status on File) Date Activated Date Inactivated Comments 09/27/2015 5:30 PM 09/29/2015 5:25 PM Care Teams Correctional Therapy Director Relationship Specialty Start Date End Date Pcp, None [address] [place] [address] PCP - General 03/27/25 Carin Lizarraga, MICKI Start Up Specialist 09/28/15
[2025-07-11 15:41] LABS: Thyroid Stimulating Hormone Reflex 0.992 uIU/mL (0.465-4.68)
[2025-07-11 15:52] LABS: Add Urine Microscopic? YES; Appearance Urine Clear (Clear); Glucose Urine UA 3+ (Negative); Leukocyte Esterase Ur Negative LEU/UL (Negative); Nitrate Urine Negative (Negative); Specific Grav Ur <= 1.005 (1.010-1.020)
--- NOTE | 2025-07-11 16:04 | ED.PSYCH ---
HPI - Psych General Chief Complaint: Psychiatric Symptoms Stated Complaint: PSYCH EVAL Time Seen by Provider: 07/11/25 14:22 Source: patient and EMS Mode of arrival: EMS Limitations: no limitations History of Present Illness HPI Narrative: This is a 70-year-old male with history of depression presents via EMS after he states that he is feeling extremely sad worsen his usual depression symptoms currently takes medication for depression, states that he usually gets sad overwhelmingly during the holidays and also admits that he got angry with family members today. Patient denies any suicidal ideation or plan no homicidal thoughts no psychosis. Otherwise no chest pain or shortnes of breath no abdominal pain no diarrhea constipation no nausea vomiting no fever chills. MD complaint: feels depressed Onset (ago): day(s) Duration: constant History of same: Yes Relieving factors: none Exacerbating factors: other (Holidays) Associated psychiatric symptoms: depression Associated symptoms: denies other symptoms Related Data Home Medications ?Medication ?Instructions ?Recorded ?Confirmed ?Last Taken ?Type Lactobacillus acidophilus 0.5 mg 100 mmu cells PO DAILY 07/24/24 05/28/25 Unknown History (100 million cell) tablet atorvastatin 80 mg tablet 80 mg PO HS 07/24/24 05/28/25 Unknown History cetirizine 10 mg tablet (24Hour 10 mg PO DAILY 07/24/24 05/28/25 Unknown History Allergy) cholecalciferol (vitamin D3) 50 4,000 unit PO DAILY 07/24/24 05/28/25 Unknown History mcg (2,000 unit) capsule (Vitamin D3) empagliflozin 25 mg tablet 12.5 mg PO DAILY diabetes 07/24/24 05/28/25 07/24/24 History furosemide 40 mg tablet (Lasix) 40 mg PO DAILY 07/24/24 05/28/25 07/24/24 History losartan 50 mg tablet (Cozaar) 50 mg PO DAILY HTN 07/24/24 05/28/25 07/24/24 History mirtazapine 45 mg tablet 45 mg PO HS restless legs 07/24/24 05/28/25 07/23/24 History omeprazole 40 mg capsule,delayed 40 mg PO BID 07/24/24 05/28/25 Unknown History release paroxetine HCl 20 mg tablet 20 mg PO DAILY 07/24/24 05/28/25 Unknown History warfarin 2 mg tablet 2 mg PO QMWF 07/24/24 07/24/24 Unknown History Held on 07/28/24. Instructions: Resume on 08/15/24. HOLD until INR comes back to goal of 2-2.5. warfarin 3 mg tablet 3 mg PO QTUTHSASU 07/24/24 07/24/24 Unknown History Held on 07/28/24. Instructions: Resume on 08/15/24. HOLD until INR comes back to goal of 2-2.5. zolpidem 10 mg tablet 10 mg PO HS PRN insomnia 07/24/24 05/28/25 Unknown History latanoprost 0.005 % eye drops 1 drp EACH EYE DAILY 07/26/24 05/28/25 Unknown History melatonin 3 mg capsule 3 mg PO HS PRN sleep 07/26/24 05/28/25 Unknown History quetiapine 25 mg tablet (Seroquel) 25 mg PO HS 07/26/24 05/28/25 Unknown History Allergies Allergy/AdvReac Type Severity Reaction Status Date / Time nafcillin Allergy Unknown Unknown Verified 07/11/25 14:44 oxycodone AdvReac Mild Unknown Verified 07/11/25 14:44 Review of Systems Review of Systems: All systems reviewed & are unremarkable except as noted in HPI and below PMFSH Past Medical History Medical History Diabetic peripheral neuropathy Bipolar disorder PTSD (post-traumatic stress disorder) Depression Thyroid nodule Glaucoma GERD (gastroesophageal reflux disease) Obstructive sleep apnea COPD (chronic obstructive pulmonary disease) Essential hypertension CHF (congestive heart failure) Chronic anticoagulation Atrial fibrillation CVA (cerebral vascular accident) DVT (deep venous thrombosis) Right lower extremity Diabetes Prior to Ozempic his A1c was 14 after Ozempic his A1c is down to 6.2 Chronic kidney disease Stage IV Surgical History Surgical History History of arthroplasty of right shoulder History of spinal fusion Complicated by MRSA infection History of gastric bypass (~2014) History of knee replacement, total bilateral Family History Family History Father Parkinson's disease Hypertension Mother Hypertension Social History Social History Social History: He lives with his of approximately 40 years. He served in the [employer] for 11 years. 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 He is a lifelong nonsmoker and has not drink to any significant amount since he was in his early 20s or 30s. He denies ever having been a problem drinker. He denies illicit substance use. He ambulates with a walker or utilizes a wheelchair for mobility. [facility]ce[facility] care through the [facility] Code status: Full code Surrogate decision maker: Smoking status: Never smoker Alcohol intake: never Substance use: never Substance use type: does not use Lack of Transportation: No Lack of Food: Never True Current Housing: I Have Housing Concerned About Future Housing: No Difficulty Paying Gas/Electric Bills: No Difficulty Paying for Meds: No Currently Unemployed: No Education: High School Diploma/GED Difficulty w/ Childcare or Family Care: No Spiritual care concerns: No Exam Const: General: healthy appearing and no acute distress Nutritional Appearance: well nourished and obese Orientation/consciousness: patient oriented x3 Limitations: behavioral limitations Eyes: Conjunctivae: conjunctivae normal Pupils: Equal, round and reactive pupils present Neck: Neck: normal visual inspection Chest: Chest palpation & inspection: normal inspection of the chest Resp: Effort & Inspection: normal respiratory effort Auscultation: clear to auscultation bilaterally Cardio: Rate: regular rate Rhythm: regular rhythm GI: GI Palp: Yes Soft to palpation Auscultation: normal bowel sounds Psych: Affect: Sad affect present Course Course Emergency Course: Medical decision making narrative: The patient was evaluated by myself in the emergency department. History obtained from the patient who is independent historian and physical exam performed and witnessed by nurse. External med record reviewed this time. Patient had medical psych clearance and blood work EKG within normal limits with no significant abnormalities urinalysis does not show any significant abnormalities. Patient did receive p.o. alprazolam. Repeat assessment: Patient doing well on repeat exam in no acute distress Symptoms are stable since arrival to the emergency department Repeat vitals are stable Patient agrees with discussion after shared medical decision-making and agrees with being evaluated by Mental Health. All questions answered to patient's satisfaction. Patient is medically cleared for mental health evaluation Vital Signs Vital signs: Vital Signs Temperature 36.4 C 07/11/25 14:19 Pulse Rate 76 07/11/25 14:19 Respiratory Rate 16 07/11/25 14:19 Blood Pressure 156/93 H 07/11/25 14:19 Pulse Oximetry 100 07/11/25 14:19 Oxygen Delivery Room Air 07/11/25 14:19 Temperature 36.4 C 07/11/25 19:00 Pulse Rate 98 07/11/25 19:00 Respiratory Rate 16 07/11/25 19:00 Blood Pressure 149/89 H 07/11/25 19:00 Pulse Oximetry 98 07/11/25 19:00 Oxygen Delivery Room Air 07/11/25 19:00 MDM Differential Diagnosis Differential Diagnosis: Depression Lab Data 07/11/25 14:42 07/11/25 14:42 Labs: Lab Results 07/11/25 07/11/25 Range/Units 14:42 15:46 WBC 8.1 (4.8-10.8) K/mm3 RBC 5.22 (4.70-6.10) M/mm3 Hgb 13.5 (12.4-15.3) g/dL Hct 42.7 (37.0-46.0) % MCV 81.8 (78.0-102.0) fL MCH 25.9 L (27.0-31.0) pg MCHC 31.6 L (32-36) g/dL RDW 15.2 H (11.6-14.4) % Plt Count 211 (150-420) K/mm3 MPV 10.1 (8.7-11.0) fl Immature Gran % (Auto) 0.2 H (0.0-0.0) % Neut % (Auto) 70.0 (50.0-70.0) % Lymph % (Auto) 19.0 (18.0-42.0) % [place] % (Auto) 8.0 (2.0-11.0) % Eos % (Auto) 2.2 (1.0-6.0) % Baso % (Auto) 0.6 (0.0-1.0) % Lymph # (Auto) 1.54 (1.10-4.50) K/mm3 [place] # (Auto) 0.65 (0.10-0.90) K/mm3 Eos # (Auto) 0.18 (0.02-0.50) K/mm3 Baso # (Auto) 0.05 (0.00-0.10) K/mm3 Abs Immat Gran (auto) 0.02 H (0.00-0.00) K/mm3 Absolute Neuts (auto) 5.65 (1.70-7.20) K/mm3 Absolute Nucleated RBC 0.00 (0.00-0.00) K/mm3 Nucleated RBC % 0.0 (0-0.0) % Sodium 138 (137-145) mmol/L Potassium 3.9 (3.4-5.0) mmol/L Chloride 104 (98-107) mmol/L Carbon Dioxide 23 (22-30) mmol/L Anion Gap 11 (4-12) mmol/L BUN 32 H (9-20) mg/dL Creatinine 1.80 H (0.7-1.3) mg/dL Estim Creat Clear Calc 47 ml/min Estimated GFR 37 L (59 - ) Glucose 205 H (65-110) mg/dL Calculated Osmolality 298 H (285-295) mOsm/kg Calcium 9.9 (8.4-10.2) mg/dL Total Bilirubin 0.8 (0.2-1.3) mg/dL AST 23 (17-59) U/L ALT 21 (6-50) U/L Alkaline Phosphatase 115 (38-126) U/L Total Protein 7.7 (6.3-8.2) g/dL Albumin 4.6 (3.5-5.1) g/dL TSH (Reflex) 0.992 (0.465-4.68) uIU/mL Urine Color Light yellow (Yellow) Urine Appearance Clear (Clear) Urine pH 6.0 (5.0-8.0) Ur Specific [place] <= 1.005 L (1.010-1.020) Urine Protein 1+ H (Negative) Urine Glucose (UA) 3+ H (Negative) Urine Ketones Negative (Negative) Ur Blood (Man) Negative (Negative) Urine Nitrate Negative (Negative) Urine Bilirubin Negative (Negative) Urine Urobilinogen 0.2 (0.2-1.0) mg/dL Leukocyte Esterase Rfl Negative (Negative) ROB/UL Urine RBC 0-2 (0-2) /hpf Urine WBC 0-3 (0-3) /hpf Ur Squamous Epith Cells Few (Few) /hpf Urine Bacteria Rare (None) /hpf Salicylates < 1.0 L (2-20) mg/dL Urine Opiates Screen Negative (Negative) Urine Methadone Screen Negative (Negative) Acetaminophen < 10 L (10-30) ug/mL Ur Barbiturates Screen Negative (Negative) Ur Phencyclidine Scrn Negative (Negative) Ur Amphetamine Screen Negative (Negative) U Benzodiazepines Scrn Negative (Negative) Urine Cocaine Screen Negative (Negative) U Cannabinoids Screen Positive A (Negative) Ethyl Alcohol < 10 (<10) mg/dL Critical Care Time Critical Care Time Critical Care Time: No Discharge Plan Discharge Clinical Impression: Depression Qualifiers: Depression Type: unspecified Qualified Code(s): F32.A - Depression, unspecified Patient Disposition: Home Condition: Stable Instructions: Antibiotic Form Additional Instructions: Advised follow-up with [facility] for further evaluation and treatment. Patient Language: Setswana Prescriptions: No Action clindamycin HCl [Cleocin HCl] 300 mg capsule 300 mg PO Q6H 10 Days Qty: 40 0RF mirtazapine 45 mg tablet 45 mg PO HS losartan [Cozaar] 50 mg tablet 50 mg PO DAILY furosemide [Lasix] 40 mg tablet 40 mg PO DAILY empagliflozin 25 mg tablet 12.5 mg PO DAILY cetirizine [24Hour Allergy] 10 mg tablet 10 mg PO DAILY paroxetine HCl 20 mg tablet 20 mg PO DAILY zolpidem 10 mg tablet 10 mg PO HS PRN (Reason: insomnia) Lactobacillus acidophilus 0.5 mg (100 million cell) tablet 100 mmu cells PO DAILY atorvastatin 80 mg tablet 80 mg PO HS omeprazole 40 mg capsule,delayed release(DR/EC) 40 mg PO BID cholecalciferol (vitamin D3) [Vitamin D3] 50 mcg (2,000 unit) capsule 4,000 unit PO DAILY warfarin 2 mg tablet 2 mg PO QMWF warfarin 3 mg tablet 3 mg PO QTUTHSASU melatonin 3 mg capsule 3 mg PO HS PRN (Reason: sleep) quetiapine [Seroquel] 25 mg tablet 25 mg PO HS Patient Comments: Pt takes 1/2 tablet at bedtime. latanoprost 0.005 % drops 1 drp EACH EYE DAILY Patient Comments: in evening colchicine [Colcrys] 0.6 mg Tablet 0.6 mg PO Q12HR Qty: 14 0RF acetaminophen 325 mg Tablet 650 mg PO Q4H PRN (Reason: Mild Pain (1-3) Or Fever) Qty: 30 0RF insulin glargine [Lantus U-100 Insulin] 100 unit/mL Solution 7 unit subcut DAILY Qty: 10 0RF acetaminophen 500 mg capsule 1,000 mg PO Q6H PRN (Reason: pain) Qty: 30 0RF hydrocodone-acetaminophen 7.5-325 mg tablet 1 tablet PO Q8H PRN (Reason: pain) 5 Days Qty: 14 0RF Follow-up/Referrals: [facility] [Primary Care Provider, Medical] Time of Disposition: 18:51
[2025-07-11 16:09] LABS: Cannabinoid Screen Urine Positive (Negative)
--- NOTE | 2025-07-11 16:53 | PC.NURSE ---
Per ERP Dr. Aggarwal, patient is medically clear for evaluation, Pee gibson has arrived to ED.
[2025-07-11 18:23] VITALS: BP 149/89; PULSE 77; RESP 16; TEMP 36.4; O2SAT 98
[2025-07-11 19:00] VITALS: BP 149/89; PULSE 98; RESP 16; TEMP 36.4; O2SAT 98
== END 2025-07-11 19:00 | disposition home or self-care (01) ==
PROVIDERS: Emergency Provider Emergency Medicine
DX: F32.A Depression, unspecified (principal); I48.91 Unspecified atrial fibrillation; J44.9 Chronic obstructive pulmonary disease, unspecified; I13.0 Hypertensive heart and chronic kidney disease with heart failure and stage 1 through stage 4 chronic kidney disease, or unspecified chronic kidney disease; E11.22 Type 2 diabetes mellitus with diabetic chronic kidney disease; N18.4 Chronic kidney disease, stage 4 (severe); I50.9 Heart failure, unspecified
CPT/HCPCS: 36415; 80053; 80143; 80179; 80307; 81001; 82077; 84443; 85025; 93005; 99283